=== PATIENT | male | born 1950 | race Asian ===

== ENCOUNTER → 2023-11-20 08:54 | Outpatient (REF) | payer MEDICARE, OTHER, SELFPAY ==
[2023-11-20 09:51] LABS: ALT (SGPT) 29 U/L (0-50); AST (SGOT) 47 U/L (17-59); Albumin 3.8 g/dl (3.5-5.0); Alkaline Phosphatase 79 U/L (38-126); Direct Bilirubin 0.7 mg/dl (0.0-0.4); HDL Cholesterol 52 mg/dl; LDL Cholesterol, Calculated 62 mg/dl; Total Bilirubin 1.1 mg/dl (0.2-1.3); Total Cholesterol 134 mg/dl (50-199); Total Protein 7.2 g/dl (6.3-8.2); Triglyceride 103 mg/dl (10-149); Very Low Density Lipoprotein 20 mg/dl (0-30)
== END ==
LOC: REG 08:54
PROVIDERS: ATTENDING PHYSICIAN Internal Medicine Cardiovascular Disease; FAMILY PHYSICIAN Student in an Organized Health Care Education/Training Program
DX: E78.00 Pure hypercholesterolemia, unspecified (principal)
CPT/HCPCS: 36415; 80061; 80076

== ENCOUNTER → 2023-11-24 08:06 | Outpatient (REF) | payer MEDICARE, OTHER, SELFPAY ==
[2023-11-24 08:55] LABS: % Basophils 0.7 % (0-2); % Eosinophils 3.5 % (0-6); % Immature Granulocytes 0.3 % (0-0.5); % Lymphocytes 23.4 % (20.5-51.1); % Monocytes 10.6 % (1.7-9.3); % Neutrophils 61.5 % (42.2-75.2); Absolute Basophils 0.1 10^3/uL (0-0.2); Absolute Eosinophils 0.3 10^3/uL (0-0.7); Absolute Lymphocytes 1.8 10^3/uL (1.2-3.4); Absolute Monocytes 0.8 10^3/uL (0.1-0.6); Absolute Neutrophils 4.7 10^3/uL (1.4-6.5); Hematocrit 32.3 % (39.0-52.0); Hemoglobin 10.8 g/dL (13.0-18.0); Mean Corp Hgb Conc. 33.4 g/dL (33.0-37.0); Mean Corpuscular Volume 92.8 fL (80.0-94.0); Mean Platelet Volume 11.5 fL (7.4-10.4); Nucleated Red Blood Cells % 0 % (-); Platelet Count 141 10^3/uL (130-400); Red Blood Cell Count 3.48 10^6/uL (4.70-6.10); Red Cell Dist. Width 15.9 % (11.5-14.5); White Blood Cell Count 7.6 10^3/uL (4.8-10.8)
[2023-11-24 09:48] LABS: Iron 90 ug/dl (49-181)
== END ==
LOC: REG 08:06
PROVIDERS: ATTENDING PHYSICIAN Internal Medicine Hematology & Oncology
DX: D63.1 Anemia in chronic kidney disease (principal); N18.30 Chronic kidney disease, stage 3 unspecified; D50.9 Iron deficiency anemia, unspecified
CPT/HCPCS: 36415; 82728; 83540; 85025

== ENCOUNTER → 2023-12-07 08:49 | Outpatient (REF) | payer MEDICARE, OTHER, SELFPAY ==
[2023-12-07 10:42] LABS: ALT (SGPT) 33 U/L (0-50); AST (SGOT) 41 U/L (17-59); Albumin 3.7 g/dl (3.5-5.0); Alkaline Phosphatase 82 U/L (38-126); Blood Urea Nitrogen 76 mg/dl (9-20); Calcium 8.4 mg/dl (8.4-10.2); Carbon Dioxide 22 mmol/L (22-30); Chloride 104 mmol/L (98-107); Glucose 110 mg/dl (70-99); HDL Cholesterol 45 mg/dl; LDL Cholesterol, Calculated 58 mg/dl; Potassium 4.5 mmol/L (3.5-5.1); Sodium 135 mmol/L (135-145); Total Cholesterol 120 mg/dl (50-199); Triglyceride 86 mg/dl (10-149); Very Low Density Lipoprotein 17 mg/dl (0-30); eGFR 14.87
[2023-12-07 11:20] LABS: Microalbumin, Random Urine > 57.0 mg/dl (0.6-1.7)
[2023-12-07 11:52] LABS: Glycohemoglobin (HgbA1c) 8.4 % (4.0-5.6)
== END ==
LOC: REG 08:49
PROVIDERS: ATTENDING PHYSICIAN Nurse Practitioner Family; FAMILY PHYSICIAN Student in an Organized Health Care Education/Training Program
DX: E11.9 Type 2 diabetes mellitus without complications (principal); E11.29 Type 2 diabetes mellitus with other diabetic kidney complication
CPT/HCPCS: 36415; 80053; 80061; 82043; 82570; 83036

== ENCOUNTER → 2023-12-22 08:28 | Outpatient (REF) | payer MEDICARE, OTHER, SELFPAY ==
[2023-12-22 09:14] LABS: % Basophils 0.8 % (0-2); % Eosinophils 2.5 % (0-6); % Immature Granulocytes 0.3 % (0-0.5); % Neutrophils 58.4 % (42.2-75.2); Absolute Basophils 0.1 10^3/uL (0-0.2); Absolute Eosinophils 0.2 10^3/uL (0-0.7); Absolute Monocytes 0.7 10^3/uL (0.1-0.6); Absolute Neutrophils 4.1 10^3/uL (1.4-6.5); Hematocrit 27.3 % (39.0-52.0); Hemoglobin 9.1 g/dL (13.0-18.0); Mean Corp Hgb Conc. 33.3 g/dL (33.0-37.0); Mean Corpuscular Hgb 31.3 pg (27.0-31.0); Mean Corpuscular Volume 93.8 fL (80.0-94.0); Nucleated Red Blood Cells % 0 % (-); Platelet Count 149 10^3/uL (130-400); Red Blood Cell Count 2.91 10^6/uL (4.70-6.10); White Blood Cell Count 7.1 10^3/uL (4.8-10.8)
[2023-12-22 09:57] LABS: Iron 82 ug/dl (49-181)
== END ==
LOC: REG 08:28
PROVIDERS: ATTENDING PHYSICIAN Internal Medicine Hematology & Oncology; FAMILY PHYSICIAN Student in an Organized Health Care Education/Training Program
DX: D63.1 Anemia in chronic kidney disease (principal); N18.30 Chronic kidney disease, stage 3 unspecified; D50.9 Iron deficiency anemia, unspecified
CPT/HCPCS: 36415; 82728; 83540; 85025

== ENCOUNTER → 2023-12-29 12:35 | Outpatient (REF) | payer MEDICARE, OTHER, SELFPAY | LOC: RAD 12:35 | PROVIDERS: ATTENDING PHYSICIAN Student in an Organized Health Care Education/Training Program | DX: E11.29 Type 2 diabetes mellitus with other diabetic kidney complication (principal); R09.89 Other specified symptoms and signs involving the circulatory and respiratory systems | CPT/HCPCS: 93922; 93925 ==

== ENCOUNTER → 2024-01-08 08:23 | Outpatient (REF) | payer MEDICARE, OTHER, SELFPAY ==
[2024-01-08 09:50] LABS: Albumin 3.7 g/dl (3.5-5.0); Blood Urea Nitrogen 79 mg/dl (9-20); Calcium 8.7 mg/dl (8.4-10.2); Carbon Dioxide 18 mmol/L (22-30); Chloride 107 mmol/L (98-107); Glucose 121 mg/dl (70-99); Phosphorus 5.1 mg/dl (2.5-4.5); Potassium 4.2 mmol/L (3.5-5.1); Sodium 136 mmol/L (135-145); eGFR 15.81
[2024-01-10 10:43] LABS: Intact PTH 213.6 pg/ml (13.6-85.8)
== END ==
LOC: REG 08:23
PROVIDERS: ATTENDING PHYSICIAN Specialist
DX: N18.4 Chronic kidney disease, stage 4 (severe) (principal)
CPT/HCPCS: 36415; 80069; 83970

== ENCOUNTER → 2024-01-18 10:02 | Outpatient (REF) | payer MEDICARE, OTHER, SELFPAY ==
[2024-01-18 10:40] LABS: % Basophils 0.6 % (0-2); % Eosinophils 2.6 % (0-6); % Immature Granulocytes 0.4 % (0-0.5); % Lymphocytes 18.9 % (20.5-51.1); % Neutrophils 68.5 % (42.2-75.2); Absolute Basophils 0.1 10^3/uL (0-0.2); Absolute Eosinophils 0.2 10^3/uL (0-0.7); Absolute Lymphocytes 1.8 10^3/uL (1.2-3.4); Absolute Monocytes 0.8 10^3/uL (0.1-0.6); Absolute Neutrophils 6.4 10^3/uL (1.4-6.5); Hematocrit 24.1 % (39.0-52.0); Hemoglobin 7.9 g/dL (13.0-18.0); Mean Corp Hgb Conc. 32.8 g/dL (33.0-37.0); Mean Corpuscular Hgb 32.2 pg (27.0-31.0); Mean Corpuscular Volume 98.4 fL (80.0-94.0); Nucleated Red Blood Cells % 0 % (-); Platelet Count 180 10^3/uL (130-400); Red Blood Cell Count 2.45 10^6/uL (4.70-6.10); Red Cell Dist. Width 15.2 % (11.5-14.5); White Blood Cell Count 9.3 10^3/uL (4.8-10.8)
[2024-01-18 12:02] LABS: Iron 112 ug/dl (49-181)
== END ==
LOC: REG 10:02
PROVIDERS: ATTENDING PHYSICIAN Internal Medicine Hematology & Oncology; FAMILY PHYSICIAN Student in an Organized Health Care Education/Training Program
DX: D63.1 Anemia in chronic kidney disease (principal); N18.30 Chronic kidney disease, stage 3 unspecified; D50.9 Iron deficiency anemia, unspecified
CPT/HCPCS: 36415; 82728; 83540; 85025

== ENCOUNTER 2024-01-24 09:10 | Outpatient (RCR) | payer MEDICARE, OTHER, SELFPAY ==
[2024-01-24 09:20] VITALS: BP 127/53
[2024-01-24 09:57] VITALS: BP 127/53
[2024-01-24 10:15] VITALS: BP 123/53
[2024-01-24 12:21] VITALS: BP 123/54
== END 2024-01-30 23:59 | disposition home or self-care (01) ==
LOC: OID 09:10
PROVIDERS: ATTENDING PHYSICIAN Internal Medicine Hematology & Oncology
DX: N18.4 Chronic kidney disease, stage 4 (severe) (principal); N18.30 Chronic kidney disease, stage 3 unspecified (principal); D63.1 Anemia in chronic kidney disease; D50.9 Iron deficiency anemia, unspecified
CPT/HCPCS: 36430; 86850; 86900; 86901; 86920; P9016

== ENCOUNTER → 2024-02-19 08:29 | Outpatient (REF) | payer MEDICARE, OTHER, SELFPAY ==
[2024-02-19 09:20] LABS: % Basophils 0.5 % (0-2); % Eosinophils 2.6 % (0-6); % Immature Granulocytes 0.3 % (0-0.5); % Lymphocytes 23.1 % (20.5-51.1); % Monocytes 9.8 % (1.7-9.3); % Neutrophils 63.7 % (42.2-75.2); Absolute Eosinophils 0.2 10^3/uL (0-0.7); Absolute Lymphocytes 1.8 10^3/uL (1.2-3.4); Absolute Monocytes 0.8 10^3/uL (0.1-0.6); Absolute Neutrophils 4.9 10^3/uL (1.4-6.5); Hematocrit 26.4 % (39.0-52.0); Hemoglobin 8.4 g/dL (13.0-18.0); Mean Corp Hgb Conc. 31.8 g/dL (33.0-37.0); Mean Corpuscular Hgb 31.3 pg (27.0-31.0); Mean Corpuscular Volume 98.5 fL (80.0-94.0); Mean Platelet Volume 10.6 fL (7.4-10.4); Nucleated Red Blood Cells % 0 % (-); Platelet Count 163 10^3/uL (130-400); Red Blood Cell Count 2.68 10^6/uL (4.70-6.10); Red Cell Dist. Width 14.6 % (11.5-14.5); White Blood Cell Count 7.7 10^3/uL (4.8-10.8)
[2024-02-19 09:53] LABS: Iron 71 ug/dl (49-181)
[2024-02-19 10:03] LABS: Percent Saturation 22 % (20-50); Total Iron Binding Capacity 322 ug/dl (261-462)
== END ==
LOC: REG 08:29
PROVIDERS: ATTENDING PHYSICIAN Internal Medicine Hematology & Oncology
DX: D63.1 Anemia in chronic kidney disease (principal); N18.30 Chronic kidney disease, stage 3 unspecified; D50.9 Iron deficiency anemia, unspecified
CPT/HCPCS: 36415; 82728; 83540; 83550; 85025

== ENCOUNTER → 2024-03-18 08:29 | Outpatient (REF) | payer MEDICARE, OTHER, SELFPAY ==
[2024-03-18 09:06] LABS: % Basophils 0.4 % (0-2); % Eosinophils 2.8 % (0-6); % Immature Granulocytes 0.4 % (0-0.5); % Monocytes 9.9 % (1.7-9.3); % Neutrophils 66.5 % (42.2-75.2); Absolute Eosinophils 0.2 10^3/uL (0-0.7); Absolute Lymphocytes 1.5 10^3/uL (1.2-3.4); Absolute Monocytes 0.7 10^3/uL (0.1-0.6); Absolute Neutrophils 4.9 10^3/uL (1.4-6.5); Hematocrit 28.5 % (39.0-52.0); Hemoglobin 9.1 g/dL (13.0-18.0); Mean Corp Hgb Conc. 31.9 g/dL (33.0-37.0); Mean Corpuscular Volume 100.4 fL (80.0-94.0); Mean Platelet Volume 10.5 fL (7.4-10.4); Nucleated Red Blood Cells % 0 % (-); Platelet Count 135 10^3/uL (130-400); Red Blood Cell Count 2.84 10^6/uL (4.70-6.10); Red Cell Dist. Width 15.3 % (11.5-14.5); White Blood Cell Count 7.4 10^3/uL (4.8-10.8)
[2024-03-18 09:53] LABS: Iron 62 ug/dl (49-181)
== END ==
LOC: REG 08:29
PROVIDERS: ATTENDING PHYSICIAN Internal Medicine Hematology & Oncology
DX: D63.1 Anemia in chronic kidney disease (principal); N18.30 Chronic kidney disease, stage 3 unspecified; D50.9 Iron deficiency anemia, unspecified
CPT/HCPCS: 36415; 82728; 83540; 85025

== ENCOUNTER → 2024-04-15 08:58 | Outpatient (REF) | payer MEDICARE, OTHER, SELFPAY ==
[2024-04-15 10:59] LABS: Iron 70 ug/dl (49-181)
[2024-04-15 13:17] LABS: % Basophils 0.6 % (0-2); % Eosinophils 3.4 % (0-6); % Immature Granulocytes 0.3 % (0-0.5); % Lymphocytes 25.5 % (20.5-51.1); % Monocytes 11.1 % (1.7-9.3); % Neutrophils 59.1 % (42.2-75.2); Absolute Basophils 0.1 10^3/uL (0-0.2); Absolute Eosinophils 0.3 10^3/uL (0-0.7); Absolute Monocytes 0.9 10^3/uL (0.1-0.6); Absolute Neutrophils 4.6 10^3/uL (1.4-6.5); Hematocrit 29.5 % (39.0-52.0); Hemoglobin 9.8 g/dL (13.0-18.0); Mean Corp Hgb Conc. 33.2 g/dL (33.0-37.0); Mean Corpuscular Hgb 31.5 pg (27.0-31.0); Mean Corpuscular Volume 94.9 fL (80.0-94.0); Mean Platelet Volume 10.8 fL (7.4-10.4); Nucleated Red Blood Cells % 0 % (-); Platelet Count 152 10^3/uL (130-400); Red Blood Cell Count 3.11 10^6/uL (4.70-6.10); Red Cell Dist. Width 14.6 % (11.5-14.5); White Blood Cell Count 7.9 10^3/uL (4.8-10.8)
== END ==
LOC: REG 08:58
PROVIDERS: ATTENDING PHYSICIAN Internal Medicine Hematology & Oncology; FAMILY PHYSICIAN Student in an Organized Health Care Education/Training Program
DX: D63.1 Anemia in chronic kidney disease (principal); N18.30 Chronic kidney disease, stage 3 unspecified; D50.9 Iron deficiency anemia, unspecified
CPT/HCPCS: 36415; 82728; 83540; 85025

== ENCOUNTER → 2024-05-13 10:31 | Outpatient (REF) | payer MEDICARE, OTHER, SELFPAY ==
[2024-05-13 13:08] LABS: % Basophils 0.4 % (0-2); % Eosinophils 2.3 % (0-6); % Immature Granulocytes 0.5 % (0-0.5); % Lymphocytes 23.3 % (20.5-51.1); % Monocytes 10.8 % (1.7-9.3); % Neutrophils 62.7 % (42.2-75.2); Absolute Eosinophils 0.2 10^3/uL (0-0.7); Absolute Lymphocytes 1.9 10^3/uL (1.2-3.4); Absolute Monocytes 0.9 10^3/uL (0.1-0.6); Hematocrit 25.6 % (39.0-52.0); Hemoglobin 8.6 g/dL (13.0-18.0); Mean Corp Hgb Conc. 33.6 g/dL (33.0-37.0); Mean Corpuscular Volume 92.4 fL (80.0-94.0); Mean Platelet Volume 11.6 fL (7.4-10.4); Nucleated Red Blood Cells % 0 % (-); Platelet Count 161 10^3/uL (130-400); Red Blood Cell Count 2.77 10^6/uL (4.70-6.10); Red Cell Dist. Width 14.4 % (11.5-14.5)
[2024-05-13 13:31] LABS: Iron 60 ug/dl (49-181)
[2024-05-13 13:41] LABS: Percent Saturation 19 % (20-50); Total Iron Binding Capacity 304 ug/dl (261-462)
== END ==
LOC: REG 10:31
PROVIDERS: ATTENDING PHYSICIAN Nurse Practitioner Adult Health; FAMILY PHYSICIAN Family Medicine
DX: D63.1 Anemia in chronic kidney disease (principal); N18.30 Chronic kidney disease, stage 3 unspecified; D50.9 Iron deficiency anemia, unspecified; R53.83 Other fatigue; E11.9 Type 2 diabetes mellitus without complications
CPT/HCPCS: 36415; 82728; 83540; 83550; 85025

== ENCOUNTER → 2024-05-20 15:58 | Outpatient (REF) | payer MEDICARE, OTHER, SELFPAY ==
[2024-05-20 12:02] LABS: % Basophils 0.5 % (0-2); % Eosinophils 2.8 % (0-6); % Immature Granulocytes 0.3 % (0-0.5); % Lymphocytes 22.2 % (20.5-51.1); % Monocytes 11.5 % (1.7-9.3); % Neutrophils 62.7 % (42.2-75.2); Absolute Eosinophils 0.2 10^3/uL (0-0.7); Absolute Lymphocytes 1.7 10^3/uL (1.2-3.4); Absolute Monocytes 0.9 10^3/uL (0.1-0.6); Absolute Neutrophils 4.9 10^3/uL (1.4-6.5); Hemoglobin 8.7 g/dL (13.0-18.0); Mean Corp Hgb Conc. 33.5 g/dL (33.0-37.0); Mean Corpuscular Hgb 31.3 pg (27.0-31.0); Mean Corpuscular Volume 93.5 fL (80.0-94.0); Mean Platelet Volume 10.6 fL (7.4-10.4); Nucleated Red Blood Cells % 0 % (-); Platelet Count 167 10^3/uL (130-400); Red Blood Cell Count 2.78 10^6/uL (4.70-6.10); Red Cell Dist. Width 14.9 % (11.5-14.5); White Blood Cell Count 7.8 10^3/uL (4.8-10.8)
[2024-05-20 12:45] LABS: Vitamin D, 25-OH*** 37.1 ng/mL (30-80)
== END ==
LOC: OIDL 15:58
PROVIDERS: ATTENDING PHYSICIAN Registered Nurse
DX: D63.1 Anemia in chronic kidney disease (principal); N18.30 Chronic kidney disease, stage 3 unspecified
CPT/HCPCS: 82306; 85025

== ENCOUNTER → 2024-05-27 13:18 | Outpatient (REF) | payer MEDICARE, OTHER, SELFPAY ==
[2024-05-27 12:44] LABS: Phosphorus 4.3 mg/dl (2.5-4.5)
[2024-05-27 12:49] LABS: % Basophils 0.5 % (0-2); % Eosinophils 2.5 % (0-6); % Immature Granulocytes 0.4 % (0-0.5); % Lymphocytes 23.7 % (20.5-51.1); % Monocytes 9.9 % (1.7-9.3); Absolute Eosinophils 0.2 10^3/uL (0-0.7); Absolute Monocytes 0.8 10^3/uL (0.1-0.6); Absolute Neutrophils 5.2 10^3/uL (1.4-6.5); Hematocrit 28.5 % (39.0-52.0); Hemoglobin 9.3 g/dL (13.0-18.0); Mean Corp Hgb Conc. 32.6 g/dL (33.0-37.0); Mean Corpuscular Hgb 31.3 pg (27.0-31.0); Mean Platelet Volume 10.7 fL (7.4-10.4); Nucleated Red Blood Cells % 0 % (-); Platelet Count 159 10^3/uL (130-400); Red Blood Cell Count 2.97 10^6/uL (4.70-6.10); Red Cell Dist. Width 15.7 % (11.5-14.5); White Blood Cell Count 8.3 10^3/uL (4.8-10.8)
== END ==
LOC: OIDL 13:18
PROVIDERS: ATTENDING PHYSICIAN Registered Nurse
DX: D63.1 Anemia in chronic kidney disease (principal)
CPT/HCPCS: 84100; 85025

== ENCOUNTER → 2024-06-10 08:58 | Outpatient (REF) | payer MEDICARE, OTHER, SELFPAY ==
[2024-06-10 09:51] LABS: % Basophils 0.7 % (0-2); % Eosinophils 3.1 % (0-6); % Immature Granulocytes 0.3 % (0-0.5); % Lymphocytes 21.6 % (20.5-51.1); % Monocytes 10.5 % (1.7-9.3); % Neutrophils 63.8 % (42.2-75.2); Absolute Basophils 0.1 10^3/uL (0-0.2); Absolute Eosinophils 0.2 10^3/uL (0-0.7); Absolute Lymphocytes 1.5 10^3/uL (1.2-3.4); Absolute Monocytes 0.8 10^3/uL (0.1-0.6); Absolute Neutrophils 4.6 10^3/uL (1.4-6.5); Hematocrit 32.7 % (39.0-52.0); Hemoglobin 10.6 g/dL (13.0-18.0); Mean Corp Hgb Conc. 32.4 g/dL (33.0-37.0); Mean Corpuscular Hgb 31.4 pg (27.0-31.0); Mean Corpuscular Volume 96.7 fL (80.0-94.0); Mean Platelet Volume 10.9 fL (7.4-10.4); Nucleated Red Blood Cells % 0 % (-); Platelet Count 142 10^3/uL (130-400); Red Blood Cell Count 3.38 10^6/uL (4.70-6.10); Red Cell Dist. Width 15.8 % (11.5-14.5); White Blood Cell Count 7.1 10^3/uL (4.8-10.8)
[2024-06-10 10:21] LABS: Iron 97 ug/dl (49-181)
[2024-06-10 10:31] LABS: Percent Saturation 33 % (20-50); Total Iron Binding Capacity 287 ug/dl (261-462)
== END ==
LOC: REG 08:58
PROVIDERS: ATTENDING PHYSICIAN Nurse Practitioner Adult Health
DX: D63.1 Anemia in chronic kidney disease (principal); N18.30 Chronic kidney disease, stage 3 unspecified; D50.9 Iron deficiency anemia, unspecified; R53.83 Other fatigue
CPT/HCPCS: 36415; 82728; 83540; 83550; 85025

== ENCOUNTER → 2024-07-08 09:13 | Outpatient (REF) | payer MEDICARE, OTHER, SELFPAY ==
[2024-07-08 10:06] LABS: % Basophils 0.8 % (0-2); % Eosinophils 3.7 % (0-6); % Immature Granulocytes 0.3 % (0-0.5); % Lymphocytes 27.1 % (20.5-51.1); % Monocytes 11.2 % (1.7-9.3); % Neutrophils 56.9 % (42.2-75.2); Absolute Basophils 0.1 10^3/uL (0-0.2); Absolute Eosinophils 0.3 10^3/uL (0-0.7); Absolute Monocytes 0.8 10^3/uL (0.1-0.6); Absolute Neutrophils 4.3 10^3/uL (1.4-6.5); Hematocrit 36.2 % (39.0-52.0); Hemoglobin 12.2 g/dL (13.0-18.0); Mean Corp Hgb Conc. 33.7 g/dL (33.0-37.0); Mean Corpuscular Hgb 32.7 pg (27.0-31.0); Mean Corpuscular Volume 97.1 fL (80.0-94.0); Mean Platelet Volume 11.4 fL (7.4-10.4); Nucleated Red Blood Cells % 0 % (-); Platelet Count 126 10^3/uL (130-400); Red Blood Cell Count 3.73 10^6/uL (4.70-6.10); Red Cell Dist. Width 14.3 % (11.5-14.5); White Blood Cell Count 7.5 10^3/uL (4.8-10.8)
[2024-07-08 10:53] LABS: Iron 99 ug/dl (49-181)
[2024-07-08 11:02] LABS: Percent Saturation 39 % (20-50); Total Iron Binding Capacity 248 ug/dl (261-462)
== END ==
LOC: REG 09:13
PROVIDERS: ATTENDING PHYSICIAN Nurse Practitioner Adult Health; FAMILY PHYSICIAN Family Medicine
DX: D63.1 Anemia in chronic kidney disease (principal); N18.30 Chronic kidney disease, stage 3 unspecified; D50.9 Iron deficiency anemia, unspecified; R53.83 Other fatigue
CPT/HCPCS: 36415; 82728; 83540; 83550; 85025

== ENCOUNTER → 2024-07-15 07:49 | Outpatient (REF) | payer MEDICARE, OTHER, SELFPAY ==
[2024-07-15 09:48] LABS: ALT (SGPT) 22 U/L (0-50); AST (SGOT) 24 U/L (17-59); Albumin 4.1 g/dl (3.5-5.0); Alkaline Phosphatase 63 U/L (38-126); Blood Urea Nitrogen 65 mg/dl (9-20); Calcium 8.9 mg/dl (8.4-10.2); Carbon Dioxide 21 mmol/L (22-30); Chloride 106 mmol/L (98-107); Glucose 97 mg/dl (70-99); HDL Cholesterol 53 mg/dl; LDL Cholesterol, Calculated 63 mg/dl; Potassium 4.4 mmol/L (3.5-5.1); Sodium 145 mmol/L (135-145); Total Bilirubin 0.5 mg/dl (0.2-1.3); Total Cholesterol 129 mg/dl (50-199); Total Protein 7.3 g/dl (6.3-8.2); Triglyceride 69 mg/dl (10-149); Very Low Density Lipoprotein 13 mg/dl (0-30); eGFR 11.58
[2024-07-15 11:02] LABS: Glycohemoglobin (HgbA1c) 7.1 % (4.0-5.6)
== END ==
LOC: REG 07:49
PROVIDERS: ATTENDING PHYSICIAN Internal Medicine Endocrinology, Diabetes & Metabolism; FAMILY PHYSICIAN Family Medicine
DX: E11.9 Type 2 diabetes mellitus without complications (principal)
CPT/HCPCS: 36415; 80053; 80061; 83036

== ENCOUNTER → 2024-08-05 09:38 | Outpatient (REF) | payer MEDICARE, OTHER, SELFPAY ==
[2024-08-05 10:59] LABS: % Basophils 0.6 % (0-2); % Eosinophils 2.8 % (0-6); % Immature Granulocytes 0.1 % (0-0.5); % Lymphocytes 22.7 % (20.5-51.1); % Monocytes 10.4 % (1.7-9.3); % Neutrophils 63.4 % (42.2-75.2); Absolute Basophils 0.1 10^3/uL (0-0.2); Absolute Eosinophils 0.2 10^3/uL (0-0.7); Absolute Lymphocytes 1.8 10^3/uL (1.2-3.4); Absolute Monocytes 0.8 10^3/uL (0.1-0.6); Absolute Neutrophils 5.1 10^3/uL (1.4-6.5); Hematocrit 34.9 % (39.0-52.0); Hemoglobin 11.8 g/dL (13.0-18.0); Mean Corp Hgb Conc. 33.8 g/dL (33.0-37.0); Mean Corpuscular Hgb 31.3 pg (27.0-31.0); Mean Corpuscular Volume 92.6 fL (80.0-94.0); Mean Platelet Volume 11.1 fL (7.4-10.4); Nucleated Red Blood Cells % 0 % (-); Platelet Count 153 10^3/uL (130-400); Red Blood Cell Count 3.77 10^6/uL (4.70-6.10); Red Cell Dist. Width 13.9 % (11.5-14.5)
[2024-08-05 11:40] LABS: Iron 87 ug/dl (49-181)
[2024-08-05 11:52] LABS: Percent Saturation 34 % (20-50); Total Iron Binding Capacity 255 ug/dl (261-462)
== END ==
LOC: REG 09:38
PROVIDERS: ATTENDING PHYSICIAN Nurse Practitioner Adult Health; FAMILY PHYSICIAN Family Medicine
DX: D63.1 Anemia in chronic kidney disease (principal); N18.30 Chronic kidney disease, stage 3 unspecified; D50.9 Iron deficiency anemia, unspecified; R53.83 Other fatigue
CPT/HCPCS: 36415; 82728; 83540; 83550; 85025

== ENCOUNTER → 2024-08-19 08:27 | Outpatient (REF) | payer MEDICARE, OTHER, SELFPAY ==
[2024-08-19 09:57] LABS: Albumin 3.8 g/dl (3.5-5.0); Blood Urea Nitrogen 72 mg/dl (9-20); Calcium 8.6 mg/dl (8.4-10.2); Carbon Dioxide 22 mmol/L (22-30); Chloride 105 mmol/L (98-107); Glucose 105 mg/dl (70-99); Phosphorus 4.6 mg/dl (2.5-4.5); Potassium 4.4 mmol/L (3.5-5.1); Sodium 140 mmol/L (135-145); eGFR 12.18
[2024-08-20 10:16] LABS: Intact PTH 224.7 pg/ml (13.6-85.8)
== END ==
LOC: REG 08:27
PROVIDERS: ATTENDING PHYSICIAN Specialist; FAMILY PHYSICIAN Family Medicine
DX: N18.4 Chronic kidney disease, stage 4 (severe) (principal)
CPT/HCPCS: 36415; 80069; 83970

== ENCOUNTER → 2024-09-02 08:29 | Outpatient (REF) | payer MEDICARE, OTHER, SELFPAY ==
[2024-09-02 09:42] LABS: % Basophils 0.6 % (0-2); % Eosinophils 2.7 % (0-6); % Immature Granulocytes 0.4 % (0-0.5); % Lymphocytes 22.7 % (20.5-51.1); % Monocytes 13.2 % (1.7-9.3); % Neutrophils 60.4 % (42.2-75.2); Absolute Basophils 0.1 10^3/uL (0-0.2); Absolute Eosinophils 0.2 10^3/uL (0-0.7); Absolute Lymphocytes 1.9 10^3/uL (1.2-3.4); Absolute Monocytes 1.1 10^3/uL (0.1-0.6); Absolute Neutrophils 5.1 10^3/uL (1.4-6.5); Hematocrit 35.8 % (39.0-52.0); Hemoglobin 11.4 g/dL (13.0-18.0); Mean Corp Hgb Conc. 31.8 g/dL (33.0-37.0); Mean Corpuscular Hgb 31.2 pg (27.0-31.0); Mean Corpuscular Volume 98.1 fL (80.0-94.0); Mean Platelet Volume 11.1 fL (7.4-10.4); Nucleated Red Blood Cells % 0 % (-); Platelet Count 148 10^3/uL (130-400); Red Blood Cell Count 3.65 10^6/uL (4.70-6.10); Red Cell Dist. Width 13.7 % (11.5-14.5); White Blood Cell Count 8.4 10^3/uL (4.8-10.8)
== END ==
LOC: REG 08:29
PROVIDERS: ATTENDING PHYSICIAN Internal Medicine Hematology & Oncology
DX: D63.1 Anemia in chronic kidney disease (principal); N18.30 Chronic kidney disease, stage 3 unspecified; D50.9 Iron deficiency anemia, unspecified; R53.83 Other fatigue
CPT/HCPCS: 36415; 85025

== ENCOUNTER → 2024-09-30 08:41 | Outpatient (REF) | payer MEDICARE, OTHER, SELFPAY ==
[2024-09-30 09:18] LABS: % Basophils 0.6 % (0-2); % Eosinophils 3.2 % (0-6); % Immature Granulocytes 0.5 % (0-0.5); % Lymphocytes 20.2 % (20.5-51.1); % Monocytes 10.5 % (1.7-9.3); Absolute Basophils 0.1 10^3/uL (0-0.2); Absolute Eosinophils 0.3 10^3/uL (0-0.7); Absolute Lymphocytes 1.7 10^3/uL (1.2-3.4); Absolute Monocytes 0.9 10^3/uL (0.1-0.6); Absolute Neutrophils 5.5 10^3/uL (1.4-6.5); Hematocrit 30.6 % (39.0-52.0); Hemoglobin 10.1 g/dL (13.0-18.0); Mean Corpuscular Hgb 31.5 pg (27.0-31.0); Mean Corpuscular Volume 95.3 fL (80.0-94.0); Mean Platelet Volume 10.7 fL (7.4-10.4); Nucleated Red Blood Cells % 0 % (-); Platelet Count 165 10^3/uL (130-400); Red Blood Cell Count 3.21 10^6/uL (4.70-6.10); Red Cell Dist. Width 13.7 % (11.5-14.5); White Blood Cell Count 8.4 10^3/uL (4.8-10.8)
== END ==
LOC: REG 08:41
PROVIDERS: ATTENDING PHYSICIAN Internal Medicine Hematology & Oncology
DX: D63.1 Anemia in chronic kidney disease (principal); N18.30 Chronic kidney disease, stage 3 unspecified; D50.9 Iron deficiency anemia, unspecified; R53.83 Other fatigue
CPT/HCPCS: 36415; 85025

== ENCOUNTER 2024-10-04 21:06 | Inpatient (IN) | payer MEDICARE, OTHER, SELFPAY ==
[2024-10-04] VITALS (50 sets, daily range): BP systolic 112–165; BP diastolic 64–92; PULSE 115; BMI 28.7
--- NOTE | 2024-10-04 18:03 | ED.GENMED ---
ED Provider Triage
<Vivek Rosado PA-C - Last Filed: 10/04/24 18:06>
-
Patient seen by provider in Triage?: Seen in Triage
74 yo male presents due to SOB beginning last night. No fever. Reported hx of anemia per spouse. + leg swelling, chronic.
SpO2 75% on RA in triage. Lungs tight with diffuse wheezes/rales. Improved on 6L NC.
Obtain cardiac workup and covid/flu
History of Present Illness
<Vivek Rosado PA-C - Last Filed: 10/04/24 18:06>
General
Chief Complaint: Breathing Problem
Time Seen by Provider: 10/04/24 18:15
<Aditya Thomas MD - Last Filed: 10/05/24 10:32>
General
Source: patient and family
Exam Limitations: none
Nursing documentation reviewed up to this point in time: agreed with
History of Present Illness
History of Present Illness:
Patient with history of paroxysmal atrial fibrillation on Eliquis and congestive heart failure on Lasix 40 mg twice daily, presents to ED secondary to intermittent chest pain along with shortness of breath over the past 2 days. Denies weight gain.
Denies increased leg swelling. Denies recent change in medications or diet. Denies recent travel. Denies recent surgery. Denies back pain. Denies headache. Denies dizziness. Patient does not use oxygen at home.
Past History
<Vivek Rosado PA-C - Last Filed: 10/04/24 18:06>
Past History
ED Past Medical History: Arrthythmia (Atrial fibrillation), CVA, HTN, Hypercholesterolemia, IDDM and Other (diabetes, gout)
ED Past Surgical History: Orthopedic
Patient has exhibited threatening behavior?: No
PSI?: No
Social History
Tobacco: Non-smoker
Alcohol: None
Drug: None
Personal:
Living: with family
Employment: Retired
Family History
Family History: Other (Noncontributory)
Review of Systems
<Aditya Thomas MD - Last Filed: 10/05/24 10:32>
Review of Systems
Allergies reviewed?: Yes
All Other Systems: ROS reviewed and negative except as documented in HPI and ROS
Constitutional: Reports no symptoms
EENT: Reports no symptoms
Respiratory: Reports trouble breathing; Denies cough
Cardiac: Reports chest pain; Denies palpitations
ABD/GI: Reports no symptoms
Musculoskeletal: Reports edema
Skin: Reports no symptoms
Neurological: Reports no symptoms
Phy Exam
<Aditya Thomas MD - Last Filed: 10/05/24 10:32>
Physical Exam
Physical Exam:
Physical Exam
General: moderate respiratory distress, not acutely ill. afebrile
Head: nc/at. eomi
Neck: supple. normal range of motion.
Heart: s1/s2 regular rate and rhythm, no murmur. equal radial pulses.
Lungs: moderate respiratory distress. crackles bilaterally with poor inspiratory effort
Abdomen: normal bowel sounds. not tender.
Neuro: alert and oriented x 3. no focal neurological deficits
Skin: no rash
Psychiatric: well kept. interactive and cooperative
Extremities: b/l LE pitting edema. no calf tenderness.
Scores
<Aditya Thomas MD - Last Filed: 10/05/24 10:32>
Heart Failure Risk
Heart Failure Risk Score: Yes
History of Stroke or TIA: No
History of intubation for respiratory distress: No
Heart rate on ED arrival >/= 110: Yes
SaO2 <90% on arrival on room air: Yes
HR >/=110 during 3min walk test (or too ill to perform test): Yes
ECG has acute ischemic changes: No
Urea >/=12mmol/L (BUN 33.6mg/dL): Yes
Serum CO2>/=35mmol/L: No
Troponin I or T elevated to OR Level (0.4mg/dL): Yes
NT-proBNP >/=5,000ng/L (5,000pg/ml): Yes
HF Risk Score: 7
Admission Status: VERY HIGH RISK 69.8% Consider admission to hospital
Course
<Vivek Rosado PA-C - Last Filed: 10/04/24 18:06>
Orders/Labs/Results
Orders:
Orders
10/04/24 18:05
Electrocardiogram (*1) Urgent
Reason for Study: Shortness of Breath
CR Chest Portable - 1 View Urgent
Comment:
Reason For Exam: hypoxia
Reason Study Needs to be Portable: Other
10/04/24 18:43
COVID-19 Antigen Urgent
Source: Nasal Swab
Complete Blood Count/With Diff Urgent
Comprehensive Metabolic Panel Urgent
Ferritin Urgent
Comment: ADD ON
Folate Urgent
Comment: ADD ON
Iron Urgent
Comment: ADD ON
NT-proBNP Urgent
Total Iron Binding Urgent
Comment: ADD ON
Troponin I Urgent
Vitamin B12 Urgent
Comment: ADD ON
Influenza A+B Rapid Molecular Urgent
GILBERT Source: Nasal Swab
Specimen Description:
10/04/24 18:56
Furosemide [Lasix] 40 mg IV NOW STA
10/04/24 19:00
Nitroglycerin 100 mg/250 ml [Nitroglycerin Premix] 100 mg in 250 ml IV PER PROTOCOL
Initial dose in mcg/min, then titrate:: 25
Titrate to keep:: SBP < 160 mmHg
Titrate by mcg/min:: 5 mcg/min, may increase by 10 mcg/min if dose > 20 mcg/min
Frequency of titrations (minutes):: every 3-5 minutes
Maximum dose in mcg/min:: 200
Begin to taper infusion when:: Remained at goal for 2hrs
Taper by mcg/min:: 5 mcg/min
Frequency of taper (minutes) if patient maintains goal:: 30
Taper to off?: Yes
If infusion off & no longer maintaining goal:: Contact Provider
Additional Taper Instructions:: Taper off if SBP < 140
10/04/24 19:13
Ipratropium/Albuterol Sulfate [Duoneb] 3 ml INH R NOW STA
10/04/24 19:41
Metoprolol [Lopressor] 5 mg IV NOW STA
10/04/24 19:42
Bumetanide [Bumex] 4 mg IV NOW STA
10/04/24 19:54
Admit/Transfer Patient As Directed
Co-Sign Provider:
Level of Care: Inpatient admission
Assign to:: ICU
Physician / Group: Bailee
Diagnosis: Hypoxia, CHF, CKD 5
Reason for Hospitalization: Diuretics, BiPAP
Expected length of stay greater than two midnights?: Yes
ELOS- Estimated Length of Stay in days: 5
I certify the patient meets the requirements for IP care: Yes
10/04/24 19:55
PRN Pain Medication Management As Directed
May give lesser potent ordered pain med per pt: Yes
preference::
Protocol:: Medication orders for pain may be administered in a
manner that supports deferring to patient preference
when the pt is:
- Requesting an ordered lesser potent pain medication.
Least to most potent pain medications are defined
as: acetaminophen < NSAID < tramadol < opioids
(morphine, oxycodone, hydromorphone).
- Requesting a lesser dose of the same medication IF
ORDERED.
- Requesting a less intrusive route of administration
if both routes are prescribed by the provider (PO <
IV).
10/04/24 19:56
Add On- LAB Routine
Tests Added?: iron, ferritin, tibc, folate, vit b12
10/04/24 19:58
Code Status As Directed
Resuscitation Status: Full Code
10/04/24 23:34
Apixaban [Eliquis] 5 mg PO BID
Dextrose 50%-Water [Dextrose 50% Syringe] 12.5 grams IV [id number] PRN
Diltiazem Extended Release [Cardizem Cd] 180 mg PO BID
Glucagon [GlucaGen] 1 mg IM PRN PRN
10/04/24 23:34
Echo 2D MMode Color/Doppler Routine
Reason for Study: heart failure
CARDIOLOGY CONSULT Routine
Consulting Provider: Concetta Barron
Was physician already notified: Yes
HF DIETARY CONSULT Routine
HF EDUCATOR CONSULT Routine
Comment:
[employer] Consult Routine
Consulting Provider: Benji Mendoza
Was physician already notified: Yes
NEPHROLOGY CONSULT Routine
Consulting Provider: Shayla Herrera
Was physician already notified: Yes
Activity As Directed
Activity Level: Out of Bed- Chair
As Tolerated
Bedside Glucose Monitoring As Directed
Frequency: AC&HS
Additional Instructions:: Change to q6h if pt on TPN, tube feeding or not eating
Hemetest Stools As Directed
Intake/ Output As Directed
Frequency: Per unit guidelines
Patient Education As Directed
Type: CHF folder
Comment: give on admission. Document in Interdisciplinary Education record
Sleep Apnea Assessment by RN As Directed
Comment:
Physician Instructions:
Vital Signs As Directed
Frequency: Other
Additional Instructions:: Q12 or per unit guidelines if more frequent.
Weight As Directed
Frequency: Daily
Type of Scale: Standing Scale
Comment: Daily morning weight. If unable to stand, use balanced bed scale.
Weight As Directed
Frequency: Once
Type of Scale: Standing Scale
Comment: Upon Admission. If unable to stand, use balanced bed scale.
Bipap [RESP] Routine
Patient to use own unit?: No
Inspiratory Pressure (cm H2O): 15
Expiratory Pressure (cm H2O): 8
Oxygen Liter Flow: 6
Oxygen Therapy [O2 Therapy] [RESP] Routine
Titrate/Wean O2 to maintain O2 sat greater than (%): 92
Pulse Ox/cont/shift [RESP] Routine
Quantity: 1
Special Instructions: Daily pulse oximetry at rest. If greater than 92% at rest also obtain pulse oximetry
while ambulating as tolerated.
10/04/24 23:41
Troponin I Q6H
10/05/24 03:31
Cardiovascular Evaluation IN AM
Complete Blood Count/No Diff IN AM
Glycohemoglobin (HgbA1c) IN AM
Magnesium IN AM
Phosphorus IN AM
TSH Reflex To Free T4 IN AM
Troponin I Q6H
10/05/24 Breakfast
NPO
Allow oral meds: Yes
Allow clear liquids: Sips of Clears
NPO with Ice Chips: Yes
10/05/24 07:30
Insulin Aspart Corrective Mod [Novolog Flexpen-Moderate Resistance] See Protocol SC AC
10/05/24 08:00
Bumetanide [Bumex] 2 mg IV BID AT 0800,1600
10/06/24 06:00
Basic Metabolic Panel IN AM
10/07/24 06:00
Basic Metabolic Panel IN AM
Abnormal Lab Results
10/04/24
18:43
WBC 12.0 H 10^3/uL
(4.8-10.8)
RBC 2.67 L 10^6/uL
(4.70-6.10)
Hgb 8.4 L g/dL
(13.0-18.0)
Hct 26.1 L %
(39.0-52.0)
MCV 97.8 H fL
(80.0-94.0)
MCH 31.5 H pg
(27.0-31.0)
MCHC 32.2 L g/dL
(33.0-37.0)
MPV 10.7 H fL
(7.4-10.4)
Abs Immat Gran (auto) 0.1 H 10^3/uL
(0-0.05)
Absolute Neuts (auto) 9.5 H 10^3/uL
(1.4-6.5)
Absolute Monos (auto) 0.9 H 10^3/uL
(0.1-0.6)
Neutrophils % 79.4 H %
(42.2-75.2)
Lymphocytes % 11.7 L %
(20.5-51.1)
BUN 71 H mg/dl
(9-20)
Creatinine 5.1 H* mg/dL
(0.7-1.3)
Glucose 193 H mg/dl
(70-99)
TIBC 257 L ug/dl
(261-462)
Ferritin 706.0 H ng/ml
(17.9-464.0)
Total Bilirubin 1.6 H mg/dl
(0.2-1.3)
Troponin I 0.284 H* ng/ml
10/04/24 18:43
10/04/24 18:43
Vital Signs
Initial and Last Documented VS:
Initial Vital Signs
Temp Pulse Resp BP Pulse Ox
97.3 F 114 22 135/67 75
10/04/24 18:03 10/04/24 18:03 10/04/24 18:03 10/04/24 18:03 10/04/24 18:03
Last Documented Vital Signs
Temp Pulse Resp BP Pulse Ox
98.5 F 103 18 128/82 96
10/05/24 08:30 10/05/24 05:00 10/05/24 05:00 10/05/24 05:00 10/05/24 08:02
<Aditya Thomas MD - Last Filed: 10/05/24 10:32>
Orders/Labs/Results
Orders:
Orders
10/04/24 18:05
Electrocardiogram (*1) Urgent
Reason for Study: Shortness of Breath
CR Chest Portable - 1 View Urgent
Comment:
Reason For Exam: hypoxia
Reason Study Needs to be Portable: Other
10/04/24 18:43
COVID-19 Antigen Urgent
Source: Nasal Swab
Complete Blood Count/With Diff Urgent
Comprehensive Metabolic Panel Urgent
Ferritin Urgent
Comment: ADD ON
Folate Urgent
Comment: ADD ON
Iron Urgent
Comment: ADD ON
NT-proBNP Urgent
Total Iron Binding Urgent
Comment: ADD ON
Troponin I Urgent
Vitamin B12 Urgent
Comment: ADD ON
Influenza A+B Rapid Molecular Urgent
GILBERT Source: Nasal Swab
Specimen Description:
10/04/24 18:56
Furosemide [Lasix] 40 mg IV NOW STA
10/04/24 19:00
Nitroglycerin 100 mg/250 ml [Nitroglycerin Premix] 100 mg in 250 ml IV PER PROTOCOL
Initial dose in mcg/min, then titrate:: 25
Titrate to keep:: SBP < 160 mmHg
Titrate by mcg/min:: 5 mcg/min, may increase by 10 mcg/min if dose > 20 mcg/min
Frequency of titrations (minutes):: every 3-5 minutes
Maximum dose in mcg/min:: 200
Begin to taper infusion when:: Remained at goal for 2hrs
Taper by mcg/min:: 5 mcg/min
Frequency of taper (minutes) if patient maintains goal:: 30
Taper to off?: Yes
If infusion off & no longer maintaining goal:: Contact Provider
Additional Taper Instructions:: Taper off if SBP < 140
10/04/24 19:13
Ipratropium/Albuterol Sulfate [Duoneb] 3 ml INH R NOW STA
10/04/24 19:41
Metoprolol [Lopressor] 5 mg IV NOW STA
10/04/24 19:42
Bumetanide [Bumex] 4 mg IV NOW STA
10/04/24 19:54
Admit/Transfer Patient As Directed
Co-Sign Provider:
Level of Care: Inpatient admission
Assign to:: ICU
Physician / Group: Bailee
Diagnosis: Hypoxia, CHF, CKD 5
Reason for Hospitalization: Diuretics, BiPAP
Expected length of stay greater than two midnights?: Yes
ELOS- Estimated Length of Stay in days: 5
I certify the patient meets the requirements for IP care: Yes
10/04/24 19:55
PRN Pain Medication Management As Directed
May give lesser potent ordered pain med per pt: Yes
preference::
Protocol:: Medication orders for pain may be administered in a
manner that supports deferring to patient preference
when the pt is:
- Requesting an ordered lesser potent pain medication.
Least to most potent pain medications are defined
as: acetaminophen < NSAID < tramadol < opioids
(morphine, oxycodone, hydromorphone).
- Requesting a lesser dose of the same medication IF
ORDERED.
- Requesting a less intrusive route of administration
if both routes are prescribed by the provider (PO <
IV).
10/04/24 19:56
Add On- LAB Routine
Tests Added?: iron, ferritin, tibc, folate, vit b12
10/04/24 19:58
Code Status As Directed
Resuscitation Status: Full Code
10/04/24 23:34
Apixaban [Eliquis] 5 mg PO BID
Dextrose 50%-Water [Dextrose 50% Syringe] 12.5 grams IV [id number] PRN
Diltiazem Extended Release [Cardizem Cd] 180 mg PO BID
Glucagon [GlucaGen] 1 mg IM PRN PRN
10/04/24 23:34
Echo 2D MMode Color/Doppler Routine
Reason for Study: heart failure
CARDIOLOGY CONSULT Routine
Consulting Provider: Concetta Barron
Was physician already notified: Yes
HF DIETARY CONSULT Routine
HF EDUCATOR CONSULT Routine
Comment:
[employer] Consult Routine
Consulting Provider: Benji Mendoza
Was physician already notified: Yes
NEPHROLOGY CONSULT Routine
Consulting Provider: Shayla Herrera
Was physician already notified: Yes
Activity As Directed
Activity Level: Out of Bed- Chair
As Tolerated
Bedside Glucose Monitoring As Directed
Frequency: AC&HS
Additional Instructions:: Change to q6h if pt on TPN, tube feeding or not eating
Hemetest Stools As Directed
Intake/ Output As Directed
Frequency: Per unit guidelines
Patient Education As Directed
Type: CHF folder
Comment: give on admission. Document in Interdisciplinary Education record
Sleep Apnea Assessment by RN As Directed
Comment:
Physician Instructions:
Vital Signs As Directed
Frequency: Other
Additional Instructions:: Q12 or per unit guidelines if more frequent.
Weight As Directed
Frequency: Daily
Type of Scale: Standing Scale
Comment: Daily morning weight. If unable to stand, use balanced bed scale.
Weight As Directed
Frequency: Once
Type of Scale: Standing Scale
Comment: Upon Admission. If unable to stand, use balanced bed scale.
Bipap [RESP] Routine
Patient to use own unit?: No
Inspiratory Pressure (cm H2O): 15
Expiratory Pressure (cm H2O): 8
Oxygen Liter Flow: 6
Oxygen Therapy [O2 Therapy] [RESP] Routine
Titrate/Wean O2 to maintain O2 sat greater than (%): 92
Pulse Ox/cont/shift [RESP] Routine
Quantity: 1
Special Instructions: Daily pulse oximetry at rest. If greater than 92% at rest also obtain pulse oximetry
while ambulating as tolerated.
10/04/24 23:41
Troponin I Q6H
10/05/24 03:31
Cardiovascular Evaluation IN AM
Complete Blood Count/No Diff IN AM
Glycohemoglobin (HgbA1c) IN AM
Magnesium IN AM
Phosphorus IN AM
TSH Reflex To Free T4 IN AM
Troponin I Q6H
10/05/24 Breakfast
NPO
Allow oral meds: Yes
Allow clear liquids: Sips of Clears
NPO with Ice Chips: Yes
10/05/24 07:30
Insulin Aspart Corrective Mod [Novolog Flexpen-Moderate Resistance] See Protocol SC AC
10/05/24 08:00
Bumetanide [Bumex] 2 mg IV BID AT 0800,1600
10/06/24 06:00
Basic Metabolic Panel IN AM
10/07/24 06:00
Basic Metabolic Panel IN AM
Abnormal Lab Results
10/04/24
18:43
WBC 12.0 H 10^3/uL
(4.8-10.8)
RBC 2.67 L 10^6/uL
(4.70-6.10)
Hgb 8.4 L g/dL
(13.0-18.0)
Hct 26.1 L %
(39.0-52.0)
MCV 97.8 H fL
(80.0-94.0)
MCH 31.5 H pg
(27.0-31.0)
MCHC 32.2 L g/dL
(33.0-37.0)
MPV 10.7 H fL
(7.4-10.4)
Abs Immat Gran (auto) 0.1 H 10^3/uL
(0-0.05)
Absolute Neuts (auto) 9.5 H 10^3/uL
(1.4-6.5)
Absolute Monos (auto) 0.9 H 10^3/uL
(0.1-0.6)
Neutrophils % 79.4 H %
(42.2-75.2)
Lymphocytes % 11.7 L %
(20.5-51.1)
BUN 71 H mg/dl
(9-20)
Creatinine 5.1 H* mg/dL
(0.7-1.3)
Glucose 193 H mg/dl
(70-99)
TIBC 257 L ug/dl
(261-462)
Ferritin 706.0 H ng/ml
(17.9-464.0)
Total Bilirubin 1.6 H mg/dl
(0.2-1.3)
Troponin I 0.284 H* ng/ml
10/04/24 18:43
10/04/24 18:43
Vital Signs
Initial and Last Documented VS:
Initial Vital Signs
Temp Pulse Resp BP Pulse Ox
97.3 F 114 22 135/67 75
10/04/24 18:03 10/04/24 18:03 10/04/24 18:03 10/04/24 18:03 10/04/24 18:03
Last Documented Vital Signs
Temp Pulse Resp BP Pulse Ox
98.5 F 103 18 128/82 96
10/05/24 08:30 10/05/24 05:00 10/05/24 05:00 10/05/24 05:00 10/05/24 08:02
<Aditya Thomas MD - Last Filed: 10/05/24 10:32>
MDM/Problems Addressed
MDM/Problems Addressed:
Patient evaluated immediately upon arrival in ED, secondary to moderate respiratory distress along with hypoxia. Patient exam, along with portable chest x-ray concerning for pulmonary edema, which may be secondary to recurrent rapid atrial
fibrillation. Patient given Lasix IV, started on nitroglycerin infusion, along with BiPAP, with improvement symptoms.
Critical care statement: A total of 40 minutes of critical care time was provided for this patient. This includes management of unstable vital signs, evaluation of the patient at bedside, reviewing the patient's pertinent medical records, review of
old EKGs and review of pertinent medical records. This time with separate from time utilized to perform the aforementioned documented procedures
<Aditya Thomas MD - Last Filed: 10/05/24 10:32>
*Critical Care Note
Total Time (30-74mins, 75-104mins- exclusive of procedures): 40 min
ED Attending Note
<Vivek Rosado PA-C - Last Filed: 10/04/24 18:06>
-
Portions of this chart may have been created with voice recognition software.� Occasional wrong word or��sound alike� substitutions may have occurred due to the inherent limitations of voice recognition software.
Discharge Plan
Departure
Patient Disposition: Admit
Date of Disposition: 10/04/24
Time of Disposition: 19:16
Admit to: IMU
Presentation/result/management discussed w/ accepting MD/DO: Hospitalist
Discharge Problem:
Hypoxia, CHF exacerbation
Interventions
Interventions:
*Risk Screen - Suicide Last Done: 10/04/24 23:31
*General Assessment Last Done: 10/04/24 23:31
*Neglect/Abuse Screening Last Done: 10/04/24 23:31
ED- Fall Risk Assessment Last Done: 10/04/24 23:31
*ED COVID-19 Vaccine History Last Done: 10/04/24 23:31
*Nursing Disposition Last Done: 10/04/24 23:31
ED- Cardiac Assessment Last Done: 10/04/24 18:48
ED- Pulmonary Assessment Last Done: 10/04/24 18:48
Discharge Date and Time
Discharge Date/Time: 10/04/24 23:31
[2024-10-04 18:54] LABS: % Basophils 0.4 % (0-2); % Eosinophils 0.5 % (0-6); % Immature Granulocytes 0.5 % (0-0.5); % Lymphocytes 11.7 % (20.5-51.1); % Monocytes 7.5 % (1.7-9.3); % Neutrophils 79.4 % (42.2-75.2); Absolute Basophils 0.1 10^3/uL (0-0.2); Absolute Eosinophils 0.1 10^3/uL (0-0.7); Absolute Immature Granulocytes 0.1 10^3/uL (0-0.05); Absolute Lymphocytes 1.4 10^3/uL (1.2-3.4); Absolute Monocytes 0.9 10^3/uL (0.1-0.6); Absolute Neutrophils 9.5 10^3/uL (1.4-6.5); Hematocrit 26.1 % (39.0-52.0); Hemoglobin 8.4 g/dL (13.0-18.0); Mean Corp Hgb Conc. 32.2 g/dL (33.0-37.0); Mean Corpuscular Hgb 31.5 pg (27.0-31.0); Mean Corpuscular Volume 97.8 fL (80.0-94.0); Mean Platelet Volume 10.7 fL (7.4-10.4); Nucleated Red Blood Cells % 0 % (-); Platelet Count 156 10^3/uL (130-400); Red Blood Cell Count 2.67 10^6/uL (4.70-6.10); Red Cell Dist. Width 14.5 % (11.5-14.5)
[2024-10-04 19:10] LABS: COVID-19 Antigen Negative (Negative)
[2024-10-04] MEDS: NITROGLYCERIN PREMIX 250 IV (19:15)
[2024-10-04] MEDS: LASIX 40 MG IV (19:15)
[2024-10-04 19:17] LABS: ALT (SGPT) 18 U/L (0-50); AST (SGOT) 22 U/L (17-59); Albumin 3.8 g/dl (3.5-5.0); Alkaline Phosphatase 70 U/L (38-126); Blood Urea Nitrogen 71 mg/dl (9-20); Calcium 8.6 mg/dl (8.4-10.2); Carbon Dioxide 23 mmol/L (22-30); Chloride 100 mmol/L (98-107); Estimated Creatinine Clearance 10 ml/min; Glucose 193 mg/dl (70-99); Potassium 4.9 mmol/L (3.5-5.1); Sodium 136 mmol/L (135-145); Total Bilirubin 1.6 mg/dl (0.2-1.3); Total Protein 6.7 g/dl (6.3-8.2); eGFR 11.04
[2024-10-04 19:26] LABS: NT-proBNP 6700 pg/ml; Troponin I 0.284 ng/ml
--- NOTE | 2024-10-04 19:58 | CON.CAR ---
Consultation
Consultation Request
Date/Time Consultation Requested: October 04, 2024
Date/Time Consultation Performed: October 04, 2024
Requesting Provider: Hospitalist
Performing Provider: Dr Sheramn Barron
Reason for Consultation: Congestive heart failure
Medical History
-
Chief Complaint: Shortness of breath
History of Present Illness:
He is brought to the emergency department by family ( and daughter )presenting with shortness of breath over the past 2 days. He and his family deny that he has had any chest pain.
In triage he is found to be markedly hypoxic with room air pulse ox of 75%.
He has been compliant with medical therapy.
He has had no fevers chills or night sweats.
He has known medical history which includes permanent atrial fibrillation, CVA in May 2020, hypertension, dyslipidemia, diabetes, gout, advanced kidney disease, now stage V as well as vertigo.
On presentation to the emergency department:
- Chest x-ray shows edema
- proBNP is elevated at 6700
- ECG shows atrial fibrillation with rapid ventricular rate at 111 bpm, poor R wave progression cannot rule out anterior wall OR compared to prior EKG from October 2022 lateral T wave abnormalities have improved
- white blood cell count is elevated at 12 with left shift, 80% neutrophils, he is anemic with hemoglobin of 8.4 and hematocrit of 26, platelet count 156,000
- BUN and creatinine are 71 and 5.1
- Troponin was ordered in the emergency department and is 0.284 (troponin in the area of 20-83 was 0.86)
- COVID-negative
Echocardiogram April 26, 2023:
No regional wall motion abnormalities, LVEF 55 to 60%, mildly enlarged left atrium, mildly enlarged right atrium, mild mitral regurgitation, mild to moderate tricuspid regurgitation with estimated pulmonary artery pressure of 40 mmHg.
Past medical history
- Severe progressive chronic kidney disease
- Permanent atrial fibrillation (he is on Eliquis 5 mg twice daily)
- CVA on 05/15/2020 (hypertensive), while on coumadin-his INR was 3.1; however, he was severely hypertensive. He admits to residual deficits to his left side
- Admitted at from 10/25/2022 to 10/30/2022 due to severe symptomatic anemia. He presented with fall, shortness of breath, and was found to have a hemoglobin of 5.8. He was given 2 units PRBC�
Social History
Tobacco: Non-Smoker
Alcohol: None
Drug: None
Personal:
Living: With Family
Employment: Retired
Family History
Family History: Reviewed & Not Pertinent
Allergies / Home Medications
Allergy/AdvReac Type Severity Reaction Status Date / Time
No Known Allergies Allergy Verified 10/04/24 18:22
�Medication �Instructions �Recorded �Confirmed �Type
diltiazem HCl 180 mg 180 mg PO BID Heart 10/08/20 10/04/24 History
capsule,extended release 24 hr disease/condition
insulin aspart U-100 100 unit/mL 4 - 6 units SC NOON Diabetes 10/09/20 10/04/24 History
(3 mL) subcutaneous pen (Novolog
FlexPen U-100 Insulin aspart)
apixaban 5 mg tablet (Eliquis) 5 mg PO BID Blood clot 02/08/22 10/04/24 History
prevention/tx
ezetimibe 10 mg tablet 10 mg PO DAILY High cholesterol 04/22/22 10/04/24 History
ferrous sulfate 325 mg (65 mg 325 mg PO Q48H #15 tabs 10/30/22 10/04/24 Rx
iron) tablet (FeroSul)
furosemide 40 mg tablet 40 mg PO BID Fluid 01/24/24 10/04/24 History
retention/Swelling
docusate sodium 100 mg capsule 100 mg PO BIDPRN PRN constipation 10/04/24 10/04/24 History
gabapentin 100 mg capsule 100 mg PO HS 10/04/24 10/04/24 History
insulin glargine 100 unit/mL (3 18 unit SC HS 10/04/24 10/04/24 History
mL) subcutaneous pen (Lantus
Solostar U-100 Insulin)
omega-3 fatty acids-fish oil 684 1 cap PO DAILY 10/04/24 10/04/24 History
mg-1,200 mg capsule,delayed release
rosuvastatin 10 mg tablet 10 mg PO HS 10/04/24 10/04/24 History
Physical Exam
Vital Signs
Temp Pulse Resp BP Pulse Ox
97.3 F 113 23 147/83 87
10/04/24 18:03 10/04/24 19:45 10/04/24 19:45 10/04/24 19:40 10/04/24 19:45
Lab Results
10/04/24 18:43
10/04/24 18:43
Troponin I 0.284 ng/ml H* 10/04/24 18:43
Ujo-I-Nkspknrtjzg Pept 6700 pg/ml 10/04/24 18:43
Physical Exam
General: Well Developed, Well Nourished and Comfortable (He is currently on BiPAP mask and appears comfortable)
HEENT: Normocephalic, Anicteric and Moist Mucous Membranes
Respiratory: Other (Diffuse rales bilaterally)
Cardiac: S1/S2, Irregular Rhythm and Murmur (Grade 1/6 apical holosystolic murmur and 1/6 basal systolic murmur. Normal S1 and S2, no S3 no S4, there is no rub.)
Breast: Deferred by me
GI: Soft, Non Tender, Non Distended and Normal Bowel Sounds
Rectal: Deferred by Provider
Musculoskeletal: No Clubbing, No Cyanosis and Other (There is +1 pretibial pitting edema bilaterally)
Skin: Warm and Dry
Neuro: Awake, Alert, Oriented and AO x 3
Psych: Calm
Impression / Plan
-
Assessment:
- He presents with acute heart failure with preserved ejection fraction, symptoms over the past 48 hours have been progressive.
Physical exam consistent with this diagnosis
Chest x-ray and proBNP consistent with this diagnosis
- Severe progressive chronic kidney disease
- Hypertension
- Permanent atrial fibrillation (he is on Eliquis 5 mg twice daily)
- CVA on 05/15/2020 (hypertensive), while on coumadin-his INR was 3.1; however, he was severely hypertensive. He admits to residual deficits to his left side
- Admitted at from 10/25/2022 to 10/30/2022 due to severe symptomatic anemia. He presented with fall, shortness of breath, and was found to have a hemoglobin of 5.8. He was given 2 units PRBC�
Echocardiogram April 26, 2023:
No regional wall motion abnormalities, LVEF 55 to 60%, mildly enlarged left atrium, mildly enlarged right atrium, mild mitral regurgitation, mild to moderate tricuspid regurgitation with estimated pulmonary artery pressure of 40 mmHg.
Recommendations
He is critically ill requiring BiPAP therapy as well as intravenous continuous infusion nitroglycerin.
- IV Lasix diuresis
Keep potassium between 4 and 5 and magnesium between 2 and 3
- He has been started on IV nitroglycerin for additional vasodilatation in the setting of pulmonary edema as well as some background hypertension he is clinically improved, continue
- Currently rates in atrial fibrillation are reasonable.
If heart rates in atrial fibrillation are consistently greater than 130, you can initiate intravenous Cardizem infusion
- Check echocardiogram this hospital stay
- Renal dysfunction has been progressive, there should be consideration once again for initiating hemodialysis (of note, he did have UE fistula placed approximately 2 years ago in preparation for potential hemodialysis needs)
Discussed with patient, his and daughter who are at bedside and also with the emergency room physician.
CCT 55 min
Data Reviewed
-
EKG: Tracing Personally Visualized and interpreted
Radiology: Image Personally Visualized and interpreted
Medical Tests (Nuc Med, Echo etc): Report Reviewed by me
Labs: Labs Reviewed by me
Old Records: Reviewed
Critical Care Time (in minutes): 55
--- NOTE | 2024-10-04 20:03 | HPS.HSE ---
Family Physician
-
Family Physician: Juan Ramon Bashir,
Chief Complaint
-
Shortness of Breath
History of Present Illness
Patient is a 74 y/o male past medical history of CVA with residual left hemiparesis, paroxysmal atrial fibrillation, diabetes mellitus and CKD 5 who presents with increased shortness of breath. Additional history is obtained from patient's at
the bedside. Patient was noted to have increased shortness of breath that began yesterday. Shortness of breath continued to worsen and he was brought to the emergency department for evaluation. Upon arrival he was found to be significantly hypoxic
with pulse ox in the 70s and he was placed on BiPAP. Patient has chronic lower extremity and reports his weight has been stable. Upon arrival patient noted chest pain, but denies during my evaluation. He denies fevers, sweats or chills.
Medical History
Past Medical History
Past Medical History: Reports Other
Additional Past Medical History:
CVA with Residual Left Hemiparesis
Paroxysmal Atrial Fibrillation
Diabetes Mellitus, Type II
Diabetic Neuropathy
CKD Stage V
Secondary Hyperparathyroidism
Chronic Anemia
Essential Hypertension
Hyperlipidemia
Spinal Stenosis
Past Surgical History: Reports Other
Additional Past Surgical History:
L4/L5 Laminectomy
Cataract Surgery
Social History
Tobacco: Non-smoker
Alcohol: None
Drug: None
Personal:
Living: With Family
Family History
Family History: Not pertinent
Allergies / Home Medications
Allergies reflects when Allergies were last updated in [employer]
Home Medications with original date entered in [employer]
Allergy/Medication List:
Allergies
Allergy/AdvReac Type Severity Reaction Status Date / Time
No Known Allergies Allergy Verified 10/04/24 18:22
Home Medications
diltiazem HCl 180 mg capsule,extended release 24 hr 180 mg PO BID Heart disease/condition 10/08/20
insulin aspart U-100 100 unit/mL (3 mL) subcutaneous pen (Novolog FlexPen U-100 Insulin aspart) 4 - 6 units SC NOON Diabetes 10/09/20
apixaban 5 mg tablet (Eliquis) 5 mg PO BID Blood clot prevention/tx 02/08/22
ezetimibe 10 mg tablet 10 mg PO DAILY High cholesterol 04/22/22
ferrous sulfate 325 mg (65 mg iron) tablet (FeroSul) 325 mg PO Q48H #15 tabs 10/30/22
furosemide 40 mg tablet 40 mg PO BID Fluid retention/Swelling 01/24/24
docusate sodium 100 mg capsule 100 mg PO BIDPRN PRN constipation 10/04/24
gabapentin 100 mg capsule 100 mg PO HS 10/04/24
insulin glargine 100 unit/mL (3 mL) subcutaneous pen (Lantus Solostar U-100 Insulin) 18 unit SC HS 10/04/24
omega-3 fatty acids-fish oil 684 mg-1,200 mg capsule,delayed release 1 cap PO DAILY 10/04/24
rosuvastatin 10 mg tablet 10 mg PO HS 10/04/24
Review of Systems
-
A 12 point ROS was completed and negative except as noted: Yes
Constitutional: Denies Fever or Chills
Respiratory: Reports See HPI
Cardiac: Reports See HPI
Physical Exam
Vital Signs
Vital Signs
Temp Pulse Resp BP Pulse Ox
97.3 F 113 23 147/83 87
10/04/24 18:03 10/04/24 19:45 10/04/24 19:45 10/04/24 19:40 10/04/24 19:45
Physical Exam
General: Well Developed and Well Nourished
HEENT: Moist mucous membranes and Oxygen (BiPAP)
Respiratory: Rales (Bilaterally) and Other (Tachypneic)
Cardiac: S1/S2, Irregular Rhythm, Tachycardia and Other (LUE AV Fistula with good thrill)
GI: Soft and Non Tender
Rectal: Deferred by Provider
Genito-urinary: Clear Urine
Musculoskeletal: No Clubbing, No Cyanosis and Other (+2 pitting edema bilateral lower extremities)
Skin: Warm and Dry
Neuro: Awake, Alert and Other (Chronic Left Hemiparesis)
Psych: Calm
Laboratory Results
-
10/04/24 18:43
10/04/24 18:43
Laboratory Results
Total Bilirubin 1.6 mg/dl (0.2-1.3) H 10/04/24 18:43
AST 22 U/L (17-59) 10/04/24 18:43
ALT 18 U/L (0-50) 10/04/24 18:43
Alkaline Phosphatase 70 U/L (38-126) 10/04/24 18:43
Troponin I 0.284 ng/ml H* 10/04/24 18:43
Data Reviewed
-
Diagnostic Radiology: Image Personally Visualized and interpreted (CXR with significant pulmonary edema)
Lab Data: Labs Reviewed by me
Old Records: Reviewed
Impression/Plan
-
Acute Hypoxic Respiratory Failure secondary to Acute Heart Failure
-Admit to ICU
-Continue BiPAP
Acute on Chronic HFpEF
-Consult Cardiology
-Check Echo
-Continue Bumex 2mg IV BID
-Continue Nitro-Drip
Paroxysmal Atrial Fibrillation, rate with fair control
-Continue Diltiazem for rate control - Consider additional medication if rate is not improving
-Continue Eliquis for anticoagulation
CKD Stage 5
-Monitor response to diuretics - If no significant improvement may need to consider starting dialysis
-Patient has mature LUE AV Fistula
-Consult Nephrology
Insulin Dependent Diabetes Mellitus, Type II with Diabetic Neuropathy
-Patient current NPO while on BiPAP
-Half usual dose of Lantus order
-Monitor sugars and continue coverage insulin
Chronic Anemia
-Hgb lower than previous
-Check iron studies, vitamin b12 and folic acid
-Monitor Hgb closely
Hyperlipidemia
-Hold Zetia and Crestor until more stable
Hx CVA with Residual Left Hemiparesis
-Consult PT/OT
DVT proph: Eliquis
Code Status: Full Code
--- NOTE | 2024-10-04 20:08 | W.PN.UPDATE ---
Update Note
Progress Note Update
Patient seen in conjunction with BL[employer] DEALER. I concur with the history and physical. I also agree with the assessment and plan unless stated otherwise.
This is a 74-year-old with CKD stage V, status post left upper extremity AV fistula with apparent good function placed in 2021, CHF with preserved EF, pulmonary atrial fibrillation on anticoagulation, insulin-dependent diabetes who presents to the
emergency department with acute episode of shortness of breath. Per spouse the patient has chronic dyspnea on exertion especially with stairs. This worsened approximately starting 2 days ago. However yesterday started complaining of shortness of
breath and having cough and rhonchorous airway sound. Spouse initially thought that he might have flulike illness but patient had no fever and no known sick contacts. Starting this a.m. he was lethargic and unable to get out of bed due to
worsening shortness of breath. Spouse reported that he did have increasing lower extremity edema. They said that his weight has been stable. He denied having any chest pain or palpitations. He had no nausea vomiting or diaphoresis. He still
apparently responds to 40 mg of Lasix at home and spouse reported that he urinated up to 1 jug overnight yesterday. He has been compliant with diuretic regimen. He also has been compliant with dietary management.
In the ED was severely hypoxic requiring immediate BiPAP. He was tachycardic to 113, blood pressure was 150/80. He was afebrile. Hypoxic to 80 on room air. ECG shows A-fib with a rate of 111. His troponin was 0.28. BNP was 6000. WBC 12,
hemoglobin 8.4, his electrolytes were stable with a potassium of 4.9 and bicarb of 23. His creatinine was 5.1 which has been increasing from a baseline of around 3.5-4.5. Chest x-ray shows bilateral interstitial opacities any opacities consistent
with flash pulmonary edema.
COVID test was negative. Influenza negative.
Assessment and plan
Acute CHF Exacerbation with flash pulm edema. Likely secondary to worsening volume overload despite home diuretics. No evidence of acute ischemia. No acute infection. Exam shows bilateral lower extremity edema and elevated JVD.
- admit to icu
- patient on bipap and nitroglycerin (titrate nitroglycerin to allow for diuresis)
- diuresis with bumex 4mg now then 2mg iv bid
- strict i/o and daily weights
- monitor K, Mag and Cr
- echo in am
- cardiology
Elevated troponin - Suspect non-ischemic myocardial injury. Trop lower than prior
- trend for now, echo in am
- continue eliquis unless troponin rising sharply
AFIB - Permanent AFIB
- continue diltiazem for now, may consider change to bb depending on echo per cardiology
- continue eliquis
Renal Failure - Slowly worsening renal function. Non-oliguric. Electrolytes ok. s/p LUE AVF with good thril
- nephrology consultation
- npo for now while on bipap
DM II
- insulin sliding scale while npo
DVT PPX - on apixaban
Code status - full code
[2024-10-04 20:33] LABS: Iron 60 ug/dl (49-181)
[2024-10-04] MEDS: LOPRESSOR 5 MG IV (20:36)
[2024-10-04] MEDS: DUONEB 3 ML INH (20:36)
[2024-10-04 20:43] LABS: Percent Saturation 23 % (20-50); Total Iron Binding Capacity 257 ug/dl (261-462)
[2024-10-04 21:51] LABS: Vitamin B12 315 pg/ml (239-931)
[2024-10-04] MEDS: BUMEX 4 MG IV (22:09)
[2024-10-04 23:57] LABS: INR 1.64; PT 19.7 Sec (11.4-14.6)
[2024-10-04 23:58] LABS: APTT 44.4 Sec (23.4-35.0)
[2024-10-05] VITALS (70 sets, daily range): BP systolic 111–171; BP diastolic 48–108; PULSE 3–96; BMI 28.7; BMI 27.7
--- NOTE | 2024-10-05 | PTCARENOTE ---
Received pt via transfer from ED. Pt AAOx3, able to GOYAL with generalized weakness, afebrile, deaf in left ear. Sinus tach in Afib with LE edema. Bipap 15/8, crackles at the bases and an expiratory wheeze. Hypoactive bowel sounds in all 4Q. Pt able
to use urinal to void. Urine is clear yellow. Left fistula, 20G right forearm with Nitro gtt running. Pt denies any chest pain. Family and call calix at bedside.
[2024-10-05 00:12] LABS: Troponin I 0.633 ng/ml
[2024-10-05] MEDS: CARDIZEM CD 180 MG PO ×3 (00:46→20:19)
[2024-10-05] MEDS: ELIQUIS 5 MG PO ×3 (00:47→20:19)
[2024-10-05] MEDS: LANTUS 0.08 UNITS SC ×2 (00:47→22:01)
--- NOTE | 2024-10-05 03:43 | PTCARENOTE ---
All systems reassessed. Hygiene performed and labs drawn. Nitro gtt remains on see flowsheet. Call calix and at bedside.
[2024-10-05 04:02] LABS: Hemoglobin 7.7 g/dL (13.0-18.0); Mean Corp Hgb Conc. 33.5 g/dL (33.0-37.0); Mean Corpuscular Hgb 32.4 pg (27.0-31.0); Mean Corpuscular Volume 96.6 fL (80.0-94.0); Mean Platelet Volume 11.7 fL (7.4-10.4); Platelet Count 200 10^3/uL (130-400); Red Blood Cell Count 2.38 10^6/uL (4.70-6.10); Red Cell Dist. Width 14.1 % (11.5-14.5)
[2024-10-05 04:26] LABS: ALT (SGPT) 16 U/L (0-50); AST (SGOT) 36 U/L (17-59); Albumin 3.5 g/dl (3.5-5.0); Alkaline Phosphatase 49 U/L (38-126); Blood Urea Nitrogen 77 mg/dl (9-20); Calcium 8.4 mg/dl (8.4-10.2); Carbon Dioxide 23 mmol/L (22-30); Chloride 102 mmol/L (98-107); Direct Bilirubin 0.5 mg/dl (0.0-0.4); Estimated Creatinine Clearance 11 ml/min; Glucose 115 mg/dl (70-99); HDL Cholesterol 32 mg/dl; LDL Cholesterol, Calculated 51 mg/dl; Magnesium 2.1 mg/dl (1.6-2.3); Sodium 137 mmol/L (135-145); Total Bilirubin 1.9 mg/dl (0.2-1.3); Total Cholesterol 103 mg/dl (50-199); Total Protein 6.5 g/dl (6.3-8.2); Triglyceride 103 mg/dl (10-149); Very Low Density Lipoprotein 20 mg/dl (0-30); eGFR 11.31
[2024-10-05 04:33] LABS: Troponin I 0.847 ng/ml
[2024-10-05 04:51] LABS: TSH Reflex To Free T4 1.53 uIU/ml (0.47-4.68)
[2024-10-05] MEDS: BUMEX 2 MG IV ×2 (08:18→15:06)
--- NOTE | 2024-10-05 09:08 | PTCARENOTE ---
Pt received in bed @ 0700. Hebrew speaking, understands some Syriac and able to follow simple commands. AAOx3. Hard of hearing. Denying pain or discomfort. SaO2 94% on BiPAP 15/8 with 6L O2. Mask removed to take scheduled morning medication,
SaO2 87%. 2L NC applied and SaO2 to 96%. Fine crackles diminished throughout. A Fib on traffic monitor specialist. HR 90s - 100s with occasional spikes to 120s while moving to use urinal that are self terminating. Hypoactive bowel sounds. Pt remains NPO.
Voiding clear yellow urine into urinal with assistance. (L) AV fistula (+) bruit/(+) thrill. Nitro gtt infusing per protocol.
--- NOTE | 2024-10-05 09:47 | W.CON.NEPH ---
Consultation
-
Date/Time Consultation Requested: 10/04/24 2200
Date/Time Consultation Performed: 10/05/24 1015
Requesting Provider: Mena Bullard
Performing Provider: Shayla Hernandez
Reason for Consultation: CKD5
Medical History
-
Chief Complaint: SOB
History of Present Illness:
74 y/o male past medical history of CVA with residual left hemiparesis, paroxysmal atrial fibrillation on Eliquis, cardizem, diabetes mellituson isnulin and CKD 5 on lasix who presents with increased shortness of breath for 2days. Pt Progressive
fatigue, lower extremity edema and subsequently resulted in shortness of breath. Shortness of breath with wheezing for 2 days and on arrival he was hypoxic in 70s. Started on BiPAP. Received IV diuretics with good urine output and off BiPAP this
morning. His creatinine elevated at 5significant change. She has mature AV fistula on his left arm with a future plan of dialysis, follows with Dr. Theodore last saw in August. Reports no chest pain. No coughing or fever. No nausea or vomiting. No
tremors. No dysuria or decrease in urine output. Reports compliance with the medication.
Past Medical History
CVA with Residual Left Hemiparesis
Paroxysmal Atrial Fibrillation
Diabetes Mellitus, Type II
Diabetic Neuropathy
CKD Stage V
Secondary Hyperparathyroidism
Chronic Anemia
Essential Hypertension
Hyperlipidemia
Spinal Stenosis
Past Surgical History: Other (L4/L5 Laminectomy Cataract Surgery, left UE AVF)
Social History
Tobacco: Non-Smoker
Alcohol: None
Personal:
Living: With Family
Family History
Family History: Not Pertinent
Allergies / Home Medications
Allergy/AdvReac Type Severity Reaction Status Date / Time
No Known Allergies Allergy Verified 10/04/24 18:22
�Medication �Instructions �Recorded �Confirmed �Type
diltiazem HCl 180 mg 180 mg PO BID Heart 10/08/20 10/04/24 History
capsule,extended release 24 hr disease/condition
insulin aspart U-100 100 unit/mL 4 - 6 units SC NOON Diabetes 10/09/20 10/04/24 History
(3 mL) subcutaneous pen (Novolog
FlexPen U-100 Insulin aspart)
apixaban 5 mg tablet (Eliquis) 5 mg PO BID Blood clot 02/08/22 10/04/24 History
prevention/tx
ezetimibe 10 mg tablet 10 mg PO DAILY High cholesterol 04/22/22 10/04/24 History
ferrous sulfate 325 mg (65 mg 325 mg PO Q48H #15 tabs 10/30/22 10/04/24 Rx
iron) tablet (FeroSul)
furosemide 40 mg tablet 40 mg PO BID Fluid 01/24/24 10/04/24 History
retention/Swelling
docusate sodium 100 mg capsule 100 mg PO BIDPRN PRN constipation 10/04/24 10/04/24 History
gabapentin 100 mg capsule 100 mg PO HS 10/04/24 10/04/24 History
insulin glargine 100 unit/mL (3 18 unit SC HS 10/04/24 10/04/24 History
mL) subcutaneous pen (Lantus
Solostar U-100 Insulin)
omega-3 fatty acids-fish oil 684 1 cap PO DAILY 10/04/24 10/04/24 History
mg-1,200 mg capsule,delayed release
rosuvastatin 10 mg tablet 10 mg PO HS 10/04/24 10/04/24 History
Review of Systems
-
All complete 12 point review of system have been inquired and found negative other than stated in HPI
Physical Exam
Vital Signs
Vital Signs
Temp Pulse Resp BP Pulse Ox
98.5 F 103 18 128/82 96
10/05/24 08:30 10/05/24 05:00 10/05/24 05:00 10/05/24 05:00 10/05/24 08:02
Lab Results
WBC 11.0 10^3/uL (4.8-10.8) H 10/05/24 03:
RBC 2.38 10^6/uL (4.70-6.10) L 10/05/24 03:
Hgb 7.7 g/dL (13.0-18.0) L 10/05/24 03:
Hct 23.0 % (39.0-52.0) L 10/05/24 03:31
Plt Count 200 10^3/uL (130-400) D 10/05/24 03:
Sodium 137 mmol/L (135-145) 10/05/24 03:
Potassium 5.0 mmol/L (3.5-5.1) 10/05/24 03:
Chloride 102 mmol/L (98-107) 10/05/24 03:
Carbon Dioxide 23 mmol/L (22-30) 10/05/24 03:
BUN 77 mg/dl (9-20) H 10/05/24 03:31
Creatinine 5.0 mg/dL (0.7-1.3) H* 10/05/24 03:
eGFR 11.31 10/05/24 03:31
Glucose 115 mg/dl (70-99) H 10/05/24 03:31
Calcium 8.4 mg/dl (8.4-10.2) 10/05/24 03:
Phosphorus 5.0 mg/dl (2.5-4.5) H 10/05/24 03:31
Tbp-M-Nbgmeuapgjg Pept 6700 pg/ml 10/04/24 18:43
Albumin 3.5 g/dl (3.5-5.0) 10/05/24 03:
CXR:
IMPRESSION:
1. SEVERE ACUTE ALVEOLAR CARDIOGENIC PULMONARY EDEMA.
2. Mild to moderate cardiomegaly.
3. Severe calcific atherosclerotic plaque in the thoracic aorta.
Physical Exam
General: Awake, Alert, Oriented, AOx3, No Distress and Nontoxic
HEENT: EOMI, Anicteric and Other (JVD upto jaw)
Respiratory: Wheezes and Crackels
Cardiac: S1/S2 and Regular Rate/Rhythm
Breast: Deferred by me
Abdomen: Soft, Nontender and Nondistended
Musculoskeletal: No Cyanosis and Edema (2+)
Skin: No Rash
Neuro: Other (no new symp of weakness)
Psych: Mood/afflect pleasant, Insight/judgement good and Appropriate
Vascular Access: AVF
Assessment/Plan
-
IMP:
Acute Hypoxic Respiratory Failure secondary to Acute Heart Failure
Acute on Chronic HFpEF
Paroxysmal Atrial Fibrillation
CKD Stage 5
Insulin Dependent Diabetes Mellitus, Type II with Diabetic Neuropathy
Acute on chr Chronic Anemia
Hyperlipidemia
Hx CVA with Residual Left Hemiparesis
Plan:
A/w acute resp failure from hypervolemia
off BiPAP today, wean O2 s tolerates
cont bumex seem to have good UOP
wean nitro gtt as tolerated
echo pending
cr remains high at 5 with CKD 5 and mature AVF
suspect may need HD this admit -d/w pt and
monitor hb, decreasing , adequate fe stores, prn transfusion, will give dose of GREGORY
renal diet and FR
d/w nursing
[2024-10-05 10:02] LABS: Glycohemoglobin (HgbA1c) 7.5 % (4.0-5.6)
--- NOTE | 2024-10-05 10:53 | CM ---
CM met with pt and spouse bedside
Pt primarily speaks Nepali but understands limited Romansh
Pt and spouse reside in a [address] with 3 [address], full flight to 2nd floor
Pt is independent with use of a SPC, has a WW for use as needed
Pt does not have home O2 or cpap/bipap at home/baseline
Denies financial insecurities
PCP- Juan Ramon Bashir
Rx- Marcelino King
Pt has hx with [facility] and they are preferred provided if VN needed on dc
CM to watch for O2 needs and out of bed activity
Discharge Disposition- home, follow for VN or O2 needs
--- NOTE | 2024-10-05 10:57 | W.PN.CARDCBS ---
Today's Communication / Plan
-
Appears improved from an oxygenation standpoint but remains on oxygen
Continue Lasix based on nephrology input
Will need eventual hemodialysis likely
Check echo
Impression / Plan
-
Assessment:
- He presents with acute heart failure with preserved ejection fraction, symptoms over the past 48 hours have been progressive.
Physical exam consistent with this diagnosis
Chest x-ray and proBNP consistent with this diagnosis
- Severe progressive chronic kidney disease
- Hypertension
- Permanent atrial fibrillation (he is on Eliquis 5 mg twice daily)
- CVA on 05/15/2020 (hypertensive), while on coumadin-his INR was 3.1; however, he was severely hypertensive. He admits to residual deficits to his left side
- Admitted at from 10/25/2022 to 10/30/2022 due to severe symptomatic anemia. He presented with fall, shortness of breath, and was found to have a hemoglobin of 5.8. He was given 2 units PRBC�
Echocardiogram April 26, 2023:
No regional wall motion abnormalities, LVEF 55 to 60%, mildly enlarged left atrium, mildly enlarged right atrium, mild mitral regurgitation, mild to moderate tricuspid regurgitation with estimated pulmonary artery pressure of 40 mmHg.
Recommendations
He appears improved from an oxygenation standpoint
Creatinine has improved slightly from 5.1 on 10/04 to 5.0 on 10/05
Continue Lasix per nephrology input
Likely will need hemodialysis at some point
Will check echocardiogram
Heart rate control reasonable. Continue Eliquis and diltiazem
Discussed with at bedside
Progress Note - Home Stager
Subjective
Date of Service: October 05, 2024
No complaints
Objective
Labs:
10/05/24 03:31
10/05/24 03:31
Labs
Hgb 7.7 g/dL (13.0-18.0) L 10/05/24 03:31
Hct 23.0 % (39.0-52.0) L 10/05/24 03:31
Plt Count 200 10^3/uL (130-400) D 10/05/24 03:31
PT 19.7 Sec (11.4-14.6) H 10/04/24 23:42
INR 1.64 10/04/24 23:42
APTT 44.4 Sec (23.4-35.0) H 10/04/24 23:42
Sodium 137 mmol/L (135-145) 10/05/24 03:31
Potassium 5.0 mmol/L (3.5-5.1) 10/05/24 03:31
BUN 77 mg/dl (9-20) H 10/05/24 03:31
Creatinine 5.0 mg/dL (0.7-1.3) H* 10/05/24 03:31
Glucose 115 mg/dl (70-99) H 10/05/24 03:31
Troponins
10/04/24 10/04/24 10/05/24
18:43 23:41 03:31
Troponin I 0.284 H* 0.633 H* D 0.847 H* D
10/05/24
08:44
Troponin I 0.920 H*
Vital Signs and I&O:
Vital Signs
Temp Pulse Resp BP Pulse Ox
98.5 F 103 18 128/82 96
10/05/24 08:30 10/05/24 05:00 10/05/24 05:00 10/05/24 05:00 10/05/24 08:02
Vital Signs
Temp Pulse Resp BP Pulse Ox
98.5 F 103 18 128/82 96
10/05/24 08:30 10/05/24 05:00 10/05/24 05:00 10/05/24 05:00 10/05/24 08:02
Intake & Output
10/03/24 10/04/24 10/05/24 10/06/24
06:59 06:59 06:59 06:59
Intake Total 15.2 / 19.0 10.6 / 10.6
Output Total 1625 / 1625 675 / 675
Balance -1609.8 / -1606.0 -664.4 / -664.4
Physical Exam
Physical Exam
General: Well developed, well nourished in NAD.
Neck: Supple, no JVD, HJR, carotids +2 B/L, no bruits bilaterally.
Heart: Non displaced PMI, irregular, no murmurs, No S3, S4, no rubs.
Lungs: Scattered rhonchi at the bases
Abdomen: Normal bowel sounds, soft, non-tender, non-distended.
Extremities: No clubbing, cyanosis or edema bilaterally.
Neuro: Grossly nonfocal, awake, alert and oriented x3.
[2024-10-05] MEDS: NOVOLOG FLEXPEN-MODERATE RESISTANCE SC ×2 (12:27→12:40)
--- NOTE | 2024-10-05 12:40 | CON.INTV ---
Consultation
Consultation Request
Date/Time Consultation Requested: 10/05/2024
Date/Time Consultation Performed: 10/05/2024
Requesting Provider: Dr. Morocho
Performing Provider: Dr. Benji Kahn
Reason for Consultation: Acute hypoxemic respiratory failure-acute heart failure
Medical History
-
History of Present Illness:
74-year-old man with past medical history of CVA, residual left hemiparesis, paroxysmal atrial fibrillation, type 2 diabetes, chronic kidney disease stage V who presented with increased shortness of breath. In the emergency room patient was in
respiratory distress unable to provide history.
Patient was found to be hypoxemic down to 70% and he was placed on BiPAP.
There is no reports of fevers, chills or phlegm production.
Per , shortness of breath was significant the patient was not able to get out of bed. He also started developing lower extremity edema.
Patient states that he has been compliant with diuretics and dietary restrictions.
Due to increased work of breathing and necessitating noninvasive mechanical ventilation he was transferred to the critical care unit.
Chest x-ray showed evidence of pulmonary edema
proBNP elevated at 6000
Past Medical History
Past Medical History: Other (See assessment and plan)
Social History
Tobacco: Non-smoker
Alcohol: None
Drug: None
Personal:
Living: With Family
Family History
Family History: Reviewed & Not Pertinent
Allergies / Home Medications
Allergies
Allergy/AdvReac Type Severity Reaction Status Date / Time
No Known Allergies Allergy Verified 10/04/24 18:22
Home Medications
�Medication �Instructions �Recorded �Confirmed �Last Taken �Type
diltiazem HCl 180 mg 180 mg PO BID Heart 10/08/20 10/04/24 01/24/24 History
capsule,extended release 24 hr disease/condition
insulin aspart U-100 100 unit/mL 4 - 6 units SC NOON Diabetes 10/09/20 10/04/24 01/23/24 History
(3 mL) subcutaneous pen (Novolog
FlexPen U-100 Insulin aspart)
apixaban 5 mg tablet (Eliquis) 5 mg PO BID Blood clot 02/08/22 10/04/24 01/24/24 History
prevention/tx
ezetimibe 10 mg tablet 10 mg PO DAILY High cholesterol 04/22/22 10/04/24 01/24/24 History
ferrous sulfate 325 mg (65 mg 325 mg PO Q48H #15 tabs 10/30/22 10/04/24 01/22/24 Rx
iron) tablet (FeroSul)
furosemide 40 mg tablet 40 mg PO BID Fluid 01/24/24 10/04/24 01/23/24 History
retention/Swelling 80 mg
docusate sodium 100 mg capsule 100 mg PO BIDPRN PRN constipation 10/04/24 10/04/24 Unknown History
gabapentin 100 mg capsule 100 mg PO HS 10/04/24 10/04/24 Unknown History
insulin glargine 100 unit/mL (3 18 unit SC HS 10/04/24 10/04/24 Unknown History
mL) subcutaneous pen (Lantus
Solostar U-100 Insulin)
omega-3 fatty acids-fish oil 684 1 cap PO DAILY 10/04/24 10/04/24 Unknown History
mg-1,200 mg capsule,delayed release
rosuvastatin 10 mg tablet 10 mg PO HS 10/04/24 10/04/24 Unknown History
Review of Systems
-
History Source: Patient
All other systems: Negative unless noted
Vitals / Labs / Diagnostic Testing
Vital Signs
Temp Pulse Resp BP Pulse Ox
98.5 F 103 18 128/82 96
10/05/24 08:30 10/05/24 05:00 10/05/24 05:00 10/05/24 05:00 10/05/24 08:02
Lab Data
10/05/24 03:31
10/05/24 03:31
Laboratory Results
10/04/24
23:42
PT 19.7 H
INR 1.64
APTT 44.4 H
Microbiology
10/04/24 18:43 Nasal Swab Influenza Types A & B (CJ) - Final
Negative for Influenza A & B, NAAT
Negative results must be combined with clinical observations
and patient history.
Nucleic Acid Amplification test (NAAT)performed on the
[employer] NOW platform.
Diagnostic Testing:
Physical Exam
-
HEENT: Normocephalic
Cardiovascular: S1/S2
Respiratory: Rales (Bibasilar) and Non-Labored Respirations
GI: Soft and Non Distended
Neurology: Awake, Oriented and No Motor Deficits
Skin: Warm
General: Comfortable and Other ( able to speak in full sentences)
Assessment
-
74-year-old man with past medical history noted. Admitted with progressive shortness of breath, hypoxemia, increased work of breathing necessitating noninvasive mechanical ventilation in the emergency room. Chest x-ray consistent with pulmonary
edema. proBNP elevated. Patient has history of chronic kidney disease stage V. Transferred to the critical care unit for further care
Acute hypoxemic respiratory failure due to acute heart failure/pulmonary edema-preserved ejection fraction.
Requiring noninvasive mechanical ventilation due to increased work of breathing
Chest x-ray: Bilateral pulmonary infiltrate suggestive of pulmonary edema
Elevated proBNP
Chronic kidney disease stage V-progressive
Conditions present prior admission:
Admitted at from 10/25/2022 to 10/30/2022 due to severe symptomatic anemia. He presented with fall, shortness of breath, and was found to have a hemoglobin of 5.8. He was given 2 units PRBC�
Chronic kidney disease stage V
Left upper extremity AV fistula in place-placed in 2021.
Paroxysmal atrial fibrillation-chronic anticoagulation
Insulin-dependent diabetes with neuropathy
Chronic anemia likely due to CKD
Hyperlipidemia
History of CVA with residual left hemiparesis 2019 while on anticoagulation
Echocardiogram April 26, 2023:
No regional wall motion abnormalities, LVEF 55 to 60%, mildly enlarged left atrium, mildly enlarged right atrium, mild mitral regurgitation, mild to moderate tricuspid regurgitation with estimated pulmonary artery pressure of 40 mmHg.
Assessment and plan:
Clinical picture consistent with pulmonary edema-volume overload.
He is clinically improved-comfortable sitting flat in bed.
On 2 L of supplemental oxygen pulse ox 95% with conversation.
Patient reports that he feels better
Continue with IV diuretics
Nephrology correspondence reviewed: Patient may need dialysis
No significant acidosis
Potassium is normal
Follow renal function
Continue cardiac management
-
Chronic anemia due to underlying chronic kidney disease follow-up transfuse as necessary
-
Currently on 2 L nasal cannula. Hopefully can be weaned off after diuresis
Repeat chest x-ray tomorrow
Patient does not have any underlying pulmonary disease
Crackles on exam without bronchospasm
Appears comfortable
No need for further BiPAP unless there is increased work of breathing.
-
Cardiology correspondence reviewed: Heart rate is controlled
Continue anticoagulation
Continue cardiac medications
-
DVT prophylaxis-on chronic anticoagulation
-
At this point we will transfer to telemetry.
Critical care team will sign off.
-
Please call pulmonary if any respiratory issues arise
[2024-10-05 12:45] LABS: Glucose - Point of Care 105 mg/dl (70-99)
[2024-10-05] MEDS: RETACRIT 10000 UNITS SC (14:11)
--- NOTE | 2024-10-05 14:18 | PTCARENOTE ---
Pt reassessed. Remains off BiPAP. SaO2 95% on 2L NC. Voiding clear yellow into urinal. Nitro gtt weaned off. Remains A Fib with HR 90s-100s at rest with self terminating spikes into 120s with activity. +1 pitting LE edema remains. Pt advanced to K+
2 gram, Na+ 2 gram, 1500ml fluid restriction diet. Ate 100% of lunch. Pt downgraded to telemetry.
[2024-10-05 16:50] LABS: Glucose - Point of Care 228 mg/dl (70-99)
[2024-10-05] MEDS: NOVOLOG FLEXPEN-MODERATE RESISTANCE 3 UNITS SC (17:22)
--- NOTE | 2024-10-05 17:55 | W.PN.HOSP.TC ---
Today's Communication/Plan
-
Diuretics
Monitor Labs
okay to transfer to tele
Assessment / Plan
Assessment / Plan
Physical Exam
General: Not in acute distress
HEENT: Moist mucous membranes
Respiratory: Rales (Bilaterally)
Cardiac: S1/S2, Irregular Rhythm
GI: Soft and Non Tender. Positive bowel sounds.
Musculoskeletal: No Cyanosis and Other (+2 pitting edema bilateral lower extremities)
Skin: Warm and Dry
Neuro: Awake, Alert and Other (Chronic Left Hemiparesis)
Psych: Calm
Assessment and plan
74-year-old with CKD stage V, status post left upper extremity AV fistula with apparent good function placed in 2021, CHF with preserved EF, pulmonary atrial fibrillation on anticoagulation, insulin-dependent diabetes who presented to the emergency
department with acute episode of shortness of breath. Per spouse, the patient has chronic dyspnea on exertion especially with stairs. This worsened approximately starting 2 days ago. However on the day before admission, he started complaining of
shortness of breath and having cough and rhonchorous airway sounds. Spouse initially thought that he might have flulike illness but patient had no fever and no known sick contacts. Starting on the morning of admission he was lethargic and unable
to get out of bed due to worsening shortness of breath. Spouse reported that he did have increasing lower extremity edema. They said that his weight has been stable. He denied having any chest pain or palpitations. He had no nausea vomiting or
diaphoresis. He still apparently responds to 40 mg of Lasix at home and spouse reported that he urinated up to 1 jug overnight yesterday. He has been compliant with diuretic regimen. He also has been compliant with dietary management.
In the ED was severely hypoxic requiring immediate BiPAP. He was tachycardic to 113, blood pressure was 150/80. He was afebrile. Hypoxic to 80 on room air. ECG shows A-fib with a rate of 111. His troponin was 0.28. BNP was 6000. WBC 12,
hemoglobin 8.4, his electrolytes were stable with a potassium of 4.9 and bicarb of 23. His creatinine was 5.1 which has been increasing from a baseline of around 3.5-4.5. Chest x-ray shows bilateral interstitial opacities any opacities consistent
with flash pulmonary edema.
COVID test was negative. Influenza negative.
Acute Hypoxic Respiratory Failure secondary to Acute Heart Failure
Acute on Chronic HFpEF
Flash pulm edema. Likely secondary to worsening volume overload despite home diuretics.
Bilateral lower extremity edema and elevated JVD.
- patient on bipap and nitroglycerin (titrate nitroglycerin to allow for diuresis)
- continue Bumex
- strict i/o and daily weights
- monitor K, Mag and Cr
- echo
- cardiology
Elevated troponin - Suspect non-ischemic myocardial injury. Trop lower than prior
- trend for now, echo in am
- continue eliquis unless troponin rising sharply
AFIB - Permanent AFIB
- continue diltiazem for now, may consider change to bb depending on echo per cardiology
- continue eliquis
Renal Failure - Slowly worsening renal function. Non-oliguric. Electrolytes ok. s/p LUE AVF with good thril
- nephrology consulted this admission
- npo for now while on bipap
- May need dialysis this admission
DM II
- insulin sliding scale while npo
DVT PPX - on apixaban
Code status - full code
Anticipated Discharge: > 48 hours
Subjective/Interval History
-
Date of Service: October 05, 2024
Patient was seen and examined. He denied any complaints.
Objective Data
-
Vital Signs:
Vital Signs
Temp Pulse Resp BP Pulse Ox
98.1 F 103 18 128/82 94
10/05/24 16:00 10/05/24 05:00 10/05/24 05:00 10/05/24 05:00 10/05/24 13:52
I&O
10/04/24 10/05/24 10/06/24
06:59 06:59 06:59
Intake Total 15.2 / 19.0 730.6 / 730.6
Output Total 1625 / 1625 1000 / 1000
Balance -1609.8 / -1606.0 -269.4 / -269.4
--- NOTE | 2024-10-05 20:00 | PTCARENOTE ---
Received pt via handoff. Pt AAOx3, able to GOYAL with left sided weakness, afebrile. Afib, with palpable pulses. 96% on 2L NC, lung sounds have fine crackles. Hypoactive bowel sounds in all 4Q. Pt able to void in urinal, clear yellow urine. and
call calix at bedside.
[2024-10-06] VITALS (40 sets, daily range): BP systolic 121–165; BP diastolic 52–147; BMI 27.6
[2024-10-06 03:14] LABS: Hematocrit 23.5 % (39.0-52.0); Hemoglobin 7.9 g/dL (13.0-18.0); Mean Corp Hgb Conc. 33.6 g/dL (33.0-37.0); Mean Corpuscular Hgb 32.2 pg (27.0-31.0); Mean Corpuscular Volume 95.9 fL (80.0-94.0); Mean Platelet Volume 10.7 fL (7.4-10.4); Platelet Count 160 10^3/uL (130-400); Red Blood Cell Count 2.45 10^6/uL (4.70-6.10); Red Cell Dist. Width 13.9 % (11.5-14.5); White Blood Cell Count 12.7 10^3/uL (4.8-10.8)
[2024-10-06 03:42] LABS: Blood Urea Nitrogen 85 mg/dl (9-20); Calcium 8.4 mg/dl (8.4-10.2); Carbon Dioxide 25 mmol/L (22-30); Chloride 98 mmol/L (98-107); Estimated Creatinine Clearance 10 ml/min; Glucose 201 mg/dl (70-99); Potassium 4.2 mmol/L (3.5-5.1); Sodium 134 mmol/L (135-145); eGFR 10.08
[2024-10-06 07:54] LABS: Glucose - Point of Care 177 mg/dl (70-99)
[2024-10-06] MEDS: NOVOLOG FLEXPEN-MODERATE RESISTANCE 1 UNITS SC (08:32)
[2024-10-06] MEDS: BUMEX 2 MG IV ×2 (08:33→17:26)
[2024-10-06] MEDS: CARDIZEM CD 180 MG PO ×2 (08:34→20:27)
[2024-10-06] MEDS: ELIQUIS 5 MG PO ×2 (08:35→20:27)
--- NOTE | 2024-10-06 10:10 | W.PN.CARDCBS ---
Today's Communication / Plan
-
Remains hypoxemic and creatinine has worsened to 5.5
May need hemodialysis
Check echo
Impression / Plan
-
Assessment:
- He presents with acute heart failure with preserved ejection fraction, symptoms over the past 48 hours have been progressive.
Physical exam consistent with this diagnosis
Chest x-ray and proBNP consistent with this diagnosis
- Severe progressive chronic kidney disease
- Hypertension
- Permanent atrial fibrillation (he is on Eliquis 5 mg twice daily)
- CVA on 05/15/2020 (hypertensive), while on coumadin-his INR was 3.1; however, he was severely hypertensive. He admits to residual deficits to his left side
- Admitted at from 10/25/2022 to 10/30/2022 due to severe symptomatic anemia. He presented with fall, shortness of breath, and was found to have a hemoglobin of 5.8. He was given 2 units PRBC�
Echocardiogram April 26, 2023:
No regional wall motion abnormalities, LVEF 55 to 60%, mildly enlarged left atrium, mildly enlarged right atrium, mild mitral regurgitation, mild to moderate tricuspid regurgitation with estimated pulmonary artery pressure of 40 mmHg.
Recommendations
He remains hypoxemic
Creatinine has worsened to 5.5 on 10/06 from 5.0 on 10/05
Continue Lasix per nephrology input
Likely will need hemodialysis at some point
Will check echocardiogram
Heart rate control reasonable. Continue Eliquis and diltiazem
Discussed with at bedside and daughter by phone
Progress Note - Ring Sorter
Subjective
Date of Service: October 06, 2024
No complaints
Objective
Labs:
10/06/24 03:03
10/06/24 03:03
Labs
Hgb 7.9 g/dL (13.0-18.0) L 10/06/24 03:03
Hct 23.5 % (39.0-52.0) L 10/06/24 03:03
Plt Count 160 10^3/uL (130-400) 10/06/24 03:03
PT 19.7 Sec (11.4-14.6) H 10/04/24 23:42
INR 1.64 10/04/24 23:42
APTT 44.4 Sec (23.4-35.0) H 10/04/24 23:42
Sodium 134 mmol/L (135-145) L 10/06/24 03:03
Potassium 4.2 mmol/L (3.5-5.1) 10/06/24 03:03
BUN 85 mg/dl (9-20) H 10/06/24 03:03
Creatinine 5.5 mg/dL (0.7-1.3) H* 10/06/24 03:03
Glucose 201 mg/dl (70-99) H 10/06/24 03:03
Troponins
10/04/24 10/04/24 10/05/24
18:43 23:41 03:31
Troponin I 0.284 H* 0.633 H* D 0.847 H* D
10/05/24
08:44
Troponin I 0.920 H*
Vital Signs and I&O:
Vital Signs
Temp Pulse Resp BP Pulse Ox
98 F 96 22 139/68 97
10/06/24 08:00 10/06/24 09:42 10/06/24 09:42 10/06/24 09:42 10/06/24 09:42
Vital Signs
Temp Pulse Resp BP Pulse Ox
98 F 96 22 139/68 97
10/06/24 08:00 10/06/24 09:42 10/06/24 09:42 10/06/24 09:42 10/06/24 09:42
Intake & Output
10/04/24 10/05/24 10/06/24 10/07/24
06:59 06:59 06:59 06:59
Intake Total 15.2 / 19.0 1210.6 / 1210.6 240 / 240
Output Total 1625 / 1625 1625 / 1625
Balance -1609.8 / -1606.0 -414.4 / -414.4 240 / 240
Physical Exam
Physical Exam
General: Well developed, well nourished in NAD.
Neck: Supple, no JVD, HJR, carotids +2 B/L, no bruits bilaterally.
Heart: Non displaced PMI, irregular, no murmurs, No S3, S4, no rubs.
Lungs: Scattered rhonchi
Extremities: No clubbing, cyanosis or edema bilaterally.
Neuro: Grossly nonfocal, awake, alert and oriented x3.
--- NOTE | 2024-10-06 11:10 | W.PN.NEPH.PH ---
Today's Communication / Plan
-
cont bumex
Assessment/Plan
-
IMP:
Acute Hypoxic Respiratory Failure secondary to Acute Heart Failure
Acute on Chronic HFpEF
Paroxysmal Atrial Fibrillation
CKD Stage 5
Insulin Dependent Diabetes Mellitus, Type II with Diabetic Neuropathy
Acute on chr Chronic Anemia
Hyperlipidemia
Hx CVA with Residual Left Hemiparesis
Plan:
A/w acute resp failure from hypervolemia
wean O2 as tolerates, CXR improving
cont bumex seem to have good UOP, wt decreasing
echo pending
cr remains high at 5.5 with CKD 5 and mature AVF
suspect may need HD this admit -d/w pt and
wants to speak to family
monitor hb, decreasing , adequate fe stores, prn transfusion, s/p GREGORY 10/05
renal diet and FR
d/w nursing
-
-
Date of Service: October 06, 2024
CC / HPI / ROS
-
Chief Complaint:
CKD5
History of Present Illness:
cr increasing to 5.5, hb low 7.9
no fever, wt slow to improve
BP stable off nitro
Review of Systems:
no cp or sob at rest
on 2lit o2
no n/v
edema resolving
Labs
-
Labs:
WBC 12.7 10^3/uL (4.8-10.8) H 10/06/24 03:03
RBC 2.45 10^6/uL (4.70-6.10) L 10/06/24 03:03
Hgb 7.9 g/dL (13.0-18.0) L 10/06/24 03:03
Hct 23.5 % (39.0-52.0) L 10/06/24 03:03
Plt Count 160 10^3/uL (130-400) 10/06/24 03:03
Sodium 134 mmol/L (135-145) L 10/06/24 03:03
Potassium 4.2 mmol/L (3.5-5.1) 10/06/24 03:03
Chloride 98 mmol/L (98-107) 10/06/24 03:03
Carbon Dioxide 25 mmol/L (22-30) 10/06/24 03:03
BUN 85 mg/dl (9-20) H 10/06/24 03:03
Creatinine 5.5 mg/dL (0.7-1.3) H* 10/06/24 03:03
eGFR 10.08 10/06/24 03:03
Glucose 201 mg/dl (70-99) H 10/06/24 03:03
Calcium 8.4 mg/dl (8.4-10.2) 10/06/24 03:03
Phosphorus 5.0 mg/dl (2.5-4.5) H 10/05/24 03:31
Sfz-M-Obxdlmfmecp Pept 6700 pg/ml 10/04/24 18:43
Albumin 3.5 g/dl (3.5-5.0) 10/05/24 03:31
Physical Exam
-
Vital Signs:
Vital Signs
Temp Pulse Resp BP Pulse Ox
98 F 96 22 139/68 97
10/06/24 08:00 10/06/24 09:42 10/06/24 09:42 10/06/24 09:42 10/06/24 09:42
Cardiovascular:: Irregular rate and rhythm (mild tachy)
Respiratory:: Bilateral: Rales (fine at bases)
Lung Excursion:: Normal
Abdomen:: Nontender and Soft
Extremity Edema:: +1: Bilateral:
Sepulveda Catheter: No
[2024-10-06] MEDS: NOVOLOG FLEXPEN-MODERATE RESISTANCE 9 UNITS SC (11:37)
[2024-10-06 11:49] LABS: Glucose - Point of Care 343 mg/dl (70-99)
--- NOTE | 2024-10-06 17:08 | W.PN.HOSP.TC ---
Today's Communication/Plan
-
Continue Bumex, Eliquis, Diltiazem
Assessment / Plan
Assessment / Plan
Physical Exam
General: Not in acute distress
HEENT: Moist mucous membranes
Respiratory: Rales (Bilaterally)
Cardiac: S1/S2, Irregular Rhythm
GI: Soft and Non Tender. Positive bowel sounds.
Musculoskeletal: No Cyanosis and Other (+2 pitting edema bilateral lower extremities)
Skin: Warm and Dry
Neuro: Awake, Alert and Other (Chronic Left Hemiparesis)
Psych: Calm
Assessment and plan
74-year-old with CKD stage V, status post left upper extremity AV fistula with apparent good function placed in 2021, CHF with preserved EF, pulmonary atrial fibrillation on anticoagulation, insulin-dependent diabetes who presented to the emergency
department with acute episode of shortness of breath. Per spouse, the patient has chronic dyspnea on exertion especially with stairs. This worsened approximately starting 2 days ago. However on the day before admission, he started complaining of
shortness of breath and having cough and rhonchorous airway sounds. Spouse initially thought that he might have flulike illness but patient had no fever and no known sick contacts. Starting on the morning of admission he was lethargic and unable
to get out of bed due to worsening shortness of breath. Spouse reported that he did have increasing lower extremity edema. They said that his weight has been stable. He denied having any chest pain or palpitations. He had no nausea vomiting or
diaphoresis. He still apparently responds to 40 mg of Lasix at home and spouse reported that he urinated up to 1 jug overnight yesterday. He has been compliant with diuretic regimen. He also has been compliant with dietary management.
In the ED was severely hypoxic requiring immediate BiPAP. He was tachycardic to 113, blood pressure was 150/80. He was afebrile. Hypoxic to 80 on room air. ECG shows A-fib with a rate of 111. His troponin was 0.28. BNP was 6000. WBC 12,
hemoglobin 8.4, his electrolytes were stable with a potassium of 4.9 and bicarb of 23. His creatinine was 5.1 which has been increasing from a baseline of around 3.5-4.5. Chest x-ray shows bilateral interstitial opacities any opacities consistent
with flash pulmonary edema.
COVID test was negative. Influenza negative.
Acute Hypoxic Respiratory Failure secondary to Acute Heart Failure
Acute on Chronic HFpEF
Flash pulm edema. Likely secondary to worsening volume overload despite home diuretics.
Bilateral lower extremity edema and elevated JVD.
- patient on bipap and nitroglycerin (titrate nitroglycerin to allow for diuresis)
- continue Bumex
- strict i/o and daily weights
- monitor K, Mag and Cr
- echo
- cardiology
Elevated troponin - Suspect non-ischemic myocardial injury. Trop lower than prior
- Echo
- continue eliquis
AFIB - Permanent AFIB
- continue diltiazem
- continue eliquis
MIMI
- Creatinine worsening
- nephrology consulted this admission
- npo for now while on bipap
- May need dialysis this admission
DM II
- insulin sliding scale while npo
DVT Prophylaxis: on Apixaban
Code Status: Full Code
Anticipated Discharge: > 48 hours
Subjective/Interval History
-
Date of Service: October 06, 2024
Patient was seen and examined. He denied any chest pain or shortness of breath.
Objective Data
-
Vital Signs:
Vital Signs
Temp Pulse Resp BP Pulse Ox
98.1 F 96 22 139/68 95
10/06/24 12:25 10/06/24 09:42 10/06/24 09:42 10/06/24 09:42 10/06/24 12:48
I&O
10/05/24 10/06/24 10/07/24
06:59 06:59 06:59
Intake Total 15.2 / 19.0 1210.6 / 1210.6 240 / 240
Output Total 1625 / 1625 1625 / 1625 200 / 200
Balance -1609.8 / -1606.0 -414.4 / -414.4 40 / 40
[2024-10-06 17:42] LABS: Glucose - Point of Care 232 mg/dl (70-99)
[2024-10-06] MEDS: NOVOLOG FLEXPEN-MODERATE RESISTANCE 3 UNITS SC (17:42)
[2024-10-06 21:30] LABS: Glucose - Point of Care 312 mg/dl (70-99)
[2024-10-06] MEDS: NOVOLOG FLEXPEN 5 UNITS SC (22:54)
[2024-10-06] MEDS: LANTUS 0.08 UNITS SC (22:55)
[2024-10-07] MEDS: ROBITUSSIN DM 5 ML PO (00:35)
[2024-10-07 03:37] LABS: Glucose - Point of Care 170 mg/dl (70-99)
[2024-10-07 03:46] VITALS: BP 124/62
[2024-10-07 06:00] VITALS: BMI 26.6
[2024-10-07 07:24] LABS: Hematocrit 24.2 % (39.0-52.0); Mean Corp Hgb Conc. 33.1 g/dL (33.0-37.0); Mean Corpuscular Hgb 31.9 pg (27.0-31.0); Mean Corpuscular Volume 96.4 fL (80.0-94.0); Platelet Count 169 10^3/uL (130-400); Red Blood Cell Count 2.51 10^6/uL (4.70-6.10); White Blood Cell Count 10.3 10^3/uL (4.8-10.8)
[2024-10-07 07:31] LABS: Blood Urea Nitrogen 92 mg/dl (9-20); Calcium 8.1 mg/dl (8.4-10.2); Carbon Dioxide 24 mmol/L (22-30); Chloride 97 mmol/L (98-107); Estimated Creatinine Clearance 10 ml/min; Glucose 158 mg/dl (70-99); Magnesium 1.9 mg/dl (1.6-2.3); Potassium 3.9 mmol/L (3.5-5.1); Sodium 134 mmol/L (135-145); eGFR 10.08
[2024-10-07 07:48] LABS: Glucose - Point of Care 158 mg/dl (70-99)
[2024-10-07 07:51] VITALS: BP 129/71
[2024-10-07] MEDS: NOVOLOG FLEXPEN-MODERATE RESISTANCE 1 UNITS SC (08:32)
[2024-10-07] MEDS: CARDIZEM CD 180 MG PO ×2 (08:32→19:51)
[2024-10-07] MEDS: ELIQUIS 5 MG PO ×2 (08:32→19:51)
[2024-10-07] MEDS: BUMEX 2 MG IV ×2 (08:33→17:15)
--- NOTE | 2024-10-07 09:51 | W.PN.CARDCBS ---
Addendum entered and electronically signed by Morgan Rodriguez MD 10/07/24 16:25:
Echo is similar to prior studies. LV function normal. Will sign off, call with questions
Original Note:
Today's Communication / Plan
-
Nephrology managing diuretics and dialysis being considered
Check echocardiogram and if okay will sign off
Impression / Plan
-
Assessment:
- He presents with acute heart failure with preserved ejection fraction, symptoms over the past 48 hours have been progressive.
Physical exam consistent with this diagnosis
Chest x-ray and proBNP consistent with this diagnosis
- Severe progressive chronic kidney disease
- Hypertension
- Permanent atrial fibrillation (he is on Eliquis 5 mg twice daily)
- CVA on 05/15/2020 (hypertensive), while on coumadin-his INR was 3.1; however, he was severely hypertensive. He admits to residual deficits to his left side
- Admitted at from 10/25/2022 to 10/30/2022 due to severe symptomatic anemia. He presented with fall, shortness of breath, and was found to have a hemoglobin of 5.8. He was given 2 units PRBC�
Echocardiogram April 26, 2023:
No regional wall motion abnormalities, LVEF 55 to 60%, mildly enlarged left atrium, mildly enlarged right atrium, mild mitral regurgitation, mild to moderate tricuspid regurgitation with estimated pulmonary artery pressure of 40 mmHg.
Recommendations
He remains hypoxemic and renal function remains very poor
Dialysis being considered
Heart rate control in A-on license of [facility] is adequate, continue Eliquis and diltiazem
Will check echocardiogram and if echocardiogram okay will sign off
Progress Note - Security Control Assessor
Subjective
Date of Service: October 07, 2024
No complaints
Objective
Labs:
10/07/24 06:44
10/07/24 06:44
Labs
Hgb 8.0 g/dL (13.0-18.0) L 10/07/24 06:44
Hct 24.2 % (39.0-52.0) L 10/07/24 06:44
Plt Count 169 10^3/uL (130-400) 10/07/24 06:44
PT 19.7 Sec (11.4-14.6) H 10/04/24 23:42
INR 1.64 10/04/24 23:42
APTT 44.4 Sec (23.4-35.0) H 10/04/24 23:42
Sodium 134 mmol/L (135-145) L 10/07/24 06:44
Potassium 3.9 mmol/L (3.5-5.1) 10/07/24 06:44
BUN 92 mg/dl (9-20) H 10/07/24 06:44
Creatinine 5.5 mg/dL (0.7-1.3) H* 10/07/24 06:44
Glucose 158 mg/dl (70-99) H 10/07/24 06:44
Troponins
10/04/24 10/04/24 10/05/24
18:43 23:41 03:31
Troponin I 0.284 H* 0.633 H* D 0.847 H* D
10/05/24
08:44
Troponin I 0.920 H*
Vital Signs and I&O:
Vital Signs
Temp Pulse Resp BP Pulse Ox
98.2 F 84 16 129/71 96
10/07/24 07:51 10/07/24 08:33 10/07/24 07:51 10/07/24 08:33 10/07/24 07:51
Vital Signs
Temp Pulse Resp BP Pulse Ox
98.2 F 84 16 129/71 96
10/07/24 07:51 10/07/24 08:33 10/07/24 07:51 10/07/24 08:33 10/07/24 07:51
Intake & Output
10/05/24 10/06/24 10/07/24 10/08/24
06:59 06:59 06:59 06:59
Intake Total 15.2 / 19.0 1210.6 / 1210.6 720 / 720
Output Total 1625 / 1625 1625 / 1625 900 / 900
Balance -1609.8 / -1606.0 -414.4 / -414.4 -180 / -180
Physical Exam
Physical Exam
General: Well developed, well nourished in NAD.
Neck: Supple, no JVD, HJR, carotids +2 B/L, no bruits bilaterally.
Heart: Non displaced PMI, irregular, no murmurs, No S3, S4, no rubs.
Lungs: Scattered rhonchi
Extremities: No clubbing, cyanosis or edema bilaterally.
Neuro: Grossly nonfocal, awake, alert and oriented x3.
[2024-10-07 11:14] VITALS: BP 125/62
--- NOTE | 2024-10-07 11:30 | W.PN.NEPH.PH ---
Today's Communication / Plan
-
Follow BMP
Continue IV diuretics
Dialysis recommended but not accepted yet
Assessment/Plan
-
IMP:
Acute Hypoxic Respiratory Failure secondary to Acute Heart Failure
Acute on Chronic HFpEF
Paroxysmal Atrial Fibrillation
CKD Stage 5
Insulin Dependent Diabetes Mellitus, Type II with Diabetic Neuropathy
Acute on chr Chronic Anemia
Hyperlipidemia
Hx CVA with Residual Left Hemiparesis
Plan:
A/w acute resp failure from hypervolemia
Remains on 2 mg IV twice daily and Bumex urine output recorded is only 700 cc
wean O2 as tolerates, CXR improving but notes bilateral opacities
Blood pressure control
echo pending
cr remains high at 5.5 with CKD 5 , BUN up to 92 and mature AVF
We should initiate dialysis need HD this admit -d/w pt and
monitor hgb, decreasing , adequate fe stores, prn transfusion, s/p GREGORY 10/05
renal diet and FR
d/w patient and , who went to discuss dialysis option with her own family
-
-
Date of Service: October 07, 2024
CC / HPI / ROS
-
Chief Complaint:
CKD5
History of Present Illness:
cr increasing to 5.5, hb low 7.9, BUN up to 92
no fever, wt slow to improve
BP stable off nitro
Review of Systems:
no cp or sob at rest
on 2lit o2
no n/v
edema resolving
Weight is down
Labs
-
Labs:
WBC 10.3 10^3/uL (4.8-10.8) 10/07/24 06:44
RBC 2.51 10^6/uL (4.70-6.10) L 10/07/24 06:44
Hgb 8.0 g/dL (13.0-18.0) L 10/07/24 06:44
Hct 24.2 % (39.0-52.0) L 10/07/24 06:44
Plt Count 169 10^3/uL (130-400) 10/07/24 06:44
Sodium 134 mmol/L (135-145) L 10/07/24 06:44
Potassium 3.9 mmol/L (3.5-5.1) 10/07/24 06:44
Chloride 97 mmol/L (98-107) L 10/07/24 06:44
Carbon Dioxide 24 mmol/L (22-30) 10/07/24 06:44
BUN 92 mg/dl (9-20) H 10/07/24 06:44
Creatinine 5.5 mg/dL (0.7-1.3) H* 10/07/24 06:44
eGFR 10.08 10/07/24 06:44
Glucose 158 mg/dl (70-99) H 10/07/24 06:44
Calcium 8.1 mg/dl (8.4-10.2) L 10/07/24 06:44
Phosphorus 5.0 mg/dl (2.5-4.5) H 10/05/24 03:31
Ewl-G-Ekktujlcsfp Pept 6700 pg/ml 10/04/24 18:43
Albumin 3.5 g/dl (3.5-5.0) 10/05/24 03:31
Physical Exam
-
Vital Signs:
Vital Signs
Temp Pulse Resp BP Pulse Ox
97.6 F 82 16 125/62 97
10/07/24 11:14 10/07/24 11:14 10/07/24 11:14 10/07/24 11:14 10/07/24 11:14
Cardiovascular:: Irregular rate and rhythm (mild tachy)
Respiratory:: Bilateral: Rales (fine at bases)
Lung Excursion:: Normal
Abdomen:: Nontender and Soft
Extremity Edema:: None: Bilateral:
Sepulveda Catheter: No
[2024-10-07 11:42] LABS: Glucose - Point of Care 325 mg/dl (70-99)
[2024-10-07] MEDS: NOVOLOG FLEXPEN-MODERATE RESISTANCE 7 UNITS SC (12:05)
--- NOTE | 2024-10-07 14:28 | CM ---
Reviewed the chart notes. Per notes, patient considering initiation of HD. Patient remains on supplemental O2. CM continues to be available to patient/family and is monitoring medical plan for needs at discharge.
Plan: Discharge plans will depend on patient's progress. Would benefit from PT/OT evaluation.
[2024-10-07 15:40] VITALS: BP 132/64
[2024-10-07 16:54] LABS: Glucose - Point of Care 235 mg/dl (70-99)
[2024-10-07] MEDS: NOVOLOG FLEXPEN-MODERATE RESISTANCE 3 UNITS SC (17:15)
--- NOTE | 2024-10-07 18:34 | W.PN.HOSP.TC ---
Today's Communication/Plan
-
Dialysis likely will be needed this admission
Assessment / Plan
Assessment / Plan
Physical Exam
General: Not in acute distress
HEENT: Moist mucous membranes
Respiratory: Scattered Rhonchi (Bilaterally)
Cardiac: S1/S2, Irregular Rhythm
GI: Soft and Non Tender. Positive bowel sounds.
Musculoskeletal: No Cyanosis and Other (+2 pitting edema bilateral lower extremities)
Skin: Warm and Dry
Neuro: Awake, Alert and Other (Chronic Left Hemiparesis)
Psych: Calm
Assessment and plan
74-year-old with CKD stage V, status post left upper extremity AV fistula with apparent good function placed in 2021, CHF with preserved EF, pulmonary atrial fibrillation on anticoagulation, insulin-dependent diabetes who presented to the emergency
department with acute episode of shortness of breath. Per spouse, the patient has chronic dyspnea on exertion especially with stairs. This worsened approximately starting 2 days ago. However on the day before admission, he started complaining of
shortness of breath and having cough and rhonchorous airway sounds. Spouse initially thought that he might have flulike illness but patient had no fever and no known sick contacts. Starting on the morning of admission he was lethargic and unable
to get out of bed due to worsening shortness of breath. Spouse reported that he did have increasing lower extremity edema. They said that his weight has been stable. He denied having any chest pain or palpitations. He had no nausea vomiting or
diaphoresis. He still apparently responds to 40 mg of Lasix at home and spouse reported that he urinated up to 1 jug overnight yesterday. He has been compliant with diuretic regimen. He also has been compliant with dietary management.
In the ED was severely hypoxic requiring immediate BiPAP. He was tachycardic to 113, blood pressure was 150/80. He was afebrile. Hypoxic to 80 on room air. ECG shows A-fib with a rate of 111. His troponin was 0.28. BNP was 6000. WBC 12,
hemoglobin 8.4, his electrolytes were stable with a potassium of 4.9 and bicarb of 23. His creatinine was 5.1 which has been increasing from a baseline of around 3.5-4.5. Chest x-ray shows bilateral interstitial opacities any opacities consistent
with flash pulmonary edema.
COVID test was negative. Influenza negative.
Acute Hypoxic Respiratory Failure secondary to Acute Heart Failure
Acute on Chronic HFpEF
Flash pulm edema. Likely secondary to worsening volume overload despite home diuretics.
Bilateral lower extremity edema and elevated JVD.
- patient on bipap and nitroglycerin (titrate nitroglycerin to allow for diuresis)
- continue Bumex
- strict i/o and daily weights
- monitor K, Mag and Cr
- echo
- cardiology consult evaluation appreciated
Elevated troponin - Suspect non-ischemic myocardial injury. Trop lower than prior
- Echo
- continue eliquis
AFIB - Permanent AFIB
- continue diltiazem
- continue eliquis
MIMI
- Creatinine worsening
- nephrology consulted this admission
- npo for now while on bipap
- May need dialysis this admission
DM II
- insulin sliding scale
DVT Prophylaxis: on Apixaban
Code Status: Full Code
Anticipated Discharge: > 48 hours
Subjective/Interval History
-
Date of Service: October 07, 2024
Patient was seen and examined. He denied any chest pain or shortness of breath.
Objective Data
-
Labs:
Laboratory Results
10/07/24
06:44
WBC 10.3
Hgb 8.0 L
Hct 24.2 L
Plt Count 169
Sodium 134 L
Potassium 3.9
Chloride 97 L
Carbon Dioxide 24
BUN 92 H
Creatinine 5.5 H*
Glucose 158 H
Calcium 8.1 L
Vital Signs:
Vital Signs
Temp Pulse Resp BP Pulse Ox
97.7 F 98 18 135/61 98
10/07/24 15:40 10/07/24 17:15 10/07/24 15:40 10/07/24 17:15 10/07/24 15:40
I&O
10/06/24 10/07/24 10/08/24
06:59 06:59 06:59
Intake Total 1210.6 / 1210.6 720 / 720 360 / 360
Output Total 1625 / 1625 900 / 900 100 / 100
Balance -414.4 / -414.4 -180 / -180 260 / 260
[2024-10-07 22:16] LABS: Glucose - Point of Care 291 mg/dl (70-99)
[2024-10-07] MEDS: LANTUS 0.08 UNITS SC (22:18)
[2024-10-07 23:21] VITALS: BP 145/74
[2024-10-08] MEDS: ROBITUSSIN DM 5 ML PO ×2 (00:03→21:33)
[2024-10-08 06:00] VITALS: BMI 26.5
[2024-10-08 07:45] VITALS: BP 131/65
[2024-10-08 08:01] LABS: Glucose - Point of Care 187 mg/dl (70-99)
[2024-10-08 08:22] LABS: Hematocrit 23.6 % (39.0-52.0); Hemoglobin 8.1 g/dL (13.0-18.0); Mean Corp Hgb Conc. 34.3 g/dL (33.0-37.0); Mean Corpuscular Hgb 32.4 pg (27.0-31.0); Mean Corpuscular Volume 94.4 fL (80.0-94.0); Mean Platelet Volume 10.8 fL (7.4-10.4); Platelet Count 186 10^3/uL (130-400); Red Cell Dist. Width 14.1 % (11.5-14.5); White Blood Cell Count 8.6 10^3/uL (4.8-10.8)
[2024-10-08 08:40] LABS: Blood Urea Nitrogen 95 mg/dl (9-20); Calcium 8.1 mg/dl (8.4-10.2); Carbon Dioxide 25 mmol/L (22-30); Chloride 97 mmol/L (98-107); Estimated Creatinine Clearance 9 ml/min; Glucose 182 mg/dl (70-99); Potassium 3.8 mmol/L (3.5-5.1); Sodium 135 mmol/L (135-145); eGFR 9.46
[2024-10-08] MEDS: CARDIZEM CD 180 MG PO ×2 (08:53→21:23)
[2024-10-08] MEDS: NOVOLOG FLEXPEN-MODERATE RESISTANCE 1 UNITS SC (08:53)
[2024-10-08] MEDS: ELIQUIS 5 MG PO ×2 (08:53→21:23)
[2024-10-08] MEDS: BUMEX 2 MG IV ×2 (08:54→17:17)
--- NOTE | 2024-10-08 10:49 | PTCARENOTE ---
Patient resting comfortably in chair this AM watching TV, has already eaten breakfast. is at bedside. He is able to make his needs known and has no complaints at this time.
[2024-10-08 12:05] LABS: Glucose - Point of Care 283 mg/dl (70-99)
[2024-10-08] MEDS: NOVOLOG FLEXPEN-MODERATE RESISTANCE 5 UNITS SC ×2 (12:21→17:18)
--- NOTE | 2024-10-08 15:08 | W.PN.NEPH.PH ---
Today's Communication / Plan
-
Family to discuss dialysis
Assessment/Plan
-
IMP:
Acute Hypoxic Respiratory Failure secondary to Acute Heart Failure
Acute on Chronic HFpEF
Paroxysmal Atrial Fibrillation
CKD Stage 5
Insulin Dependent Diabetes Mellitus, Type II with Diabetic Neuropathy
Acute on chr Chronic Anemia
Hyperlipidemia
Hx CVA with Residual Left Hemiparesis
Plan:
A/w acute resp failure from hypervolemia
Remains on 2 mg IV twice daily and Bumex urine output not accurately recorded
BUN up to 95 corresponding creatinine level up to 5.8
wean O2 as tolerates, CXR improving but notes bilateral opacities
Blood pressure controlled
echo pending
Patient has AV fistula that is matured and available
We should initiate dialysis need HD this admit -d/w pt and
monitor hgb, decreasing , adequate fe stores, prn transfusion, s/p GREGORY 10/05
renal diet and FR
d/w patient and , who went to discuss dialysis option with her own family
I did have a discussion with the daughter and expressed the need to initiate dialysis. She understood and I answered all of her questions she is going to speak with her family about initiating dialysis possibly within the next 24 to 48 hours
I explained that the patient would not likely be viable outside of the hospital off of dialysis given his poor GFR and recurrent congestive heart failure
Today's encounter was a higher risk encounter as acute kidney injury continues to worsen. Dialysis discussion was initiated with daughter total time of care today 40 minutes
-
-
Date of Service: October 08, 2024
CC / HPI / ROS
-
Chief Complaint:
CKD5
History of Present Illness:
cr increasing to 5.8, hb low 8.1 BUN up to 95
no fever, wt slow to improve
BP stable off nitro
Review of Systems:
no cp or sob at rest
on 2lit o2
no n/v
edema resolving
Weight is down
Labs
-
Labs:
WBC 8.6 10^3/uL (4.8-10.8) 10/08/24 07:53
RBC 2.50 10^6/uL (4.70-6.10) L 10/08/24 07:53
Hgb 8.1 g/dL (13.0-18.0) L 10/08/24 07:53
Hct 23.6 % (39.0-52.0) L 10/08/24 07:53
Plt Count 186 10^3/uL (130-400) 10/08/24 07:53
Sodium 135 mmol/L (135-145) 10/08/24 07:53
Potassium 3.8 mmol/L (3.5-5.1) 10/08/24 07:53
Chloride 97 mmol/L (98-107) L 10/08/24 07:53
Carbon Dioxide 25 mmol/L (22-30) 10/08/24 07:53
BUN 95 mg/dl (9-20) H 10/08/24 07:53
Creatinine 5.8 mg/dL (0.7-1.3) H* 10/08/24 07:53
eGFR 9.46 10/08/24 07:53
Glucose 182 mg/dl (70-99) H 10/08/24 07:53
Calcium 8.1 mg/dl (8.4-10.2) L 10/08/24 07:53
Phosphorus 5.0 mg/dl (2.5-4.5) H 10/05/24 03:31
Naz-O-Przvcfiyenl Pept 6700 pg/ml 10/04/24 18:43
Albumin 3.5 g/dl (3.5-5.0) 10/05/24 03:31
Physical Exam
-
Vital Signs:
Vital Signs
Temp Pulse Resp BP Pulse Ox
98.1 F 86 16 131/65 100
10/08/24 07:45 10/08/24 08:54 10/08/24 07:45 10/08/24 08:54 10/08/24 07:45
Cardiovascular:: Irregular rate and rhythm (mild tachy)
Respiratory:: Bilateral: Rales (fine at bases)
Lung Excursion:: Normal
Abdomen:: Nontender and Soft
Extremity Edema:: None: Bilateral:
Sepulveda Catheter: No
--- NOTE | 2024-10-08 15:30 | CM ---
Reviewed the chart notes and spoke with the patient at the bedside. Patient still uncertain about starting HD. Patient continues on supplemental O2. CM continues to be available to patient/family and is monitoring medical plan for needs at
discharge.
Plan: Discharge plans will depend on the patient's progress and decision regarding HD or not.
[2024-10-08 15:35] VITALS: BP 128/59
[2024-10-08 16:59] LABS: Glucose - Point of Care 255 mg/dl (70-99)
--- NOTE | 2024-10-08 19:27 | W.PN.HOSP.TC ---
Today's Communication/Plan
-
Family deciding on patient's dialysis initiation
Assessment / Plan
Assessment / Plan
Physical Exam
General: Not in acute distress
HEENT: Moist mucous membranes
Respiratory: Scattered Rhonchi (Bilaterally)
Cardiac: S1/S2, Irregular Rhythm
GI: Soft and Non Tender. Positive bowel sounds.
Musculoskeletal: No Cyanosis and Other (+2 pitting edema bilateral lower extremities)
Skin: Warm and Dry
Neuro: Awake, Alert and Other (Chronic Left Hemiparesis)
Psych: Calm
Assessment and plan
74-year-old with CKD stage V, status post left upper extremity AV fistula with apparent good function placed in 2021, CHF with preserved EF, pulmonary atrial fibrillation on anticoagulation, insulin-dependent diabetes who presented to the emergency
department with acute episode of shortness of breath. Per spouse, the patient has chronic dyspnea on exertion especially with stairs. This worsened approximately starting 2 days ago. However on the day before admission, he started complaining of
shortness of breath and having cough and rhonchorous airway sounds. Spouse initially thought that he might have flulike illness but patient had no fever and no known sick contacts. Starting on the morning of admission he was lethargic and unable
to get out of bed due to worsening shortness of breath. Spouse reported that he did have increasing lower extremity edema. They said that his weight has been stable. He denied having any chest pain or palpitations. He had no nausea vomiting or
diaphoresis. He still apparently responds to 40 mg of Lasix at home and spouse reported that he urinated up to 1 jug overnight yesterday. He has been compliant with diuretic regimen. He also has been compliant with dietary management.
In the ED was severely hypoxic requiring immediate BiPAP. He was tachycardic to 113, blood pressure was 150/80. He was afebrile. Hypoxic to 80 on room air. ECG shows A-fib with a rate of 111. His troponin was 0.28. BNP was 6000. WBC 12,
hemoglobin 8.4, his electrolytes were stable with a potassium of 4.9 and bicarb of 23. His creatinine was 5.1 which has been increasing from a baseline of around 3.5-4.5. Chest x-ray shows bilateral interstitial opacities any opacities consistent
with flash pulmonary edema.
COVID test was negative. Influenza negative.
Acute Hypoxic Respiratory Failure secondary to Acute Heart Failure
Acute on Chronic HFpEF
Flash pulm edema. Likely secondary to worsening volume overload despite home diuretics.
Bilateral lower extremity edema and elevated JVD.
- patient on bipap and nitroglycerin (titrate nitroglycerin to allow for diuresis)
- continue Bumex
- strict i/o and daily weights
- monitor K, Mag and Cr
- echo
- cardiology consult evaluation appreciated
Elevated troponin - Suspect non-ischemic myocardial injury. Trop lower than prior
- Echo
- continue eliquis
AFIB - Permanent AFIB
- continue diltiazem
- continue eliquis
Anemia of Chronic Kidney Disease
-s/p GREGORY 10/05
MIMI/CKD 5
- Patient has AV fistula that is matured and available
- Creatinine worsening
- nephrology consulted this admission
- npo for now while on bipap
- Should get dialysis this admission -- nephrology and I discussed with patient's family this admission
DM II
- insulin sliding scale
DVT Prophylaxis: on Apixaban
Code Status: Full Code
On 10/08/24, I called and spoke to patient's daughter Kayla at [phone] (daughter Candice was also on the group call). All questions and concerns were answered.
Anticipated Discharge: > 48 hours
Subjective/Interval History
-
Date of Service: October 08, 2024
Patient was seen and examined. He denied any chest pain or shortness of breath.
Objective Data
-
Labs:
Laboratory Results
10/08/24
07:53
WBC 8.6
Hgb 8.1 L
Hct 23.6 L
Plt Count 186
Sodium 135
Potassium 3.8
Chloride 97 L
Carbon Dioxide 25
BUN 95 H
Creatinine 5.8 H*
Glucose 182 H
Calcium 8.1 L
Vital Signs:
Vital Signs
Temp Pulse Resp BP Pulse Ox
98.1 F 78 18 128/59 95
10/08/24 15:35 10/08/24 17:17 10/08/24 15:35 10/08/24 17:17 10/08/24 18:21
I&O
10/07/24 10/08/24 10/09/24
06:59 06:59 06:59
Intake Total 720 / 720 840 / 840 600 / 600
Output Total 900 / 900 100 / 100 455 / 455
Balance -180 / -180 740 / 740 145 / 145
[2024-10-08 21:28] LABS: Glucose - Point of Care 221 mg/dl (70-99)
[2024-10-08] MEDS: LANTUS 0.08 UNITS SC (21:30)
[2024-10-08 23:43] VITALS: BP 136/60
[2024-10-09 06:00] VITALS: BMI 26.4
[2024-10-09 07:21] LABS: Glucose - Point of Care 150 mg/dl (70-99)
[2024-10-09 08:22] LABS: Hemoglobin 8.2 g/dL (13.0-18.0); Mean Corp Hgb Conc. 34.2 g/dL (33.0-37.0); Mean Corpuscular Hgb 32.2 pg (27.0-31.0); Mean Corpuscular Volume 94.1 fL (80.0-94.0); Mean Platelet Volume 10.7 fL (7.4-10.4); Platelet Count 200 10^3/uL (130-400); Red Blood Cell Count 2.55 10^6/uL (4.70-6.10); Red Cell Dist. Width 14.5 % (11.5-14.5)
[2024-10-09] MEDS: ELIQUIS 5 MG PO ×2 (08:36→21:12)
[2024-10-09] MEDS: NOVOLOG FLEXPEN-MODERATE RESISTANCE 1 UNITS SC (08:36)
[2024-10-09] MEDS: CARDIZEM CD 180 MG PO ×2 (08:37→21:24)
[2024-10-09] MEDS: BUMEX 2 MG IV ×2 (08:40→16:58)
[2024-10-09 08:46] VITALS: BP 124/63
[2024-10-09 08:48] LABS: Blood Urea Nitrogen 103 mg/dl (9-20); Calcium 8.3 mg/dl (8.4-10.2); Carbon Dioxide 23 mmol/L (22-30); Chloride 97 mmol/L (98-107); Estimated Creatinine Clearance 9 ml/min; Glucose 154 mg/dl (70-99); Magnesium 2.1 mg/dl (1.6-2.3); Potassium 3.7 mmol/L (3.5-5.1); Sodium 132 mmol/L (135-145); eGFR 9.87
[2024-10-09 11:36] LABS: Glucose - Point of Care 264 mg/dl (70-99)
[2024-10-09] MEDS: NOVOLOG FLEXPEN-MODERATE RESISTANCE 5 UNITS SC ×2 (11:43→16:58)
--- NOTE | 2024-10-09 13:25 | PN.CDI ---
CDI
- -
CDI:
Physician Documentation Request
Admit Date: 10/04/24 21:06
Dear Doctor Micheal,
Patient admitted with acute on chronic diastolic CHF.
Na levels documented below:
Laboratory Tests
10/06/24 10/07/24 10/09/24
03:03 06:44 07:57
Sodium 134 L 134 L 132 L
Based on the above, please clarify in the progress notes, the appropriate diagnosis, if significant, that supports the above abnormalities and additional evaluation, monitoring and/or treatment rendered:
Hyponatremia
Insignificant abnormal lab findings
Other
Use of terms such as suspected, likely, concern for, or probable (associated with a specific diagnosis that is being evaluated, monitored, or treated as if it exists) are acceptable and can be coded in the inpatient setting, when documented at the
time of discharge.
Thank you,
Ludy ACHARYA,RN,CCDS
CDI Specialist
Available via [place] text
Please use your independent medical judgment in providing your response.
[2024-10-09 14:27] VITALS: BP 123/56
--- NOTE | 2024-10-09 15:39 | CM ---
Reviewed the chart notes and spoke with the patient and his spouse at the bedside. Per spouse, family and patient are in agreement for short HD sessions to see if the patient's body will recover. CM continues to be available to patient/family and
is monitoring medical plan for needs at discharge.
Plan: Discharge plans will depend on the patient's progress. HD outpatient sessions will need to be set-up once HD has been initiated.
[2024-10-09 16:55] LABS: Glucose - Point of Care 263 mg/dl (70-99)
--- NOTE | 2024-10-09 17:19 | W.PN.NEPH.PH ---
Today's Communication / Plan
-
HD tomorrow
Assessment/Plan
-
IMP:
Acute Hypoxic Respiratory Failure secondary to Acute Heart Failure
Acute on Chronic HFpEF
Paroxysmal Atrial Fibrillation
CKD Stage 5
Insulin Dependent Diabetes Mellitus, Type II with Diabetic Neuropathy
Acute on chr Chronic Anemia
Hyperlipidemia
Hx CVA with Residual Left Hemiparesis
Plan:
A/w acute resp failure from hypervolemia
Remains on 2 mg IV twice daily and Bumex, non oliguric
BUN up to 103 , creatinine at 5.6
wean O2 as tolerates
Blood pressure controlled
echo normal EF, TR severe
Patient has AV fistula that is matured and available
Given persistent hypervolemia and worsenign MIMI-likely it is time to start HD , finally pt and family agreeable
arrange HD tomorrow
monitor hgb, decreasing , adequate fe stores, prn transfusion, s/p GREGORY 10/05
renal diet and FR
-
-
Date of Service: October 09, 2024
CC / HPI / ROS
-
Chief Complaint:
CKD5
History of Present Illness:
cr high 5.6, hb low 8.2 BUN up to 103
no fever, wt slow to improve
BP stable
Review of Systems:
no cp or sob at rest
on 2lit o2
no n/v
edema resolving
Labs
-
Labs:
WBC 9.0 10^3/uL (4.8-10.8) 10/09/24 07:57
RBC 2.55 10^6/uL (4.70-6.10) L 10/09/24 07:57
Hgb 8.2 g/dL (13.0-18.0) L 10/09/24 07:57
Hct 24.0 % (39.0-52.0) L 10/09/24 07:57
Plt Count 200 10^3/uL (130-400) 10/09/24 07:57
Sodium 132 mmol/L (135-145) L 10/09/24 07:57
Potassium 3.7 mmol/L (3.5-5.1) 10/09/24 07:57
Chloride 97 mmol/L (98-107) L 10/09/24 07:57
Carbon Dioxide 23 mmol/L (22-30) 10/09/24 07:57
BUN 103 mg/dl (9-20) H* 10/09/24 07:57
Creatinine 5.6 mg/dL (0.7-1.3) H* 10/09/24 07:57
eGFR 9.87 10/09/24 07:57
Glucose 154 mg/dl (70-99) H 10/09/24 07:57
Calcium 8.3 mg/dl (8.4-10.2) L 10/09/24 07:57
Phosphorus 5.0 mg/dl (2.5-4.5) H 10/05/24 03:31
Yct-U-Nlqbvzjkbso Pept 6700 pg/ml 10/04/24 18:43
Albumin 3.5 g/dl (3.5-5.0) 10/05/24 03:31
Physical Exam
-
Vital Signs:
Vital Signs
Temp Pulse Resp BP Pulse Ox
97.0 F 83 18 123/56 98
10/09/24 14:27 10/09/24 16:58 10/09/24 14:27 10/09/24 16:58 10/09/24 14:27
Cardiovascular:: Irregular rate and rhythm (mild tachy)
Respiratory:: Bilateral: Rales (fine at bases)
Lung Excursion:: Normal
Abdomen:: Nontender and Soft
Extremity Edema:: None: Bilateral: (trace)
Sepulveda Catheter: No
--- NOTE | 2024-10-09 18:40 | W.PN.HOSP.TC ---
Today's Communication/Plan
-
Dialysis tomorrow
Assessment / Plan
Assessment / Plan
Physical Exam
General: Not in acute distress
HEENT: Moist mucous membranes
Respiratory: Scattered Rhonchi (Bilaterally)
Cardiac: S1/S2, Irregular Rhythm
GI: Soft and Non Tender. Positive bowel sounds.
Musculoskeletal: No Cyanosis and Other (+2 pitting edema bilateral lower extremities)
Skin: Warm and Dry
Neuro: Awake, Alert and Other (Chronic Left Hemiparesis)
Psych: Calm
Assessment and plan
74-year-old with CKD stage V, status post left upper extremity AV fistula with apparent good function placed in 2021, CHF with preserved EF, pulmonary atrial fibrillation on anticoagulation, insulin-dependent diabetes who presented to the emergency
department with acute episode of shortness of breath. Per spouse, the patient has chronic dyspnea on exertion especially with stairs. This worsened approximately starting 2 days ago. However on the day before admission, he started complaining of
shortness of breath and having cough and rhonchorous airway sounds. Spouse initially thought that he might have flulike illness but patient had no fever and no known sick contacts. Starting on the morning of admission he was lethargic and unable
to get out of bed due to worsening shortness of breath. Spouse reported that he did have increasing lower extremity edema. They said that his weight has been stable. He denied having any chest pain or palpitations. He had no nausea vomiting or
diaphoresis. He still apparently responds to 40 mg of Lasix at home and spouse reported that he urinated up to 1 jug overnight yesterday. He has been compliant with diuretic regimen. He also has been compliant with dietary management.
In the ED was severely hypoxic requiring immediate BiPAP. He was tachycardic to 113, blood pressure was 150/80. He was afebrile. Hypoxic to 80 on room air. ECG shows A-fib with a rate of 111. His troponin was 0.28. BNP was 6000. WBC 12,
hemoglobin 8.4, his electrolytes were stable with a potassium of 4.9 and bicarb of 23. His creatinine was 5.1 which has been increasing from a baseline of around 3.5-4.5. Chest x-ray shows bilateral interstitial opacities any opacities consistent
with flash pulmonary edema.
COVID test was negative. Influenza negative.
Acute Hypoxic Respiratory Failure secondary to Acute Heart Failure
Acute on Chronic HFpEF
Flash pulm edema. Likely secondary to worsening volume overload despite home diuretics.
Bilateral lower extremity edema and elevated JVD.
- patient on bipap and nitroglycerin (titrate nitroglycerin to allow for diuresis)
- continue Bumex
- strict i/o and daily weights
- monitor K, Mag and Cr
- echo
- cardiology consult evaluation appreciated
Elevated troponin - Suspect non-ischemic myocardial injury. Trop lower than prior
- Echo
- continue eliquis
AFIB - Permanent AFIB
- continue diltiazem
- continue eliquis
Anemia of Chronic Kidney Disease
-s/p GREGORY 10/05
MIMI/CKD 5
Hyponatremia
- Patient has AV fistula that is matured and available
- Creatinine worsening
- nephrology consulted this admission
- npo for now while on bipap
- Patient and his family agreed that he should be started on dialysis this admission
DM II
- insulin sliding scale
DVT Prophylaxis: on Apixaban
Code Status: Full Code
On 10/08/24, I called and spoke to patient's daughter Kayla at [phone] (daughter Candice was also on the group call). All questions and concerns were answered.
Anticipated Discharge: 24 - 48 hours
Subjective/Interval History
-
Date of Service: October 09, 2024
Patient was seen and examined. He denied any symptoms or complaints.
Objective Data
-
Labs:
Laboratory Results
10/09/24
07:57
WBC 9.0
Hgb 8.2 L
Hct 24.0 L
Plt Count 200
Sodium 132 L
Potassium 3.7
Chloride 97 L
Carbon Dioxide 23
BUN 103 H*
Creatinine 5.6 H*
Glucose 154 H
Calcium 8.3 L
Vital Signs:
Vital Signs
Temp Pulse Resp BP Pulse Ox
97.0 F 83 18 123/56 98
10/09/24 14:27 10/09/24 16:58 10/09/24 14:27 10/09/24 16:58 10/09/24 14:27
I&O
10/08/24 10/09/24 10/10/24
06:59 06:59 06:59
Intake Total 840 / 840 1080 / 1080 360 / 360
Output Total 100 / 100 1055 / 1055 200 / 200
Balance 740 / 740 160 / 160
[2024-10-09 20:45] LABS: Glucose - Point of Care 278 mg/dl (70-99)
[2024-10-09] MEDS: LANTUS 0.08 UNITS SC (21:24)
[2024-10-09 23:35] VITALS: BP 136/62
[2024-10-10] MEDS: ROBITUSSIN DM 5 ML PO (02:32)
[2024-10-10 02:50] VITALS: BMI 26.4
[2024-10-10 05:39] VITALS: BMI 26.5
[2024-10-10 07:20] LABS: Hematocrit 24.6 % (39.0-52.0); Hemoglobin 8.2 g/dL (13.0-18.0); Mean Corp Hgb Conc. 33.3 g/dL (33.0-37.0); Mean Corpuscular Hgb 31.9 pg (27.0-31.0); Mean Corpuscular Volume 95.7 fL (80.0-94.0); Mean Platelet Volume 10.2 fL (7.4-10.4); Platelet Count 210 10^3/uL (130-400); Red Blood Cell Count 2.57 10^6/uL (4.70-6.10); Red Cell Dist. Width 15.2 % (11.5-14.5); White Blood Cell Count 8.6 10^3/uL (4.8-10.8)
[2024-10-10 07:55] LABS: Blood Urea Nitrogen 106 mg/dl (9-20); Calcium 8.1 mg/dl (8.4-10.2); Carbon Dioxide 22 mmol/L (22-30); Chloride 97 mmol/L (98-107); Estimated Creatinine Clearance 9 ml/min; Glucose 158 mg/dl (70-99); Magnesium 2.1 mg/dl (1.6-2.3); Sodium 134 mmol/L (135-145); eGFR 9.09
[2024-10-10 07:59] LABS: Glucose - Point of Care 172 mg/dl (70-99)
[2024-10-10 08:00] VITALS: BP 126/60
[2024-10-10] MEDS: NOVOLOG FLEXPEN-MODERATE RESISTANCE 1 UNITS SC ×2 (08:49→12:11)
[2024-10-10] MEDS: MANNITOL 25% 12.5 GRAMS IV ×2 (08:50→09:46)
[2024-10-10] MEDS: FLEXBUMIN 25% FOR HEMODIALYSIS 12.5 GRAMS IV ×2 (08:55→09:44)
[2024-10-10] MEDS: RETACRIT 10000 UNITS IV (09:18)
--- NOTE | 2024-10-10 11:07 | W.PN.HOSP.TC ---
Today's Communication/Plan
-
Starting HD today
Low dose sleep medicine at night
Assessment / Plan
Assessment / Plan
Physical Exam
General: Not in acute distress
HEENT: Moist mucous membranes
Respiratory: Scattered Rhonchi (Bilaterally)
Cardiac: S1/S2, Irregular Rhythm
GI: Soft and Non Tender. Positive bowel sounds.
Musculoskeletal: No Cyanosis and Other (+2 pitting edema bilateral lower extremities)
Skin: Warm and Dry
Neuro: Awake, Alert and Other (Chronic Left Hemiparesis)
Psych: Calm
Assessment and plan
74-year-old with CKD stage V, status post left upper extremity AV fistula with apparent good function placed in 2021, CHF with preserved EF, pulmonary atrial fibrillation on anticoagulation, insulin-dependent diabetes who presented to the emergency
department with acute episode of shortness of breath.
MIMI/CKD 5
Hyponatremia
- Patient has AV fistula that is matured and available
- Creatinine worsening with signs of hypervolemia
- nephrology consulted this admission
- npo for now while on bipap
- Patient and his family agreed that he should be started on dialysis this admission ( 10/10)
#Acute Hypoxic Respiratory Failure secondary to Acute Heart Failure
Acute on Chronic HFpEF
Flash acute non-cardiogenic pulm edema. Likely secondary to worsening volume overload despite home diuretics.
Bilateral lower extremity edema and elevated JVD.
- patient was on bipap and nitroglycerin (titrate nitroglycerin to allow for diuresis)
- continue Bumex
- strict i/o and daily weights
- monitor K, Mag and Cr
- echo : LV function normal
- cardiology and nephrology help appreciated
Elevated troponin - Suspect non-ischemic myocardial injury. Trop lower than prior
- Echo, normal LV. No regional wall motion abnormalities are seen.
- continue Eliquis
#AFIB - Permanent AFIB
- continue diltiazem
- continue Eliquis
#Anemia of Chronic Kidney Disease
-s/p GREGORY 10/05
# Insomnia
d/w pt and , agreed to try low dose sleep medicine,w ill try Klonopin
# DM II
- insulin sliding scale
DVT Prophylaxis: on Apixaban
Code Status: Full Code
patient's daughter Kayla at [phone]
Total time spent to see the patient, examine the patient, review data and lab results, discuss treatment plan with patient, nursing staff around 55 minutes
Anticipated Discharge: > 48 hours
Subjective/Interval History
-
Date of Service: October 10, 2024
No chest pain
no sob
reports insomnia
Objective Data
-
Labs:
Laboratory Results
10/10/24
06:53
WBC 8.6
Hgb 8.2 L
Hct 24.6 L
Plt Count 210
Sodium 134 L
Potassium 4.0
Chloride 97 L
Carbon Dioxide 22
BUN 106 H*
Creatinine 6.0 H*
Glucose 158 H
Calcium 8.1 L
Vital Signs:
Vital Signs
Temp Pulse Resp BP Pulse Ox
98.1 F 87 16 126/60 98
10/10/24 08:00 10/10/24 08:00 10/10/24 08:00 10/10/24 08:00 10/10/24 08:00
I&O
10/09/24 10/10/24 10/11/24
06:59 06:59 06:59
Intake Total 1080 / 1080 600 / 600
Output Total 1055 / 1055 500 / 500
Balance 100 / 100
--- NOTE | 2024-10-10 11:07 | W.PN.NEPH.HD ---
Assessment
-
pt seen during HD
vitals stable
UF as toelrates
AVF functions well, possible infiltration when pt moved-still functioning well
HD again tomorrow
GREGORY for anemia
Progress Note - Hemodialysis
-
Date of Service: October 10, 2024
Duration: 2 hours
Potassium Bath: 3
Calcium Bath: 2.5
Opti-Dialyzer: 160
Ultrafiltration: Other (1kg)
Blood Flow: 250
Dialysate Flow: Other (400)
Heparin: no
EPO: [id number]
[2024-10-10] MEDS: CARDIZEM CD 180 MG PO ×2 (12:08→19:56)
[2024-10-10] MEDS: ELIQUIS 5 MG PO ×2 (12:09→19:55)
[2024-10-10] MEDS: BUMEX 2 MG IV ×2 (12:09→16:42)
[2024-10-10 12:12] LABS: Glucose - Point of Care 176 mg/dl (70-99)
--- NOTE | 2024-10-10 15:19 | CM ---
Reviewed the chart notes. HD initiated today. Patient's spouse interested in afternoon scheduled. BTC information provided to spouse. CM continues to be available to patient/family and is monitoring medical plan for needs at discharge.
Plan: HD initiated today will need to have outpatient HD set-up. Interested in [facility].
[2024-10-10 16:05] VITALS: BP 121/60
[2024-10-10] MEDS: NOVOLOG FLEXPEN-MODERATE RESISTANCE 3 UNITS SC (16:48)
[2024-10-10 16:49] LABS: Glucose - Point of Care 244 mg/dl (70-99)
[2024-10-10 19:43] LABS: Hepatitis B Surface Antigen Negative (Negative)
[2024-10-10 20:00] LABS: Hepatitis B Surface Antibody Negative
[2024-10-10] MEDS: LANTUS 0.08 UNITS SC (21:23)
[2024-10-10] MEDS: KLONOPIN 0.5 MG PO (21:23)
[2024-10-10 21:24] LABS: Glucose - Point of Care 235 mg/dl (70-99)
[2024-10-10 23:19] VITALS: BP 126/62
[2024-10-11 05:24] VITALS: BMI 26.2
[2024-10-11 07:45] VITALS: BP 116/54
[2024-10-11] MEDS: MANNITOL 25% 12.5 GRAMS IV ×2 (08:25→09:23)
[2024-10-11] MEDS: FLEXBUMIN 25% FOR HEMODIALYSIS 12.5 GRAMS IV (08:30)
[2024-10-11] MEDS: RETACRIT 8000 UNITS IV (08:48)
[2024-10-11 09:04] LABS: Blood Urea Nitrogen 82 mg/dl (9-20); Calcium 8.7 mg/dl (8.4-10.2); Carbon Dioxide 24 mmol/L (22-30); Chloride 97 mmol/L (98-107); Estimated Creatinine Clearance 11 ml/min; Glucose 195 mg/dl (70-99); Potassium 3.8 mmol/L (3.5-5.1); Sodium 134 mmol/L (135-145)
[2024-10-11 09:04] LABS: Glucose - Point of Care 180 mg/dl (70-99)
--- NOTE | 2024-10-11 09:15 | W.PN.NEPH.HD ---
Assessment
-
Patient seen on dialysis (2nd treatment)
Systolic blood pressure 109 at current low volume UF
Possible dialysis again tomorrow
Progress Note - Hemodialysis
-
Date of Service: October 11, 2024
Duration: 30 minutes and 2 hours
Potassium Bath: 3
Calcium Bath: 2.5
Opti-Dialyzer: 160
Ultrafiltration: Other (1 Kilogram)
Blood Flow: 250
Dialysate Flow: 600
Heparin: None
EPO: 8000
[2024-10-11] MEDS: NOVOLOG FLEXPEN-MODERATE RESISTANCE SC (09:16)
--- NOTE | 2024-10-11 09:43 | W.PN.HOSP.TC ---
Today's Communication/Plan
-
DC planning
Stop Bumex for now, might take on non dialysis days
ok to c/w Klonopin, change to PRN
Assessment / Plan
Assessment / Plan
Physical Exam
General: Not in acute distress
HEENT: Moist mucous membranes
Respiratory: Scattered Rhonchi (Bilaterally)
Cardiac: S1/S2, Irregular Rhythm
GI: Soft and Non Tender. Positive bowel sounds.
Musculoskeletal: No Cyanosis and Other (+2 pitting edema bilateral lower extremities)
Skin: Warm and Dry
Neuro: Awake, Alert and Other (Chronic Left Hemiparesis)
Psych: Calm
Assessment and plan
74-year-old with CKD stage V, status post left upper extremity AV fistula with apparent good function placed in 2021, CHF with preserved EF, pulmonary atrial fibrillation on anticoagulation, insulin-dependent diabetes who presented to the emergency
department with acute episode of shortness of breath.
MIMI/CKD 5
Hyponatremia
- Patient has AV fistula that is matured and available
- Creatinine worsening with signs of hypervolemia
- nephrology consulted this admission
- npo for now while on bipap
- Patient and his family agreed that he should be started on dialysis this admission ( 10/10)
#Acute Hypoxic Respiratory Failure secondary to Acute Heart Failure
Acute on Chronic HFpEF
Flash acute non-cardiogenic pulm edema. Likely secondary to worsening volume overload despite home diuretics.
Bilateral lower extremity edema and elevated JVD.
- patient was on bipap and nitroglycerin (titrate nitroglycerin to allow for diuresis)
- Stop Bumex
- strict i/o and daily weights
- monitor K, Mag and Cr
- echo : LV function normal
- cardiology and nephrology help appreciated
Elevated troponin - Suspect non-ischemic myocardial injury. Trop lower than prior
- Echo, normal LV. No regional wall motion abnormalities are seen.
- continue Eliquis
#AFIB - Permanent AFIB
- continue diltiazem
- continue Eliquis
#Anemia of Chronic Kidney Disease
-s/p GREGORY 10/05
# Insomnia
d/w pt and , agreed to try low dose sleep medicine, he did well with Klonopin
# DM II
- insulin sliding scale
DVT Prophylaxis: on Apixaban
Code Status: Full Code
patient's daughter Kayla at [phone]
Total time spent to see the patient, examine the patient, review data and lab results, discuss treatment plan with patient, nursing staff around 55 minutes
Anticipated Discharge: > 48 hours
Subjective/Interval History
-
Date of Service: October 11, 2024
Slept well after Klonopin
No pain issues
Objective Data
-
Labs:
Laboratory Results
10/11/24
07:40
Sodium 134 L
Potassium 3.8
Chloride 97 L
Carbon Dioxide 24
BUN 82 H
Creatinine 4.6 H*
Glucose 195 H
Calcium 8.7
Vital Signs:
Vital Signs
Temp Pulse Resp BP Pulse Ox
97.5 F 79 16 116/54 98
10/11/24 07:45 10/11/24 07:45 10/11/24 07:45 10/11/24 07:45 10/11/24 07:45
I&O
10/10/24 10/11/24 10/12/24
06:59 06:59 06:59
Intake Total 600 / 600 600 / 600
Output Total 500 / 500 275 / 275
Balance 100 / 100 325 / 325
[2024-10-11] MEDS: CARDIZEM CD 180 MG PO ×2 (11:20→20:54)
[2024-10-11] MEDS: ELIQUIS 5 MG PO ×2 (11:21→20:54)
[2024-10-11] MEDS: NOVOLOG FLEXPEN-MODERATE RESISTANCE 1 UNITS SC (11:24)
[2024-10-11 11:25] LABS: Glucose - Point of Care 155 mg/dl (70-99)
--- NOTE | 2024-10-11 14:39 | CM ---
Reviewed the chart notes. Faxed clinical packet to [facility] ([phone]). CM continues to be available to patient/family and is monitoring medical plan for needs at discharge.
Plan: Discharge to home when medically stable and outpatient chair time established at [facility] ([facility]).
[2024-10-11] MEDS: FLEXBUMIN 25% FOR HEMODIALYSIS IV (14:45)
[2024-10-11 15:31] VITALS: BP 108/61
[2024-10-11] MEDS: NOVOLOG FLEXPEN-MODERATE RESISTANCE 3 UNITS SC (17:30)
[2024-10-11 17:36] LABS: Glucose - Point of Care 208 mg/dl (70-99)
[2024-10-11] MEDS: ZOFRAN 4 MG IV (19:54)
[2024-10-11 21:18] LABS: Glucose - Point of Care 196 mg/dl (70-99)
[2024-10-11] MEDS: LANTUS 0.08 UNITS SC (22:30)
[2024-10-11 23:45] VITALS: BP 123/56
[2024-10-11] MEDS: KLONOPIN 0.5 MG PO (23:48)
[2024-10-12 06:00] VITALS: BMI 25.7
[2024-10-12 07:00] VITALS: BP 120/57
[2024-10-12] MEDS: NOVOLOG FLEXPEN-MODERATE RESISTANCE SC ×3 (07:33→17:56)
[2024-10-12] MEDS: ELIQUIS 5 MG PO ×2 (07:34→20:05)
[2024-10-12 07:38] LABS: Glucose - Point of Care 123 mg/dl (70-99)
[2024-10-12 08:31] LABS: Hematocrit 25.9 % (39.0-52.0); Hemoglobin 8.4 g/dL (13.0-18.0)
[2024-10-12] MEDS: MANNITOL 25% 12.5 GRAMS IV ×2 (08:32→09:28)
[2024-10-12 08:53] LABS: Glucose - Point of Care 115 mg/dl (70-99)
[2024-10-12 09:05] LABS: Blood Urea Nitrogen 57 mg/dl (9-20); Calcium 8.7 mg/dl (8.4-10.2); Carbon Dioxide 27 mmol/L (22-30); Chloride 96 mmol/L (98-107); Estimated Creatinine Clearance 13 ml/min; Glucose 133 mg/dl (70-99); Magnesium 2.2 mg/dl (1.6-2.3); Sodium 135 mmol/L (135-145); eGFR 14.78
--- NOTE | 2024-10-12 09:45 | W.PN.NEPH.HD ---
Assessment
-
Patient seen on HD
sbp 111 at 1kg u/f
avf access with good function
Progress Note - Hemodialysis
-
Date of Service: October 12, 2024
Duration: 45 minutes and 2 hours
Potassium Bath: 3
Calcium Bath: 2.5
Opti-Dialyzer: 160
Ultrafiltration: Other (1kg)
Blood Flow: 400
Dialysate Flow: 600
Heparin: none
EPO: none
--- NOTE | 2024-10-12 10:24 | W.PN.HOSP.TC ---
Addendum entered and electronically signed by Azul Rodríguez MD 10/12/24 15:52:
Addendum
Patient complains of constipation. wanted enema. Will do tapwater enema and give MiraLAX
End
Original Note:
Today's Communication/Plan
-
DC planning
Assessment / Plan
Assessment / Plan
Physical Exam
General: Not in acute distress
HEENT: Moist mucous membranes
Respiratory: Scattered Rhonchi (Bilaterally)
Cardiac: S1/S2, Irregular Rhythm
GI: Soft and Non Tender. Positive bowel sounds.
Musculoskeletal: No Cyanosis and Other (+2 pitting edema bilateral lower extremities)
Skin: Warm and Dry
Neuro: Awake, Alert and Other (Chronic Left Hemiparesis)
Psych: Calm
Assessment and plan
74-year-old with CKD stage V, status post left upper extremity AV fistula with apparent good function placed in 2021, CHF with preserved EF, pulmonary atrial fibrillation on anticoagulation, insulin-dependent diabetes who presented to the emergency
department with acute episode of shortness of breath.
MIMI/CKD 5
Hyponatremia
- Patient has AV fistula that is matured and available
- Creatinine worsening with signs of hypervolemia
- nephrology consulted this admission
- npo for now while on bipap
- Patient and his family agreed that he should be started on dialysis this admission ( 10/10)
#Acute Hypoxic Respiratory Failure secondary to Acute Heart Failure
Acute on Chronic HFpEF
Flash acute non-cardiogenic pulm edema, now resolved. . Likely secondary to worsening volume overload despite home diuretics.
Bilateral lower extremity edema and elevated JVD.
- patient was on Bipap and nitroglycerin (titrate nitroglycerin to allow for diuresis)
- Stop Bumex
- strict i/o and daily weights
- monitor K, Mag and Cr
- echo : LV function normal
- cardiology and nephrology help appreciated
Elevated troponin - Suspect non-ischemic myocardial injury. Trop lower than prior
- Echo, normal LV. No regional wall motion abnormalities are seen.
- continue Eliquis
#AFIB - Permanent AFIB
- continue diltiazem
- continue Eliquis
#Anemia of Chronic Kidney Disease
-s/p GREGORY 10/05
# Insomnia
d/w pt and , agreed to try low dose sleep medicine, he did well with Klonopin
# DM II
- insulin sliding scale
DVT Prophylaxis: on Apixaban
Code Status: Full Code
patient's daughter Kayla at [phone]
Total time spent to see the patient, examine the patient, review data and lab results, discuss treatment plan with patient, nursing staff around 55 minutes
Anticipated Discharge: Within 24 hours
Subjective/Interval History
-
Date of Service: October 12, 2024
No chest pain
No sob
No fevers
Objective Data
-
Labs:
Laboratory Results
10/12/24
08:01
Hgb 8.4 L
Hct 25.9 L
Sodium 135
Potassium 4.0
Chloride 96 L
Carbon Dioxide 27
BUN 57 H
Creatinine 4.0 H
Glucose 133 H
Calcium 8.7
Vital Signs:
Vital Signs
Temp Pulse Resp BP Pulse Ox
98.2 F 75 16 120/57 100
10/12/24 07:00 10/12/24 07:00 10/12/24 07:00 10/12/24 07:00 10/12/24 07:00
I&O
10/11/24 10/12/24 10/13/24
06:59 06:59 06:59
Intake Total 600 / 600 720 / 720
Output Total 275 / 275 275 / 275
Balance 325 / 325 445 / 445
[2024-10-12 11:29] LABS: Glucose - Point of Care 130 mg/dl (70-99)
[2024-10-12] MEDS: CARDIZEM CD 180 MG PO ×2 (12:49→20:05)
[2024-10-12 15:27] VITALS: BP 110/60
[2024-10-12] MEDS: MIRALAX 17 GRAMS PO (16:02)
[2024-10-12 17:29] LABS: Glucose - Point of Care 187 mg/dl (70-99)
--- NOTE | 2024-10-12 18:14 | PTCARENOTE ---
Patient c/o constipation; Miralax and Tap water enema given; patient had a small liquid brown stool; patient c/o of discomfort and is unable to eat his dinner; Dr. Rodríguez made aware; no new orders at this time
[2024-10-12] MEDS: DULCOLAX 10 MG PO (18:30)
[2024-10-12 22:08] LABS: Glucose - Point of Care 156 mg/dl (70-99)
[2024-10-12] MEDS: LANTUS 0.08 UNITS SC (22:15)
[2024-10-12 23:17] VITALS: BP 98/53
[2024-10-13] MEDS: KLONOPIN 0.5 MG PO (01:39)
[2024-10-13 06:00] VITALS: BMI 25.6
[2024-10-13 07:47] LABS: Glucose - Point of Care 134 mg/dl (70-99)
[2024-10-13 08:00] VITALS: BP 126/63
[2024-10-13] MEDS: NOVOLOG FLEXPEN-MODERATE RESISTANCE SC ×2 (08:06→12:13)
[2024-10-13] MEDS: DULCOLAX 10 MG PO (08:07)
[2024-10-13] MEDS: MIRALAX 17 GRAMS PO (08:07)
[2024-10-13] MEDS: ELIQUIS 5 MG PO ×2 (08:08→20:16)
[2024-10-13] MEDS: CARDIZEM CD 180 MG PO ×2 (08:10→20:16)
--- NOTE | 2024-10-13 09:41 | W.PN.HOSP.TC ---
Today's Communication/Plan
-
discharge planning
Medically stable to discharge
Assessment / Plan
Assessment / Plan
Physical Exam
General: Not in acute distress
HEENT: Moist mucous membranes
Respiratory: Scattered Rhonchi (Bilaterally)
Cardiac: S1/S2, Irregular Rhythm
GI: Soft and Non Tender. Positive bowel sounds.
Musculoskeletal: No Cyanosis and Other (+2 pitting edema bilateral lower extremities)
Skin: Warm and Dry
Neuro: Awake, Alert and Other (Chronic Left Hemiparesis)
Psych: Calm
Assessment and plan
74-year-old with CKD stage V, status post left upper extremity AV fistula with apparent good function placed in 2021, CHF with preserved EF, pulmonary atrial fibrillation on anticoagulation, insulin-dependent diabetes who presented to the emergency
department with acute episode of shortness of breath.
Progressive CKD 5 to ESRD
Hyponatremia
- Patient has AV fistula that is matured and available
- Creatinine worsened with signs of hypervolemia
- nephrology consulted this admission
- Patient and his family agreed that he should be started on dialysis this admission ( 10/10)
#Acute Hypoxic Respiratory Failure secondary to Acute Heart Failure
Acute on Chronic HFpEF
Flash acute non-cardiogenic pulm edema, now resolved. . Likely secondary to worsening volume overload despite home diuretics.
Bilateral lower extremity edema and elevated JVD.
- patient was on Bipap and nitroglycerin (titrate nitroglycerin to allow for diuresis)
- Stop Bumex
- monitor K, Mag and Cr
- echo : LV function normal
- cardiology and nephrology help appreciated
# Constipation
Abdomen is soft, not tender or distended. wantedenema/ laxatives
Elevated troponin - Suspect non-ischemic myocardial injury. Trop lower than prior
No chest pain
- Echo, normal LV. No regional wall motion abnormalities are seen.
- continue Eliquis
#AFIB - Permanent AFIB
- continue diltiazem
- continue Eliquis
#Anemia of Chronic Kidney Disease
-s/p GREGORY 10/05
# Insomnia
d/w pt and , agreed to try low dose sleep medicine, he did well with Klonopin
# DM II
- insulin sliding scale
DVT Prophylaxis: on Apixaban
Code Status: Full Code
patient's daughter Kayla at [phone]
Total time spent to see the patient, examine the patient, review data and lab results, discuss treatment plan with patient, his , nursing staff around 55 minutes
Anticipated Discharge: Within 24 hours
Subjective/Interval History
-
Date of Service: October 13, 2024
No chest pain
No sob
No fevers
Objective Data
-
Vital Signs:
Vital Signs
Temp Pulse Resp BP Pulse Ox
98.0 F 92 18 126/63 100
10/13/24 08:00 10/13/24 08:10 10/13/24 08:00 10/13/24 08:10 10/13/24 08:00
I&O
10/12/24 10/13/24 10/14/24
06:59 06:59 06:59
Intake Total 720 / 720 780 / 780
Output Total 275 / 275 100 / 100
Balance 445 / 445 680 / 680
--- NOTE | 2024-10-13 10:39 | W.PN.NEPH.PH ---
Today's Communication / Plan
-
Next dialysis for Monday
Patient ready for discharge from hospital from renal perspective
Assessment/Plan
-
IMP:
Acute Hypoxic Respiratory Failure secondary to Acute Heart Failure
Acute on Chronic HFpEF
Paroxysmal Atrial Fibrillation
CKD Stage 5
Insulin Dependent Diabetes Mellitus, Type II with Diabetic Neuropathy
Acute on chr Chronic Anemia
Hyperlipidemia
Hx CVA with Residual Left Hemiparesis
Plan:
A/w acute resp failure from hypervolemia on presentation
Bumex converted to p.o.
Hemodynamically stable
wean O2 as tolerates
echo normal EF, TR severe
Patient has AV fistula that is matured and working very well on dialysis
Next dialysis will be planned for Monday as patient will be on Monday schedule
monitor hgb, decreasing , adequate fe stores, prn transfusion, s/p GREGORY 10/05
renal diet and FR
-
-
Date of Service: October 13, 2024
CC / HPI / ROS
-
Chief Complaint:
CKD5
History of Present Illness:
Now on dialysis for Monday
BP stable
Review of Systems:
no cp or sob at rest
on 2lit o2
no n/v
edema resolving
Weights down
Labs
-
Labs:
WBC 8.6 10^3/uL (4.8-10.8) 10/10/24 06:53
RBC 2.57 10^6/uL (4.70-6.10) L 10/10/24 06:53
Hgb 8.4 g/dL (13.0-18.0) L 10/12/24 08:01
Hct 25.9 % (39.0-52.0) L 10/12/24 08:01
Plt Count 210 10^3/uL (130-400) 10/10/24 06:53
Sodium 135 mmol/L (135-145) 10/12/24 08:01
Potassium 4.0 mmol/L (3.5-5.1) 10/12/24 08:01
Chloride 96 mmol/L (98-107) L 10/12/24 08:01
Carbon Dioxide 27 mmol/L (22-30) 10/12/24 08:01
BUN 57 mg/dl (9-20) H 10/12/24 08:01
Creatinine 4.0 mg/dL (0.7-1.3) H 10/12/24 08:01
eGFR 14.78 10/12/24 08:01
Glucose 133 mg/dl (70-99) H 10/12/24 08:01
Calcium 8.7 mg/dl (8.4-10.2) 10/12/24 08:01
Phosphorus 5.0 mg/dl (2.5-4.5) H 10/05/24 03:31
Dtu-A-Wklobqzagoz Pept 6700 pg/ml 10/04/24 18:43
Albumin 3.5 g/dl (3.5-5.0) 10/05/24 03:31
Physical Exam
-
Vital Signs:
Vital Signs
Temp Pulse Resp BP Pulse Ox
98.0 F 92 18 126/63 100
10/13/24 08:00 10/13/24 08:10 10/13/24 08:00 10/13/24 08:10 10/13/24 08:00
Cardiovascular:: Irregular rate and rhythm (mild tachy)
Respiratory:: Bilateral: Rales (fine at bases)
Lung Excursion:: Normal
Abdomen:: Nontender and Soft
Extremity Edema:: None: Bilateral: (trace)
Sepulveda Catheter: No
[2024-10-13 11:59] LABS: Glucose - Point of Care 143 mg/dl (70-99)
[2024-10-13] MEDS: ZOFRAN 4 MG IV (12:20)
--- NOTE | 2024-10-13 12:40 | PTCARENOTE ---
Patient had 1 episode of emesis today after drinking prune juice; Zofran administered at 1220.
[2024-10-13 15:24] VITALS: BP 116/58
[2024-10-13 18:00] LABS: Glucose - Point of Care 220 mg/dl (70-99)
[2024-10-13] MEDS: NOVOLOG FLEXPEN-MODERATE RESISTANCE 3 UNITS SC (18:00)
[2024-10-13 21:19] LABS: Glucose - Point of Care 210 mg/dl (70-99)
[2024-10-13] MEDS: LANTUS 0.08 UNITS SC (22:08)
[2024-10-13 23:16] VITALS: BP 131/57
[2024-10-14 05:14] VITALS: BMI 25.9
[2024-10-14 07:45] VITALS: BP 116/65
[2024-10-14 07:58] LABS: Glucose - Point of Care 161 mg/dl (70-99)
[2024-10-14] MEDS: DULCOLAX 10 MG PO (08:01)
[2024-10-14] MEDS: CARDIZEM CD 180 MG PO (08:02)
[2024-10-14] MEDS: NOVOLOG FLEXPEN-MODERATE RESISTANCE 1 UNITS SC ×2 (08:03→13:09)
[2024-10-14] MEDS: MIRALAX 17 GRAMS PO (08:04)
[2024-10-14] MEDS: ELIQUIS 5 MG PO (08:04)
--- NOTE | 2024-10-14 09:26 | W.PN.HOSP.TC ---
Today's Communication/Plan
-
Discussed with nephrology doctor on weekend, pt is stable to dc
dc planning
Assessment / Plan
Assessment / Plan
Physical Exam
General: Not in acute distress
HEENT: Moist mucous membranes
Respiratory: Scattered Rhonchi (Bilaterally)
Cardiac: S1/S2, Irregular Rhythm
GI: Soft and Non Tender. Positive bowel sounds.
Musculoskeletal: No Cyanosis and Other (+2 pitting edema bilateral lower extremities)
Skin: Warm and Dry
Neuro: Awake, Alert and Other (Chronic Left Hemiparesis)
Psych: Calm
Assessment and plan
74-year-old with CKD stage V, status post left upper extremity AV fistula with apparent good function placed in 2021, CHF with preserved EF, pulmonary atrial fibrillation on anticoagulation, insulin-dependent diabetes who presented to the emergency
department with acute episode of shortness of breath.
Progressive CKD 5 to ESRD
Hyponatremia
- Patient has AV fistula that is matured and available
- Creatinine worsened with signs of hypervolemia
- nephrology consulted this admission
- Patient and his family agreed that he should be started on dialysis this admission ( 10/10)
#Acute Hypoxic Respiratory Failure secondary to Acute Heart Failure
Acute on Chronic HFpEF
Flash acute non-cardiogenic pulm edema, now resolved. . Likely secondary to worsening volume overload despite home diuretics.
Bilateral lower extremity edema and elevated JVD.
- patient was on Bipap and nitroglycerin (titrate nitroglycerin to allow for diuresis)
- Stop Bumex
- monitor K, Mag and Cr
- echo : LV function normal
- cardiology and nephrology help appreciated
# Constipation
Abdomen is soft, not tender or distended. Had BM and felt better.
Elevated troponin - Suspect non-ischemic myocardial injury. Trop lower than prior
No chest pain
- Echo, normal LV. No regional wall motion abnormalities are seen.
- continue Eliquis
#AFIB - Permanent AFIB
- continue diltiazem
- continue Eliquis
#Anemia of Chronic Kidney Disease
-s/p GREGORY 10/05
# Insomnia
d/w pt and , agreed to try low dose sleep medicine, he did well with Klonopin
# DM II
- insulin sliding scale
DVT Prophylaxis: on Apixaban
Code Status: Full Code
patient's daughter Kayla at [phone]
6
Total discharge time spent to see the patient, examine the patient, review data and lab results, discuss discharge plan with patient, his , credit administration specialist, nursing staff around 65 minutes
Anticipated Discharge: Today
Subjective/Interval History
-
Date of Service: October 14, 2024
No complaints
No nausea, had BM, feels better, wants to go home
Objective Data
-
Vital Signs:
Vital Signs
Temp Pulse Resp BP Pulse Ox
98.3 F 82 18 116/65 100
10/14/24 07:45 10/14/24 08:02 10/14/24 07:45 10/14/24 08:02 10/14/24 07:45
I&O
10/13/24 10/14/24 10/15/24
06:59 06:59 06:59
Intake Total 780 / 780 720 / 720
Output Total 100 / 100 175 / 175
Balance 680 / 680 545 / 545
--- NOTE | 2024-10-14 09:50 | CM ---
Reviewed the chart notes. Spoke with Leslie with [facility]. They have received all clinicals and are pending medical review for acceptance and chair time. CM continues to be available to patient/family and is monitoring medical plan for needs at
discharge.
Plan: Discharge to home on HD at [facility]. Medical approval and chair time pending.
--- NOTE | 2024-10-14 10:05 | W.PN.NEPH.PH ---
Today's Communication / Plan
-
No acute need for dialysis today next treatment Monday awaiting official outpatient placement
Assessment/Plan
-
IMP:
Acute Hypoxic Respiratory Failure secondary to Acute Heart Failure
Acute on Chronic HFpEF
Paroxysmal Atrial Fibrillation
CKD Stage 5
Insulin Dependent Diabetes Mellitus, Type II with Diabetic Neuropathy
Acute on chr Chronic Anemia
Hyperlipidemia
Hx CVA with Residual Left Hemiparesis
Plan:
A/w acute resp failure from hypervolemia on presentation
Bumex converted to p.o.
Hemodynamically stable
wean O2 as tolerates
echo normal EF, TR severe
Patient has AV fistula that is matured and working very well on dialysis
Next dialysis will be planned for Monday as patient will be on Monday schedule
monitor hgb, decreasing , adequate fe stores, prn transfusion, s/p GREGORY 10/05
renal diet and FR
-
-
Date of Service: October 14, 2024
CC / HPI / ROS
-
Chief Complaint:
CKD5
History of Present Illness:
Now on dialysis for Monday
BP stable
Review of Systems:
no cp or sob at rest
on 2lit o2
no n/v
edema resolving
Weights down
Labs
-
Labs:
WBC 8.6 10^3/uL (4.8-10.8) 10/10/24 06:53
RBC 2.57 10^6/uL (4.70-6.10) L 10/10/24 06:53
Hgb 8.4 g/dL (13.0-18.0) L 10/12/24 08:01
Hct 25.9 % (39.0-52.0) L 10/12/24 08:01
Plt Count 210 10^3/uL (130-400) 10/10/24 06:53
Sodium 135 mmol/L (135-145) 10/12/24 08:01
Potassium 4.0 mmol/L (3.5-5.1) 10/12/24 08:01
Chloride 96 mmol/L (98-107) L 10/12/24 08:01
Carbon Dioxide 27 mmol/L (22-30) 10/12/24 08:01
BUN 57 mg/dl (9-20) H 10/12/24 08:01
Creatinine 4.0 mg/dL (0.7-1.3) H 10/12/24 08:01
eGFR 14.78 10/12/24 08:01
Glucose 133 mg/dl (70-99) H 10/12/24 08:01
Calcium 8.7 mg/dl (8.4-10.2) 10/12/24 08:01
Phosphorus 5.0 mg/dl (2.5-4.5) H 10/05/24 03:31
Vtt-N-Mfcxmodqovk Pept 6700 pg/ml 10/04/24 18:43
Albumin 3.5 g/dl (3.5-5.0) 10/05/24 03:31
Physical Exam
-
Vital Signs:
Vital Signs
Temp Pulse Resp BP Pulse Ox
98.3 F 82 18 116/65 100
10/14/24 07:45 10/14/24 08:02 10/14/24 07:45 10/14/24 08:02 10/14/24 07:45
Cardiovascular:: Irregular rate and rhythm (mild tachy)
Respiratory:: Bilateral: Rales (fine at bases)
Lung Excursion:: Normal
Abdomen:: Nontender and Soft
Extremity Edema:: None: Bilateral: (trace)
Sepulveda Catheter: No
[2024-10-14 11:43] LABS: Glucose - Point of Care 187 mg/dl (70-99)
--- NOTE | 2024-10-14 12:00 | W.DCSUMMARY ---
Discharge Summary
Discharge Data
Date of Admission: 10/04/24
Date of Discharge: 10/14/24
-
Pending Results: No
Hospital Course
74 years old male with history of progressive chronic renal disease presented with increasing shortness of breath, fatigue, bilateral lower extremity edema and hypoxia. Patient was diagnosed with hypervolemia, acute hypoxic respiratory failure,
acute on chronic heart failure with a preserved ejection fraction. Echocardiogram showed left ventricular ejection fraction of 65 to 70%, mild mitral regurgitation, trace aortic regurgitation, moderate to severe tricuspid regurgitation. Patient
received diuretic therapy. He needed BiPAP therapy with nitroglycerin drip on arrival. He had elevated troponin suspected to nonischemic myocardial injury. Drying Unit Felting Machine Operator recommended to continue with treatment for kidney failure to improve his
volume status and breathing status. Patient was followed by pulmonary doctor. Oxygenation improved. Volume status and kidney function did not improve with diuretic therapy. He was started on hemodialysis on October 10. No complications reported.
He was followed by fire prevention specialist. Patient remained hemodynamically stable. real estate operations manager was involved in discharge planning and outpatient setting for dialysis unit. Patient was discharged home in a stable condition.
Discharge Plan
-
Patient Disposition: Home (Routine Discharge)
Discharge Diagnosis/Procedures: Progressive chronic kidney disease, started on hemodialysis.
insomnia, take Klonopin only as needed. Klonopin is benzodiazepine, controlled substance, can cause drowsiness, dependency.
Diabetes, we reduced Lantus dose to avoid hypoglycemia
Constipation, use over the counter Dulcolax if needed, take two pill once or twice a day of no BM for more than 2 days.
Diet: Diabetic, Carb Controlled and Restrict fluids to 64 oz
Instructions: *PCP/Other Drying Unit Felting Machine Operator Heart Failure Instructions
Referrals:
Jennifer Ca PA-C [Specified Professional Personl] - 10/18/24 9:40 am (You have a follow up visit with Dr. Leonards Jennifer VICTORIA, at the [place] office. Please call with questions. )
Juan Ramon Bashir, [Family Provider] -
Prescriptions:
New
bisacodyl 5 mg Tablet,Delayed Release (Dr/Ec)
10 mg PO DAILYPRN PRN (Reason: Constipation) Qty: 10 0RF
clonazepam 0.5 mg Tablet
0.5 mg PO HSPRN PRN (Reason: insomnia) Qty: 10 0RF
Continued
diltiazem HCl 180 MG capsule,extended release 24hr
180 mg PO BID
insulin aspart U-100 [Novolog FlexPen U-100 Insulin] 300 UNITS/3 ML insulin pen
4 - 6 units SC NOON
Patient Comments:
10/25/22- 121-150; 4 UNITS
151-200; 6 UNITS
201-250; 8 UNITS
251-300; 10 UNITS
301-350; 12 UNITS
351-400;14 UNITS
>400; CALL PROVIDER
Eliquis 5 MG tablet
5 mg PO BID
ezetimibe 10 mg Tablet
10 mg PO DAILY
gabapentin 100 mg Capsule
100 mg PO HS
rosuvastatin 10 mg Tablet
10 mg PO HS
omega-3 fatty acids-fish oil 684-1,200 mg Capsule,Delayed Release(Dr/Ec)
1 cap PO DAILY
ferrous sulfate [FeroSul] 325 mg (65 mg iron) tablet
325 mg PO Q48H
Changed
insulin glargine [Lantus Solostar U-100 Insulin] 100 unit/mL (3 mL) Insulin Pen
10 unit SC HS Qty: 0 0RF
Discontinued
furosemide 40 MG tablet
40 mg PO BID
docusate sodium 100 mg capsule
100 mg PO BIDPRN PRN (Reason: constipation)
Discharge Orders:
Discharge Patient (As Directed); Ordered 10/14/24
Ordered By: Azul Rodríguez
Discharge Date and Time
Print Language: MALAY
--- NOTE | 2024-10-14 12:38 | CM ---
Reviewed the chart notes and spoke with the patient at the beside. IMM reviewed. [facility] Welcome letter provided to the patient. Per Leslie from [facility], patient will have a chair time of 11:00am [facility]. CM
continues to be available to patient/family and is monitoring medical plan for needs at discharge.
Plan: Discharge to home on outpatient HD at [facility] @ 11:00am.
[2024-10-14 15:25] VITALS: BP 118/60
--- NOTE | 2024-10-15 09:30 | W.HF.CON ---
Heart Failure
- LV Function
Left ventricular function study result: LV Ejection fraction >/= 50%
Ejection Fraction Percentage: 65-70
- ARNI
Patient already on ARNI: No
Heart Failure ARNI Not Indicated: LV Ejection Fraction >/= 40%
- ACEI/ARB
Patient already on ACEI/ARB: No
Heart Failure ACEI/ARB Not Indicated: LV Ejection Fraction > 40%
- Beta Bony
Patient already on Evidence Based Beta Bony: No
Heart Failure Evidence Based Beta Bony Not Indicated: LV Ejection Fraction > 40%
- Mineralocorticord Receptor Antagonist
Patient already on MRA: No
Heart Failure MRA Not Indicated: LV Ejection Fraction > 40%
- SGLT-2 Inhibitor
Patient already on SGLT-2 Inhibitor: No
Heart Failure SGLT-2 Inhibitor Contraindication: Patient currently on Dialysis
- Afib Anticoagulation
Patient already on Anticoagulation for Afib: Yes
- NYHA CHF Classification
NYHA CHF Classification Level: Class III - Symptoms w/ min exertion, interferes w/ nml daily activity
- ACC/AHA Stage
ACC/AHA Stage: Stage C: Symptomatic Heart Failure
== END 2024-10-14 18:30 | disposition home or self-care (01) | DRG 291 ==
LOC: 2 NORTH 21:06
PROVIDERS: Hospitalist; Nurse Practitioner Primary Care; Physician Assistant; Physician Assistant Medical; Specialist; ADMITTING PHYSICIAN Internal Medicine; ATTENDING PHYSICIAN Internal Medicine; CONSULT PHYSICIAN Internal Medicine; CONSULT PHYSICIAN Internal Medicine Cardiovascular Disease; CONSULT PHYSICIAN Internal Medicine Critical Care Medicine; EMERGENCY PHYSICIAN Emergency Medicine; FAMILY PHYSICIAN Family Medicine
DX: I13.2 Hypertensive heart and chronic kidney disease with heart failure and with stage 5 chronic kidney disease, or end stage renal disease (principal); I50.33 Acute on chronic diastolic (congestive) heart failure; J96.01 Acute respiratory failure with hypoxia; I48.21 Permanent atrial fibrillation; N18.5 Chronic kidney disease, stage 5; I69.354 Hemiplegia and hemiparesis following cerebral infarction affecting left non-dominant side; E87.1 Hypo-osmolality and hyponatremia; I5A Non-ischemic myocardial injury (non-traumatic); Z79.01 Long term (current) use of anticoagulants; E11.40 Type 2 diabetes mellitus with diabetic neuropathy, unspecified; E11.22 Type 2 diabetes mellitus with diabetic chronic kidney disease; G47.00 Insomnia, unspecified; Z11.52 Encounter for screening for COVID-19
CPT/HCPCS: 71045; 80048; 80053; 80061; 82248; 82607; 82728; 82746; 82962; 83036; 83540; 83550; 83735; 83880; 84100; 84443; 84484; 85014; 85018; 85025; 85027; 85610; 85730; 86706; 87340; 87502; 87811; 93005; 93306; 94640; 94660; 96365; 96366; 96375; 99291; G0257; P9047; Q5106

== ENCOUNTER 2025-03-23 20:30 | Inpatient (IN) | payer MEDICARE, OTHER, SELFPAY ==
[2025-03-23] VITALS (10 sets, daily range): BP systolic 120–174; BP diastolic 63–103; BMI 26.9; BMI 26.1
--- NOTE | 2025-03-23 17:01 | ED.GENMED ---
History of Present Illness
General
Chief Complaint: Chest Pain
Time Seen by Provider: 03/23/25 17:01
History of Present Illness
History of Present Illness:
TIME OF INITIAL EVALUATION
- 5 PM
REVIEW OF OLD RECORDS
- Patient has a history of A-fib, IDDM, CKD on HD, and high blood pressure. The patient was admitted here with a CHF exacerbation in October 2024. Echo from October showed normal EF and indeterminate diastolic function due to A-fib.
Note:
CHIEF COMPLAINT(S)
Nausea, vomiting, abdominal pain, and back pain.
HISTORY OF PRESENT ILLNESS
The patient is a 74-year-old male with a past medical history of congestive heart failure. He presents with symptoms of nausea, vomiting, abdominal pain, and back pain that began on Monday. The vomiting occurred twice, the first episode on Monday
and a second episode on Monday, accompanied by abdominal and back pain. The patient reports a similar episode in the past that resolved spontaneously. He underwent dialysis yesterday.
ADDITIONAL HISTORY OBTAINED FROM SOURCES OTHER THAN THE PATIENT
According to the spouse, the patient has been experiencing vomiting and abdominal pain since Monday, with a second vomiting episode occurring on Monday.
EXTERNAL RECORDS REVIEWED
The patient was admitted in October for congestive heart failure.
PHYSICAL EXAM
- General: Well appearing but appears somewhat uncomfortable at times
- HEENT: Scleral icterus noted, moist oral mucosa
- Cardiovascular: No murmurs, normal heart rate, irregular rhythm, No chest wall tenderness
- Pulmonary: No respiratory distress, breath sounds are clear and equal
- Abdomen: Mild epigastric tenderness
- Neurologic: Good strength all extremities, no coordination deficits
- Psychiatric: Appropriate mental status, normal insight and judgement according to (patient does not speak Georgian)
- Extremities: Nontender, no edema, moves all extremities equally
- Skin: No rash, no lesions
DIFFERENTIAL DIAGNOSIS
The Differential Diagnosis includes, in no particular order and is not limited to:
1. Gastroenteritis
2. Pancreatitis
3. Cholecystitis
4. Biliary colic
5. Peptic ulcer disease
6. Small bowel obstruction
7. Myocardial infarction
8. Congestive heart failure exacerbation
9. Renal colic
10. Gastrointestinal bleeding
RADIOLOGY
- CT imaging obtained, suggestion of mild colitis at the splenic flexure, some intrahepatic and extrahepatic biliary dilatation noted as well as gallbladder distention
EKG
- A-fib 85, normal axis, poor R wave progression, nonspecific ST abnormality
LABS
- White count 15.9, hemoglobin 12.3, creatinine 4.8, transaminases elevated, total bili 4.9 which is worse than prior, troponin 0.019, BNP 7180
UPDATE
- Patient has difficult IV access, IV team currently at bedside for midline placement
SUMMARY OF ENCOUNTER
The patient, a 74-year-old male with a history of congestive heart failure, presented to the emergency department with nausea, vomiting, abdominal pain, and back pain. These symptoms began on Monday. The patient had undergone dialysis prior to his
presentation. Laboratory tests revealed elevated white blood cell count and bilirubin level, with some yellowing of the eyes. Imaging showed dilation of the ducts inside and outside of the liver. There was tenderness in the upper abdominal region
upon examination. His cardiac blood work showed no signs of a heart attack, perforated ulcer, or abdominal aneurysm. Given the findings, the decision was made to admit the patient to the hospital for intravenous antibiotics and further management.
DISPOSITION
The patient will be admitted to the hospital. Will give IV Zosyn given colitis seen on CT imaging along with mild gallbladder distention and biliary ductal dilatation in the setting of a total bili of 4.9.
ASSESSMENT
Differential diagnosis included possible biliary obstruction or liver inflammation given elevated bilirubin, ductal dilation on imaging, and clinical presentation. Other potential conditions such as myocardial infarction and gastrointestinal
perforation were considered but deemed unlikely based on the cardiac workup and clinical assessment.
EMERGENCY TREATMENTS ADMINISTERED
The patient received intravenous fluids and antibiotics. Urine was sent to the lab for further analysis.
MEDICAL DECISION MAKING
1. Number & Complexity of Problems: Chronic conditions affecting care: congestive heart failure. Differential diagnoses considered included pancreatitis, cholecystitis, biliary colic, and liver pathology.
2. Data Reviewed: Labs revealed elevated white blood cell count and bilirubin level, and imaging showed ductal dilation.
3. Risk: Consideration of admission/observation was made due to the complexity and risk of underlying biliary or hepatic pathology. Outpatient management was deemed inappropriate given the elevated bilirubin and potential for complications.
PATHOLOGIES TO CONSIDER
- Cholestasis (jaundice, elevated bilirubin).
- Liver inflammation or infection (upper abdominal tenderness, ductal dilation).
- Acute cholecystitis or cholangitis (abdominal pain, labs).
Discussed case with Dr. Morocho for admission and also sent message to GI and general surgery�spoke with recommend MRCP, Zosyn, NPO.
Past History
Past History
ED Past Medical History: Arrthythmia (Atrial fibrillation), CVA, HTN, Hypercholesterolemia, IDDM and Other (diabetes, gout)
ED Past Surgical History: Orthopedic
Patient has exhibited threatening behavior?: No
PSI?: No
Social History
Tobacco: Non-smoker
Alcohol: None
Drug: None
Personal:
Living: with family
Employment: Retired
Family History
Family History: Other (Noncontributory)
Phy Exam
Physical Exam
Physical Exam:
See HPI
Scores
Heart Score for Chest Pain Patients
STEMI patient?: Not applicable
Course
Orders/Labs/Results
Orders:
Orders
03/23/25 15:27
ECG [Electrocardiogram (*1)] Urgent
Reason for Study: Chest Pain
EKG- Treatment ONCE
03/23/25 17:08
CT Chest/abd/pel Wo Iv Cont Urgent
Comment:
Reason For Exam: CKD, abd pain, CP, back pain, vomiting
03/23/25 17:13
Complete Blood Count/With Diff Urgent
Comprehensive Metabolic Panel Urgent
NT-proBNP Urgent
03/23/25 18:38
Troponin I Urgent
03/23/25 19:27
0.9% Sodium Chloride 250 ml [Nss] 250 ml IV BOLUS
Piperacillin/Tazo 3.375 Gram [Zosyn] 3.375 gram in 50 ml IV NOW
03/23/25 19:28
Urinalysis Reflex To Culture Urgent
Abnormal Lab Results
03/23/25
17:13
WBC 15.9 H 10^3/uL
(4.8-10.8)
RBC 3.78 L 10^6/uL
(4.70-6.10)
Hgb 12.3 L g/dL
(13.0-18.0)
Hct 36.2 L %
(39.0-52.0)
MCV 95.8 H fL
(80.0-94.0)
MCH 32.5 H pg
(27.0-31.0)
MPV 11.1 H fL
(7.4-10.4)
Abs Immat Gran (auto) 0.1 H 10^3/uL
(0-0.05)
Absolute Neuts (auto) 13.8 H 10^3/uL
(1.4-6.5)
Absolute Monos (auto) 0.8 H 10^3/uL
(0.1-0.6)
Neutrophils % 86.6 H %
(42.2-75.2)
Lymphocytes % 7.4 L %
(20.5-51.1)
Chloride 91 L mmol/L
(98-107)
BUN 35 H mg/dl
(9-20)
Creatinine 4.8 H* mg/dL
(0.7-1.3)
Glucose 183 H mg/dl
(70-99)
Total Bilirubin 4.9 H mg/dl
(0.2-1.3)
AST 144 H U/L
(17-59)
ALT 188 H U/L
(0-50)
Alkaline Phosphatase 243 H U/L
(38-126)
03/23/25 17:13
03/23/25 17:13
Vital Signs
Initial and Last Documented VS:
Initial Vital Signs
Temp Pulse Resp BP Pulse Ox
36.7 C 90 16 122/64 98
03/23/25 15:25 03/23/25 15:25 03/23/25 15:25 03/23/25 15:25 03/23/25 15:25
Last Documented Vital Signs
Temp Pulse Resp BP Pulse Ox
36.8 C 104 26 147/67 94
03/23/25 16:35 03/23/25 19:00 03/23/25 19:00 03/23/25 19:00 03/23/25 19:00
*Pulse Oximetry
SaO2: 97
Oxygen Mode of Delivery: Room air
Patient hypoxic: no
*Manager Of Housekeeping Interpretation
Rate: normal
Interpretation: normal
Heart Rate: 92
Rhythm: a-fib
*Critical Care Note
Total Time (30-74mins, 75-104mins- exclusive of procedures): Not Applicable
ED Attending Note
-
Portions of this chart may have been created with voice recognition software.� Occasional wrong word or��sound alike� substitutions may have occurred due to the inherent limitations of voice recognition software.
Discharge Plan
Departure
Patient Disposition: Admit
Date of Disposition: 03/23/25
Time of Disposition: 19:38
Presentation/result/management discussed w/ accepting MD/DO: Hospitalist
Discharge Problem:
Obstructive jaundice
Prescriptions:
No Action
diltiazem HCl 180 MG capsule,extended release 24hr
180 mg PO BID
insulin aspart U-100 [Novolog FlexPen U-100 Insulin] 300 UNITS/3 ML insulin pen
4 - 6 units SC NOON
Patient Comments:
10/25/22- 121-150; 4 UNITS
151-200; 6 UNITS
201-250; 8 UNITS
251-300; 10 UNITS
301-350; 12 UNITS
351-400;14 UNITS
>400; CALL PROVIDER
Eliquis 5 MG tablet
5 mg PO BID
ezetimibe 10 mg Tablet
10 mg PO DAILY
gabapentin 100 mg Capsule
100 mg PO HS
rosuvastatin 10 mg Tablet
10 mg PO HS
omega-3 fatty acids-fish oil 684-1,200 mg Capsule,Delayed Release(Dr/Ec)
1 cap PO DAILY
ferrous sulfate [FeroSul] 325 mg (65 mg iron) tablet
325 mg PO Q48H
bisacodyl 5 mg Tablet,Delayed Release (Dr/Ec)
10 mg PO DAILYPRN PRN (Reason: Constipation) Qty: 10 0RF
clonazepam 0.5 mg Tablet
0.5 mg PO HSPRN PRN (Reason: insomnia) Qty: 10 0RF
furosemide [Lasix] 40 mg Tablet
40 mg PO BID
insulin glargine [Lantus Solostar U-100 Insulin] 100 unit/mL (3 mL) insulin pen
14 unit SC HS
Referrals:
UNKNOWN - PT DOES,NOT KNOW [Unknown Provider]
Interventions
Interventions:
*Risk Screen - Suicide Last Done: 03/23/25 16:34
*General Assessment Last Done: 03/23/25 16:34
*Neglect/Abuse Screening Last Done: 03/23/25 16:34
*ED- Fall Risk Assessment Last Done: 03/23/25 16:34
*ED COVID-19 Vaccine History Last Done: 03/23/25 16:34
Discharge Date and Time
Print Language: CITIZEN [place]
[2025-03-23 17:36] LABS: Hematocrit 36.2 % (39.0-52.0); Hemoglobin 12.3 g/dL (13.0-18.0); Mean Corp Hgb Conc. 34.0 g/dL (33.0-37.0); Mean Corpuscular Volume 95.8 fL (80.0-94.0); Nucleated Red Blood Cells % 0 % (-); Platelet Count 146 10^3/uL (130-400); Red Cell Dist. Width 13.9 % (11.5-14.5)
[2025-03-23 18:13] LABS: ALT (SGPT) 188 U/L (0-50); AST (SGOT) 144 U/L (17-59); Albumin 4.4 g/dl (3.5-5.0); Alkaline Phosphatase 243 U/L (38-126); Blood Urea Nitrogen 35 mg/dl (9-20); Calcium 9.1 mg/dl (8.4-10.2); Carbon Dioxide 30 mmol/L (22-30); Chloride 91 mmol/L (98-107); Estimated Creatinine Clearance 11 ml/min; Glucose 183 mg/dl (70-99); Potassium 4.2 mmol/L (3.5-5.1); Sodium 136 mmol/L (135-145); Total Protein 7.9 g/dl (6.3-8.2); eGFR 11.87
[2025-03-23 19:09] LABS: Troponin I 0.019 ng/ml
--- NOTE | 2025-03-23 19:36 | HPS.HSE ---
Family Physician
-
Family Physician: Juan Ramon Bashir, DO
Chief Complaint
-
abdominal pain, nausea and vomiting
History of Present Illness
Patient is a 74-year-old male with past medical history significant for CVA with residual left hemiparesis, HFpEF, paroxysmal atrial fibrillation, diabetes mellitus, type II, diabetic neuropathy, CKD stage V, secondary hyperparathyroidism, chronic
anemia, essential hypertension, hyperlipidemia and spinal stenosis who presented to [facility] ED for evaluation of abdominal pain, nausea and vomiting. Patient and at bedside assisted in HPI. patient report that on Monday he started not feeling well
with abdominal pain then nausea and vomiting and has been persistent since. He reports not being able to hold anything down since this started. He does mention he was able to complete a full session of dialysis yesterday. He stated following
dialysis he the pain now was irritating his back as well. Patients reports patient with rigors and measured fever of 99 at home yesterday. Denies any cough, shortness of breath, chest pain, constipation, diarrhea or urinary symptoms.
Medical History
Past Medical History
Past Medical History: Reports Other
Additional Past Medical History:
CVA with Residual Left Hemiparesis
HFpEF
Paroxysmal Atrial Fibrillation
Diabetes Mellitus, Type II
Diabetic Neuropathy
CKD Stage V
Secondary Hyperparathyroidism
Chronic Anemia
Essential Hypertension
Hyperlipidemia
Spinal Stenosis
Past Surgical History: Reports Other
Additional Past Surgical History:
L4/L5 Laminectomy
Cataract Surgery
Social History
Tobacco: Non-smoker
Alcohol: None
Drug: None
Personal:
Living: With Family
Employment: Retired
Family History
Family History: Not pertinent
Allergies / Home Medications
Allergies reflects when Allergies were last updated in [employer].
Home Medications with original date entered in [employer]
Allergy/Medication List:
Allergies
Allergy/AdvReac Type Severity Reaction Status Date / Time
No Known Allergies Allergy Verified 03/23/25 16:32
Home Medications
diltiazem HCl 180 mg capsule,extended release 24 hr 180 mg PO BID Heart disease/condition 10/08/20
insulin aspart U-100 100 unit/mL (3 mL) subcutaneous pen (Novolog FlexPen U-100 Insulin aspart) 4 - 6 units SC NOON Diabetes 10/09/20
apixaban 5 mg tablet (Eliquis) 5 mg PO BID Blood clot prevention/tx 02/08/22
ezetimibe 10 mg tablet 10 mg PO DAILY High cholesterol 04/22/22
gabapentin 100 mg capsule 100 mg PO HS neuropathic pain 10/04/24
omega-3 fatty acids-fish oil 684 mg-1,200 mg capsule,delayed release 1 cap PO DAILY Supplement 10/04/24
rosuvastatin 10 mg tablet 10 mg PO HS High Cholesterol 10/04/24
ferrous sulfate 325 mg (65 mg iron) tablet (FeroSul) 325 mg PO Q48H Supplement 10/05/24
bisacodyl 5 mg tablet,delayed release 10 mg (2 x 5 mg) PO DAILYPRN PRN Constipation #10 tabs 10/14/24
clonazepam 0.5 mg tablet 0.5 mg PO HSPRN PRN insomnia #10 tabs 10/14/24
furosemide 40 mg tablet (Lasix) 40 mg PO BID 03/23/25
insulin glargine 100 unit/mL (3 mL) subcutaneous pen (Lantus Solostar U-100 Insulin) 14 unit SC HS Diabetes 03/23/25
Review of Systems
-
History Source: Patient
Constitutional: Reports Fever and Chills
EENT: Reports No Symptoms
Respiratory: Reports No Symptoms
Cardiac: Reports No Symptoms
Abdomen/GI: Reports Abdominal Pain, Nausea, Vomiting and Anorexia
: Reports No Symptoms
Musculoskeletal: Reports No Symptoms
Skin: Reports No Symptoms
Neurological: Reports No Symptoms
Endocrine: Reports No Symptoms
Hematologic/Lymphatic: Reports No Symptoms
Psych: Reports No Symptoms
Physical Exam
Vital Signs
Vital Signs
Temp Pulse Resp BP Pulse Ox
98.3 F 104 26 147/67 94
03/23/25 16:35 03/23/25 19:00 03/23/25 19:00 03/23/25 19:00 03/23/25 19:00
Physical Exam
General: Well Developed, Well Nourished, No Apparent Distress and Obese
HEENT: NormoCephalic, Moist mucous membranes, Atraumatic, Nose Appears Normal and Ears Appear Normal
Respiratory: Clear and Non Labored Respirations
Cardiac: S1/S2, Regular Rhythm and Tachycardia
Breast: Deferred by me
GI: Soft, Non Distended, Normal Bowel Sounds (hyperactive x4 quads ) and Tender; No Organomegaly
Rectal: Deferred by Provider
Genito-urinary: Deferred by me
Musculoskeletal: No Clubbing, No Cyanosis and No Edema
Skin: IV/Catheter Site
Neuro: Awake, Alert, AO x 3 and Nonfocal/grossly intact
Psych: Calm
Laboratory Results
-
03/23/25 17:13
03/23/25 17:13
Laboratory Results
Total Bilirubin 4.9 mg/dl (0.2-1.3) H 03/23/25 17:13
AST 144 U/L (17-59) H 03/23/25 17:13
ALT 188 U/L (0-50) H 03/23/25 17:13
Alkaline Phosphatase 243 U/L (38-126) H 03/23/25 17:13
Troponin I 0.019 ng/ml 03/23/25 18:38
Data Reviewed
-
CT Scan: Report Reviewed by me (Chest/Abd/Pel (see reports))
Medical Tests (Nuc Med, Echo, EKG etc): Report Reviewed by me (EKG; ATRIAL FIBRILLATION LOW VOLTAGE QRS SEPTAL INFARCT (CITED ON OR BEFORE 11-JUL-2020))
Lab Data: Labs Reviewed by me (WBC 15.9, neut 86.6, BUN 35, Creat 4.8, est CrCl 11, eGFR 11.87, tot bili 4.9, AST 144, ALT 188, Alk Phos 243, BNP 7180)
Impression/Plan
-
IMPRESSION/PLAN:
#cholelithiasis
WBC 15.9, neut 86.6, tot bili 4.9, AST 144, ALT 188, Alk Phos [address]: 1. Severe calcific atherosclerotic plaque in the coronary arteries and thoracic aorta.
2. Mild to moderate cardiomegaly.
3. Severe mosaic attenuation pattern in the lower lobes of both lungs which is most likely obstructive small airways disease with multifocal air trapping and subsegmental atelectasis.
Viral pneumonia is considered less likely.
4. Severe discogenic degenerative disease at C5/C6 and C6/C7.
Abd/Pel CT: 1. Mild circumferential wall thickening in the splenic flexure of the colon and proximal descending colon suggesting a mild colitis.
2. Moderate diffuse colonic diverticulosis.
3. Mild intrahepatic and extrahepatic biliary dilatation.
4. Mild gallbladder distention.
5. Severe chronic bilateral renal disease and moderate number of renal cysts.
6. Severe calcific atherosclerotic plaque in the abdominal aorta and iliac arteries.
7. Moderate discogenic degenerative disease and severe facet joint arthrosis in the lower lumbar spine causing multilevel central canal stenosis.
8. 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
EKG: ATRIAL FIBRILLATION
LOW VOLTAGE QRS
SEPTAL INFARCT (CITED ON OR BEFORE 11-JUL-2020)
- Admit to telemetry
- Consult surgery
- Consult GI
- MRCP
- NPO
- IV Zosyn
- Hold Eliquis
- 1/2 NSS 40cc/hr
- pain regimen and antiemetics
#HFpEF
BNP 7180
ECHO (10/07/2024): Normal left ventricular size, wall thickness and systolic function. No regional wall motion abnormalities are seen. LV ejection fraction is 65-70% by visual assessment.
Diastolic function indeterminate due to atrial fibrillation.
Mitral valve opens normally. Thickened mitral valve leaflets. Mitral annular calcification. Mitral sclerosis without stenosis. Mild mitral regurgitation.
Indexed LA volume is mildly abnormal (35-41 mL/m2).
Trileaflet aortic valve. Aortic sclerosis without stenosis. Trace aortic regurgitation is seen.
Tricuspid valve opens normally. Moderate to severe tricuspid regurgitation. Estimated pulmonary artery pressure of 48 mmHg assuming a right atrial pressure of 8 mmHg.
Mildly dilated right atrium.
Normal right ventricular size and function.
Since echocardiogram October 2022, there is little change. TR is worsened from mild-moderate to moderate-severe.
- daily weights
- I & Os
- continue furosemide
#Paroxysmal Atrial Fibrillation
EKG: ATRIAL FIBRILLATION
LOW VOLTAGE QRS
SEPTAL INFARCT (CITED ON OR BEFORE 11-JUL-2020)
- continue diltiazem
- hold Eliquis
#Diabetes Mellitus, Type II
- AccuCheck q6 while NPO
- SSI
- Hold Lantus while NPO
#Diabetic Neuropathy
- continue gabapentin
#CKD Stage V
BUN 35, Creat 4.8, est CrCl 11, eGFR 11.87
HD patient, schedule, last session Monday03/22/2025
- Consult Nephrology for HD
#Essential Hypertension
- continue furosemide
#Hyperlipidemia
- continue ezetimibe and rosuvastatin
#CVA with Residual Left Hemiparesis
#Spinal Stenosis
#Secondary Hyperparathyroidism
#Chronic Anemia
Code status: full code
DVT prophylaxis: SCDs
--- NOTE | 2025-03-23 19:55 | W.PN.UPDATE ---
Update Note
Progress Note Update
Patient seen in conjunction with [facility]. I agree with the findings on history and physical. I concur with assessment and plan unless stated otherwise.
Briefly, this is a 74-year-old with history of end-stage renal disease on hemodialysis Saturdays, insulin-dependent diabetes, CHF, atrial fibrillation on anticoagulation presenting to the emergency department with 2 days of
abdominal pain and nausea and vomiting. They vomited twice that was nonbloody and nonbilious. He also reports back pain. As well as reports intermittent chills. The measured a Tmax of 99 at home. No measured fever while in dialysis yesterday.
There has been no diarrhea. No prior such episodes. Patient denies shortness of breath or new dyspnea on exertion. On examination the abdomen is tender to palpation in the right upper quadrant and epigastric region.
Here in the emergency department was afebrile, blood pressure was 140/60 with a pulse of 104, ECG shows atrial fibrillation at a rate of 85 without any acute ischemic changes. His BNP is elevated at 7000 similar to prior.
He has a white count of 16,000, hemoglobin and platelets were stable. His electrolytes were within the normal range. BUN/creatinine consistent with ESRD.
LFT shows marked elevation in total bilirubin to 4.9, slight increases in AST ALT and alk phos
CT a/p: The gallbladder is mildly distended. There is no gallbladder wall thickening or pericholecystic inflammation. There is mild intrahepatic biliary dilatation. There is mild extrahepatic biliary dilatation. The common bile duct measures 9.8 mm
diameter. There is mild diffuse pancreatic parenchymal atrophy. The spleen is normal in size.
Assessment and plan
76-year-old with ESRD on hemodialysis, congestive heart failure, gout, insulin-dependent diabetes, atrial fibrillation on anticoagulation who presents with abdominal pain, he is tender to palpation and appears to have voluntary guarding, with a
leukocytosis, low-grade temps and chills there is concern for acute intra-abdominal process. There is elevated bilirubin but no radiopaque stone/sludge noted on CT. CT scan with gallbladder distention, but no further evidence of cholecystitis.
There is mild intrahepatic biliary ductal dilation with common bile duct measuring 9.[address] also shows some evidence of colitis in the splenic flexure. At this point suspect acute cholecystitis versus
choledocholithiasis/cholangitis.
- Admit to MedSurg
- Blood cultures if spike fever
- N.p.o.
- IV Zosyn, renal dosed
- Trend LFTs
- Change to maintenance fluids with half-normal saline at 40 cc an hour, pain control and antiemetics
-Hold anticoagulation
- MRCP
- GI consulted
- Surgery consulted
End-stage renal disease
- Nephrology consult for routine dialysis, no indication for acute hemodialysis at this time
Insulin-dependent diabetes
- N.p.o., sliding scale insulin every 6
Atrial fibrillation
- Continue diltiazem
- Hold anticoagulation
CHF -
- Hold Lasix for now
DVT prophylaxis -heparin subcu while off anticoagulation
CODE STATUS�full code
[2025-03-23 19:56] LABS: Urine Character Clear (Clear)
[2025-03-23 20:05] LABS: Urine White Cell 0-2 /HPF (0-5)
[2025-03-23] MEDS: NSS 250 IV (20:24)
[2025-03-23] MEDS: DILAUDID 0.5 MG IV (20:25)
[2025-03-23] MEDS: ZOSYN 50 IV (20:30)
[2025-03-23 21:21] LABS: Lipase 128 U/L (23-300)
[2025-03-23] MEDS: 0.45%NACL 1000 IV (22:55)
[2025-03-23] MEDS: CARDIZEM CD 180 MG PO (23:04)
[2025-03-24] VITALS (7 sets, daily range): BP systolic 107–156; BP diastolic 37–66; BMI 26.1
[2025-03-24 00:19] LABS: Glucose - Point of Care 127 mg/dl (70-99)
[2025-03-24] MEDS: DILAUDID 0.5 MG IV ×2 (00:56→09:30)
[2025-03-24] MEDS: ZOSYN 50 IV ×3 (04:20→20:51)
[2025-03-24 05:29] LABS: Hematocrit 33.8 % (39.0-52.0); Hemoglobin 11.4 g/dL (13.0-18.0); Mean Corp Hgb Conc. 33.7 g/dL (33.0-37.0); Mean Corpuscular Volume 96.8 fL (80.0-94.0); Platelet Count 122 10^3/uL (130-400); Red Cell Dist. Width 14.0 % (11.5-14.5)
[2025-03-24 06:08] LABS: ALT (SGPT) 136 U/L (0-50); AST (SGOT) 89 U/L (17-59); Albumin 4.0 g/dl (3.5-5.0); Alkaline Phosphatase 239 U/L (38-126); Blood Urea Nitrogen 39 mg/dl (9-20); Calcium 8.3 mg/dl (8.4-10.2); Carbon Dioxide 28 mmol/L (22-30); Chloride 95 mmol/L (98-107); Estimated Creatinine Clearance 10 ml/min; Glucose 126 mg/dl (70-99); Potassium 4.0 mmol/L (3.5-5.1); Sodium 137 mmol/L (135-145); Total Protein 7.3 g/dl (6.3-8.2); eGFR 10.08
[2025-03-24 06:16] LABS: Glucose - Point of Care 117 mg/dl (70-99)
--- NOTE | 2025-03-24 07:31 | CON.GS ---
Addendum entered and electronically signed by Danny Andrews MD 03/24/25 11:27:
I saw and examined the patient independently.
The resident's documentation was reviewed and I agree with the note, assessment and plan except where noted below.
Comment: This is a 74-year-old Italian speaking male (history taken with the help of his who helped translate) with a history of diabetes, CKD on dialysis Monday, atrial fibrillation on anticoagulation, CHF who presents
with abdominal pain in the epigastric region radiating to his back, low-grade temperatures at home to 99 as well as jaundice. On arrival he had a mild leukocytosis as well as elevated LFTs including a bilirubin up to 4.5. They deny any prior
similar symptoms previously though states that this began soon after eating a meal though it does not sound as if it was a particularly fatty one. A CT scan was obtained which demonstrated dilation of the CBD as well as the gallbladder but no overt
stone pathology was identified. No ultrasound was performed. Today his abdominal exam is benign, he has no tenderness anywhere. He continues to have a leukocytosis and his liver function tests remain elevated.
The differential remains fairly broad including choledocholithiasis, pancreatitis (lipase normal), CBD stricture/malignancy, cholecystitis.
Will obtain an MRCP which should help better delineate his underlying etiology.
GI following, appreciate their recommendations.
N.p.o., IV fluids, continue IV antibiotics for now.
I spent 75 minutes in total for the care of this patient today including direct patient care and counseling, reviewing labs, imaging, coordination of care, as well as documentation.
Original Note:
Consultation
-
Date/Time Consultation Requested: 03/23/2025
Date/Time Consultation Performed: 03/24/2025
Requesting Provider: Genesis Avelar
Performing Provider: Danny Andrews
Medical History
-
Chief Complaint: Abdominal pain associated with nausea and vomiting
History of Present Illness:
Patient is a 74-year-old male with past medical history of insulin-dependent diabetes mellitus, chronic kidney disease on dialysis every Monday and Monday, atrial fibrillation on anticoagulation, congestive heart failure who presented to
the emergency department with complaint of abdominal pain in epigastric region. Patient is primarily tajik speaking, so history was obtained from the . As per the patient's , he had lunch on Monday afternoon where he ate some noodles
with vegetables. After lunch, he felt very tired and then gradually he developed vomiting, he had multiple episodes of vomiting, copious in amount, containing food and water with no blood or bile and was not projectile. He also developed abdominal
pain around that time which was like a dull ache in the epigastric region, patient rates the pain as ranging from 10/10 to 2-3/10. Comes and goes in waves. After that he developed back pain and a low-grade fever with a Tmax of 99. He denied being
told in the past of any gallstones.
He does have chronic constipation and usually moves his bowels once in a couple of days. Last bowel movement was on Monday.
He denied any fever, chills, shortness of breath, body aches, diarrhea.
Patient has a scar darvin in the right lower quadrant which she believes is from an appendicectomy done 50 years ago. He denies any other abdominal surgeries or any issues with pain like that before
Past Medical History
Past Medical History: Arrhythmias (Paroxysmal atrial fibrillation on chronic anticoagulation), CHF (HFpEF), HTN, Hypercholesterolemia, IDDM, Renal Failure (CKD stage V, on hemodialysis every Monday, and Monday) and Other (CVA with
residual left-sided hemiparesis, spinal stenosis, secondary hyperparathyroidism, chronic anemia)
Past Surgical History: Appendectomy, Orthopedic (L4/L5 laminectomy) and Other (Cataract surgery)
Social History
Tobacco: Non-Smoker
Alcohol: None
Drug: None
Personal:
Living: With Family
Employment: Retired
Family History
Family History: Reviewed & Not Pertinent
Allergies / Home Medications
Allergy/AdvReac Type Severity Reaction Status Date / Time
No Known Allergies Allergy Verified 03/23/25 16:32
�Medication �Instructions �Recorded �Confirmed �Type
diltiazem HCl 180 mg 180 mg PO BID Heart 10/08/20 03/23/25 History
capsule,extended release 24 hr disease/condition
insulin aspart U-100 100 unit/mL 4 - 6 units SC NOON Diabetes 10/09/20 03/23/25 History
(3 mL) subcutaneous pen (Novolog
FlexPen U-100 Insulin aspart)
apixaban 5 mg tablet (Eliquis) 5 mg PO BID Blood clot 02/08/22 03/23/25 History
prevention/tx
ezetimibe 10 mg tablet 10 mg PO DAILY High cholesterol 04/22/22 03/23/25 History
gabapentin 100 mg capsule 100 mg PO HS neuropathic pain 10/04/24 03/23/25 History
omega-3 fatty acids-fish oil 684 1 cap PO DAILY Supplement 10/04/24 03/23/25 History
mg-1,200 mg capsule,delayed release
rosuvastatin 10 mg tablet 10 mg PO HS High Cholesterol 10/04/24 03/23/25 History
ferrous sulfate 325 mg (65 mg 325 mg PO Q48H Supplement 10/05/24 03/23/25 History
iron) tablet (FeroSul)
bisacodyl 5 mg tablet,delayed 10 mg (2 x 5 mg) PO DAILYPRN PRN 10/14/24 03/23/25 Rx
release Constipation #10 tabs
clonazepam 0.5 mg tablet 0.5 mg PO HSPRN PRN insomnia #10 10/14/24 03/23/25 Rx
tabs
furosemide 40 mg tablet (Lasix) 40 mg PO BID 03/23/25 03/23/25 History
insulin glargine 100 unit/mL (3 14 unit SC HS Diabetes 03/23/25 03/23/25 History
mL) subcutaneous pen (Lantus
Solostar U-100 Insulin)
Review of Systems
-
All other systems: Negative unless noted
A 10 point review of systems was completed, and was negative except as per HPI.
Physical Exam
Vital Signs
Temp Pulse Resp BP Pulse Ox
99.1 F 95 18 133/66 99
03/24/25 03:00 03/24/25 03:00 03/24/25 03:00 03/24/25 03:00 03/24/25 03:00
03/23/25 03/24/25 03/25/25
06:59 06:59 06:59
Actual Weight 69.031 kg
Body Mass Index (BMI) 26.1
Lab Results
03/24/25 04:42
03/24/25 04:42
WBC 14.7 10^3/uL (4.8-10.8) H 03/24/25 04:42
Hgb 11.4 g/dL (13.0-18.0) L 03/24/25 04:42
Hct 33.8 % (39.0-52.0) L 03/24/25 04:42
Plt Count 122 10^3/uL (130-400) L 03/24/25 04:42
Abs Immat Gran (auto) 0.1 10^3/uL (0-0.05) H 03/23/25 17:13
Neutrophils % 86.6 % (42.2-75.2) H 03/23/25 17:13
Physical Exam
General: No Apparent Distress and Other (Appearing pale and jaundiced)
HEENT: Scleral Icterus
Respiratory: Clear; Negative Wheezes, Rales or Rhonchi
Cardiac: S1/S2 and Regular Rhythm
GI: Soft, Non Tender, Normal Bowel Sounds and Incisions (Old scar marker in right lower quadrant)
Musculoskeletal: No Clubbing, No Cyanosis and No Edema
Skin: Warm and Dry
Neuro: Awake and AO x 3
Psych: Calm
Assessment / Plan
-
Impression
Patient is a 74-year-old male, presented with acute onset epigastric pain associated with vomiting. Based on history, examination, lab findings of leukocytosis,Elevated liver enzymes, with bilirubin of 4.5, ALT 136, ALP 239, normal lipase
differentials include choledocholithiasis, cholangitis, pancreatitis, and acute cholecystitis.
Assessment/plan
Patient currently asymptomatic
On examination patient is jaundiced, abdomen is soft, bowel sounds are normal
Lipase levels normal
Patient does not fit in the [place] [facility]
On CT abdomen, no evidence of mass
Common bile duct is [id number], biliary stricture, much lower on the list primary sclerosing cholangitis, iatrogenic injury
Trend LFTs
MRCP-if MRCP is positive for choledocholithiasis plan ERCP
GI consult
Abdominal ultrasound to confirm gallstones
Surgery will continue to follow
[2025-03-24 08:49] LABS: Glycohemoglobin (HgbA1c) 7.8 % (4.0-5.6)
--- NOTE | 2025-03-24 09:09 | CON.CAR ---
Addendum entered and electronically signed by Gold Payne MD 03/24/25 16:36:
74-year-old man admitted March 23 with chest and back pain, nausea and vomiting related to cholelithiasis/cholangitis, currently undergoing surgical evaluation. Troponin 0.019 at the time of admission, EKG without acute changes
PMH/PSH: Permanent atrial fibrillation, CVA 2019, hypertension, coronary artery disease by CT imaging with severe calcification of the coronaries, HFpEF, DM with neuropathy, hypercholesterolemia, L4/L5 laminectomy, secondary hyperparathyroidism,
end-stage renal disease, hemodialysis initiation October 2024
Medications: Diltiazem ER 120 mg twice daily, Zosyn, IV heparin
107/48, pulse 84, respirations 16, chronically ill but pleasant and easy to communicate with, left hemiparesis, lungs are relatively clear, irregular rate and rhythm, soft systolic murmur left sternal border, abdomen benign, mild edema
CT of chest abdomen and pelvis with atherosclerosis and gallbladder distention, dense coronary artery calcification
Echo: Pending, in October EF was 65-70% mild MR, moderate to severe TR, pulmonary artery pressure 48 mmHg systolic
White count 14.7, hemoglobin 11.4, creatinine 5.5, BUN 39, ALT is 136, alk phos is 239, proBNP is 7180, troponin is 0.019 and 0.062, in October had been 0.92
ECG: Atrial fibrillation, low voltage, possible prior inferior MO
Impression:
Admitted with cholelithiasis 03/24/25
Possible acute cholecystitis vs choledocholithiasis/cholangitis
Severe calcific atherosclerotic plaque in the coronary arteries and thoracic aorta by CT chest 03/23/2025
Chronic HFpEF
Permanent Afib
Chronic Eliquis OAC
h/o CVA while on warfarin, possibly HTN mediated 05/15/20
HTN
Echo 04/26/23: EF 55-60%, no WMA, mildly enlarged left atrium, mildly enlarged right atrium, mild MR, mild to moderate TR with estimated pulmonary artery pressure of 40 mmHg.
Echo 10/07/2024: EF 65 to 70%, mitral sclerosis without stenosis, mild MR, moderate to severe TR with PAP 48 mmHg, normal RV size and function
Plan:
He appears relatively stable from a cardiac standpoint though his troponin is detectable and he has dense coronary artery calcification on the CT scan of his chest. His troponin levels are considerably lower than had been present in October when he
presented with CKD 5 and transitioned to hemodialysis.
If needed, he could undergo cholecystectomy at elevated but acceptable cardiac risk. Cholecystostomy tube would have a slightly lower cardiac risk and could be preferable if likely to be effective.
Ventricular response in atrial fibrillation is currently acceptable. If NPO, IV Lopressor could be used for heart rate control, or we could consider diltiazem
proBNP is elevated but not much evidence of heart failure on exam at present. We could consider transitioning to beta-kendell from diltiazem.
Agree with heparin while Eliquis is on hold awaiting best management strategy.
Will await echocardiogram and input from surgery.
Based on his clinical course, we could consider an eventual ischemic evaluation, cardiac catheterization versus nuclear perfusion imaging.
Original Note:
Consultation
Consultation Request
Date/Time Consultation Requested: 03/24/25
Date/Time Consultation Performed: 03/24/25
Requesting Provider: Dr. Lau
Performing Provider: Dr. KEATON Payne
Reason for Consultation: Preoperative cardiovascular risk stratification, h/o CVA
Medical History
-
History of Present Illness:
Patient came to [facility] ER yesterday with new symptoms of chest and back pain associated with nausea and vomiting, patient was admitted with cholelithiasis and cardiology has been consulted for preoperative cardiovascular restratification in case
surgery is needed. Patient was seen in the office on 12/06/2024 and at that time was feeling well. Patient with known permanent A-fib and rate control with Cardizem CD 180 mg daily and OAC in the form of Eliquis 5 mg BID. Patient with h/o CVA
05/15/2020 that was attributed to HTN, he was on warfarin at that time and INR was therapeutic at 3.1. [facility] and was transitioned to Eliquis. Patient reports he can move up and down the stairs in his home a couple times a day and
every once in a while he will get a tightness in his chest with this activity, but most of the time he is able to climb the stairs without chest tightness. He had a new sensation of chest pain radiating to his back associated with the nausea and
vomiting at the onset of his cholelithiasis admission symptoms and troponin associated with the symptoms was normal at 0.019 and ECG was without acute ischemic change. Patient denies any recent decrease in exercise tolerance and he denies ever
having chest pain with HD treatments. He has been on HD for a year and says he continues to make urine and so he is also on Lasix 40 mg PO BID.
PMH:
Severe calcific atherosclerotic plaque in the coronary arteries and thoracic aorta by CT chest 03/23/2025
Chronic HFpEF
Permanent Afib
Chronic Eliquis OAC
h/o CVA while on warfarin, possibly HTN mediated 05/15/20
HTN
Past Medical History
Past Medical History: Other (in HPI)
Past Surgical History: Orthopedic (laminectomy)
Social History
Tobacco: Former Smoker
Alcohol: None
Drug: None
Personal:
Living: With Family
Family History
Family History: Other (No known significant PMH)
Allergies / Home Medications
Allergy/AdvReac Type Severity Reaction Status Date / Time
No Known Allergies Allergy Verified 03/23/25 16:32
�Medication �Instructions �Recorded �Confirmed �Type
diltiazem HCl 180 mg 180 mg PO BID Heart 10/08/20 03/23/25 History
capsule,extended release 24 hr disease/condition
insulin aspart U-100 100 unit/mL 4 - 6 units SC NOON Diabetes 10/09/20 03/23/25 History
(3 mL) subcutaneous pen (Novolog
FlexPen U-100 Insulin aspart)
apixaban 5 mg tablet (Eliquis) 5 mg PO BID Blood clot 02/08/22 03/23/25 History
prevention/tx
ezetimibe 10 mg tablet 10 mg PO DAILY High cholesterol 04/22/22 03/23/25 History
gabapentin 100 mg capsule 100 mg PO HS neuropathic pain 10/04/24 03/23/25 History
omega-3 fatty acids-fish oil 684 1 cap PO DAILY Supplement 10/04/24 03/23/25 History
mg-1,200 mg capsule,delayed release
rosuvastatin 10 mg tablet 10 mg PO HS High Cholesterol 10/04/24 03/23/25 History
ferrous sulfate 325 mg (65 mg 325 mg PO Q48H Supplement 10/05/24 03/23/25 History
iron) tablet (FeroSul)
bisacodyl 5 mg tablet,delayed 10 mg (2 x 5 mg) PO DAILYPRN PRN 10/14/24 03/23/25 Rx
release Constipation #10 tabs
clonazepam 0.5 mg tablet 0.5 mg PO HSPRN PRN insomnia #10 10/14/24 03/23/25 Rx
tabs
furosemide 40 mg tablet (Lasix) 40 mg PO BID 03/23/25 03/23/25 History
insulin glargine 100 unit/mL (3 14 unit SC HS Diabetes 03/23/25 03/23/25 History
mL) subcutaneous pen (Lantus
Solostar U-100 Insulin)
Review of Systems
-
History Source: Patient
All other systems: Negative unless noted
Physical Exam
Vital Signs
Temp Pulse Resp BP Pulse Ox
99.1 F 95 16 156/66 96
03/24/25 07:45 03/24/25 07:45 03/24/25 07:45 03/24/25 07:45 03/24/25 07:45
General: NAD. AAO x3 using [employer]
HEENT: EOMI, MMM
Heart: Afib on tele. Irreg irreg, 10/07 [facility]SM
Lungs: RA. Clear anterolaterally without wheeze or rales.
Abd: +BS, ND
Extremities: No lesions or edema B/L. 2+ radial and PT pulses B/L
Neuro: Grossly nonfocal
Lab Results
03/24/25 04:42
03/24/25 04:42
Troponin I 0.019 ng/ml 03/23/25 18:38
Tow-U-Njaythtenlx Pept 7180 pg/ml 03/23/25 17:13
Impression / Plan
-
PCP: Dr. Juan Ramon Bashir
Card: Dr. Rodriguez
Impression:
Admitted with cholelithiasis 03/24/25
Possible acute cholecystitis vs choledocholithiasis/cholangitis
Severe calcific atherosclerotic plaque in the coronary arteries and thoracic aorta by CT chest 03/23/2025
Chronic HFpEF
Permanent Afib
Chronic Eliquis OAC
h/o CVA while on warfarin, possibly HTN mediated 05/15/20
HTN
Echo 04/26/23: EF 55-60%, no WMA, mildly enlarged left atrium, mildly enlarged right atrium, mild MR, mild to moderate TR with estimated pulmonary artery pressure of 40 mmHg.
Echo 10/07/2024: EF 65 to 70%, mitral sclerosis without stenosis, mild MR, moderate to severe TR with PAP 48 mmHg, normal RV size and function
Echo 03/24/25: Study pending
Plan:
-Patient came to [facility] ER yesterday with new symptoms of chest and back pain associated with nausea and vomiting, patient was admitted with cholelithiasis and cardiology has been consulted for preoperative cardiovascular restratification in case
surgery is needed. Patient was seen in the office on 12/06/2024 and at that time was feeling well. Patient with known permanent A-fib and rate control with Cardizem CD 180 mg daily and OAC in the form of Eliquis 5 mg BID. Patient with h/o CVA
05/15/2020 that was attributed to HTN, he was on warfarin at that time and INR was therapeutic at 3.1. He went to [facility] and was transitioned to Eliquis. Patient reports he can move up and down the stairs in his home a couple times a day and
every once in a while he will get a tightness in his chest with this activity, but most of the time he is able to climb the stairs without chest tightness. He had a new sensation of chest pain radiating to his back associated with the nausea and
vomiting at the onset of his cholelithiasis admission symptoms and troponin associated with the symptoms was normal at 0.019 and ECG was without acute ischemic change. Patient denies any recent decrease in exercise tolerance and he denies ever
having chest pain with HD treatments. He has been on HD for a year and says he continues to make urine and so he is also on Lasix 40 mg PO BID.
-ECG reviewed by me is A-fib with controlled ventricular response and no acute ST changes
-Patient reports chest tightness intermittently with climbing stairs, but this is not a consistent symptom. There is evidence of severe calcific atherosclerotic plaque in the coronary arteries in the thoracic aorta by CT chest on admission. Risk
factors for CAD also include DM 2, HTN and ESRD.
-Repeat troponin and ECG, ordered by me. Pending timing of surgery will make additional recommendations.
-Check limited study echo to reassess EF and exclude any new WMA
-Recommend ongoing telemetry monitoring perioperatively
-Patient with known permanent A-fib and h/o CVA, outpatient dose of Eliquis 5 mg BID (age 74, Cre 5.5, wt 69 kg) has been on hold since admission, but no clear plan for surgery. Will start Heparin gtt give h/o CVA.
-Outpatient dose of Cardizem CD 180 mg BID has been ordered, but no doses given, will clarify with nursing. Overall HR 90-120 and previously Cardizem CD provided adequate rate control. Pending the reasoning for Cardizem CD being on hold we could
start Lopressor IV
-Patient with known ESRD on HD and he also makes urine, outpatient dose of Lasix 40 mg PO BID is on hold and IVF's ordered. Patient has received 1.25 L IVF as of 03/24/2025
-Review of vital signs shows BP as high as 159/103, again outpatient dose of Cardizem CD is on hold. Will look to restart and if not IV Lopressor as noted above
[2025-03-24] MEDS: ZOFRAN 4 MG IV (09:30)
[2025-03-24] MEDS: FLUSH (NSS) 2 FLUSH IV (09:31)
--- NOTE | 2025-03-24 09:41 | W.PN.HOSP.TC ---
Today's Communication/Plan
-
consult Cardio and nephro
reviewed with Gen Surg
Assessment / Plan
Assessment / Plan
#cholelithiasis
WBC 15.9, neut 86.6, tot bili 4.9-->4.5, AST 144-->89, ALT 188-->136, Alk Phos 243-->[address]: 1. Severe calcific atherosclerotic plaque in the coronary arteries and thoracic aorta.
2. Mild to moderate cardiomegaly.
3. Severe mosaic attenuation pattern in the lower lobes of both lungs which is most likely obstructive small airways disease with multifocal air trapping and subsegmental atelectasis.
Viral pneumonia is considered less likely.
4. Severe discogenic degenerative disease at C5/C6 and C6/C7.
Abd/Pel CT: 1. Mild circumferential wall thickening in the splenic flexure of the colon and proximal descending colon suggesting a mild colitis.
2. Moderate diffuse colonic diverticulosis.
3. Mild intrahepatic and extrahepatic biliary dilatation.
4. Mild gallbladder distention.
5. Severe chronic bilateral renal disease and moderate number of renal cysts.
6. Severe calcific atherosclerotic plaque in the abdominal aorta and iliac arteries.
7. Moderate discogenic degenerative disease and severe facet joint arthrosis in the lower lumbar spine causing multilevel central canal stenosis.
8. 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
EKG: ATRIAL FIBRILLATION
LOW VOLTAGE QRS
SEPTAL INFARCT (CITED ON OR BEFORE 11-JUL-2020)
- Admit to telemetry
- Consult surgery
- Consult GI
-Consult Nephro
-Consult Cardio, pt sees Dr. Rodriguez
- MRCP ordered
- NPO
- IV Zosyn
- Hold Eliquis
- 1/2 NSS 40cc/hr
- pain regimen and antiemetics
#HFpEF
BNP 7180
ECHO (10/07/2024): Normal left ventricular size, wall thickness and systolic function. No regional wall motion abnormalities are seen. LV ejection fraction is 65-70% by visual assessment.
Diastolic function indeterminate due to atrial fibrillation.
Mitral valve opens normally. Thickened mitral valve leaflets. Mitral annular calcification. Mitral sclerosis without stenosis. Mild mitral regurgitation.
Indexed LA volume is mildly abnormal (35-41 mL/m2).
Trileaflet aortic valve. Aortic sclerosis without stenosis. Trace aortic regurgitation is seen.
Tricuspid valve opens normally. Moderate to severe tricuspid regurgitation. Estimated pulmonary artery pressure of 48 mmHg assuming a right atrial pressure of 8 mmHg.
Mildly dilated right atrium.
Normal right ventricular size and function.
Since echocardiogram October 2022, there is little change. TR is worsened from mild-moderate to moderate-severe.
- daily weights
- I & Os
- continue furosemide
#Paroxysmal Atrial Fibrillation
EKG: ATRIAL FIBRILLATION
LOW VOLTAGE QRS
SEPTAL INFARCT (CITED ON OR BEFORE 11-JUL-2020)
- continue diltiazem
- hold Eliquis
#Diabetes Mellitus, Type II
- AccuCheck q6 while NPO
- SSI
- Hold Lantus while NPO
#Diabetic Neuropathy
- continue gabapentin
#CKD Stage V
BUN 35, Creat 4.8-->5.5, est CrCl 11, eGFR 11.87
HD patient, schedule, last session Monday03/22/2025
- Consult Nephrology for HD
#Essential Hypertension
- continue furosemide
#Hyperlipidemia
- continue ezetimibe and rosuvastatin
#CVA with Residual Left Hemiparesis
#Spinal Stenosis
#Secondary Hyperparathyroidism
#Chronic Anemia
Code status: full code
DVT prophylaxis: SCDs
Anticipated Discharge: > 48 hours
Subjective/Interval History
-
Date of Service: March 24, 2025
Awake, alert
Objective Data
-
Labs:
Laboratory Results
03/24/25
04:42
WBC 14.7 H
Hgb 11.4 L
Hct 33.8 L
Plt Count 122 L
Sodium 137
Potassium 4.0
Chloride 95 L
Carbon Dioxide 28
BUN 39 H
Creatinine 5.5 H*
Glucose 126 H
Calcium 8.3 L
Total Bilirubin 4.5 H
AST 89 H
ALT 136 H
Alkaline Phosphatase 239 H
Vital Signs:
Vital Signs
Temp Pulse Resp BP Pulse Ox
99.1 F 95 16 156/66 96
03/24/25 07:45 03/24/25 07:45 03/24/25 07:45 03/24/25 07:45 03/24/25 07:45
Review of Systems
-
History Source: Patient and Family (dgt, Luis A in room)
Constitutional: Denies Fever (Tmax 100.0)
EENT: Reports No Symptoms Reported
Respiratory: Reports No Symptoms
Cardiac: Reports No Symptoms
Abdomen/GI: Reports Abdominal Pain (RUQ)
Musculoskeletal: Reports No Symptoms
Neuro: Reports No Symptoms
Physical Exam
-
General: Well Developed, Well Nourished and No Apparent Distress
HEENT: Normocephalic, Atraumatic and Moist Mucous Membranes
Respiratory: Clear to Auscultation; Negative Wheezes, Rales or Rhonchi
Cardiac: Regular Rhythm and S1/S2
GI: Soft and Tender (Wheeler's point)
Neuro: Awake, Alert and Oriented
--- NOTE | 2025-03-24 10:06 | PTCARENOTE ---
Pt with c/o pain and nausea, feeling like he may throw AM cardizem up if he takes it. PRN pain medication and zofran administered, holding off on oral med at this time.
--- NOTE | 2025-03-24 10:59 | CM ---
Reviewed the chart notes and spoke with the patient at the bedside. Patient provided with Advanced Directive packet. The patient resides with his spouse in a two story home with three steps to enter. The patient has a cane and rolling walker.
The patient has had [facility] VN in past, but no SNF. The patient receives HD at [facility]. The patient confirmed his pharmacy of choice is [facility]. CM continues to be available to patient/family and is monitoring medical
plan for needs at discharge.
Plan: Discharge to home when medically stable.
[2025-03-24] MEDS: CARDIZEM CD 180 MG PO ×2 (11:00→20:59)
--- NOTE | 2025-03-24 11:05 | CON.GI ---
Addendum entered and electronically signed by Henry Pérez MD 03/24/25 12:59:
I saw and examined the patient.
The GUEST EXPERIENCE SPECIALIST's note was reviewed and I agree with the note.
Impression:
epigastric pain/nausea/ vomiting/elevated LFT/leukocytosis/CT abd -mild intra/extrahepatic dilatation -needs to rule out obstructing CBD stones etc
A-fib on Eliquis (last dose 03/23/2025) currently on hold
CKD on HD (on Monday, Monday, last HD Monday)
History of CVA with left-sided residual hemiparesis
History of HFpEF
Diabetes
plan
N.p.o.
Will get MRI/MRCP
Continue antibiotics for now
trend LFT
eliquis on hold
If MRI suggestive of choledocholithiasis will plan for ERCP after Eliquis washout ( last dose 03/23 )
Original Note:
Consultation
-
Date/Time Consultation Requested: 03/23/252124
Date/Time Consultation Performed: 03/24/25 1000
Requesting Provider: LONDON Reddy
Performing Provider: Dr. Pérez/LONDON Medley
Reason for Consultation: obstructive jaundice
Medical History
Chief Complaint / HPI
Chief Complaint: n/v/abd pain
History of Present Illness:
74-year-old Georgian male with past medical history of CVA with left-sided residual hemiparesis, HFpEF, paroxysmal A-fib on Eliquis (currently on hold last dose 03/23/2025), diabetic neuropathy, diabetes, CKD on hemodialysis Monday
Monday, chronic anemia, hypertension, hyperlipidemia, spinal stenosis, colon polyps who presents to the emergency room after acute onset of nausea and vomiting as well as abdominal pain that started Monday evening. The patient states that on
Monday he started with acute onset of upper abdominal discomfort that he describes as dull, constant, radiates through the back. He still does make small amount of urine he he states that this was darker. He has not had a bowel movement since the
pain started. He states that he felt feverish on Monday into Monday. He still does have the pain however this has improved some. Pain medication takes this away. He did receive dialysis on Monday. He states he has never had pain similar to
this in the past. He presented to the emergency room on 03/23/2025 with white count of 15.9, total bilirubin 4.9, AST 144, ALT 188, alk phos of 243. CT of the chest abdomen and pelvis without IV or oral contrast showed liver normal in size.
Gallbladder mildly distended. No gallbladder wall thickening or pericholecystic inflammation. Mild intrahepatic biliary dilatation. Mild extrahepatic biliary dilatation. CBD 9.8 mm. Mild diffuse pancreatic parenchymal atrophy. Spleen is
normal. We are asked to evaluate for the same. At the present time the patient states that he is feeling improved from arrival. He has had no further nausea or vomiting. He still is receiving pain medication for his upper abdominal discomfort
however this is improved. His Eliquis is on hold. He has been started on Zosyn. He was febrile last evening 100.0 Tmax. This morning he is 99.1. WBC this morning 14.7, hemoglobin 11.4, hematocrit 33.8, platelets 122, sodium 137, potassium 4.0,
BUN 39, creatinine 5.5, glucose 126, hemoglobin A1c 7.8, total bilirubin 4.5 (down from 4.9), AST 89 (down from 144), ALT 136 (down from 188), alk phos 239 (down from 243). Troponin 0.019, proBNP 7180. Lipase 128.
Past Medical History
Past Medical History: Other (CVA with left-sided residual hemiparesis, HFpEF, paroxysmal A-fib on Eliquis, diabetes, diabetic neuropathy, CKD on HD (Monday), chronic anemia, hypertension, hyperlipidemia, spinal stenosis, colon
polyps)
Past Surgical History: Other (L4/L5 laminectomy, cataracts, left upper extremity AV fistula)
Social History
Tobacco: Former Smoker (Quit 50 years ago)
Alcohol: None
Drug: None
Personal:
Living: With Family
Employment: Retired
Family History
Family History: Other (Denies any family history of gastrointestinal malignancy or IBD)
Allergies / Home Medications
Allergy/AdvReac Type Severity Reaction Status Date / Time
No Known Allergies Allergy Verified 03/23/25 16:32
�Medication �Instructions �Recorded
diltiazem HCl 180 mg 180 mg PO BID Heart 10/08/20
capsule,extended release 24 hr disease/condition
insulin aspart U-100 100 unit/mL 4 - 6 units SC NOON Diabetes 10/09/20
(3 mL) subcutaneous pen (Novolog
FlexPen U-100 Insulin aspart)
apixaban 5 mg tablet (Eliquis) 5 mg PO BID Blood clot 02/08/22
prevention/tx
ezetimibe 10 mg tablet 10 mg PO DAILY High cholesterol 04/22/22
gabapentin 100 mg capsule 100 mg PO HS neuropathic pain 10/04/24
omega-3 fatty acids-fish oil 684 1 cap PO DAILY Supplement 10/04/24
mg-1,200 mg capsule,delayed release
rosuvastatin 10 mg tablet 10 mg PO HS High Cholesterol 10/04/24
ferrous sulfate 325 mg (65 mg 325 mg PO Q48H Supplement 10/05/24
iron) tablet (FeroSul)
bisacodyl 5 mg tablet,delayed 10 mg (2 x 5 mg) PO DAILYPRN PRN 10/14/24
release Constipation #10 tabs
clonazepam 0.5 mg tablet 0.5 mg PO HSPRN PRN insomnia #10 10/14/24
tabs
furosemide 40 mg tablet (Lasix) 40 mg PO BID 03/23/25
insulin glargine 100 unit/mL (3 14 unit SC HS Diabetes 03/23/25
mL) subcutaneous pen (Lantus
Solostar U-100 Insulin)
Review of Systems
-
All other systems: A 12 pt ROS was Negative except as stated above in HPI
Vital Signs
Temp Pulse Resp BP Pulse Ox
99.1 F 95 16 156/66 96
03/24/25 07:45 03/24/25 07:45 03/24/25 07:45 03/24/25 07:45 03/24/25 07:45
Physical Exam
Exam
General: No Apparent Distress
HEENT: Anicteric
Respiratory: Wheezes (Few scattered expiratory wheezes)
Cardiac: Irregular Rhythm
GI: Soft, Non Distended, Normal Bowel Sounds and Tender (Mild epigastric tenderness)
Skin: Warm and Dry
Neuro: AO x 3
Psych: Calm
Results
WBC 14.7 10^3/uL (4.8-10.8) H 03/24/25 04:42
Hgb 11.4 g/dL (13.0-18.0) L 03/24/25 04:42
Hct 33.8 % (39.0-52.0) L 03/24/25 04:42
MCV 96.8 fL (80.0-94.0) H 03/24/25 04:42
Plt Count 122 10^3/uL (130-400) L 03/24/25 04:42
Absolute Neuts (auto) 13.8 10^3/uL (1.4-6.5) H 03/23/25 17:13
Sodium 137 mmol/L (135-145) 03/24/25 04:42
Potassium 4.0 mmol/L (3.5-5.1) 03/24/25 04:42
Chloride 95 mmol/L (98-107) L 03/24/25 04:42
Carbon Dioxide 28 mmol/L (22-30) 03/24/25 04:42
BUN 39 mg/dl (9-20) H 03/24/25 04:42
Creatinine 5.5 mg/dL (0.7-1.3) H* 03/24/25 04:42
Calcium 8.3 mg/dl (8.4-10.2) L 03/24/25 04:42
Total Bilirubin 4.5 mg/dl (0.2-1.3) H 03/24/25 04:42
AST 89 U/L (17-59) H 03/24/25 04:42
ALT 136 U/L (0-50) H 03/24/25 04:42
Alkaline Phosphatase 239 U/L (38-126) H 03/24/25 04:42
Lipase 128 U/L (23-300) 03/23/25 17:13
Diagnostic Image Results:
Prior GI Procedures:
01/20/23 EGD- - [place]-colored mucosa suspicious for Naik's
esophagus. Biopsied. (neg [place])
- Erythematous mucosa in the gastric body and antrum.
Biopsied. (neg HP)
- Normal examined duodenum. Biopsied. (neg celiac)
01/20/23 COLO:
- One 5 mm polyp in the descending colon, removed with
a hot snare. Resected and retrieved.
- One 8 mm polyp in the sigmoid colon, removed with a
hot snare. Resected and retrieved.
- One 3 mm polyp in the rectum, removed with a cold
snare. Resected and retrieved.
- Diverticulosis in the sigmoid colon. All polyps Tubular adenomas-> Repeat [place] 12/2025.
10/25/22 ADM TO [facility]- Hgb 5.8. Heme negative. Iron 33 (L), TIBC 487 (H), iron sat 6% (L), ferritin 49. D/C Hgb 8.7 on 10/30/22�������
04/05/22 US DOPPLER- Slight increase in pulsatility of portal vein, main differential considerations: portal HTN, R CHF, and TR.�������
01/11/22 US- Normal liver. Benign renal cysts. Tiny b/l nonobstructing renal calculi�������
07/01/14 COLON- 5mm AC serrated polyp. Tattoo AC. Diverticulosis�������
02/16/10 COLON- 5mm TC adenoma. Diverticulosis. Scar AC�������
07/24/09 COLON- 50mm AC tubulovillous adenoma removed saline lift, piecemeal, tattooed, clipped
Assessment / Plan
-
74-year-old Georgian male with past medical history of CVA with left-sided residual hemiparesis, HFpEF, paroxysmal A-fib on Eliquis (currently on hold last dose 03/23/2025), diabetic neuropathy, diabetes, CKD on hemodialysis Monday
Monday, chronic anemia, hypertension, hyperlipidemia, spinal stenosis, colon polyps who presents to the emergency room after acute onset of nausea and vomiting as well as abdominal pain that started Monday evening. The patient states that on
Monday he started with acute onset of upper abdominal discomfort that he describes as dull, constant, radiates through the back. He still does make small amount of urine he he states that this was darker. He has not had a bowel movement since the
pain started. He states that he felt feverish on Monday into Monday. He still does have the pain however this has improved some. Pain medication takes this away. He did receive dialysis on Monday. He states he has never had pain similar to
this in the past. He presented to the emergency room on 03/23/2025 with white count of 15.9, total bilirubin 4.9, AST 144, ALT 188, alk phos of 243. CT of the chest abdomen and pelvis without IV or oral contrast showed liver normal in size.
Gallbladder mildly distended. No gallbladder wall thickening or pericholecystic inflammation. Mild intrahepatic biliary dilatation. Mild extrahepatic biliary dilatation. CBD 9.8 mm. Mild diffuse pancreatic parenchymal atrophy. Spleen is
normal. We are asked to evaluate for the same.
Impression:
Dilated intra/extrahepatic biliary dilatation
N/V/ epigastric pain
Elevated LFTs (T Bili, AST/ALT, Alk Phos)
A-fib on Eliquis (last dose 03/23/2025) currently on hold
CKD on HD (usually Monday, Monday, last HD Monday)
History of CVA with left-sided residual hemiparesis
History of HFpEF
Diabetes
Plan:
- N.p.o.
-Eliquis on Hold
-Continue Zosyn
-MRCP ordered
-US abdomen ordered
-General Surgery consulted
-Trend labs CBC, BMP, LFTs
-Cardiology consulted
-Further recommendations once US/MRCP resulted.
-
-
Thank you for consultation and allowing me to participate in the patient's care. Please call the rock mason apprentice GI physician during the after hours with any questions or concerns.
--- NOTE | 2025-03-24 12:17 | W.CON.NEPH ---
Consultation
-
Date/Time Consultation Requested: March 23, 2025 10 PM
Date/Time Consultation Performed: March 24, 2025 at 11 AM
Requesting Provider: Dr. Lau
Performing Provider: Dr. Suarez
Reason for Consultation: End-stage renal disease
Medical History
-
Chief Complaint: SOB
History of Present Illness:
74 y/o male past medical history of CVA with residual left hemiparesis, paroxysmal atrial fibrillation on Eliquis, cardizem, diabetes mellituson isnulin and ESRD on dialysis for about 6 months using left AV fistula presents with abdominal pain and
cholecystitis. Renal consultation for ESRD.
Patient's pain controlled. He has no chest pain or shortness of breath. Has been seen by GI pending MRI
Past Medical History
CVA with Residual Left Hemiparesis
Paroxysmal Atrial Fibrillation
Diabetes Mellitus, Type II
Diabetic Neuropathy
CKD Stage V
Secondary Hyperparathyroidism
Chronic Anemia
Essential Hypertension
Hyperlipidemia
Spinal Stenosis
Past Surgical History: Other (L4/L5 Laminectomy Cataract Surgery, left UE AVF)
Social History
Tobacco: Non-Smoker
Alcohol: None
Personal:
Living: With Family
Family History
Family History: Not Pertinent
Allergies / Home Medications
Allergy/AdvReac Type Severity Reaction Status Date / Time
No Known Allergies Allergy Verified 03/23/25 16:32
�Medication �Instructions �Recorded �Confirmed �Type
diltiazem HCl 180 mg 180 mg PO BID Heart 10/08/20 03/23/25 History
capsule,extended release 24 hr disease/condition
insulin aspart U-100 100 unit/mL 4 - 6 units SC NOON Diabetes 10/09/20 03/23/25 History
(3 mL) subcutaneous pen (Novolog
FlexPen U-100 Insulin aspart)
apixaban 5 mg tablet (Eliquis) 5 mg PO BID Blood clot 02/08/22 03/23/25 History
prevention/tx
ezetimibe 10 mg tablet 10 mg PO DAILY High cholesterol 04/22/22 03/23/25 History
gabapentin 100 mg capsule 100 mg PO HS neuropathic pain 10/04/24 03/23/25 History
omega-3 fatty acids-fish oil 684 1 cap PO DAILY Supplement 10/04/24 03/23/25 History
mg-1,200 mg capsule,delayed release
rosuvastatin 10 mg tablet 10 mg PO HS High Cholesterol 10/04/24 03/23/25 History
ferrous sulfate 325 mg (65 mg 325 mg PO Q48H Supplement 10/05/24 03/23/25 History
iron) tablet (FeroSul)
bisacodyl 5 mg tablet,delayed 10 mg (2 x 5 mg) PO DAILYPRN PRN 10/14/24 03/23/25 Rx
release Constipation #10 tabs
clonazepam 0.5 mg tablet 0.5 mg PO HSPRN PRN insomnia #10 10/14/24 03/23/25 Rx
tabs
furosemide 40 mg tablet (Lasix) 40 mg PO BID 03/23/25 03/23/25 History
insulin glargine 100 unit/mL (3 14 unit SC HS Diabetes 03/23/25 03/23/25 History
mL) subcutaneous pen (Lantus
Solostar U-100 Insulin)
Review of Systems
-
Abdominal pain
All other systems: Negative unless noted
Physical Exam
Vital Signs
Vital Signs
Temp Pulse Resp BP Pulse Ox
98.2 F 84 16 107/48 96
03/24/25 11:00 03/24/25 11:00 03/24/25 11:00 03/24/25 11:00 03/24/25 11:00
Lab Results
WBC 14.7 10^3/uL (4.8-10.8) H 03/24/25 04:42
RBC 3.49 10^6/uL (4.70-6.10) L 03/24/25 04:42
Hgb 11.4 g/dL (13.0-18.0) L 03/24/25 04:42
Hct 33.8 % (39.0-52.0) L 03/24/25 04:42
Plt Count 122 10^3/uL (130-400) L 03/24/25 04:42
Sodium 137 mmol/L (135-145) 03/24/25 04:42
Potassium 4.0 mmol/L (3.5-5.1) 03/24/25 04:42
Chloride 95 mmol/L (98-107) L 03/24/25 04:42
Carbon Dioxide 28 mmol/L (22-30) 03/24/25 04:42
BUN 39 mg/dl (9-20) H 03/24/25 04:42
Creatinine 5.5 mg/dL (0.7-1.3) H* 03/24/25 04:42
eGFR 10.08 03/24/25 04:42
Glucose 126 mg/dl (70-99) H 03/24/25 04:42
Calcium 8.3 mg/dl (8.4-10.2) L 03/24/25 04:42
Pyx-A-Pdeetxjijgy Pept 7180 pg/ml 03/23/25 17:13
Albumin 4.0 g/dl (3.5-5.0) 03/24/25 04:42
Physical Exam
General no acute distress
HEENT no cephalic atraumatic extraocular muscle intact no scleral icterus no JVD neck supple
lungs clear to auscultation bilateral
heart regular S1-S2 positive
abdomen soft nontender positive bowel sounds
extremities no edema pulses present bilateral
Neurologically left-sided weakness alert and oriented x 3
Skin no lesions no abrasions no petechiae
Psych normal affect no bizarre behavior
Data Reviewed
-
CT Scan: Image Personally Visualized and interpreted
Assessment/Plan
-
IMP:
ESRD TTS at [facility]
Abdominal pain/cholecystitis
Chronic HFpEF
Paroxysmal Atrial Fibrillation
Insulin Dependent Diabetes Mellitus, Type II with Diabetic Neuropathy
Chronic Anemia
Hyperlipidemia
Hx CVA with Residual Left Hemiparesis
Plan:
Hemodialysis TTS/see orders
GI and surgical consult
Antibiotics
MRCP
Dialysis ordered for tomorrow no acute need for dialysis today from a volume or electrolyte standpoint
[2025-03-24 12:49] LABS: Glucose - Point of Care 99 mg/dl (70-99)
[2025-03-24 15:01] LABS: APTT 46.2 Sec (23.4-35.0)
[2025-03-24] MEDS: HEPARIN 25000 UNITS/250 ML IV (15:33)
[2025-03-24 15:42] LABS: Troponin I 0.062 ng/ml
[2025-03-24 18:24] LABS: Glucose - Point of Care 81 mg/dl (70-99)
--- NOTE | 2025-03-24 18:28 | PTCARENOTE ---
Accucheck at Q6H check was 81, steadily trending down today. IVF NSS ordered, pt otherwise NPO for poss ERCP tomorrow. MD and oncoming RN made aware, no new orders at this time.
[2025-03-24] MEDS: D5/0.45%NACL 1000 IV (21:01)
[2025-03-24 21:42] LABS: APTT 139.8 Sec (23.4-35.0)
[2025-03-25] VITALS (7 sets, daily range): BP systolic 95–166; BP diastolic 43–74; BMI 26.3
[2025-03-25 00:10] LABS: Glucose - Point of Care 98 mg/dl (70-99)
[2025-03-25] MEDS: ZOSYN 50 IV ×3 (04:20→19:53)
[2025-03-25 05:16] LABS: Hematocrit 30.1 % (39.0-52.0); Hemoglobin 10.1 g/dL (13.0-18.0); Mean Corp Hgb Conc. 33.6 g/dL (33.0-37.0); Mean Corpuscular Volume 96.2 fL (80.0-94.0); Nucleated Red Blood Cells % 0 % (-); Platelet Count 112 10^3/uL (130-400); Red Cell Dist. Width 13.4 % (11.5-14.5)
[2025-03-25 05:27] LABS: APTT 80.5 Sec (23.4-35.0)
[2025-03-25 06:10] LABS: Glucose - Point of Care 92 mg/dl (70-99)
[2025-03-25 06:35] LABS: ALT (SGPT) 86 U/L (0-50); AST (SGOT) 43 U/L (17-59); Albumin 3.6 g/dl (3.5-5.0); Alkaline Phosphatase 224 U/L (38-126); Blood Urea Nitrogen 60 mg/dl (9-20); Calcium 8.2 mg/dl (8.4-10.2); Carbon Dioxide 22 mmol/L (22-30); Chloride 95 mmol/L (98-107); Estimated Creatinine Clearance 8 ml/min; Glucose 95 mg/dl (70-99); Potassium 4.3 mmol/L (3.5-5.1); Sodium 136 mmol/L (135-145); Total Protein 6.7 g/dl (6.3-8.2); eGFR 7.68
--- NOTE | 2025-03-25 06:52 | W.PN.GS2 ---
Addendum entered and electronically signed by Master Zhang MD 03/25/25 10:27:
Patient seen and examined.
Reports abdominal pain mildly improved. No nausea or vomiting. Denies any prior attacks of abdominal discomfort.
Gen: NAD
Abd: exam deferred as patient on HD
Patient is a 74 yo M p/w choledocholithiasis
AVSS
Labs notable for normalized WBC, mild drift in Hb and platelets, elevated creatinine, stable bilirubin, downtrending LFTs and ALP, mild elevation in troponin
Briefly reviewed role of cholecystectomy in preventing future episodes of Jennifer cystitis or choledocholithiasis. GI consult noted. Timing of ERCP pending
-- GI consult noted, timing of ERCP pending
-- Continue to hold anticoagulation
-- Timing of cholecystectomy pending the above
Original Note:
Today's Communication / Plan
-
ERCP followed by laparoscopic cholecystectomy
Hemodialysis today
Assessment / Plan
-
Impression
Patient is a 74-year-old, [place] speaking male, admitted with choledocholithiasis and cholelithiasis.
Assessment
Reports pain coming in waves ranging from 8/10 to 2-3/10
No nausea or vomiting since admission
Currently n.p.o.
MRCP confirmed choledocholithiasis
GI on board-awaiting Eliquis washout-plan to do ERCP
On labs review
Leukocytosis improved-now WBC count 7.7
Hemoglobin trending down
Mild decrease in platelet count
Mild hypochloremia
Creatinine 6.9
Mild hypocalcemia
Liver enzymes trending down
Bilirubin trending down
Plan
Continue to trend LFTs
Monitor hemoglobin
After Eliquis washout-ERCP
Laparoscopic cholecystectomy following ERCP
Patient due for hemodialysis today
Continue to monitor serial BMPs
Subjective Data
-
Date of Service: March 25, 2025
Patient seen and examined on bedside
Awake, lying comfortably in bed, reports no nausea or vomiting
Abdominal pain variable
Objective Data
-
Intake and Output
03/23/25 03/24/25 03/25/25
06:59 06:59 06:59
Intake Total 1090 / 1090
Output Total 475 / 475
Balance 615 / 615
Intake:
Oral fluids 0 / 0
IV fluids (Total) 940 / 940
IV piggybacks 150 / 150
Output:
Urine, Voided 475 / 475
Vital Signs
Temp Pulse Resp BP Pulse Ox
97.9 F 82 18 101/55 96
03/25/25 03:21 03/25/25 03:21 03/25/25 03:21 03/25/25 03:21 03/25/25 03:21
Lab Results
03/25/25 05:05
03/25/25 05:05
Calcium 8.2 mg/dl (8.4-10.2) L 03/25/25 05:05
Total Bilirubin 4.2 mg/dl (0.2-1.3) H 03/25/25 05:05
AST 43 U/L (17-59) 03/25/25 05:05
ALT 86 U/L (0-50) H 03/25/25 05:05
Alkaline Phosphatase 224 U/L (38-126) H 03/25/25 05:05
Total Protein 6.7 g/dl (6.3-8.2) 03/25/25 05:05
Albumin 3.6 g/dl (3.5-5.0) 03/25/25 05:05
Physical Exam
-
No apparent distress, pale and jaundiced
Chest bilaterally clear
Abdomen soft, nondistended, mildly tender in epigastric region, normal bowel sounds
Heart rhythm irregular
Patient has a galvez catheter: No
Patient has a central line: No
--- NOTE | 2025-03-25 08:29 | W.PN.HOSP.TC ---
Today's Communication/Plan
-
await input as to timing of ERCP and surgery to follow
dialysis now
check Fe studies - pt had seen Heme in past, dgt believes was Dr. Elam
Assessment / Plan
Assessment / Plan
#cholelithiasis
WBC 15.9-->14.7-->7.7, neut 86.6, tot bili 4.9-->4.5-->4.2, AST 144-->89-->43, ALT 188-->136-->86, Alk Phos 243-->239-->[address]: 1. Severe calcific atherosclerotic plaque in the coronary arteries and thoracic aorta.
2. Mild to moderate cardiomegaly.
3. Severe mosaic attenuation pattern in the lower lobes of both lungs which is most likely obstructive small airways disease with multifocal air trapping and subsegmental atelectasis.
Viral pneumonia is considered less likely.
4. Severe discogenic degenerative disease at C5/C6 and C6/C7.
Abd/Pel CT: 1. Mild circumferential wall thickening in the splenic flexure of the colon and proximal descending colon suggesting a mild colitis.
2. Moderate diffuse colonic diverticulosis.
3. Mild intrahepatic and extrahepatic biliary dilatation.
4. Mild gallbladder distention.
5. Severe chronic bilateral renal disease and moderate number of renal cysts.
6. Severe calcific atherosclerotic plaque in the abdominal aorta and iliac arteries.
7. Moderate discogenic degenerative disease and severe facet joint arthrosis in the lower lumbar spine causing multilevel central canal stenosis.
8. 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
MRCP: 1. CHOLEDOCHOLITHIASIS or sludge in the common bile duct.
2. Mild intrahepatic and extrahepatic biliary dilatation.
3. Cholelithiasis or sludge in the gallbladder lumen.
4. Severe diffuse iron deposition in the liver and spleen consistent with SEVERE SECONDARY HEMACHROMATOSIS (which is likely secondary to chronic renal failure).
5. SEVERE CHRONIC BILATERAL RENAL DISEASE with severe bilateral renal atrophy and a moderate number of renal cysts.
6. Mild to moderate cardiomegaly.
EKG: ATRIAL FIBRILLATION
LOW VOLTAGE QRS
SEPTAL INFARCT (CITED ON OR BEFORE 11-JUL-2020)
- Admit to telemetry
- Consult surgery
- Consult GI
-consulted Cardio, as per request of Gen Surg
input appreciated
trop 0.019-->0.062
-Consulted Nephro
to have dialysis session now
- NPO
- IV Zosyn
- Hold Eliquis-washout
call placed to GI regarding timing of ERCP and then surgery to follow. Left message, await return call
- pain regimen and antiemetics
#HFpEF
BNP 7180
ECHO (10/07/2024): Normal left ventricular size, wall thickness and systolic function. No regional wall motion abnormalities are seen. LV ejection fraction is 65-70% by visual assessment.
Diastolic function indeterminate due to atrial fibrillation.
Mitral valve opens normally. Thickened mitral valve leaflets. Mitral annular calcification. Mitral sclerosis without stenosis. Mild mitral regurgitation.
Indexed LA volume is mildly abnormal (35-41 mL/m2).
Trileaflet aortic valve. Aortic sclerosis without stenosis. Trace aortic regurgitation is seen.
Tricuspid valve opens normally. Moderate to severe tricuspid regurgitation. Estimated pulmonary artery pressure of 48 mmHg assuming a right atrial pressure of 8 mmHg.
Mildly dilated right atrium.
Normal right ventricular size and function.
Since echocardiogram October 2022, there is little change. TR is worsened from mild-moderate to moderate-severe.
- daily weights
- I & Os
- continue furosemide
#Paroxysmal Atrial Fibrillation
EKG: ATRIAL FIBRILLATION
LOW VOLTAGE QRS
SEPTAL INFARCT (CITED ON OR BEFORE 11-JUL-2020)
- continue diltiazem
- hold Eliquis
#Diabetes Mellitus, Type II
- AccuCheck q6 while NPO
glu 81-117
- SSI
- Hold Lantus while NPO
#Diabetic Neuropathy
- continue gabapentin
#CKD Stage V
BUN 35, Creat 4.8-->5.5, est CrCl 11, eGFR 11.87
HD patient, schedule, last session Monday03/22/2025
- Consult Nephrology for HD
#Essential Hypertension
- continue furosemide
#Hyperlipidemia
- continue ezetimibe and rosuvastatin
#CVA with Residual Left Hemiparesis
#Spinal Stenosis
#Secondary Hyperparathyroidism
#Chronic Anemia
discussed with morgan Gunn. Multiple questions and concerns
Fe deposition levels in liver noted on MRCP. Pt had received Fe infusions in the past because of low Fe.
Will check Fe level, ?alternative diagnosis
Complex situation with multiple variables
Code status: full code
DVT prophylaxis: SCDs
Anticipated Discharge: > 48 hours
Subjective/Interval History
-
Date of Service: March 25, 2025
Dialysis about to start
Objective Data
-
Labs:
Laboratory Results
03/24/25 03/25/25 03/25/25
21:19 05:05 11:10
WBC 7.7
Hgb 10.1 L
Hct 30.1 L
Plt Count 112 L
APTT 139.8 H 80.5 H Pending
Sodium 136
Potassium 4.3
Chloride 95 L
Carbon Dioxide 22
BUN 60 H
Creatinine 6.9 H*
Glucose 95
Calcium 8.2 L
Total Bilirubin 4.2 H
AST 43
ALT 86 H
Alkaline Phosphatase 224 H
Vital Signs:
Vital Signs
Temp Pulse Resp BP Pulse Ox
97.8 F 72 16 119/43 97
03/25/25 07:55 03/25/25 07:55 03/25/25 07:55 03/25/25 07:55 03/25/25 07:55
I&O
03/24/25 03/25/25 03/26/25
06:59 06:59 06:59
Intake Total 1090 / 1090
Output Total 475 / 475
Balance 615 / 615
Review of Systems
-
History Source: Patient and Coordinated Provider
Constitutional: Denies Fever (Tmax 100.0)
EENT: Reports No Symptoms Reported
Respiratory: Reports No Symptoms
Cardiac: Reports No Symptoms
Abdomen/GI: Reports Abdominal Pain (RUQ)
Musculoskeletal: Reports No Symptoms
Neuro: Reports No Symptoms
Physical Exam
-
General: Well Developed, Well Nourished and No Apparent Distress
HEENT: Normocephalic, Atraumatic and Moist Mucous Membranes
Respiratory: Clear to Auscultation; Negative Wheezes, Rales or Rhonchi
Cardiac: Regular Rhythm and S1/S2
GI: Soft and Tender ([place]weeler's point)
Neuro: Awake, Alert and Oriented
--- NOTE | 2025-03-25 08:31 | W.PN.UPDATE ---
Update Note
Progress Note Update
74-year-old man admitted March 23 with chest and back pain, nausea and vomiting related to cholelithiasis/cholangitis, currently undergoing surgical evaluation. Troponin 0.019 at the time of admission, EKG without acute changes
PMH/PSH: Permanent atrial fibrillation, CVA 2019, hypertension, coronary artery disease by CT imaging with severe calcification of the coronaries, HFpEF, DM with neuropathy, hypercholesterolemia, L4/L5 laminectomy, secondary hyperparathyroidism,
end-stage renal disease, hemodialysis initiation October 2024
Medications: Diltiazem ER 120 mg twice daily, Zosyn, IV heparin
119/43, pulse 72, respiratory 16, saturation is 97%, on dialysis, no complaints appears comfortable, sleepy, clear lungs, irregular rate and rhythm, soft systolic murmur JVD okay minimal edema,
CT of chest abdomen and pelvis with atherosclerosis and gallbladder distention, dense coronary artery calcification
MRCP: Confirms choledocholithiasis
Echo: Pending, in October EF was 65-70% mild MR, moderate to severe TR, pulmonary artery pressure 48 mmHg systolic
White count 7.7, hemoglobin 10.1, platelets are 112, creatinine is 6.9, BUN 60, proBNP is 7180, troponin is 0.019 and 0.062, in October had been 0.92
ECG: Atrial fibrillation, low voltage, possible prior inferior [place]
Impression:
Admitted with cholelithiasis 03/24/25, has choledocholithiasis by MRCP
Severe calcific atherosclerotic plaque in the coronary arteries and thoracic aorta by CT chest 03/23/2025
Chronic HFpEF
Permanent Afib
Chronic Eliquis OAC
h/o CVA while on warfarin, possibly HTN mediated 05/15/20
HTN
Plan:
Stable from cardiac standpoint. Currently he is on hemodialysis, offering no complaints.
Currently on heparin as Eliquis is washed out.
Tentative plan is ERCP followed by lap cholecystectomy.
Perioperative cardiac risk will be elevated but is not prohibitive, and given risk-benefit of various options it makes sense to proceed. Would treat with aspirin while off heparin and Eliquis, resume Eliquis postoperatively.
[2025-03-25] MEDS: ASPIRIN 325 MG PO (09:06)
--- NOTE | 2025-03-25 10:30 | CM ---
Reviewed chart notes. Per notes, plan for ERCP followed by laparoscopic cholecystectomy after Eliquis washout. CM continues to be available to patient/family and is monitoring medical plan for needs at discharge.
Plan: Discharge plans will now depend on the patient's progress after procedures.
[2025-03-25 11:16] LABS: APTT 87.6 Sec (23.4-35.0)
--- NOTE | 2025-03-25 11:37 | W.PN.GI.CBS2 ---
Addendum entered and electronically signed by Marlen Raymundo Do, MD 03/25/25 12:00:
I saw and examined the patient.
The LOADER MACHINE's note was reviewed and I agree with the note.
Comment: Taj is a 74yo M with h/o CVA afib on eliquis and DM with CKD on HD who was admitted with abd pain found to have choledocholithiasis on imaging. Blood cultures negative and WBC normalized without signs of cholangitis. Exam today NTTP,
NABS, tanned appearence
Recommendations
- Eliquis washout
- Plan for ERCP at 2pm
- Message sent to nephrology to see if HD can be done early in AM on
- C/w abx, blood cultures negative
- Adv to low fat diet
- Will need heparin gtt held at 6pm on
- Appreciate surgical recommendations
Will follow with you. Hospitalist, leveling machine operator and renal updated with above info
Original Note:
Today's Communication / Plan
-
ERCP planned for
Assessment / Plan
-
74-year-old Ethiopian male with past medical history of CVA with left-sided residual hemiparesis, HFpEF, paroxysmal A-fib on Eliquis (currently on hold last dose 03/23/2025), diabetic neuropathy, diabetes, CKD on hemodialysis Monday
Monday, chronic anemia, hypertension, hyperlipidemia, spinal stenosis, colon polyps who presents to the emergency room after acute onset of nausea and vomiting as well as abdominal pain that started Monday evening. The patient states that on
Monday he started with acute onset of upper abdominal discomfort that he describes as dull, constant, radiates through the back. He still does make small amount of urine he he states that this was darker. He has not had a bowel movement since the
pain started. He states that he felt feverish on Monday into Monday. He still does have the pain however this has improved some. Pain medication takes this away. He did receive dialysis on Monday. He states he has never had pain similar to
this in the past. He presented to the emergency room on 03/23/2025 with white count of 15.9, total bilirubin 4.9, AST 144, ALT 188, alk phos of 243. CT of the chest abdomen and pelvis without IV or oral contrast showed liver normal in size.
Gallbladder mildly distended. No gallbladder wall thickening or pericholecystic inflammation. Mild intrahepatic biliary dilatation. Mild extrahepatic biliary dilatation. CBD 9.8 mm. Mild diffuse pancreatic parenchymal atrophy. Spleen is
normal. We are asked to evaluate for the same.
Impression:
Choledocholithiasis
A-fib on Eliquis (last dose 03/23/2025) currently on hold
CKD on HD (usually Monday, Monday, last HD Monday)
History of CVA with left-sided residual hemiparesis
History of HFpEF
Diabetes
Plan:
-Plan for ERCP on after Eliquis washout
- N.p.o.
-Eliquis on Hold, on heparin drip
-Continue Zosyn
-Trend labs CBC, BMP, LFTs
Subjective
Subjective
Date of Service: March 25, 2025
Patient states that he is feeling improved today. Still with very mild epigastric tenderness. Denies any nausea or vomiting. Seen on hemodialysis. Plan is for ERCP on after Eliquis washout. WBC 7.7 down from 14.7, hemoglobin 10.1,
total bilirubin 4.2 (down from 4.5), AST 43 (down from 89), ALT 86 (down from 136), alk phos 224 (down from 239)
Objective
Data Reviewed
Laboratory Data:
Laboratory Results
03/25/25 05:05
03/25/25 05:05
Laboratory Results
APTT 87.6 Sec (23.4-35.0) H 03/25/25 10:52
Total Bilirubin 4.2 mg/dl (0.2-1.3) H 03/25/25 05:05
AST 43 U/L (17-59) 03/25/25 05:05
ALT 86 U/L (0-50) H 03/25/25 05:05
Alkaline Phosphatase 224 U/L (38-126) H 03/25/25 05:05
Lipase 128 U/L (23-300) 03/23/25 17:13
Vital Signs and I&O:
Vital Signs
Temp Pulse Resp BP Pulse Ox
97.8 F 72 16 119/43 97
03/25/25 07:55 03/25/25 07:55 03/25/25 07:55 03/25/25 07:55 03/25/25 07:55
I&O
03/24/25 03/25/25 03/26/25
06:59 06:59 06:59
Intake Total 1090 / 1090
Output Total 475 / 475
Balance 615 / 615
Physical Exam
Physical Exam
Cardiology: Normal Sinus Rhythm
Pulmonary: Clear (Anterior)
GI: Soft, Non Distended, Tender (Very mild epigastric tenderness (improved from yesterday)) and Normal Bowel Sounds
Extremities: No Edema and Other (Left upper extremity AV fistula)
Neuro: Non Focal
--- NOTE | 2025-03-25 12:00 | W.PN.NEPH.HD ---
Assessment
-
ERCP thurs
Progress Note - Hemodialysis
-
Date of Service: March 25, 2025
Duration: 30 minutes and 3 hours
Potassium Bath: 3
Calcium Bath: 2.5
Opti-Dialyzer: 160
Ultrafiltration: Other (EDW 69.3kg)
Blood Flow: 400
Dialysate Flow: 600
Heparin: none
EPO: none
[2025-03-25 12:08] LABS: Glucose - Point of Care 84 mg/dl (70-99)
[2025-03-25] MEDS: CARDIZEM CD 180 MG PO ×2 (12:30→19:55)
--- NOTE | 2025-03-25 12:41 | PN.CDI ---
CDI
- -
CDI:
Physician Documentation Request
Admit Date: 03/23/25 20:30
Dear Doctor,
Please review the following and provide your response in the progress notes.
Clinical Indicators:
03/24 Cardiology: ' Patient with known permanent A-fib and rate control with Cardizem CD 180 mg daily and OAC in the form of Eliquis 5 mg BID.'
03/25 Progress Note: ' Paroxysmal Atrial Fibrillation'
Due to potential conflicting documentation, please provide further specificity regarding atrial fibrillation, such as:
Permanent atrial fibrillation - when a decision has been made to accept the presence of AF and there is no further attempt to restore or maintain sinus rhythm
Paroxysmal atrial fibrillation - terminates spontaneously or with intervention within 7 days of onset
Other - please specify
Use of terms such as suspected, likely, concern for, or probable (associated with a specific diagnosis that is being evaluated, monitored, or treated as if it exists) are acceptable and can be coded in the inpatient setting, when documented at the
time of discharge.
Thank you,
Geovanna Brennan RN, BSN
CDI Specialist
[place] [facility]
Please use your independent medical judgment in providing your response.
--- NOTE | 2025-03-25 12:50 | PN.CDI ---
CDI
- -
CDI:
Physician Documentation Request
Admit Date: 03/23/25 20:30
Dear Doctor,
Please review the following and provide your response in the progress notes.
Clinical Indicators:
Pt admitted for cholelithiasis.
03/24 Nephrology: ' ESRD on dialysis for about 6 months using left AV fistula presents with abdominal pain and cholecystitis. Renal consultation for ESRD...
ESRD TTS at [place].'
03/25 Progress Note: ' CKD Stage V
BUN 35, Creat 4.8-->5.5, est CrCl 11, eGFR 11.87
HD patient, schedule, last session Monday03/22/2025
- Consult Nephrology for HD'
Due to potentially conflicting documentation, could you please clarify which of the following accurately represents the patient's renal status:
CKD V
ESRD - now requiring permanent dialysis
Other
Use of terms such as suspected, likely, concern for, or probable (associated with a specific diagnosis that is being evaluated, monitored, or treated as if it exists) are acceptable and can be coded in the inpatient setting, when documented at the
time of discharge.
Thank you,
Geovanna Brennan RN, BSN
CDI Specialist
[place] [facility]
Please use your independent medical judgment in providing your response.
*Source: Kidney Disease: Improving Global Outcomes (KDIGO) 2012
--- NOTE | 2025-03-25 13:17 | W.PN.CARDCBS ---
Addendum entered and electronically signed by Gold Payne MD 03/25/25 18:31:
74-year-old man admitted March 23 with chest and back pain, nausea and vomiting related to cholelithiasis/cholangitis, currently undergoing surgical evaluation. Troponin 0.019 at the time of admission, EKG without acute changes
PMH/PSH: Permanent atrial fibrillation, CVA 2019, hypertension, coronary artery disease by CT imaging with severe calcification of the coronaries, HFpEF, DM with neuropathy, hypercholesterolemia, L4/L5 laminectomy, secondary hyperparathyroidism,
end-stage renal disease, hemodialysis initiation October 2024
Medications: Diltiazem ER 120 mg twice daily, Zosyn, IV heparin
119/43, pulse 72, respiratory 16, saturation is 97%, on dialysis, no complaints appears comfortable, sleepy, clear lungs, irregular rate and rhythm, soft systolic murmur JVD okay minimal edema,
CT of chest abdomen and pelvis with atherosclerosis and gallbladder distention, dense coronary artery calcification
MRCP: Confirms choledocholithiasis
Echo: Pending, in October EF was 65-70% mild MR, moderate to severe TR, pulmonary artery pressure 48 mmHg systolic
White count 7.7, hemoglobin 10.1, platelets are 112, creatinine is 6.9, BUN 60, proBNP is 7180, troponin is 0.019 and 0.062, in October had been 0.92
ECG: Atrial fibrillation, low voltage, possible prior inferior [place]
Impression:
Admitted with cholelithiasis 03/24/25, has choledocholithiasis by MRCP
Severe calcific atherosclerotic plaque in the coronary arteries and thoracic aorta by CT chest 03/23/2025
Chronic HFpEF
Permanent Afib
Chronic Eliquis OAC
h/o CVA while on warfarin, possibly HTN mediated 05/15/20
HTN
Plan:
Stable from cardiac standpoint. Currently he is on hemodialysis, offering no complaints.
Currently on heparin as Eliquis is washed out.
Tentative plan is ERCP on , possibly followed followed by lap cholecystectomy, timing yet to be determined
Perioperative cardiac risk for ERCP and/or laparoscopic cholecystectomy will be elevated but is not prohibitive, and given risk-benefit of various options it makes sense to proceed. Would treat with aspirin while off heparin and Eliquis, resume
Eliquis postprocedure or postoperatively.
Original Note:
Today's Communication / Plan
-
Cont Heparin gtt while Eliquis on hold
Follow Hgb, down to 10.1 today
ERCP
Impression / Plan
-
PCP: Dr. Juan Ramon Bashir
Card: Dr. Rodriguez
Impression:
Admitted with cholelithiasis 03/24/25
Possible acute cholecystitis vs choledocholithiasis/cholangitis
Severe calcific atherosclerotic plaque in the coronary arteries and thoracic aorta by CT chest 03/23/2025
Chronic HFpEF
Permanent Afib
Chronic Eliquis OAC
h/o CVA while on warfarin, possibly HTN mediated 05/15/20
HTN
Echo 04/26/23: EF 55-60%, no WMA, mildly enlarged left atrium, mildly enlarged right atrium, mild MR, mild to moderate TR with estimated pulmonary artery pressure of 40 mmHg.
Echo 10/07/2024: EF 65 to 70%, mitral sclerosis without stenosis, mild MR, moderate to severe TR with PAP 48 mmHg, normal RV size and function
Echo 03/25/25: Study pending
Plan:
-General Surgery and GI notes reviewed by me, patient is scheduled for ERCP on . There is also discussion of eventual cholecystectomy for prevention of future episodes of cholecystitis or choledocholithiasis, although timing not clear.
-Patient with intermittent chest tightness and severe calcific atherosclerotic plaque in the coronary arteries and thoracic aorta by CT chest 03/23/2025. No resting symptoms. His cardiovascular risk is elevated, but not prohibitive. Recommend
perioperative telemetry monitoring and checking a postoperative ECG.
-Continue heparin gtt while Eliquis is on hold due to history of CVA 05/15/2020. Resume Eliquis when safe.
-Initial troponin 0.019 and then 0.062. No plans to repeat troponin. Await echo. Patient will need an eventual ischemic evaluation with either a stress test or cardiac cath and timing can be based on ERCP results.
-Patient with known permanent A-fib and h/o CVA. Eliquis on hold and heparin gtt as noted above.
-Hgb has trended down to 10.1 on 03/25/2025, Hgb was 12.3 on admission, labs reviewed by me.
-Outpatient dose of Cardizem CD 180 mg BID has been continued
-Patient with known ESRD on HD and he also makes urine, outpatient dose of Lasix 40 mg PO BID is on hold and IVF's ordered. Patient has received 2.25 L IVF as of 03/24/2025
HPI: Patient came to [facility] ER yesterday with new symptoms of chest and back pain associated with nausea and vomiting, patient was admitted with cholelithiasis and cardiology has been consulted for preoperative cardiovascular risk stratification in
case surgery is needed. Patient was seen in the office on 12/06/2024 and at that time was feeling well. Patient with known permanent A-fib and rate control with Cardizem CD 180 mg daily and OAC in the form of Eliquis 5 mg BID. Patient with h/o CVA
05/15/2020 that was attributed to HTN, he was on warfarin at that time and INR was therapeutic at 3.1. He went to [facility] and was transitioned to Eliquis. Patient reports he can move up and down the stairs in his home a couple times a day and
every once in a while he will get a tightness in his chest with this activity, but most of the time he is able to climb the stairs without chest tightness. He had a new sensation of chest pain radiating to his back associated with the nausea and
vomiting at the onset of his cholelithiasis admission symptoms and troponin associated with the symptoms was normal at 0.019 and ECG was without acute ischemic change. Patient denies any recent decrease in exercise tolerance and he denies ever
having chest pain with HD treatments. He has been on HD for a year and says he continues to make urine and so he is also on Lasix 40 mg PO BID.
Progress Note - Healthcare Representative
Subjective
Date of Service: March 25, 2025
No chest pain at rest
Objective
Labs:
03/25/25 05:05
03/25/25 05:05
Labs
Hgb 10.1 g/dL (13.0-18.0) L 03/25/25 05:05
Hct 30.1 % (39.0-52.0) L 03/25/25 05:05
Plt Count 112 10^3/uL (130-400) L 03/25/25 05:05
APTT 87.6 Sec (23.4-35.0) H 03/25/25 10:52
Sodium 136 mmol/L (135-145) 03/25/25 05:05
Potassium 4.3 mmol/L (3.5-5.1) 03/25/25 05:05
BUN 60 mg/dl (9-20) H 03/25/25 05:05
Creatinine 6.9 mg/dL (0.7-1.3) H* 03/25/25 05:05
Glucose 95 mg/dl (70-99) 03/25/25 05:05
Troponins
03/23/25 03/23/25 03/24/25
17:13 18:38 14:41
Troponin I Cancelled 0.019 0.062 H*
Vital Signs and I&O:
Vital Signs
Temp Pulse Resp BP Pulse Ox
97.8 F 75 16 112/73 95
03/25/25 11:39 03/25/25 11:39 03/25/25 11:39 03/25/25 11:39 03/25/25 11:39
Vital Signs
Temp Pulse Resp BP Pulse Ox
97.8 F 75 16 112/73 95
03/25/25 11:39 03/25/25 11:39 03/25/25 11:39 03/25/25 11:39 03/25/25 11:39
Intake & Output
03/23/25 03/24/25 03/25/25 03/26/25
06:59 06:59 06:59 06:59
Intake Total 1090 / 1090
Output Total 475 / 475
Balance 615 / 615
Physical Exam
Physical Exam
General: NAD.
Heart: Afib on tele.
Lungs: RA. No wheeze
[2025-03-25 13:29] LABS: Hepatitis B Surface Antigen Negative (Negative)
[2025-03-25 17:30] LABS: Glucose - Point of Care 170 mg/dl (70-99)
[2025-03-25] MEDS: NOVOLOG FLEXPEN-LOW RESISTANCE 1 UNITS SC (17:31)
[2025-03-25] MEDS: DILAUDID 0.5 MG IV (19:50)
[2025-03-25 22:15] LABS: Glucose - Point of Care 158 mg/dl (70-99)
[2025-03-26] MEDS: ZOSYN 50 IV ×3 (03:27→20:39)
[2025-03-26 03:41] VITALS: BP 116/83
[2025-03-26 04:59] LABS: Hematocrit 27.3 % (39.0-52.0); Hemoglobin 9.4 g/dL (13.0-18.0); Mean Corp Hgb Conc. 34.4 g/dL (33.0-37.0); Mean Corpuscular Volume 96.1 fL (80.0-94.0); Platelet Count 109 10^3/uL (130-400); Red Cell Dist. Width 13.6 % (11.5-14.5)
[2025-03-26 05:22] LABS: Blood Urea Nitrogen 32 mg/dl (9-20); Calcium 7.6 mg/dl (8.4-10.2); Carbon Dioxide 27 mmol/L (22-30); Chloride 99 mmol/L (98-107); Estimated Creatinine Clearance 13 ml/min; Glucose 122 mg/dl (70-99); Iron 121 ug/dl (49-181); Potassium 3.6 mmol/L (3.5-5.1); Sodium 136 mmol/L (135-145); eGFR 14.35
[2025-03-26 05:29] LABS: APTT 44.1 Sec (23.4-35.0)
[2025-03-26 05:32] LABS: Total Iron Binding Capacity 184 ug/dl (261-462)
[2025-03-26 06:00] VITALS: BMI 26.7
[2025-03-26 06:43] LABS: Ferritin 1480.0 ng/ml (17.9-464.0)
[2025-03-26 07:35] LABS: Glucose - Point of Care 105 mg/dl (70-99)
[2025-03-26 07:40] VITALS: BP 178/68
[2025-03-26] MEDS: NOVOLOG FLEXPEN-LOW RESISTANCE SC ×2 (07:57→11:49)
[2025-03-26] MEDS: CARDIZEM CD 180 MG PO ×2 (08:02→20:40)
--- NOTE | 2025-03-26 08:06 | PTCARENOTE ---
Heparin drip was discontinued around 3:25. Dr. Lau made aware this AM and drip to be restarted.
[2025-03-26] MEDS: HEPARIN 25000 UNITS/250 ML IV (08:07)
[2025-03-26 08:09] VITALS: BMI 26.7
--- NOTE | 2025-03-26 08:16 | W.PN.HOSP.TC ---
Today's Communication/Plan
-
check stool for C.Diff (pt on Zosyn)
continue Heparin coverage
reviewed situation with in room
Assessment / Plan
Assessment / Plan
#cholelithiasis
WBC 15.9-->14.7-->7.7-->6.6, neut 86.6, tot bili 4.9-->4.5-->4.2, AST 144-->89-->43, ALT 188-->136-->86, Alk Phos 243-->239-->[address]: 1. Severe calcific atherosclerotic plaque in the coronary arteries and thoracic aorta.
2. Mild to moderate cardiomegaly.
3. Severe mosaic attenuation pattern in the lower lobes of both lungs which is most likely obstructive small airways disease with multifocal air trapping and subsegmental atelectasis.
Viral pneumonia is considered less likely.
4. Severe discogenic degenerative disease at C5/C6 and C6/C7.
Abd/Pel CT: 1. Mild circumferential wall thickening in the splenic flexure of the colon and proximal descending colon suggesting a mild colitis.
2. Moderate diffuse colonic diverticulosis.
3. Mild intrahepatic and extrahepatic biliary dilatation.
4. Mild gallbladder distention.
5. Severe chronic bilateral renal disease and moderate number of renal cysts.
6. Severe calcific atherosclerotic plaque in the abdominal aorta and iliac arteries.
7. Moderate discogenic degenerative disease and severe facet joint arthrosis in the lower lumbar spine causing multilevel central canal stenosis.
8. 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
MRCP: 1. CHOLEDOCHOLITHIASIS or sludge in the common bile duct.
2. Mild intrahepatic and extrahepatic biliary dilatation.
3. Cholelithiasis or sludge in the gallbladder lumen.
4. Severe diffuse iron deposition in the liver and spleen consistent with SEVERE SECONDARY HEMACHROMATOSIS (which is likely secondary to chronic renal failure).
5. SEVERE CHRONIC BILATERAL RENAL DISEASE with severe bilateral renal atrophy and a moderate number of renal cysts.
6. Mild to moderate cardiomegaly.
EKG: ATRIAL FIBRILLATION
LOW VOLTAGE QRS
SEPTAL INFARCT (CITED ON OR BEFORE 11-JUL-2020)
- Admit to telemetry
- Consult surgery
- Consult GI
-consulted Cardio, as per request of Gen Surg
input appreciated
trop 0.019-->0.062
-Consulted Nephro
to have next dialysis session 03/26
- NPO
- IV Zosyn
- Hold Eliquis-washout, on Heparin
plan is for dialysis tomorrow morning (discussed with nursing, to try to get as early as feasible), then followed by ERCP with planned surgical intervention on Monday
Remains on Zosyn
- pain regimen and antiemetics
#HFpEF
BNP 7180
ECHO (10/07/2024): Normal left ventricular size, wall thickness and systolic function. No regional wall motion abnormalities are seen. LV ejection fraction is 65-70% by visual assessment.
Diastolic function indeterminate due to atrial fibrillation.
Mitral valve opens normally. Thickened mitral valve leaflets. Mitral annular calcification. Mitral sclerosis without stenosis. Mild mitral regurgitation.
Indexed LA volume is mildly abnormal (35-41 mL/m2).
Trileaflet aortic valve. Aortic sclerosis without stenosis. Trace aortic regurgitation is seen.
Tricuspid valve opens normally. Moderate to severe tricuspid regurgitation. Estimated pulmonary artery pressure of 48 mmHg assuming a right atrial pressure of 8 mmHg.
Mildly dilated right atrium.
Normal right ventricular size and function.
Since echocardiogram October 2022, there is little change. TR is worsened from mild-moderate to moderate-severe.
- daily weights
- I & Os
- continue furosemide
#Paroxysmal Atrial Fibrillation
EKG: ATRIAL FIBRILLATION
LOW VOLTAGE QRS
SEPTAL INFARCT (CITED ON OR BEFORE 11-JUL-2020)
- continue diltiazem
- hold Eliquis, pt on Heparin
#Diabetes Mellitus, Type II
- AccuCheck q6 while NPO
glu 105-170
- SSI
- Hold Lantus while NPO
#Diabetic Neuropathy
- continue gabapentin
#CKD Stage V
BUN 35, Creat 4.8-->5.5, est CrCl 11, eGFR 11.87
HD patient, schedule, last session Monday03/22/2025
- Consult Nephrology for HD
#Essential Hypertension
- continue furosemide
#diarrhea
will check stool studies
#Hyperlipidemia
- continue ezetimibe and rosuvastatin
#CVA with Residual Left Hemiparesis
#Spinal Stenosis
#Secondary Hyperparathyroidism
#Chronic Anemia
discussed with morgan Gunn. Multiple questions and concerns 03/25, reviewed with today
Fe deposition levels in liver noted on MRCP. Pt had received Fe infusions in the past because of low Fe.
Fe sat 65%, Ferritin 1480. Call placed to discuss with Heme, await call francisco
Complex situation with multiple variables
Code status: full code
DVT prophylaxis: SCDs
Anticipated Discharge: > 48 hours
Subjective/Interval History
-
Date of Service: March 26, 2025
Awake, alert, reports diarrhea
Objective Data
-
Labs:
Laboratory Results
03/26/25
04:36
WBC 6.6
Hgb 9.4 L
Hct 27.3 L
Plt Count 109 L
APTT 44.1 H
Sodium 136
Potassium 3.6
Chloride 99
Carbon Dioxide 27
BUN 32 H
Creatinine 4.1 H*
Glucose 122 H
Calcium 7.6 L
Vital Signs:
Vital Signs
Temp Pulse Resp BP Pulse Ox
98.3 F 80 18 178/68 100
03/26/25 07:40 03/26/25 08:02 03/26/25 07:40 03/26/25 08:02 03/26/25 07:40
I&O
03/25/25 03/26/25 03/27/25
06:59 06:59 06:59
Intake Total 1090 / 1090 600 / 600
Output Total 475 / 475
Balance 615 / 615 600 / 600
Review of Systems
-
History Source: Patient, Family ( in room) and Coordinated Provider
Constitutional: Denies Fever (Tmax 100.0)
EENT: Reports No Symptoms Reported
Respiratory: Reports No Symptoms
Cardiac: Reports No Symptoms
Abdomen/GI: Reports Abdominal Pain (RUQ, mild) and Diarrhea
Musculoskeletal: Reports No Symptoms
Neuro: Reports No Symptoms
Physical Exam
-
General: Well Developed, Well Nourished and No Apparent Distress
HEENT: Normocephalic, Atraumatic and Moist Mucous Membranes
Respiratory: Clear to Auscultation; Negative Wheezes, Rales or Rhonchi
Cardiac: Regular Rhythm and S1/S2
GI: Soft and Tender (Wheeler's point, minimal)
Neuro: Awake, Alert and Oriented
--- NOTE | 2025-03-26 08:26 | W.PN.UPDATE ---
Update Note
Progress Note Update
For ERCP tomorrow with GI. Will follow.
--- NOTE | 2025-03-26 08:42 | W.PN.GI.CBS2 ---
Today's Communication / Plan
-
ERCP 03/27
Heparin gtt to be held at 03/27 6am
NPO at [place]
Assessment / Plan
-
74-year-old Irish male with past medical history of CVA with left-sided residual hemiparesis, HFpEF, paroxysmal A-fib on Eliquis (currently on hold last dose 03/23/2025), diabetic neuropathy, diabetes, CKD on hemodialysis Monday
Monday, chronic anemia, hypertension, hyperlipidemia, spinal stenosis, colon polyps who presents to the emergency room after acute onset of nausea and vomiting as well as abdominal pain that started Monday evening. The patient states that on
Monday he started with acute onset of upper abdominal discomfort that he describes as dull, constant, radiates through the back. He still does make small amount of urine he he states that this was darker. He has not had a bowel movement since the
pain started. He states that he felt feverish on Monday into Monday. He still does have the pain however this has improved some. Pain medication takes this away. He did receive dialysis on Monday. He states he has never had pain similar to
this in the past. He presented to the emergency room on 03/23/2025 with white count of 15.9, total bilirubin 4.9, AST 144, ALT 188, alk phos of 243. CT of the chest abdomen and pelvis without IV or oral contrast showed liver normal in size.
Gallbladder mildly distended. No gallbladder wall thickening or pericholecystic inflammation. Mild intrahepatic biliary dilatation. Mild extrahepatic biliary dilatation. CBD 9.8 mm. Mild diffuse pancreatic parenchymal atrophy. Spleen is
normal. We are asked to evaluate for the same.
Impression:
Choledocholithiasis
A-fib on Eliquis (last dose 03/23/2025) currently on hold
CKD on HD (usually Monday, Monday, last HD Monday)
History of CVA with left-sided residual hemiparesis
History of HFpEF
Diabetes
Plan:
-Plan for ERCP on after Eliquis washout
-Heparin gtt to hold at 6am 03/27 order is in and communicated with RN
- C/w low fat diet, NPO at [place]
- Continue Zosyn
- Blood cultures thus far negative
- Message sent to nephrology to see if his HD can be done early AM
Will follow with you
Subjective
Subjective
Date of Service: March 26, 2025
Denies abd pain, nausea/vomiting. Tolerating low fat diet. Had HD yesterday. bedside today
Objective
Data Reviewed
Laboratory Data:
Laboratory Results
03/26/25 04:36
03/26/25 04:36
Laboratory Results
APTT 44.1 Sec (23.4-35.0) H 03/26/25 04:36
Total Bilirubin 4.2 mg/dl (0.2-1.3) H 03/25/25 05:05
AST 43 U/L (17-59) 03/25/25 05:05
ALT 86 U/L (0-50) H 03/25/25 05:05
Alkaline Phosphatase 224 U/L (38-126) H 03/25/25 05:05
Lipase 128 U/L (23-300) 03/23/25 17:13
Vital Signs and I&O:
Vital Signs
Temp Pulse Resp BP Pulse Ox
98.3 F 80 18 178/68 100
03/26/25 07:40 03/26/25 08:02 03/26/25 07:40 03/26/25 08:02 03/26/25 07:40
I&O
03/25/25 03/26/25 03/27/25
06:59 06:59 06:59
Intake Total 1090 / 1090 600 / 600
Output Total 475 / 475
Balance 615 / 615 600 / 600
Physical Exam
Physical Exam
GEN: No acute distress, conversant, pleasant
HEENT: anicteric, extraocular movements intact, clear oropharynx without exudates
GI: soft, mildly-distended, not tender to palpation, normal active bowel sounds, no hepatosplenomegaly
EXT: warm, well perfused, trace edema bilaterally
NEURO: AAOx3, non-focal
[2025-03-26] MEDS: LOW STRENGTH ASPIRIN 81 MG PO (09:44)
[2025-03-26 11:42] LABS: Glucose - Point of Care 141 mg/dl (70-99)
[2025-03-26 11:52] VITALS: BP 125/61
--- NOTE | 2025-03-26 12:17 | CM ---
Reviewed the chart notes and spoke with the patient at the bedside. Per patient, he is to received HD tomorrow and then have ERCP. CM continues to be available to patient/family and is monitoring medical plan for needs at discharge.
Plan: Discharge plans will depend on the patient's progress.
[2025-03-26 12:50] LABS: APTT 102.1 Sec (23.4-35.0)
--- NOTE | 2025-03-26 14:34 | W.PN.NEPH.PH ---
Today's Communication / Plan
-
HD tomorrow
Assessment/Plan
-
IMP:
ESRD TTS at [facility]
Abdominal pain/cholecystitis
Chronic HFpEF
Paroxysmal Atrial Fibrillation
Insulin Dependent Diabetes Mellitus, Type II with Diabetic Neuropathy
Chronic Anemia
Hyperlipidemia
Hx CVA with Residual Left Hemiparesis
Plan:
Hemodialysis TTS schedule
tomorrow HD first and ERCP after
Antibiotics dose renally
high ferritin noted, no Fe therapy planned
Bp stable
-
-
Date of Service: March 26, 2025
CC / HPI / ROS
-
Chief Complaint:
ESRD
History of Present Illness:
hb 9.4, high ferritin
Bp stable, no fever
Review of Systems:
abd pain resolved
no n/v
no cp or sob
Labs
-
Labs:
WBC 6.6 10^3/uL (4.8-10.8) 03/26/25 04:36
RBC 2.84 10^6/uL (4.70-6.10) L 03/26/25 04:36
Hgb 9.4 g/dL (13.0-18.0) L 03/26/25 04:36
Hct 27.3 % (39.0-52.0) L 03/26/25 04:36
Plt Count 109 10^3/uL (130-400) L 03/26/25 04:36
Sodium 136 mmol/L (135-145) 03/26/25 04:36
Potassium 3.6 mmol/L (3.5-5.1) 03/26/25 04:36
Chloride 99 mmol/L (98-107) 03/26/25 04:36
Carbon Dioxide 27 mmol/L (22-30) 03/26/25 04:36
BUN 32 mg/dl (9-20) H 03/26/25 04:36
Creatinine 4.1 mg/dL (0.7-1.3) H* 03/26/25 04:36
eGFR 14.35 03/26/25 04:36
Glucose 122 mg/dl (70-99) H 03/26/25 04:36
Calcium 7.6 mg/dl (8.4-10.2) L 03/26/25 04:36
Msa-A-Cddfpkzdkcr Pept 7180 pg/ml 03/23/25 17:13
Albumin 3.6 g/dl (3.5-5.0) 03/25/25 05:05
Physical Exam
-
Vital Signs:
Vital Signs
Temp Pulse Resp BP Pulse Ox
97.9 F 75 16 125/61 96
03/26/25 11:52 03/26/25 11:52 03/26/25 11:52 03/26/25 11:52 03/26/25 11:52
Cardiovascular:: Irregular rate and rhythm (mild tachy)
Respiratory:: Bilateral: CTA
Lung Excursion:: Normal
Abdomen:: Nontender and Soft
Extremity Edema:: None: Bilateral: (trace)
Sepulveda Catheter: No
[2025-03-26 15:35] VITALS: BP 112/70
[2025-03-26 16:49] LABS: Glucose - Point of Care 164 mg/dl (70-99)
[2025-03-26] MEDS: NOVOLOG FLEXPEN-LOW RESISTANCE 1 UNITS SC (16:51)
[2025-03-26 18:18] LABS: APTT > 200 Sec (23.4-35.0)
[2025-03-26 20:05] VITALS: BP 158/71
[2025-03-26] MEDS: FLUSH (NSS) 2 FLUSH IV (20:39)
[2025-03-26 23:15] VITALS: BP 159/75
[2025-03-26 23:22] LABS: Glucose - Point of Care 129 mg/dl (70-99)
[2025-03-27] VITALS (7 sets, daily range): BP systolic 119–187; BP diastolic 52–73; BMI 27.0
[2025-03-27] MEDS: MELATONIN 3 MG PO (01:52)
[2025-03-27 02:28] LABS: Hematocrit 27.4 % (39.0-52.0); Hemoglobin 9.5 g/dL (13.0-18.0); Mean Corp Hgb Conc. 34.7 g/dL (33.0-37.0); Mean Corpuscular Volume 92.9 fL (80.0-94.0); Nucleated Red Blood Cells % 0 % (-); Platelet Count 118 10^3/uL (130-400); Red Cell Dist. Width 13.1 % (11.5-14.5)
[2025-03-27 02:47] LABS: APTT 53.8 Sec (23.4-35.0)
[2025-03-27 02:52] LABS: ALT (SGPT) 75 U/L (0-50); AST (SGOT) 66 U/L (17-59); Albumin 3.7 g/dl (3.5-5.0); Alkaline Phosphatase 332 U/L (38-126); Blood Urea Nitrogen 45 mg/dl (9-20); Calcium 8.1 mg/dl (8.4-10.2); Carbon Dioxide 22 mmol/L (22-30); Chloride 97 mmol/L (98-107); Estimated Creatinine Clearance 9 ml/min; Glucose 130 mg/dl (70-99); Potassium 3.9 mmol/L (3.5-5.1); Sodium 134 mmol/L (135-145); Total Protein 6.8 g/dl (6.3-8.2); eGFR 9.27
[2025-03-27 03:01] LABS: Troponin I 0.030 ng/ml
--- NOTE | 2025-03-27 03:10 | PTCARENOTE ---
Repeat PTT after 03:10am adjustment not ordered due to heparin being placed on hold at 6am.
[2025-03-27] MEDS: ZOSYN 50 IV ×3 (04:41→20:24)
[2025-03-27] MEDS: FLUSH (NSS) 2 FLUSH IV (04:43)
[2025-03-27 06:09] LABS: Glucose - Point of Care 123 mg/dl (70-99)
[2025-03-27] MEDS: NOVOLOG FLEXPEN-LOW RESISTANCE SC ×4 (06:11→17:18)
--- NOTE | 2025-03-27 07:37 | W.PN.GS2 ---
Addendum entered and electronically signed by Garrick Charles MD 03/27/25 08:58:
Patient seen and examined. He is currently on hemodialysis and was resting but easily awoke.
States he is tired.
Denies any abdominal pain.
AF VSS
NAD, sleepy, AAO x 3
ABD: Soft, nondistended, nontender
A/P: 74-year-old male with choledocholithiasis and cholelithiasis
Reviewing GI notes he is for ERCP today
If tolerates procedure well patient agreeable to proceed with cholecystectomy tomorrow
He has been tentatively added onto the OR schedule for 03/28/2025. If heparin drip resumed post ERCP then heparin drip should be held for 6 hours preoperatively; hold at 4 AM
Original Note:
Today's Communication / Plan
-
ERCP today
Laparoscopic cholecystectomy tomorrow
Assessment / Plan
-
Impression
Patient is a 74-year-old, Tuvaluan speaking male, admitted with choledocholithiasis and cholelithiasis.
Assessment
Choledocholithiasis-MRCP confirmed
Cholelithiasis
CKD stage V-hemodialysis every Monday, and Monday
Essential hypertension
Diabetes mellitus type 2 with long-term insulin use
Hyperlipidemia
Chronic constipation
Currently n.p.o.
GI on board-plan to do ERCP today
On labs review
No leukocytosis
Hemoglobin stable at 9.5
Mild thrombocytopenia
Mild hyponatremia
Creatinine 5.9
Mild hypocalcemia
Liver enzymes trending down
Bilirubin trending down
Plan
ERCP today
Continue to trend LFTs
Monitor hemoglobin
Plan for laparoscopic cholecystectomy tomorrow
Hemodialysis today
Continue to monitor serial BMPs
Subjective Data
-
Date of Service: March 27, 2025
Patient seen and examined on bedside
On hemodialysis, ongoing session today
Feels fine, denies any abdominal pain, nausea, vomiting or any other issues
N.p.o. for ERCP today
Objective Data
-
Intake and Output
03/26/25 03/27/25 03/28/25
06:59 06:59 06:59
Intake Total 600 / 600 820 / 820
Output Total 275 / 275
Balance 600 / 600 545 / 545
Intake:
Oral fluids 600 / 600 720 / 720
IV piggybacks 100 / 100
Output:
Urine, Voided 275 / 275
Other:
Number of approximated MODERATE 3
amounts of urine
Number of unmeasured liquid
stools
Rectum 1
Vital Signs
Temp Pulse Resp BP Pulse Ox
97.8 F 80 16 187/69 95
03/27/25 07:11 03/27/25 07:11 03/27/25 07:11 03/27/25 07:11 03/27/25 07:11
Lab Results
03/27/25 02:17
03/27/25 02:17
Calcium 8.1 mg/dl (8.4-10.2) L 03/27/25 02:17
Total Bilirubin 3.2 mg/dl (0.2-1.3) H 03/27/25 02:17
AST 66 U/L (17-59) H 03/27/25 02:17
ALT 75 U/L (0-50) H 03/27/25 02:17
Alkaline Phosphatase 332 U/L (38-126) H 03/27/25 02:17
Total Protein 6.8 g/dl (6.3-8.2) 03/27/25 02:17
Albumin 3.7 g/dl (3.5-5.0) 03/27/25 02:17
Physical Exam
-
No apparent distress
Pale and jaundiced
Abdomen soft, nontender with normal bowel sounds
Patient has a galvez catheter: No
Patient has a central line: No
[2025-03-27] MEDS: RETACRIT 3000 UNITS IV (09:01)
--- NOTE | 2025-03-27 09:57 | W.PN.HOSP.TC ---
Today's Communication/Plan
-
dialysis now
ERCP later today
Cholecystectomy most likely tomorrow
Assessment / Plan
Assessment / Plan
#cholelithiasis
WBC 15.9-->14.7-->7.7-->6.6-->6.9, neut 86.6, tot bili 4.9-->4.5-->4.2-->3.2, AST 144-->89-->43-->66, ALT 188-->136-->86-->75, Alk Phos 243-->239-->224-->[address]: 1. Severe calcific atherosclerotic plaque in the coronary arteries and thoracic aorta.
2. Mild to moderate cardiomegaly.
3. Severe mosaic attenuation pattern in the lower lobes of both lungs which is most likely obstructive small airways disease with multifocal air trapping and subsegmental atelectasis.
Viral pneumonia is considered less likely.
4. Severe discogenic degenerative disease at C5/C6 and C6/C7.
Abd/Pel CT: 1. Mild circumferential wall thickening in the splenic flexure of the colon and proximal descending colon suggesting a mild colitis.
2. Moderate diffuse colonic diverticulosis.
3. Mild intrahepatic and extrahepatic biliary dilatation.
4. Mild gallbladder distention.
5. Severe chronic bilateral renal disease and moderate number of renal cysts.
6. Severe calcific atherosclerotic plaque in the abdominal aorta and iliac arteries.
7. Moderate discogenic degenerative disease and severe facet joint arthrosis in the lower lumbar spine causing multilevel central canal stenosis.
8. 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
MRCP: 1. CHOLEDOCHOLITHIASIS or sludge in the common bile duct.
2. Mild intrahepatic and extrahepatic biliary dilatation.
3. Cholelithiasis or sludge in the gallbladder lumen.
4. Severe diffuse iron deposition in the liver and spleen consistent with SEVERE SECONDARY HEMACHROMATOSIS (which is likely secondary to chronic renal failure).
5. SEVERE CHRONIC BILATERAL RENAL DISEASE with severe bilateral renal atrophy and a moderate number of renal cysts.
6. Mild to moderate cardiomegaly.
EKG: ATRIAL FIBRILLATION
LOW VOLTAGE QRS
SEPTAL INFARCT (CITED ON OR BEFORE 11-JUL-2020)
- Admit to telemetry
- Consult surgery
- Consult GI
-consulted Cardio, as per request of Gen Surg
input appreciated
trop 0.019-->0.062-->0.030
-Consulted Nephro
dialysis session 03/27
- pt was given low fat diet, now back to NPO
- IV Zosyn
- Hold Eliquis-washout, then on Heparin, placed on hold for ERCP
plan is for dialysis this morning (discussed with nursing), then followed by ERCP with planned surgical intervention on Monday
Remains on Zosyn
- pain regimen and antiemetics
#HFpEF
BNP 7180
ECHO (10/07/2024): Normal left ventricular size, wall thickness and systolic function. No regional wall motion abnormalities are seen. LV ejection fraction is 65-70% by visual assessment.
Diastolic function indeterminate due to atrial fibrillation.
Mitral valve opens normally. Thickened mitral valve leaflets. Mitral annular calcification. Mitral sclerosis without stenosis. Mild mitral regurgitation.
Indexed LA volume is mildly abnormal (35-41 mL/m2).
Trileaflet aortic valve. Aortic sclerosis without stenosis. Trace aortic regurgitation is seen.
Tricuspid valve opens normally. Moderate to severe tricuspid regurgitation. Estimated pulmonary artery pressure of 48 mmHg assuming a right atrial pressure of 8 mmHg.
Mildly dilated right atrium.
Normal right ventricular size and function.
Since echocardiogram October 2022, there is little change. TR is worsened from mild-moderate to moderate-severe.
- daily weights
- I & Os
- continue furosemide
#Permanent Atrial Fibrillation
(as per cardio)
EKG: ATRIAL FIBRILLATION
LOW VOLTAGE QRS
SEPTAL INFARCT (CITED ON OR BEFORE 11-JUL-2020)
- continue diltiazem
- hold Eliquis, pt on Heparin
#Diabetes Mellitus, Type II
- AccuCheck q6 while NPO
glu 105-170
- SSI
- Hold Lantus until back on usual diet
#Diabetic Neuropathy
- continue gabapentin
#CKD - ESRD
BUN 35, Creat 4.8-->5.5, est CrCl 11, eGFR 11.87
HD patient, schedule, last session Monday03/22/2025
- Consult Nephrology for HD
#Essential Hypertension
- continue furosemide
#diarrhea
will check stool studies
#Hyperlipidemia
- continue ezetimibe and rosuvastatin
#CVA with Residual Left Hemiparesis
#Spinal Stenosis
#Secondary Hyperparathyroidism
#Chronic Anemia
discussed with morgan Gunn. Multiple questions and concerns 03/25, reviewed with 03/26
Fe deposition levels in liver noted on MRCP. Pt had received Fe infusions in the past because of low Fe.
Fe sat 65%, Ferritin 1480. Call placed and discussed with Dr. Flower of Heme, 03/26. Requests I note it in my discharge note and he will relate to Dr. Elam, who sees pt in office
Complex situation with multiple variables
Code status: full code
DVT prophylaxis: SCDs
Anticipated Discharge: > 48 hours
Subjective/Interval History
-
Date of Service: March 27, 2025
Undergoing dialysis currently
Objective Data
-
Labs:
Laboratory Results
03/27/25
02:17
WBC 6.9
Hgb 9.5 L
Hct 27.4 L
Plt Count 118 L
APTT 53.8 H
Sodium 134 L
Potassium 3.9
Chloride 97 L
Carbon Dioxide 22
BUN 45 H
Creatinine 5.9 H*
Glucose 130 H
Calcium 8.1 L
Total Bilirubin 3.2 H
AST 66 H
ALT 75 H
Alkaline Phosphatase 332 H
Vital Signs:
Vital Signs
Temp Pulse Resp BP Pulse Ox
97.8 F 80 16 187/69 95
03/27/25 07:11 03/27/25 07:11 03/27/25 07:11 03/27/25 07:11 03/27/25 07:11
I&O
03/26/25 03/27/25 03/28/25
06:59 06:59 06:59
Intake Total 600 / 600 820 / 820
Output Total 275 / 275
Balance 600 / 600 545 / 545
Review of Systems
-
History Source: Patient, Family ( in room) and Coordinated Provider
Constitutional: Denies Fever (Tmax 100.0)
EENT: Reports No Symptoms Reported
Respiratory: Reports No Symptoms
Cardiac: Reports No Symptoms
Abdomen/GI: Reports Abdominal Pain (RUQ, mild - pt states currently fully resolved) and Diarrhea
Musculoskeletal: Reports No Symptoms
Neuro: Reports No Symptoms
Physical Exam
-
General: Well Developed, Well Nourished and No Apparent Distress
HEENT: Normocephalic, Atraumatic and Moist Mucous Membranes
Respiratory: Clear to Auscultation; Negative Wheezes, Rales or Rhonchi
Cardiac: Regular Rhythm and S1/S2
GI: Soft and Tender (Wheeler's point, resolved)
Neuro: Awake, Alert and Oriented
--- NOTE | 2025-03-27 10:38 | CM ---
Reviewed the chart notes. Per notes, ERCP today then laparoscopic cholecystectomy tomorrow. CM continues to be available to patient/family and is monitoring medical plan for needs at discharge.
Plan: Discharge plans will depend on the patient's progress.
--- NOTE | 2025-03-27 11:12 | W.PN.NEPH.HD ---
Assessment
-
pt seen during HD
vitals stable
UF as tolerates
AVF functions well
for ERCP after HD today
Progress Note - Hemodialysis
-
Date of Service: March 27, 2025
Duration: 30 minutes and 3 hours
Potassium Bath: 2
Calcium Bath: 2.5
Opti-Dialyzer: 160
Ultrafiltration: Other (1-2kg)
Blood Flow: 400
Dialysate Flow: 600
Heparin: no
EPO: 3000
[2025-03-27] MEDS: CARDIZEM CD 180 MG PO ×2 (11:45→20:25)
[2025-03-27] MEDS: LOW STRENGTH ASPIRIN 81 MG PO (11:46)
[2025-03-27 11:53] LABS: Glucose - Point of Care 94 mg/dl (70-99)
[2025-03-27 14:50] LABS: Glucose - Point of Care 95 mg/dl (70-99)
--- NOTE | 2025-03-27 15:47 | W.PN.SURGUPD ---
Surgical Update
Surgical Update
updated patients daughter via phone call
discussed indications for cholecystectomy and timing
she is in agreement and prefers to go ahead during this hospitalization and tomorrow if medically stable
i fully reviewed lap henrry with cholangiogram procedure in detail including operative technique, alternative tx options, benefits and risks such as but not limited to bleeding, infectious/wound related complications, iatrogenic injury to surrounding
structures, bile duct injury, bile leak, post cholecystectomy fatty food intolerances. discussed post op medical risks given her fathers multiple medical co-morbidities that will be monitor for as well post op.
patient on OR schedule as add on for monday03/28/25
check AM labs
if heparin resumed post ERCP it should be held again starting at 4AM
[2025-03-28] VITALS (13 sets, daily range): BP systolic 97–160; BP diastolic 33–89; BMI 26.4
[2025-03-28 00:08] LABS: Glucose - Point of Care 211 mg/dl (70-99)
[2025-03-28] MEDS: NOVOLOG FLEXPEN-LOW RESISTANCE 2 UNITS SC (00:27)
[2025-03-28] MEDS: ZOSYN 50 IV ×3 (04:03→20:42)
[2025-03-28 05:07] LABS: INR 1.08; PT 14.3 Sec (11.4-14.6)
[2025-03-28 05:08] LABS: APTT 80.6 Sec (23.4-35.0)
[2025-03-28 05:15] LABS: Hematocrit 29.0 % (39.0-52.0); Hemoglobin 10.1 g/dL (13.0-18.0); Mean Corp Hgb Conc. 34.8 g/dL (33.0-37.0); Mean Corpuscular Volume 93.5 fL (80.0-94.0); Platelet Count 142 10^3/uL (130-400); Red Cell Dist. Width 13.2 % (11.5-14.5)
[2025-03-28 05:29] LABS: ALT (SGPT) 80 U/L (0-50); AST (SGOT) 67 U/L (17-59); Albumin 3.9 g/dl (3.5-5.0); Alkaline Phosphatase 316 U/L (38-126); Blood Urea Nitrogen 28 mg/dl (9-20); Calcium 8.4 mg/dl (8.4-10.2); Carbon Dioxide 22 mmol/L (22-30); Chloride 99 mmol/L (98-107); Estimated Creatinine Clearance 13 ml/min; Glucose 180 mg/dl (70-99); Potassium 4.7 mmol/L (3.5-5.1); Sodium 136 mmol/L (135-145); Total Protein 7.1 g/dl (6.3-8.2); eGFR 14.78
[2025-03-28 06:04] LABS: Glucose - Point of Care 169 mg/dl (70-99)
[2025-03-28] MEDS: NOVOLOG FLEXPEN-LOW RESISTANCE 1 UNITS SC (06:08)
--- NOTE | 2025-03-28 07:02 | W.PN.GS2 ---
Today's Communication / Plan
-
Laparoscopic cholecystectomy today
Assessment / Plan
-
Impression
Patient is a 74-year-old, Filipino speaking male, admitted with choledocholithiasis and cholelithiasis.
Assessment
Choledocholithiasis-MRCP confirmed
Cholelithiasis
Transaminitis secondary to above
CKD stage V-hemodialysis every Monday, and Monday
Essential hypertension
Diabetes mellitus type 2 with long-term insulin use
Hyperlipidemia
Chronic constipation
Currently n.p.o.
GI on board-plan to do ERCP today
On labs review
No leukocytosis
Hemoglobin stable at 10.1
Platelet count improving
Creatinine 4.0
Liver enzymes trending down
Plan
Laparoscopic cholecystectomy today
Continue to trend LFTs
Continue to monitor serial BMPs
Subjective Data
-
Date of Service: March 28, 2025
Patient seen and examined on bedside
Overall feels well, underwent ERCP yesterday, tolerated the procedure well
N.p.o. since midnight for possible laparoscopic cholecystectomy today
Objective Data
-
Intake and Output
03/27/25 03/28/25 03/29/25
06:59 06:59 06:59
Intake Total 820 / 820 240 / 240
Output Total 275 / 275 300 / 300
Balance 545 / 545 -60 / -60
Intake:
Oral fluids 720 / 720 240 / 240
IV piggybacks 100 / 100
Output:
Urine, Voided 275 / 275 300 / 300
Other:
Number of approximated MODERATE 3
amounts of urine
Number of unmeasured liquid
stools
Rectum 1
Vital Signs
Temp Pulse Resp BP Pulse Ox
97.8 F 79 16 160/81 93
03/28/25 03:08 03/28/25 03:08 03/28/25 03:08 03/28/25 03:08 03/28/25 03:08
Lab Results
03/28/25 04:29
03/28/25 04:29
Calcium 8.4 mg/dl (8.4-10.2) 03/28/25 04:29
Total Bilirubin 2.7 mg/dl (0.2-1.3) H 03/28/25 04:29
AST 67 U/L (17-59) H 03/28/25 04:29
ALT 80 U/L (0-50) H 03/28/25 04:29
Alkaline Phosphatase 316 U/L (38-126) H 03/28/25 04:29
Total Protein 7.1 g/dl (6.3-8.2) 03/28/25 04:29
Albumin 3.9 g/dl (3.5-5.0) 03/28/25 04:29
Physical Exam
-
No apparent distress
Abdomen soft, nontender, nondistended, normal bowel sounds
Patient has a galvez catheter: No
Patient has a central line: No
[2025-03-28] MEDS: LOW STRENGTH ASPIRIN 81 MG PO (07:13)
[2025-03-28] MEDS: CARDIZEM CD 180 MG PO ×2 (07:13→20:42)
--- NOTE | 2025-03-28 07:59 | W.PN.HOSP.TC ---
Today's Communication/Plan
-
cholecystectomy today
planned dialysis tomorrow with potential dc to follow
Assessment / Plan
Assessment / Plan
#cholelithiasis
WBC 15.9-->14.7-->7.7-->6.6-->6.9-->4.3, tot bili 4.9-->4.5-->4.2-->3.2-->2.7, AST 144-->89-->43-->66-->67, ALT 188-->136-->86-->75-->80, Alk Phos 243-->239-->224-->332-->[address]: 1. Severe calcific atherosclerotic plaque in the coronary arteries and thoracic aorta.
2. Mild to moderate cardiomegaly.
3. Severe mosaic attenuation pattern in the lower lobes of both lungs which is most likely obstructive small airways disease with multifocal air trapping and subsegmental atelectasis.
Viral pneumonia is considered less likely.
4. Severe discogenic degenerative disease at C5/C6 and C6/C7.
Abd/Pel CT: 1. Mild circumferential wall thickening in the splenic flexure of the colon and proximal descending colon suggesting a mild colitis.
2. Moderate diffuse colonic diverticulosis.
3. Mild intrahepatic and extrahepatic biliary dilatation.
4. Mild gallbladder distention.
5. Severe chronic bilateral renal disease and moderate number of renal cysts.
6. Severe calcific atherosclerotic plaque in the abdominal aorta and iliac arteries.
7. Moderate discogenic degenerative disease and severe facet joint arthrosis in the lower lumbar spine causing multilevel central canal stenosis.
8. 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
MRCP: 1. CHOLEDOCHOLITHIASIS or sludge in the common bile duct.
2. Mild intrahepatic and extrahepatic biliary dilatation.
3. Cholelithiasis or sludge in the gallbladder lumen.
4. Severe diffuse iron deposition in the liver and spleen consistent with SEVERE SECONDARY HEMACHROMATOSIS (which is likely secondary to chronic renal failure).
5. SEVERE CHRONIC BILATERAL RENAL DISEASE with severe bilateral renal atrophy and a moderate number of renal cysts.
6. Mild to moderate cardiomegaly.
EKG: ATRIAL FIBRILLATION
LOW VOLTAGE QRS
SEPTAL INFARCT (CITED ON OR BEFORE 11-JUL-2020)
- Consulted surgery
- Consulted GI
-consulted Cardio, as per request of Gen Surg
input appreciated, pt cleared for planned surgical intervention
trop 0.019-->0.062-->0.030
-Consulted Nephro
dialysis session 03/27
- pt was given low fat diet, now back to NPO
- IV Zosyn
- Hold Eliquis-washout, then on Heparin, placed on hold for surgical intervention
Plan is for dialysis post op, morning of 03/29 with potential dc to follow
Remains on Zosyn
- pain regimen and antiemetics
#HFpEF
BNP 7180
ECHO (10/07/2024): Normal left ventricular size, wall thickness and systolic function. No regional wall motion abnormalities are seen. LV ejection fraction is 65-70% by visual assessment.
Diastolic function indeterminate due to atrial fibrillation.
Mitral valve opens normally. Thickened mitral valve leaflets. Mitral annular calcification. Mitral sclerosis without stenosis. Mild mitral regurgitation.
Indexed LA volume is mildly abnormal (35-41 mL/m2).
Trileaflet aortic valve. Aortic sclerosis without stenosis. Trace aortic regurgitation is seen.
Tricuspid valve opens normally. Moderate to severe tricuspid regurgitation. Estimated pulmonary artery pressure of 48 mmHg assuming a right atrial pressure of 8 mmHg.
Mildly dilated right atrium.
Normal right ventricular size and function.
Since echocardiogram October 2022, there is little change. TR is worsened from mild-moderate to moderate-severe.
- daily weights
- I & Os
- continue furosemide
#Permanent Atrial Fibrillation
(as per cardio)
EKG: ATRIAL FIBRILLATION
LOW VOLTAGE QRS
SEPTAL INFARCT (CITED ON OR BEFORE 11-JUL-2020)
- continue diltiazem
- hold Eliquis, resume Eliquis when cleared by surgery
#Diabetes Mellitus, Type II
- AccuCheck q6 while NPO
glu 105-170
- SSI
- Hold Lantus until back on usual diet
#Diabetic Neuropathy
- continue gabapentin
#CKD - ESRD
BUN 35, Creat 4.8-->5.5-->4.0, est CrCl 11, eGFR 11.87
HD patient, schedule, last session Monday03/22/2025
- Consult Nephrology for HD
#Essential Hypertension
- continue furosemide
#diarrhea
resolved, neg for C.Diff 03/26
#Hyperlipidemia
- continue ezetimibe and rosuvastatin
#CVA with Residual Left Hemiparesis
#Spinal Stenosis
#Secondary Hyperparathyroidism
#Chronic Anemia
discussed with morgan Gunn. Multiple questions and concerns 03/25, reviewed with 03/26, 03/28
Fe deposition levels in liver noted on MRCP. Pt had received Fe infusions in the past because of low Fe.
Fe sat 65%, Ferritin 1480. Call placed and discussed with Dr. Flower of Heme, 03/26. Requests I note it in my discharge note and he will relate to Dr. Elam, who sees pt in office
Complex situation with multiple variables
Code status: full code
DVT prophylaxis: SCDs
Anticipated Discharge: Within 24 hours
Subjective/Interval History
-
Date of Service: March 28, 2025
Denies pain
Objective Data
-
Labs:
Laboratory Results
03/28/25 03/28/25
04:29 04:30
WBC 4.3 L
Hgb 10.1 L
Hct 29.0 L
Plt Count 142 D
PT 14.3
INR 1.08
APTT 80.6 H
Sodium 136
Potassium 4.7
Chloride 99
Carbon Dioxide 22
BUN 28 H
Creatinine 4.0 H
Glucose 180 H
Calcium 8.4
Total Bilirubin 2.7 H
AST 67 H
ALT 80 H
Alkaline Phosphatase 316 H
Vital Signs:
Vital Signs
Temp Pulse Resp BP Pulse Ox
97.9 F 81 18 107/76 96
03/28/25 07:12 03/28/25 07:13 03/28/25 07:12 03/28/25 07:13 03/28/25 07:12
I&O
03/27/25 03/28/25 03/29/25
06:59 06:59 06:59
Intake Total 820 / 820 240 / 240
Output Total 275 / 275 300 / 300
Balance 545 / 545 -60 / -60
Review of Systems
-
History Source: Patient, Family (reviewed with in the room), Physician (reviewed with surgery) and Coordinated Provider (reviewed with RADHA Blackwell)
Constitutional: Denies Fever
EENT: Reports No Symptoms Reported
Respiratory: Reports No Symptoms; Denies Trouble Breathing
Cardiac: Reports No Symptoms; Denies Chest Pain
Abdomen/GI: Reports No Symptoms; Denies Abdominal Pain (pt denies) or Diarrhea
Musculoskeletal: Reports No Symptoms
Neuro: Reports No Symptoms
Physical Exam
-
General: Well Developed, Well Nourished and No Apparent Distress
HEENT: Normocephalic, Atraumatic and Moist Mucous Membranes
Respiratory: Clear to Auscultation; Negative Wheezes, Rales or Rhonchi
Cardiac: Regular Rhythm and S1/S2
GI: Soft and Tender (Wheeler's point, resolved)
Neuro: Awake, Alert and Oriented
--- NOTE | 2025-03-28 09:58 | W.SUR.PREOP ---
Pre-Operative Surgical Note
-
I have examined this patient prior to the performance of the scheduled procedure.
The patient's condition is unchanged from the time of the current History and
Physical and the patient is able to undergo the scheduled procedure.
--- NOTE | 2025-03-28 10:25 | CM ---
Addendum entered by Jennifer Aguero RN 03/28/25 15:34:
IMM on chart.
Original Note:
Reviewed the chart notes. Patient is scheduled for a laparoscopic cholecystectomy today and HD tomorrow. CM continues to be available to patient/family and is monitoring medical plan for needs at discharge.
Plan: Discharge to home when medically stable with resumption of outpatient HD.
--- NOTE | 2025-03-28 11:53 | W.PN.NEPH.PH ---
Today's Communication / Plan
-
Dialysis tomorrow
Assessment/Plan
-
IMP:
ESRD TTS at [facility]
Abdominal pain/cholecystitis
Chronic HFpEF
Paroxysmal Atrial Fibrillation
Insulin Dependent Diabetes Mellitus, Type II with Diabetic Neuropathy
Chronic Anemia
Hyperlipidemia
Hx CVA with Residual Left Hemiparesis
Plan:
Hemodialysis TTS schedule
Cholecystectomy
Antibiotics dose renally
See dialysis orders
Bp stable
-
-
Date of Service: March 28, 2025
CC / HPI / ROS
-
Chief Complaint:
ESRD
History of Present Illness:
hb 9.4, high ferritin
Bp stable, no fever
Review of Systems:
abd pain resolved
no n/v
no cp or sob
Labs
-
Labs:
WBC 4.3 10^3/uL (4.8-10.8) L 03/28/25 04:29
RBC 3.10 10^6/uL (4.70-6.10) L 03/28/25 04:29
Hgb 10.1 g/dL (13.0-18.0) L 03/28/25 04:29
Hct 29.0 % (39.0-52.0) L 03/28/25 04:29
Plt Count 142 10^3/uL (130-400) D 03/28/25 04:29
Sodium 136 mmol/L (135-145) 03/28/25 04:29
Potassium 4.7 mmol/L (3.5-5.1) 03/28/25 04:29
Chloride 99 mmol/L (98-107) 03/28/25 04:29
Carbon Dioxide 22 mmol/L (22-30) 03/28/25 04:29
BUN 28 mg/dl (9-20) H 03/28/25 04:29
Creatinine 4.0 mg/dL (0.7-1.3) H 03/28/25 04:29
eGFR 14.78 03/28/25 04:29
Glucose 180 mg/dl (70-99) H 03/28/25 04:29
Calcium 8.4 mg/dl (8.4-10.2) 03/28/25 04:29
Aqu-R-Lnnuzjnrhwj Pept 7180 pg/ml 03/23/25 17:13
Albumin 3.9 g/dl (3.5-5.0) 03/28/25 04:29
Physical Exam
-
Vital Signs:
Vital Signs
Temp Pulse Resp BP Pulse Ox
97.9 F 81 18 107/76 96
03/28/25 07:12 03/28/25 07:13 03/28/25 07:12 03/28/25 07:13 03/28/25 07:12
Cardiovascular:: Irregular rate and rhythm (mild tachy)
Respiratory:: Bilateral: CTA
Lung Excursion:: Normal
Abdomen:: Nontender and Soft
Extremity Edema:: None: Bilateral: (trace)
Sepulveda Catheter: No
--- NOTE | 2025-03-28 11:58 | W.PN.UPDATE ---
Update Note
Progress Note Update
Came by to check on patient post ERCP, however patient is currently undergoing cholecystectomy
Will check on him tomorrow
--- NOTE | 2025-03-28 12:39 | W.IMMPOSTOP ---
Surgical Immed Post Op Note
-
Primary Surgeon: Danny Andrews MD
Assisting Surgeon: None
Pre-op Diagnosis: Choledocholithiasis, jaundice
Post-op Diagnosis: Choledocholithiasis, jaundice, chronic cholecystitis
Procedure Performed: Laparoscopic cholecystectomy with cholangiogram
Anesthesia Type: General
Specimen / Cultures: Gallbladder and contents
Estimated Blood Loss: 7 cc
Complications: None
Operative Findings: Distended fatty encased gallbladder. Critical view of safety obtained prior to cholangiogram which demonstrated no filling defects and other than dilated common bile duct, normal biliary anatomy. Some spillage of purulent
appearing bile. Surgiflo applied in the surgical bed given the need for early anticoagulation.
POST OP PLAN:
Imaging: None
Labs: Routine AM
Diet: Advance to Regular as tolerated
Analgesia: Tylenol 650mg q6 Candido, Dilaudid 0.5mg q2h PRN
Neuro/vascular checks: q4h
AC/AP: Can resume heparin drip in the morning, Ok for DVT PPx
Activity: Ad Ema
Wound/Incisions/Drains: Routine
Abx: Would continue antibiotics x 4 days.
Dispo: RNF, anticipate discharge this weekend. Isolate
--- NOTE | 2025-03-28 12:42 | OR.RPT ---
Operative Report
Operative Report
Patient Name: Taj Guidry
: 1950
Date of Operation: 03/28/2025
Preoperative Diagnosis: Choledocholithiasis, jaundice
Postoperative Diagnosis: Choledocholithiasis, jaundice, chronic cholecystitis
Procedure(s):
Laparoscopic Cholecystectomy with Cholangiogram
Surgeon(s):
Dr. Danny Andrews
Pattern Finisher(s):
JULIEN Peguero
SADIA Torres
Anesthesia: General
Estimated Blood Loss: 7 cc
Urine Output: None
Drains/Lines/Implants: None
Specimens:
1. Gallbladder and contents
HPI/Surgical Indications:
This is a 74-year-old male with a history of an open appendectomy via a right paramedian incision who presented to our hospital earlier this week with abdominal pain and jaundice found to have choledocholithiasis on MRCP. He eventually underwent
successful ERCP with clearance of the duct. Risks/Benefits/Alternatives were discussed at length, and the patient agreed to proceed with surgery to remove his gallbladder.
Operative Findings: Distended fatty encased gallbladder. Critical view of safety obtained prior to cholangiogram which demonstrated no filling defects and other than dilated common bile duct, normal biliary anatomy. Some spillage of purulent
appearing bile. Surgiflo applied in the surgical bed given the need for early anticoagulation.
Procedure Description:
The patient was brought to the Operating Room and placed in the supine position with one arm tucked. Following uneventful induction of general endotracheal anesthesia, an orogastric tube was placed. The abdomen was prepped and draped in the usual
sterile fashion. A timeout was performed confirming the procedure, consent, and that IV antibiotics were infused and sequential compression devices were confirmed to be on. The abdomen was entered using a left subcostal Veress technique which
required a single pass followed by a 5 mm right upper quadrant Optiview trocar. Pneumoperitoneum to 15 mmHg pressure was obtained without difficulty and we confirmed that no injury had occurred during our entry. The patient was positioned in
reverse Trendelenberg and rotated with the right side up slightly. Two 5 mm trocars were then placed along the right subcostal margin, followed by a 12 mm port in the epigastrium. Gallbladder was distended and encased in fat. A locking grasping
forceps was placed on the fundus of the gallbladder where it was then retracted cephalad and to the right. Using appropriate grasping instruments, the peritoneum overlying the triangle of Calot was incised and extended superiorly on both the
anterior and posterior gallbladder pina. The infundibulum was dissected off the cystic plate. The cystic triangle was dissected until a critical view of safety was achieved. The cystic artery was medialized, dissected and controlled with 2
proximal clips and 1 distal. The cystic duct/gallbladder junction in turn was identified, dissected circumferentially and a clip was placed. A ductotomy was made and a cholangiocatheter on an Olivo clamp was inserted into the cystic duct. A C-arm
was draped and brought into the field. An intra-operative cholangiogram was performed and was noted to have:
No filling defects in the biliary tree
No significant biliary dilation
Brisk flow of contrast into the duodenum
Normal biliary anatomy
The catheter was then removed and the cystic duct was controlled with two clips. After ensuring both the artery and duct were divided, the gallbladder was freed from the liver using electrocautery. There was some spillage of infected appearing
bile, but no spillage of stones. All of the bile was immediately suctioned up. The gallbladder bed was inspected and excellent hemostasis was obtained. Given the patient's need for early anticoagulation, Surgiflo was applied to the bed liberally.
The gallbladder was extracted through the 12 mm trocar site using an endocatch bag. The abdomen was again irrigated and excellent hemostasis was assured. All remaining trocars were then removed and the pneumoperitoneum was evacuated. The 12 mm
trocar site was closed using 0 PDS suture. All trocar sites were closed at the skin level using 4-0 Monocryl followed by Dermabond. Overall, the patient tolerated the procedure well and was taken to the Recovery Room postoperatively in stable
condition.
I was the attending physician and performed the procedure with assistance of the PA above. The assistance of JULIEN Peguero was required due to the complexity of the procedure. During the procedure Marina assisted with retraction, resection, and
closure of the wound. I was present for all portions of the case, excluding skin closure.
Danny Anrdews MD
[2025-03-28 13:05] LABS: Glucose - Point of Care 157 mg/dl (70-99)
[2025-03-28] MEDS: NOVOLOG FLEXPEN-LOW RESISTANCE SC (13:09)
--- NOTE | 2025-03-28 13:27 | W.PN.CARDCBS ---
Addendum entered and electronically signed by Greg Patino MD 03/28/25 16:57:
I saw and examined the patient.
The Mold Construction Supervisor's note was reviewed and I agree with the note.
Comment: Briefly, 74-year-old man past medical history of heart failure with preserved ejection fraction, permanent atrial fibrillation on Eliquis and prior CVA who presents with acute cholecystitis. He underwent ERCP and lap cholecystectomy which
he tolerated well. Resting comfortably in bed following his procedures.
Recommend resuming Eliquis when safe from a surgical standpoint
Okay to stop aspirin when Eliquis is resumed
We will sign off, please recall as needed
Discussed with family at bedside
Original Note:
Today's Communication / Plan
-
stable in pacu. no CP, SOB
resume eliquis as soon as ok with surgical team. stop asa when eliquis resumed
will arrange OP cardiac follow up
Impression / Plan
-
PCP: Dr. Juan Ramon Bashir
Card: Dr. Rodriguez
Impression:
Admitted with cholelithiasis 03/24/25
Possible acute cholecystitis vs choledocholithiasis/cholangitis
Severe calcific atherosclerotic plaque in the coronary arteries and thoracic aorta by CT chest 03/23/2025
Chronic HFpEF
Permanent Afib
Chronic Eliquis OAC
h/o CVA while on warfarin, possibly HTN mediated 05/15/20
HTN
Echo 04/26/23: EF 55-60%, no WMA, mildly enlarged left atrium, mildly enlarged right atrium, mild MR, mild to moderate TR with estimated pulmonary artery pressure of 40 mmHg.
Echo 10/07/2024: EF 65 to 70%, mitral sclerosis without stenosis, mild MR, moderate to severe TR with PAP 48 mmHg, normal RV size and function
Echo 03/25/25: EF 55 to 60%, no regional wall motion abnormalities noted, mild TR, PAP 30 to 35 mmHg
Plan:
- seen in pacu, s/p lap henrry
- no complaints of CP, SOB
- in rate controlled, permanent afib on review of tele. Continue Cardizem CD 180 mg twice daily
- resume eliquis when ok per surgery. stop aspirin when eliquis resumed. he does have history of CVA. Hemoglobin stable at 10.1
- Echo with results as above
- Troponin peaked at 0.062, suspected nonischemic myocardial injury in setting of end-stage renal disease and acute biliary disease. Could consider for outpatient ischemic evaluation once recovered
- Will arrange outpatient cardiac follow-up
- Continue postoperative care
- Will plan to sign off
HPI: Patient came to [facility] ER yesterday with new symptoms of chest and back pain associated with nausea and vomiting, patient was admitted with cholelithiasis and cardiology has been consulted for preoperative cardiovascular risk stratification in
case surgery is needed. Patient was seen in the office on 12/06/2024 and at that time was feeling well. Patient with known permanent A-fib and rate control with Cardizem CD 180 mg daily and OAC in the form of Eliquis 5 mg BID. Patient with h/o CVA
05/15/2020 that was attributed to HTN, he was on warfarin at that time and INR was therapeutic at 3.1. He went to [facility] and was transitioned to Eliquis. Patient reports he can move up and down the stairs in his home a couple times a day and
every once in a while he will get a tightness in his chest with this activity, but most of the time he is able to climb the stairs without chest tightness. He had a new sensation of chest pain radiating to his back associated with the nausea and
vomiting at the onset of his cholelithiasis admission symptoms and troponin associated with the symptoms was normal at 0.019 and ECG was without acute ischemic change. Patient denies any recent decrease in exercise tolerance and he denies ever
having chest pain with HD treatments. He has been on HD for a year and says he continues to make urine and so he is also on Lasix 40 mg PO BID.
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
Subjective
Date of Service: March 28, 2025
denies CP, SOB.
Objective
Labs:
03/28/25 04:29
03/28/25 04:29
Labs
Hgb 10.1 g/dL (13.0-18.0) L 03/28/25 04:29
Hct 29.0 % (39.0-52.0) L 03/28/25 04:29
Plt Count 142 10^3/uL (130-400) D 03/28/25 04:29
PT 14.3 Sec (11.4-14.6) 03/28/25 04:30
INR 1.08 03/28/25 04:30
APTT 80.6 Sec (23.4-35.0) H 03/28/25 04:30
Sodium 136 mmol/L (135-145) 03/28/25 04:29
Potassium 4.7 mmol/L (3.5-5.1) 03/28/25 04:29
BUN 28 mg/dl (9-20) H 03/28/25 04:29
Creatinine 4.0 mg/dL (0.7-1.3) H 03/28/25 04:29
Glucose 180 mg/dl (70-99) H 03/28/25 04:29
Troponins
03/27/25
02:17
Troponin I 0.030
Vital Signs and I&O:
Vital Signs
Temp Pulse Resp BP Pulse Ox
97.4 F 73 15 105/45 100
03/28/25 12:51 03/28/25 13:15 03/28/25 13:15 03/28/25 13:15 03/28/25 13:01
Vital Signs
Temp Pulse Resp BP Pulse Ox
97.4 F 73 15 105/45 100
03/28/25 12:51 03/28/25 13:15 03/28/25 13:15 03/28/25 13:15 03/28/25 13:01
Intake & Output
03/26/25 03/27/25 03/28/25 03/29/25
07:59 07:59 07:59 07:59
Intake Total 600 / 600 820 / 820 240 / 240
Output Total 275 / 275 300 / 300
Balance 600 / 600 545 / 545 -60 / -60
Physical Exam
Physical Exam
GEN: No distress, awake, alert, oriented x3. on supp O2
HEENT: supple, anicteric, mmm, eomi
LUNGS: CTA B/L, no wheezes/rales
CV: Irreg, S1/S2, no murmur
ABD: soft, BS+, NT/ND
EXT: No cyanosis, clubbing, edema
NEURO: Gross non-focal
SKIN: Warm, pink, dry. No rash
[2025-03-28 17:07] LABS: Glucose - Point of Care 273 mg/dl (70-99)
[2025-03-28] MEDS: NOVOLOG FLEXPEN-LOW RESISTANCE 3 UNITS SC (17:11)
[2025-03-28] MEDS: DILAUDID 0.5 MG IV (17:46)
[2025-03-28] MEDS: ZOFRAN 4 MG IV ×2 (18:13→21:45)
[2025-03-28 21:44] LABS: Glucose - Point of Care 322 mg/dl (70-99)
[2025-03-29] MEDS: NOVOLOG FLEXPEN-LOW RESISTANCE 4 UNITS SC (00:09)
[2025-03-29 03:12] VITALS: BP 128/46
[2025-03-29] MEDS: ZOSYN 50 IV ×3 (04:23→22:50)
[2025-03-29] MEDS: FLUSH (NSS) 3 FLUSH IV (04:24)
[2025-03-29 06:00] VITALS: BMI 26.4
[2025-03-29 06:07] LABS: Glucose - Point of Care 184 mg/dl (70-99)
[2025-03-29] MEDS: NOVOLOG FLEXPEN-LOW RESISTANCE 1 UNITS SC ×2 (06:39→10:26)
[2025-03-29 07:38] VITALS: BP 163/56
[2025-03-29 07:40] LABS: Glucose - Point of Care 194 mg/dl (70-99)
--- NOTE | 2025-03-29 08:33 | W.PN.HOSP.TC ---
Today's Communication/Plan
-
start Heparin
continue Zosyn
for dialysis today
Assessment / Plan
Assessment / Plan
#cholelithiasis
WBC 15.9-->14.7-->7.7-->6.6-->6.9-->4.3, tot bili 4.9-->4.5-->4.2-->3.2-->2.7, AST 144-->89-->43-->66-->67, ALT 188-->136-->86-->75-->80, Alk Phos 243-->239-->224-->332-->[address]: 1. Severe calcific atherosclerotic plaque in the coronary arteries and thoracic aorta.
2. Mild to moderate cardiomegaly.
3. Severe mosaic attenuation pattern in the lower lobes of both lungs which is most likely obstructive small airways disease with multifocal air trapping and subsegmental atelectasis.
Viral pneumonia is considered less likely.
4. Severe discogenic degenerative disease at C5/C6 and C6/C7.
Abd/Pel CT: 1. Mild circumferential wall thickening in the splenic flexure of the colon and proximal descending colon suggesting a mild colitis.
2. Moderate diffuse colonic diverticulosis.
3. Mild intrahepatic and extrahepatic biliary dilatation.
4. Mild gallbladder distention.
5. Severe chronic bilateral renal disease and moderate number of renal cysts.
6. Severe calcific atherosclerotic plaque in the abdominal aorta and iliac arteries.
7. Moderate discogenic degenerative disease and severe facet joint arthrosis in the lower lumbar spine causing multilevel central canal stenosis.
8. 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
MRCP: 1. CHOLEDOCHOLITHIASIS or sludge in the common bile duct.
2. Mild intrahepatic and extrahepatic biliary dilatation.
3. Cholelithiasis or sludge in the gallbladder lumen.
4. Severe diffuse iron deposition in the liver and spleen consistent with SEVERE SECONDARY HEMACHROMATOSIS (which is likely secondary to chronic renal failure).
5. SEVERE CHRONIC BILATERAL RENAL DISEASE with severe bilateral renal atrophy and a moderate number of renal cysts.
6. Mild to moderate cardiomegaly.
EKG: ATRIAL FIBRILLATION
LOW VOLTAGE QRS
SEPTAL INFARCT (CITED ON OR BEFORE 11-JUL-2020)
- Consulted surgery
- Consulted GI
-consulted Cardio, as per request of Gen Surg
input appreciated, pt cleared for planned surgical intervention
trop 0.019-->0.062-->0.030
-Consulted Nephro
dialysis session 03/29
- pt was given low fat diet, diet resumed
- IV Zosyn, will continue while hospitalized, change to Augmentin at time of dc, as per surgery.
- Hold Eliquis-washout, then on Heparin, will resume, for 48 hrs
Plan is for dialysis post op, morning of 03/29. Labs today with dialysis.
Remains on Zosyn
- pain regimen and antiemetics
#HFpEF
BNP 7180
ECHO (10/07/2024): Normal left ventricular size, wall thickness and systolic function. No regional wall motion abnormalities are seen. LV ejection fraction is 65-70% by visual assessment.
Diastolic function indeterminate due to atrial fibrillation.
Mitral valve opens normally. Thickened mitral valve leaflets. Mitral annular calcification. Mitral sclerosis without stenosis. Mild mitral regurgitation.
Indexed LA volume is mildly abnormal (35-41 mL/m2).
Trileaflet aortic valve. Aortic sclerosis without stenosis. Trace aortic regurgitation is seen.
Tricuspid valve opens normally. Moderate to severe tricuspid regurgitation. Estimated pulmonary artery pressure of 48 mmHg assuming a right atrial pressure of 8 mmHg.
Mildly dilated right atrium.
Normal right ventricular size and function.
Since echocardiogram October 2022, there is little change. TR is worsened from mild-moderate to moderate-severe.
- daily weights
- I & Os
- continue furosemide
#Permanent Atrial Fibrillation
(as per cardio)
EKG: ATRIAL FIBRILLATION
LOW VOLTAGE QRS
SEPTAL INFARCT (CITED ON OR BEFORE 11-JUL-2020)
- continue diltiazem
- hold Eliquis, resume Eliquis when cleared by surgery. Discussed with surgery, okay to resume Heparin, no bolus, but should hold off on Eliquis until 48 hrs post op
#Diabetes Mellitus, Type II
- AccuCheck q6 while NPO
glu 105-170
- SSI
- Hold Lantus until back on usual diet
#Diabetic Neuropathy
- continue gabapentin
#CKD - ESRD
BUN 35, Creat 4.8-->5.5-->4.0, est CrCl 11, eGFR 11.87
HD patient, schedule, last session Monday03/22/2025
- Consult Nephrology for HD
#Essential Hypertension
- continue furosemide
#diarrhea
resolved, neg for C.Diff 03/26
#Hyperlipidemia
- continue ezetimibe and rosuvastatin
#CVA with Residual Left Hemiparesis
#Spinal Stenosis
#Secondary Hyperparathyroidism
#Chronic Anemia
discussed with morgan Gunn. Multiple questions and concerns 03/25, reviewed with 03/26, 03/28, 03/29
Fe deposition levels in liver noted on MRCP. Pt had received Fe infusions in the past because of low Fe.
Fe sat 65%, Ferritin 1480. Call placed and discussed with Dr. Flower [facility], 03/26. Requests I note it in my discharge note and he will relate to Dr. Elam, who sees pt in office
Complex situation with multiple variables
Code status: full code
DVT prophylaxis: SCDs
Anticipated Discharge: 24 - 48 hours
Subjective/Interval History
-
Date of Service: March 29, 2025
Sitting up in the chair. Appears comfortable. As per , poor appetite, vomited last evening when attempted to eat
Objective Data
-
Vital Signs:
Vital Signs
Temp Pulse Resp BP Pulse Ox
97.6 F 75 16 163/56 95
03/29/25 07:38 03/29/25 07:38 03/29/25 07:38 03/29/25 07:38 03/29/25 07:38
I&O
03/28/25 03/29/25 03/30/25
06:59 06:59 06:59
Intake Total 240 / 240 660 / 660
Output Total 300 / 300
Balance -60 / -60 660 / 660
Review of Systems
-
History Source: Patient, Family (reviewed with in the room), Physician (reviewed with surgery) and Coordinated Provider (reviewed with RADHA Greene)
Constitutional: Denies Fever
EENT: Reports No Symptoms Reported
Respiratory: Reports No Symptoms; Denies Trouble Breathing
Cardiac: Reports No Symptoms; Denies Chest Pain
Abdomen/GI: Reports No Symptoms, Abdominal Pain (post op) and Vomiting (last evening); Denies Diarrhea
Musculoskeletal: Reports No Symptoms
Neuro: Reports No Symptoms
Physical Exam
-
General: Well Developed, Well Nourished and No Apparent Distress
HEENT: Normocephalic, Atraumatic and Moist Mucous Membranes
Respiratory: Clear to Auscultation; Negative Wheezes, Rales or Rhonchi
Cardiac: Regular Rhythm and S1/S2
GI: Soft, Normal Bowel Sounds and Tender (mild)
Neuro: Awake, Alert and Oriented
[2025-03-29] MEDS: CARDIZEM CD 180 MG PO ×2 (09:56→20:06)
[2025-03-29] MEDS: LOW STRENGTH ASPIRIN PO ×2 (09:56→10:30)
[2025-03-29] MEDS: NSS (PRESERVATIVE FREE) 10 ML IV (09:57)
[2025-03-29] MEDS: PROTONIX IV 40 MG IV (09:57)
[2025-03-29] MEDS: HEPARIN 25000 UNITS/250 ML IV (09:58)
[2025-03-29 10:32] LABS: Hematocrit 28.4 % (39.0-52.0); Hemoglobin 9.9 g/dL (13.0-18.0); Mean Corp Hgb Conc. 34.9 g/dL (33.0-37.0); Mean Corpuscular Volume 94.0 fL (80.0-94.0); Nucleated Red Blood Cells % 0.3 % (-); Platelet Count 165 10^3/uL (130-400); Red Cell Dist. Width 13.7 % (11.5-14.5)
[2025-03-29 10:52] LABS: APTT 35.8 Sec (23.4-35.0)
--- NOTE | 2025-03-29 11:05 | W.PN.GS2 ---
Addendum entered and electronically signed by Irineo Hallman MD 03/29/25 11:17:
I saw and examined the patient.
The COLLEGE COACH's note was reviewed and I agree with the note.
Comment:
No overnight events. Yesterday, did have a couple episodes of vomiting, but today no N/V, tolerated some solid food, passing flatus.
AFVSS, ABD soft, minimally distended, appropriately tender; incisions well-approximated without erythema or drainage, Dermabond intact
WBC 10.6,Hb 9.9 from 10.1, BMP pending�continue
Diabetic diet
� Pain control with Tylenol, Dilaudid as needed
� Start heparin drip as bridge; if no bleeding concerns, okay to start Eliquis tomorrow
� Continue antibiotics for 4 days postop
�Encourage OOB/I-S
� Appreciate hospitalist and cardiology
Original Note:
Today's Communication / Plan
-
Advance diet
Assessment / Plan
-
74 yo male with a h/o DM, AF on Eliquis, ESRD on HD presenting with obstructive jaundice with choledocholithiasis noted on imaging. PPD #2 ERCP for sphincterotomy and stone removal and POD #1 lap henrry
AFVSS
No leukocytosis, h/h stable
Plan:
Advance to ADA diet
HD planned today, nephrology following
Ok for heparin gtt with no bolus, but would hold on Eliquis Po until 48h post op
Analgesics prn
Plan 4 days of ABX post operatively, ok to transition to oral Augmentin upon d/c. Will continue Zosyn while inpatient.
D/W Dr Lau, tentative dc tomorrow if h/h remains stable on heparin gtt and Eliquis can be resumed
Subjective Data
-
Date of Service: March 29, 2025
Pt seen and examined at bedside with Dr. Hallman. present. Reports n/v yesterday after anesthesia but none today. Tolerated breakfast. Passing gas and had a BM. Pain to upper midline incision with cough/movement but otherwise minimal discomfort.
Objective Data
-
Intake and Output
03/28/25 03/29/25 03/30/25
06:59 06:59 06:59
Intake Total 240 / 240 660 / 660
Output Total 300 / 300
Balance -60 / -60 660 / 660
Intake:
Oral fluids 240 / 240 660 / 660
Output:
Urine, Voided 300 / 300
Other:
Number of approximated SMALL 1
amounts of urine
Number of approximated MODERATE 2
amounts of urine
Number of unmeasured liquid
stools
Rectum 1
Vital Signs
Temp Pulse Resp BP Pulse Ox
97.6 F 75 16 163/56 95
03/29/25 07:38 03/29/25 09:56 03/29/25 07:38 03/29/25 09:56 03/29/25 07:38
Lab Results
03/29/25 10:12
Calcium 8.4 mg/dl (8.4-10.2) 03/28/25 04:29
Total Bilirubin 2.7 mg/dl (0.2-1.3) H 03/28/25 04:29
AST 67 U/L (17-59) H 03/28/25 04:29
ALT 80 U/L (0-50) H 03/28/25 04:29
Alkaline Phosphatase 316 U/L (38-126) H 03/28/25 04:29
Total Protein 7.1 g/dl (6.3-8.2) 03/28/25 04:29
Albumin 3.9 g/dl (3.5-5.0) 03/28/25 04:29
Physical Exam
-
No apparent distress
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
Patient has a galvez catheter: No
Patient has a central line: No
[2025-03-29 12:43] LABS: Blood Urea Nitrogen 49 mg/dl (9-20); Calcium 8.4 mg/dl (8.4-10.2); Carbon Dioxide 22 mmol/L (22-30); Chloride 98 mmol/L (98-107); Estimated Creatinine Clearance 9 ml/min; Glucose 188 mg/dl (70-99); Potassium 4.3 mmol/L (3.5-5.1); Sodium 134 mmol/L (135-145); eGFR 9.27
[2025-03-29] MEDS: NOVOLOG FLEXPEN-LOW RESISTANCE SC ×2 (12:55→16:51)
--- NOTE | 2025-03-29 13:30 | W.PN.NEPH.HD ---
Progress Note - Hemodialysis
-
Date of Service: March 29, 2025
Duration: 30 minutes and 3 hours
Potassium Bath: 2
Calcium Bath: 2.5
Opti-Dialyzer: 160
Ultrafiltration: Other (1-2kg)
Blood Flow: 400
Dialysate Flow: 600
Heparin: no
EPO: 3000
[2025-03-29] MEDS: RETACRIT 4000 UNITS IV (13:53)
[2025-03-29] MEDS: ROXICODONE 5 MG PO (14:02)
[2025-03-29 15:00] VITALS: BP 123/65
[2025-03-29] MEDS: DILAUDID 0.5 MG IV ×2 (15:34→20:06)
[2025-03-29 16:11] LABS: APTT 82.7 Sec (23.4-35.0)
[2025-03-29 16:40] LABS: Glucose - Point of Care 103 mg/dl (70-99)
[2025-03-29] MEDS: ZOFRAN 4 MG IV (21:20)
[2025-03-29 21:41] LABS: Glucose - Point of Care 185 mg/dl (70-99)
[2025-03-29 22:36] LABS: APTT 135.4 Sec (23.4-35.0)
[2025-03-29 23:18] VITALS: BP 128/75
[2025-03-30] MEDS: ZOFRAN 4 MG IV ×3 (03:31→20:39)
[2025-03-30] MEDS: ZOSYN 50 IV ×3 (05:55→22:31)
[2025-03-30 06:00] VITALS: BMI 26.6
[2025-03-30 06:14] LABS: Hematocrit 27.3 % (39.0-52.0); Hemoglobin 9.3 g/dL (13.0-18.0); Mean Corp Hgb Conc. 34.1 g/dL (33.0-37.0); Mean Corpuscular Volume 94.8 fL (80.0-94.0); Nucleated Red Blood Cells % 1.1 % (-); Platelet Count 171 10^3/uL (130-400); Red Cell Dist. Width 14.1 % (11.5-14.5)
[2025-03-30 06:40] LABS: APTT 98.7 Sec (23.4-35.0)
[2025-03-30 06:43] LABS: ALT (SGPT) 77 U/L (0-50); AST (SGOT) 50 U/L (17-59); Alkaline Phosphatase 239 U/L (38-126); Blood Urea Nitrogen 24 mg/dl (9-20); Calcium 8.0 mg/dl (8.4-10.2); Carbon Dioxide 27 mmol/L (22-30); Chloride 98 mmol/L (98-107); Estimated Creatinine Clearance 15 ml/min; Glucose 220 mg/dl (70-99); Potassium 4.0 mmol/L (3.5-5.1); Sodium 135 mmol/L (135-145); eGFR 16.77
[2025-03-30 06:53] LABS: Albumin 3.6 g/dl (3.5-5.0); Total Protein 6.5 g/dl (6.3-8.2)
[2025-03-30 07:59] LABS: Glucose - Point of Care 209 mg/dl (70-99)
[2025-03-30 08:00] VITALS: BP 134/30
[2025-03-30] MEDS: NOVOLOG FLEXPEN-LOW RESISTANCE 2 UNITS SC (09:17)
[2025-03-30] MEDS: PROTONIX IV 40 MG IV (09:18)
[2025-03-30] MEDS: CARDIZEM CD 180 MG PO ×2 (09:18→20:42)
[2025-03-30] MEDS: NSS (PRESERVATIVE FREE) 10 ML IV (09:19)
[2025-03-30] MEDS: FLUSH (NSS) 2 FLUSH IV ×3 (09:23→22:31)
--- NOTE | 2025-03-30 09:24 | W.PN.GI.CBS2 ---
Today's Communication / Plan
-
Imaging
Assessment / Plan
-
74-year-old [place] male with past medical history of CVA with left-sided residual hemiparesis, HFpEF, paroxysmal A-fib on Eliquis (currently on hold last dose 03/23/2025), diabetic neuropathy, diabetes, CKD on hemodialysis Monday
Monday, chronic anemia, hypertension, hyperlipidemia, spinal stenosis, colon polyps who presents to the emergency room after acute onset of nausea and vomiting as well as abdominal pain that started Monday evening. The patient states that on
Monday he started with acute onset of upper abdominal discomfort that he describes as dull, constant, radiates through the back. He still does make small amount of urine he he states that this was darker. He has not had a bowel movement since the
pain started. He states that he felt feverish on Monday into Monday. He still does have the pain however this has improved some. Pain medication takes this away. He did receive dialysis on Monday. He states he has never had pain similar to
this in the past. He presented to the emergency room on 03/23/2025 with white count of 15.9, total bilirubin 4.9, AST 144, ALT 188, alk phos of 243. CT of the chest abdomen and pelvis without IV or oral contrast showed liver normal in size.
Gallbladder mildly distended. No gallbladder wall thickening or pericholecystic inflammation. Mild intrahepatic biliary dilatation. Mild extrahepatic biliary dilatation. CBD 9.8 mm. Mild diffuse pancreatic parenchymal atrophy. Spleen is
normal. We are asked to evaluate for the same.
Impression:
Choledocholithiasis
A-fib on Eliquis (last dose 03/23/2025) currently on hold
CKD on HD (usually Monday, Monday, last HD Monday)
History of CVA with left-sided residual hemiparesis
History of HFpEF
Diabetes
ERCP 03/27/2025 choledocholithiasis was removed
03/28/[address] Andrews -distended fatty increased gallbladder, cholangiogram with no filling defects. Did have some spillage of purulent appearing bile.
# Pain somewhat out of proportion to postcholecystectomy
-- Minimal but some improvement in bilirubin
-- Discussed with surgery team and Dr. Lau will proceed with CT scan today with IV contrast. Surgery is checking with renal that he is okay for IV contrast today
-- Sips of clear liquids, pain control, and currently on antibiotics with Zosyn
Subjective
Subjective
Date of Service: March 30, 2025
Patient having significant abdominal pain more in the right side and has had 2 episodes of retching/vomiting
Objective
Data Reviewed
Laboratory Data:
Laboratory Results
03/30/25 05:56
03/30/25 05:56
Laboratory Results
PT 14.3 Sec (11.4-14.6) 03/28/25 04:30
INR 1.08 03/28/25 04:30
APTT 98.7 Sec (23.4-35.0) H 03/30/25 05:56
Total Bilirubin 2.3 mg/dl (0.2-1.3) H 03/30/25 05:56
AST 50 U/L (17-59) 03/30/25 05:56
ALT 77 U/L (0-50) H 03/30/25 05:56
Alkaline Phosphatase 239 U/L (38-126) H 03/30/25 05:56
Lipase 128 U/L (23-300) 03/23/25 17:13
Vital Signs and I&O:
Vital Signs
Temp Pulse Resp BP Pulse Ox
98.0 F 79 16 134/30 94
03/30/25 08:00 03/30/25 08:00 03/30/25 08:00 03/30/25 08:00 03/30/25 08:00
I&O
03/29/25 03/30/25 03/31/25
06:59 06:59 06:59
Intake Total 660 / 660 600 / 600
Output Total 450 / 450
Balance 660 / 660 150 / 150
Physical Exam
Physical Exam
HEENT: Anicteric (Mildly icteric)
GI: Soft, Tender and Normal Bowel Sounds
Neuro: Non Focal
[2025-03-30] MEDS: LOW STRENGTH ASPIRIN PO (09:26)
--- NOTE | 2025-03-30 09:47 | W.PN.GS2 ---
Addendum entered and electronically signed by Irineo Hallman MD 03/30/25 23:40:
I saw and examined the patient.
The SAFETY RELIEF VALVE TECHNICIAN's note was reviewed and I agree with the note.
Comment:
CT scan showing some flecks of air in the gallbladder fossa, but no concern for abscess or biloma
�Continue n.p.o. with IVF
�Continue hep drip and holding Eliquis
Original Note:
Today's Communication / Plan
-
Follow up CT
NPO
Assessment / Plan
-
74 yo male with a h/o DM, AF on Eliquis, ESRD on HD presenting with obstructive jaundice with choledocholithiasis noted on imaging. PPD #3 ERCP for sphincterotomy and stone removal and POD #2 lap henrry
AFVSS
No leukocytosis, h/h stable
N/V overnight
Plan:
NPO with sips
Will plan CT imaging, TT sent to nephrology to clear for IV contrast
HD t-th-s
Ok for heparin gtt with no bolus, but would hold on Eliquis PO given n/v
Analgesics prn
Plan 4 days of ABX post operatively, ok to transition to oral Augmentin upon d/c. Will continue Zosyn while inpatient.
D/W Dr Lau and Meeta
Subjective Data
-
Date of Service: March 30, 2025
Pt seen and examined at bedside with Dr. Hallman. Reports nausea and vomiting throughout the night. Pain not worse but still with tenderness to the RUQ. Passing flatus. Has had some chills but no fevers.
Objective Data
-
Intake and Output
03/29/25 03/30/25 03/31/25
06:59 06:59 06:59
Intake Total 660 / 660 600 / 600
Output Total 450 / 450
Balance 660 / 660 150 / 150
Intake:
Oral fluids 660 / 660 600 / 600
Output:
Urine, Voided 450 / 450
Other:
Number of approximated SMALL 1
amounts of urine
Number of approximated MODERATE 2
amounts of urine
Number of unmeasured liquid
stools
Rectum 1
Vital Signs
Temp Pulse Resp BP Pulse Ox
98.0 F 79 16 134/30 94
03/30/25 08:00 03/30/25 08:00 03/30/25 08:00 03/30/25 08:00 03/30/25 08:00
Lab Results
03/30/25 05:56
03/30/25 05:56
Calcium 8.0 mg/dl (8.4-10.2) L 03/30/25 05:56
Total Bilirubin 2.3 mg/dl (0.2-1.3) H 03/30/25 05:56
AST 50 U/L (17-59) 03/30/25 05:56
ALT 77 U/L (0-50) H 03/30/25 05:56
Alkaline Phosphatase 239 U/L (38-126) H 03/30/25 05:56
Total Protein 6.5 g/dl (6.3-8.2) 03/30/25 05:56
Albumin 3.6 g/dl (3.5-5.0) 03/30/25 05:56
Physical Exam
-
No apparent distress
Abdomen soft, expected incisional tenderness, RUQ mildly tender, crnp, nondistended
--- NOTE | 2025-03-30 09:58 | W.PN.HOSP.TC ---
Today's Communication/Plan
-
CT scan of abd
Assessment / Plan
Assessment / Plan
#cholelithiasis
WBC 15.9-->14.7-->7.7-->6.6-->6.9-->4.3-->10.6-->9.6, tot bili 4.9-->4.5-->4.2-->3.2-->2.7-->2.3, AST 144-->89-->43-->66-->67-->50, ALT 188-->136-->86-->75-->80-->77, Alk Phos 243-->239-->224-->332-->316-->[address]: 1. Severe calcific atherosclerotic plaque in the coronary arteries and thoracic aorta.
2. Mild to moderate cardiomegaly.
3. Severe mosaic attenuation pattern in the lower lobes of both lungs which is most likely obstructive small airways disease with multifocal air trapping and subsegmental atelectasis.
Viral pneumonia is considered less likely.
4. Severe discogenic degenerative disease at C5/C6 and C6/C7.
Abd/Pel CT: 1. Mild circumferential wall thickening in the splenic flexure of the colon and proximal descending colon suggesting a mild colitis.
2. Moderate diffuse colonic diverticulosis.
3. Mild intrahepatic and extrahepatic biliary dilatation.
4. Mild gallbladder distention.
5. Severe chronic bilateral renal disease and moderate number of renal cysts.
6. Severe calcific atherosclerotic plaque in the abdominal aorta and iliac arteries.
7. Moderate discogenic degenerative disease and severe facet joint arthrosis in the lower lumbar spine causing multilevel central canal stenosis.
8. 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
MRCP: 1. CHOLEDOCHOLITHIASIS or sludge in the common bile duct.
2. Mild intrahepatic and extrahepatic biliary dilatation.
3. Cholelithiasis or sludge in the gallbladder lumen.
4. Severe diffuse iron deposition in the liver and spleen consistent with SEVERE SECONDARY HEMACHROMATOSIS (which is likely secondary to chronic renal failure).
5. SEVERE CHRONIC BILATERAL RENAL DISEASE with severe bilateral renal atrophy and a moderate number of renal cysts.
6. Mild to moderate cardiomegaly.
EKG: ATRIAL FIBRILLATION
LOW VOLTAGE QRS
SEPTAL INFARCT (CITED ON OR BEFORE 11-JUL-2020)
- Consulted surgery
- Consulted GI
-consulted Cardio, as per request of Gen Surg
input appreciated, pt cleared for planned surgical intervention
trop 0.019-->0.062-->0.030
-Consulted Nephro
dialysis session 03/29
- pt was given low fat diet, diet resumed
- IV Zosyn, will continue while hospitalized, change to Augmentin at time of dc, as per surgery.
- Hold Eliquis-washout, then on Heparin, will resume, for 48 hrs
Pt underwent surgical intervention on 03/28 Laparoscopic Cholecystectomy with Cholangiogram. On 03/29 marginal oral intake with plan to transition from Heparin to usual dose of Eliquis today, 03/30 with dc to follow. Last evening with increase in abd
pain, required resumption of prn dilaudid. Today with N/V. Discussed with surgery and GI.
CT scan with IV contrast has been ordered by surgery after confirming with nephrology the use of IV dye. Await results of study to determine next step
Remains on Zosyn
- pain regimen and antiemetics
#HFpEF
BNP 7180
ECHO (10/07/2024): Normal left ventricular size, wall thickness and systolic function. No regional wall motion abnormalities are seen. LV ejection fraction is 65-70% by visual assessment.
Diastolic function indeterminate due to atrial fibrillation.
Mitral valve opens normally. Thickened mitral valve leaflets. Mitral annular calcification. Mitral sclerosis without stenosis. Mild mitral regurgitation.
Indexed LA volume is mildly abnormal (35-41 mL/m2).
Trileaflet aortic valve. Aortic sclerosis without stenosis. Trace aortic regurgitation is seen.
Tricuspid valve opens normally. Moderate to severe tricuspid regurgitation. Estimated pulmonary artery pressure of 48 mmHg assuming a right atrial pressure of 8 mmHg.
Mildly dilated right atrium.
Normal right ventricular size and function.
Since echocardiogram October 2022, there is little change. TR is worsened from mild-moderate to moderate-severe.
- daily weights
- I & Os
- continue furosemide
#Permanent Atrial Fibrillation
(as per cardio)
EKG: ATRIAL FIBRILLATION
LOW VOLTAGE QRS
SEPTAL INFARCT (CITED ON OR BEFORE 11-JUL-2020)
- continue diltiazem
- hold Eliquis, resume Eliquis when cleared by surgery. Discussed with surgery, okay to resume Heparin, no bolus, but should hold off on Eliquis for now, pending results of CT scan
#Diabetes Mellitus, Type II
- AccuCheck with coverage
glu [id number]
- SSI
- Hold Lantus until back on usual diet
#Diabetic Neuropathy
- continue gabapentin
#CKD - ESRD
BUN 35, Creat 4.8-->5.5-->4.0-->5.9-->3.6, est CrCl 11, eGFR 11.87
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
- Consult Nephrology for HD
#Essential Hypertension
- continue furosemide
#diarrhea
resolved, neg for C.Diff 03/26
#Hyperlipidemia
- continue ezetimibe and rosuvastatin
#CVA with Residual Left Hemiparesis
#Spinal Stenosis
#Secondary Hyperparathyroidism
#Chronic Anemia
discussed with morgan Gunn. Multiple questions and concerns 03/25, reviewed with 03/26, 03/28, 03/29
Fe deposition levels in liver noted on MRCP. Pt had received Fe infusions in the past because of low Fe.
Fe sat 65%, Ferritin 1480. Call placed and discussed with Dr. Flower of [facility], 03/26. Requests I note it in my discharge note and he will relate to Dr. Elam, who sees pt in office
Complex situation with multiple variables
Code status: full code
DVT prophylaxis: SCDs
Anticipated Discharge: 24 - 48 hours
Subjective/Interval History
-
Date of Service: March 30, 2025
Had a lot of abd pain last evening, today with N/V
Objective Data
-
Labs:
Laboratory Results
03/29/25 03/30/25
22:16 05:56
WBC 9.6
Hgb 9.3 L
Hct 27.3 L
Plt Count 171
APTT 135.4 H 98.7 H
Sodium 135
Potassium 4.0
Chloride 98
Carbon Dioxide 27
BUN 24 H
Creatinine 3.6 H
Glucose 220 H
Calcium 8.0 L
Total Bilirubin 2.3 H
AST 50
ALT 77 H
Alkaline Phosphatase 239 H
Vital Signs:
Vital Signs
Temp Pulse Resp BP Pulse Ox
98.0 F 79 16 134/30 94
03/30/25 08:00 03/30/25 08:00 03/30/25 08:00 03/30/25 08:00 03/30/25 08:00
I&O
03/29/25 03/30/25 03/31/25
06:59 06:59 06:59
Intake Total 660 / 660 600 / 600
Output Total 450 / 450
Balance 660 / 660 150 / 150
Review of Systems
-
History Source: Patient, Family (reviewed with in the room), Physician (reviewed with surgery) and Coordinated Provider (reviewed with RADHA Greene)
Constitutional: Denies Fever
EENT: Reports No Symptoms Reported
Respiratory: Reports No Symptoms; Denies Trouble Breathing
Cardiac: Reports No Symptoms; Denies Chest Pain
Abdomen/GI: Reports No Symptoms, Abdominal Pain (still with significant abd pain) and Vomiting (this morning); Denies Diarrhea
Musculoskeletal: Reports No Symptoms
Neuro: Reports No Symptoms
Physical Exam
-
General: Well Developed, Well Nourished and No Apparent Distress
HEENT: Normocephalic, Atraumatic and Moist Mucous Membranes
Respiratory: Clear to Auscultation; Negative Wheezes, Rales or Rhonchi
Cardiac: Regular Rhythm and S1/S2
GI: Soft, Normal Bowel Sounds and Tender (significantly tender RUQ)
Neuro: Awake, Alert and Oriented
[2025-03-30 12:25] LABS: Glucose - Point of Care 164 mg/dl (70-99)
--- NOTE | 2025-03-30 12:31 | W.PN.NEPH.PH ---
Today's Communication / Plan
-
Dialysis Monday
Assessment/Plan
-
IMP:
ESRD TTS at [facility]
Abdominal pain/cholecystitis
Chronic HFpEF
Paroxysmal Atrial Fibrillation
Insulin Dependent Diabetes Mellitus, Type II with Diabetic Neuropathy
Chronic Anemia
Hyperlipidemia
Hx CVA with Residual Left Hemiparesis
Plan:
Hemodialysis TTS schedule
Cholecystectomy
Antibiotics dose renally
See dialysis orders
Bp stable
No acute need for dialysis today.
He is status post CT scan for abdominal pain no acute pathology no need for dialysis postcontrast
-
-
Date of Service: March 30, 2025
CC / HPI / ROS
-
Chief Complaint:
ESRD
History of Present Illness:
hb 9.4, high ferritin
Bp stable, no fever
Review of Systems:
Mild abdominal pain
no n/v
no cp or sob
Labs
-
Labs:
WBC 9.6 10^3/uL (4.8-10.8) 03/30/25 05:56
RBC 2.88 10^6/uL (4.70-6.10) L 03/30/25 05:56
Hgb 9.3 g/dL (13.0-18.0) L 03/30/25 05:56
Hct 27.3 % (39.0-52.0) L 03/30/25 05:56
Plt Count 171 10^3/uL (130-400) 03/30/25 05:56
Sodium 135 mmol/L (135-145) 03/30/25 05:56
Potassium 4.0 mmol/L (3.5-5.1) 03/30/25 05:56
Chloride 98 mmol/L (98-107) 03/30/25 05:56
Carbon Dioxide 27 mmol/L (22-30) 03/30/25 05:56
BUN 24 mg/dl (9-20) H 03/30/25 05:56
Creatinine 3.6 mg/dL (0.7-1.3) H 03/30/25 05:56
eGFR 16.77 03/30/25 05:56
Glucose 220 mg/dl (70-99) H 03/30/25 05:56
Calcium 8.0 mg/dl (8.4-10.2) L 03/30/25 05:56
Dmk-M-Rrphjclojyv Pept 7180 pg/ml 03/23/25 17:13
Albumin 3.6 g/dl (3.5-5.0) 03/30/25 05:56
Physical Exam
-
Vital Signs:
Vital Signs
Temp Pulse Resp BP Pulse Ox
98.0 F 79 16 134/30 94
03/30/25 08:00 03/30/25 08:00 03/30/25 08:00 03/30/25 08:00 03/30/25 08:00
Cardiovascular:: Irregular rate and rhythm (mild tachy)
Respiratory:: Bilateral: CTA
Lung Excursion:: Normal
Abdomen:: Nontender and Soft
Extremity Edema:: None: Bilateral: (trace)
Sepulveda Catheter: No
[2025-03-30] MEDS: HEPARIN 25000 UNITS/250 ML IV (12:55)
[2025-03-30] MEDS: NOVOLOG FLEXPEN-LOW RESISTANCE 1 UNITS SC ×2 (12:59→17:57)
[2025-03-30 14:03] LABS: APTT 80.1 Sec (23.4-35.0)
[2025-03-30 15:55] VITALS: BP 168/75
[2025-03-30 17:04] LABS: Glucose - Point of Care 151 mg/dl (70-99)
[2025-03-30 22:09] LABS: Glucose - Point of Care 188 mg/dl (70-99)
[2025-03-30 23:56] VITALS: BP 157/69
[2025-03-31] MEDS: MELATONIN 5 MG PO ×2 (00:04→22:43)
[2025-03-31 03:43] LABS: Urine Character Clear (Clear)
[2025-03-31] MEDS: FLUSH (NSS) 2 FLUSH IV (05:44)
[2025-03-31] MEDS: ZOSYN 50 IV ×2 (05:44→17:51)
[2025-03-31 06:00] VITALS: BMI 26.8
[2025-03-31 06:08] LABS: APTT 74.8 Sec (23.4-35.0)
[2025-03-31 06:16] LABS: Hematocrit 28.3 % (39.0-52.0); Hemoglobin 9.5 g/dL (13.0-18.0); Mean Corp Hgb Conc. 33.6 g/dL (33.0-37.0); Mean Corpuscular Volume 97.3 fL (80.0-94.0); Nucleated Red Blood Cells % 2.7 % (-); Platelet Count 192 10^3/uL (130-400); Red Cell Dist. Width 14.4 % (11.5-14.5)
[2025-03-31 06:51] LABS: ALT (SGPT) 58 U/L (0-50); AST (SGOT) 32 U/L (17-59); Albumin 3.5 g/dl (3.5-5.0); Alkaline Phosphatase 219 U/L (38-126); Blood Urea Nitrogen 33 mg/dl (9-20); Calcium 8.3 mg/dl (8.4-10.2); Carbon Dioxide 24 mmol/L (22-30); Chloride 97 mmol/L (98-107); Estimated Creatinine Clearance 11 ml/min; Glucose 155 mg/dl (70-99); Potassium 4.0 mmol/L (3.5-5.1); Sodium 134 mmol/L (135-145); Total Protein 6.4 g/dl (6.3-8.2); eGFR 11.58
[2025-03-31 07:00] VITALS: BP 151/103
[2025-03-31 07:33] LABS: Glucose - Point of Care 151 mg/dl (70-99)
[2025-03-31 08:00] VITALS: BMI 26.8
--- NOTE | 2025-03-31 08:12 | W.PN.HOSP.TC ---
Today's Communication/Plan
-
see bold
Assessment / Plan
Assessment / Plan
# Choledocholithiasis
- MRCP confirms choledocholithiasis or sludge in the common bile duct, cholelithiasis, iron deposition in the liver and spleen consistent with severe secondary hemochromatosis likely from chronic renal failure, cardiomegaly
- Appreciate GI input, s/p ERCP for sphincterotomy and stone removal on 03/27
- Appreciate general surgery input, status post laparoscopic cholecystectomy on 03/28
- Seen by cardiology for perioperative risk assessment
- Patient had worsening pain on 03/30, CT abdomen and pelvis negative for rim-enhancing fluid collection
- Continue IV Zosyn while in the hospital, change to Augmentin at time of dc, as per surgery
- Trial of solids today, continue IV heparin drip, change to Eliquis when okay with general surgery
#Chornic HFpEF
- Nephrology recommends resuming Lasix, will resume today 03/31
#Permanent Atrial Fibrillation
- continue diltiazem
- continue IV heparin drip, change to Eliquis when okay with general surgery
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
Fe deposition levels in liver noted on MRCP. Pt had received Fe infusions in the past because of low Fe.
Fe sat 65%, Ferritin 1480. Call placed and discussed with Dr. Flower of [facility], 03/26.
Requests information be noted on discharge summary and he will relate to Dr. Elam, who sees pt in office
#Diabetes Mellitus, Type II
- AccuCheck with coverage
- SSI
- Hold Lantus until eating improved
#Diabetic Neuropathy
- continue gabapentin
#CKD - ESRD
-Appreciate nephrology input, continue dialysis Monday//Monday
#diarrhea
resolved, neg for C.Diff 03/26
#Hyperlipidemia
- continue ezetimibe and rosuvastatin
#CVA with Residual Left Hemiparesis
#Spinal Stenosis
#Secondary Hyperparathyroidism
#Chronic Anemia
DVT prophylaxis�IV heparin drip, resume eliquis when okay with general surgery
Full code
Updated at bedside 03/31
Total time spent to see the patient on the floor, examine the patient, review data and lab results, discuss treatment plan with patient, nursing staff around 50 minutes.
Physical Exam
General: No acute distress
HEENT: Normocephalic, Atraumatic, EOMI, MMM
Respiratory: Clear to Auscultation bilaterally
Cardiac: Normal S1/S2, Regular Rate and Rhythm
GI: Soft, nondistended, brenda-incisional tenderness noted, incisions clean/dry/intact
Extremities: No Clubbing, Cyanosis, or Edema
Neuro: Nonfocal/Grossly Intact
Anticipated Discharge: Within 24 hours
Subjective/Interval History
-
Date of Service: March 31, 2025
Patient reports improvement in his right upper quadrant abdominal pain, currently 4 out of 10 in intensity. Denies nausea, denies vomiting. No chest pain, no shortness of breath. No fever.
Objective Data
-
Labs:
Laboratory Results
03/31/25
05:44
WBC 9.9
Hgb 9.5 L
Hct 28.3 L
Plt Count 192
APTT 74.8 H
Sodium 134 L
Potassium 4.0
Chloride 97 L
Carbon Dioxide 24
BUN 33 H
Creatinine 4.9 H*
Glucose 155 H
Calcium 8.3 L
Total Bilirubin 2.0 H
AST 32
ALT 58 H
Alkaline Phosphatase 219 H
Vital Signs:
Vital Signs
Temp Pulse Resp BP Pulse Ox
97.7 F 75 16 157/69 96
03/30/25 23:56 03/30/25 23:56 03/30/25 23:56 03/30/25 23:56 03/30/25 23:56
I&O
03/30/25 03/31/25 04/01/25
06:59 06:59 06:59
Intake Total 600 / 600 340 / 340
Output Total 450 / 450 100 / 100
Balance 150 / 150 240 / 240
--- NOTE | 2025-03-31 09:25 | W.PN.NEPH.PH ---
Today's Communication / Plan
-
HD tomorrow
Assessment/Plan
-
IMP:
ESRD TTS at [place]
Abdominal pain/cholecystitis/cholecystectomy
Chronic HFpEF
Paroxysmal Atrial Fibrillation
Insulin Dependent Diabetes Mellitus, Type II with Diabetic Neuropathy
Chronic Anemia
Hyperlipidemia
Hx CVA with Residual Left Hemiparesis
Plan:
Hemodialysis TTS schedule
HD tomorrow
abx continue post cholecystectomy
follow hgb
-
-
Date of Service: March 31, 2025
CC / HPI / ROS
-
Chief Complaint:
ESRD
History of Present Illness:
hgb 9.5, high ferritin
BP stable
tolerated HD monday
Review of Systems:
Mild abdominal pain
no n/v
no cp or sob
no fevers
Labs
-
Labs:
WBC 9.9 10^3/uL (4.8-10.8) 03/31/25 05:44
RBC 2.91 10^6/uL (4.70-6.10) L 03/31/25 05:44
Hgb 9.5 g/dL (13.0-18.0) L 03/31/25 05:44
Hct 28.3 % (39.0-52.0) L 03/31/25 05:44
Plt Count 192 10^3/uL (130-400) 03/31/25 05:44
Sodium 134 mmol/L (135-145) L 03/31/25 05:44
Potassium 4.0 mmol/L (3.5-5.1) 03/31/25 05:44
Chloride 97 mmol/L (98-107) L 03/31/25 05:44
Carbon Dioxide 24 mmol/L (22-30) 03/31/25 05:44
BUN 33 mg/dl (9-20) H 03/31/25 05:44
Creatinine 4.9 mg/dL (0.7-1.3) H* 03/31/25 05:44
eGFR 11.58 03/31/25 05:44
Glucose 155 mg/dl (70-99) H 03/31/25 05:44
Calcium 8.3 mg/dl (8.4-10.2) L 03/31/25 05:44
Lee-T-Jpncsghvhgt Pept 7180 pg/ml 03/23/25 17:13
Albumin 3.5 g/dl (3.5-5.0) 03/31/25 05:44
Physical Exam
-
Vital Signs:
Vital Signs
Temp Pulse Resp BP Pulse Ox
97.5 F 80 16 151/103 97
03/31/25 07:00 03/31/25 07:00 03/31/25 07:00 03/31/25 07:00 03/31/25 07:00
Cardiovascular:: Regular rate and rhythm
Respiratory:: Bilateral: Coarse
Lung Excursion:: Normal
Abdomen:: Nontender and Soft
Bowel Sounds:: Normal
Extremity Edema:: None: Bilateral:
[2025-03-31] MEDS: NOVOLOG FLEXPEN-LOW RESISTANCE 1 UNITS SC ×2 (09:30→13:18)
[2025-03-31] MEDS: CARDIZEM CD 180 MG PO ×2 (09:31→20:16)
[2025-03-31] MEDS: LOW STRENGTH ASPIRIN 81 MG PO (09:31)
[2025-03-31] MEDS: PROTONIX IV 40 MG IV (09:31)
[2025-03-31] MEDS: NSS (PRESERVATIVE FREE) 10 ML IV (09:32)
--- NOTE | 2025-03-31 09:34 | W.PN.GS2 ---
Addendum entered and electronically signed by Danny Andrews MD 03/31/25 15:33:
I saw and examined the patient independently.
The resident's documentation was reviewed and I agree with the note, assessment and plan except where noted below.
Comment: This is a 74-year-old male postoperative day 3 from laparoscopic cholecystectomy for choledocholithiasis status post ERCP. Initially having some abdominal pain and nausea but this is improved. CT scan showed a fluid collection in the
fossa however this is likely secondary to the Surgiflo/hemostatic agent applied during the procedure. Labs and exam reassuring.
Regular diet.
Will continue with the heparin drip today, consider restarting p.o. Eliquis tomorrow if he is able to tolerate solid food for 24 hours.
Continue hemodialysis Monday.
Pain control.
Can stop antibiotics.
Can begin dispo planning
Original Note:
Today's Communication / Plan
-
Plan:
- Restart solid food today
- Continue heparin gtt w/o bolus (continue holding eliquis PO until demonstrates that can tolerate solid food)
- Continue HD -
- Analgesics prn (tylenol 650mg q6h, oxycodone 5mg q4h, dilaudid 0.5mg q4h)
- Day 4/4 of post-op abx (Zosyn); plan to transition to oral Augmentin upon d/c
- Continue OOB
- Dispo: to home, possibly tomorrow, pending tolerating solids PO today
Assessment / Plan
-
74 yo male with a h/o DM, AF on Eliquis, ESRD on HD presenting with obstructive jaundice with choledocholithiasis noted on imaging. PPD #4 ERCP for sphincterotomy and stone removal and POD #3 lap henrry, now improving post-op.
AFVSS
No leukocytosis, h/h stable
Now tolerating clears & with BM/gas
CT imaging returned demonstrating gas in the gallbladder fossa and to a lesser degree in the anterior abdominal wall, likely expected s/p lap henrry. No clear CT evidence for a well-defined rim-enhancing fluid collection, not c/f cholecystitis.
Plan:
- Restart solid food today
- Continue heparin gtt w/o bolus (continue holding eliquis PO until demonstrates that can tolerate solid food)
- Continue HD t-th-s
- Analgesics prn (tylenol 650mg q6h, oxycodone 5mg q4h, dilaudid 0.5mg q4h)
- Day 4/4 of post-op abx (Zosyn); plan to transition to oral Augmentin upon d/c
- Continue OOB
- Dispo: to home, possibly tomorrow, pending tolerating solids PO today
D/W Dr Lau and Meeta
Time Spent
Total Time Spent with Patient (in minutes): 15
Subjective Data
-
Date of Service: March 31, 2025
Patient reports improvement in abdominal pain. Has been tolerating clear diet, denies N/V. He has been urinating & passing gas with small amt of stool. at bedside.
Objective Data
-
Intake and Output
03/30/25 03/31/25 04/01/25
06:59 06:59 06:59
Intake Total 600 / 600 340 / 340
Output Total 450 / 450 100 / 100
Balance 150 / 150 240 / 240
Intake:
Oral fluids 600 / 600 240 / 240
IV fluids (Total) 100 / 100
Output:
Urine, Voided 450 / 450 100 / 100
Vital Signs
Temp Pulse Resp BP Pulse Ox
97.5 F 80 16 151/103 97
03/31/25 07:00 03/31/25 07:00 03/31/25 07:00 03/31/25 07:00 03/31/25 07:00
Lab Results
03/31/25 05:44
03/31/25 05:44
Calcium 8.3 mg/dl (8.4-10.2) L 03/31/25 05:44
Total Bilirubin 2.0 mg/dl (0.2-1.3) H 03/31/25 05:44
AST 32 U/L (17-59) 03/31/25 05:44
ALT 58 U/L (0-50) H 03/31/25 05:44
Alkaline Phosphatase 219 U/L (38-126) H 03/31/25 05:44
Total Protein 6.4 g/dl (6.3-8.2) 03/31/25 05:44
Albumin 3.5 g/dl (3.5-5.0) 03/31/25 05:44
Physical Exam
-
General: well appearing, sitting in chair OOB; alert & oriented
Cardiopulm: no labored/tachypneic breathing
Abdominal: minimal pain on RUQ palpation, expected incisional tenderness, incision site clean w/o drainage or pus, abd non-distended
Patient has a galvez catheter: No
Patient has a central line: No
--- NOTE | 2025-03-31 11:09 | CM ---
Addendum entered by Jennifer Aguero RN 03/31/25 16:39:
IMM on chart.
Original Note:
Reviewed the chart notes. Patient's diet advanced. If able to tolerate diet, possible discharge tomorrow after HD. CM continues to be available to patient/family and is monitoring medical plan for needs at discharge.
Plan: Discharge to home when medically stable with resumption of outpatient HD.
[2025-03-31 11:51] LABS: Glucose - Point of Care 181 mg/dl (70-99)
[2025-03-31 15:00] VITALS: BP 135/50
[2025-03-31] MEDS: LASIX 40 MG PO (16:50)
[2025-03-31 17:20] LABS: Glucose - Point of Care 219 mg/dl (70-99)
[2025-03-31] MEDS: NOVOLOG FLEXPEN-LOW RESISTANCE 2 UNITS SC (17:50)
[2025-03-31] MEDS: HEPARIN 25000 UNITS/250 ML IV (20:23)
[2025-03-31 22:30] LABS: Glucose - Point of Care 250 mg/dl (70-99)
[2025-03-31] MEDS: BENADRYL 25 MG PO (22:43)
[2025-03-31] MEDS: NEURONTIN 100 MG PO (22:43)
[2025-03-31 23:44] VITALS: BP 134/70
[2025-04-01] MEDS: ZOSYN 50 IV (05:33)
[2025-04-01 05:46] VITALS: BMI 27.2
--- NOTE | 2025-04-01 06:49 | W.PN.GS2 ---
Addendum entered and electronically signed by Danny Andrews MD 04/01/25 08:17:
I saw and examined the patient independently.
The resident's documentation was reviewed and I agree with the note, assessment and plan except where noted below.
Comment: 74-year-old Jordanian speaking male with a history of diabetes, A-fib on Eliquis, ESRD who presented with obstructive jaundice and choledocholithiasis status post ERCP and now laparoscopic cholecystectomy. Overall doing well, expected
postoperative course.
Hemoglobin stable, tolerating p.o. diet can transition to Eliquis per primary.
No role for antibiotics.
Dispo per primary, surgery will follow peripherally.
Discharge instructions updated, patient to follow-up with me in 2 weeks.
Original Note:
Today's Communication / Plan
-
Plan:
- Dispo: to home today after HD
- Continue HD t-- (today)
- Change from heparin gtt to eliquis PO
- Stop Zosyn, no abx at discharge
- Analgesics prn (tylenol 650mg q6h, oxycodone 5mg q4h, dilaudid 0.5mg q4h)
- Continue OOB
Assessment / Plan
-
74 yo male with a h/o DM, AF on Eliquis, ESRD on HD (-) who presented with obstructive jaundice and choledocholithiasis noted on imaging, now s/p ERCP for sphincterotomy and stone removal (PPD #4) and POD #3 lap henrry, with improving n/v
post-op & able to tolerate PO solids.
AFVSS
Labs not resulted at time of note
Now tolerating solid foods & with BM/gas
Minimal abdominal pain, incision site pain expected with movement; able to get OOB
Mild bloating and LE edema likely 2/2 ESRD and expected to resolve s/p HD today as fluid dialyzed off
Plan:
- Dispo: to home today after HD
- Continue HD --s (today)
- Change from heparin gtt to eliquis PO
- Stop Zosyn, no abx at discharge
- Analgesics prn (tylenol 650mg q6h, oxycodone 5mg q4h, dilaudid 0.5mg q4h)
- Continue OOB
D/W Dr Lau and Meeta
Time Spent
Total Time Spent with Patient (in minutes): 10
Subjective Data
-
Date of Service: April 01, 2025
Patient has no abdominal pain at rest, just endorses mild incision site pain when moving. Has been able to slowly move OOB to chair. Tolerated PO solid food yesterday without N/V. Feels somewhat bloated in abdomen today and like needs to urinate but
having little urine - states he usually feels this way before HD (due today) but abdomen seems a bit more bloated than usual. Pt has been passing flatus and having BM. Denies CP, SOB. Patient at bedside.
Objective Data
-
Intake and Output
03/30/25 03/31/25 04/01/25
06:59 06:59 06:59
Intake Total 600 / 600 340 / 340 1030 / 1030
Output Total 450 / 450 100 / 100 125 / 125
Balance 150 / 150 240 / 240 905 / 905
Intake:
Oral fluids 600 / 600 240 / 240 980 / 980
IV fluids (Total) 100 / 100
IV piggybacks 50 / 50
Output:
Urine, Voided 450 / 450 100 / 100 125 / 125
Vital Signs
Temp Pulse Resp BP Pulse Ox
97.7 F 75 17 134/70 96
03/31/25 23:44 03/31/25 23:44 03/31/25 23:44 03/31/25 23:44 03/31/25 23:44
Calcium 8.3 mg/dl (8.4-10.2) L 03/31/25 05:44
Total Bilirubin 2.0 mg/dl (0.2-1.3) H 03/31/25 05:44
AST 32 U/L (17-59) 03/31/25 05:44
ALT 58 U/L (0-50) H 03/31/25 05:44
Alkaline Phosphatase 219 U/L (38-126) H 03/31/25 05:44
Total Protein 6.4 g/dl (6.3-8.2) 03/31/25 05:44
Albumin 3.5 g/dl (3.5-5.0) 03/31/25 05:44
Physical Exam
-
General: well-appearing, OOB in chair, no acute distress; somnolent but conversant/oriented
Abdomen: surgical incision sites clean & dry without drainage/purulence/erythema; no pain on palpation, no rebound tenderness; abdomen somewhat distended but no fluid wave or tympany; no suprapubic tenderness
Cardiopulm: no labored breathing
Extremities: mild pitting edema to ankle/lower avila
Patient has a galvez catheter: No
Patient has a central line: No
[2025-04-01 07:05] VITALS: BP 100/54
[2025-04-01 07:25] LABS: Glucose - Point of Care 259 mg/dl (70-99)
[2025-04-01 08:07] LABS: Hematocrit 27.3 % (39.0-52.0); Hemoglobin 9.4 g/dL (13.0-18.0); Mean Corp Hgb Conc. 34.4 g/dL (33.0-37.0); Mean Corpuscular Volume 97.2 fL (80.0-94.0); Platelet Count 203 10^3/uL (130-400); Red Cell Dist. Width 14.7 % (11.5-14.5)
[2025-04-01 08:27] LABS: APTT 79.9 Sec (23.4-35.0)
[2025-04-01 09:02] LABS: Carbon Dioxide 22 mmol/L (22-30); Chloride 98 mmol/L (98-107); Potassium 3.9 mmol/L (3.5-5.1); Sodium 133 mmol/L (135-145)
--- NOTE | 2025-04-01 09:21 | W.PN.HOSP.TC ---
Today's Communication/Plan
-
Cleared by general surgery for discharge today. No need for antibiotics upon discharge.
Assessment / Plan
Assessment / Plan
# Choledocholithiasis
- MRCP confirms choledocholithiasis or sludge in the common bile duct, cholelithiasis, iron deposition in the liver and spleen consistent with severe secondary hemochromatosis likely from chronic renal failure, cardiomegaly
- Appreciate GI input, s/p ERCP for sphincterotomy and stone removal on 03/27
- Appreciate general surgery input, status post laparoscopic cholecystectomy on 03/28
- Seen by cardiology for perioperative risk assessment
- Patient had worsening pain on 03/30, CT abdomen and pelvis negative for rim-enhancing fluid collection
- Tolerating solids today, cleared by general surgery for discharge. Status post IV Zosyn, no need for more antibiotics per general surgery
- Change IV heparin to Eliquis
- Follow-up with PCP in 1 week, general surgery in 2 weeks, and cardiology as directed
#Chornic HFpEF
- Nephrology recommends resuming Lasix, will resume today 03/31
#Permanent Atrial Fibrillation
- continue diltiazem
- Change IV heparin to Eliquis
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
Fe deposition levels in liver noted on MRCP. Pt had received Fe infusions in the past because of low Fe.
Fe sat 65%, Ferritin 1480. Call placed and discussed with Dr. Flower [facility], 03/26.
Requests information be noted on discharge summary and he will relate to Dr. Elam, who sees pt in office
Permanently discontinue ferrous sulfate tablets upon discharge
#Diabetes Mellitus, Type II
- AccuCheck with coverage
- SSI
- Resume Lantus upon discharge
#Diabetic Neuropathy
- continue gabapentin
#CKD - ESRD
-Appreciate nephrology input, continue dialysis Monday//Monday
#diarrhea
resolved, neg for C.Diff 03/26
#Hyperlipidemia
- continue ezetimibe and rosuvastatin
#CVA with Residual Left Hemiparesis
#Spinal Stenosis
#Secondary Hyperparathyroidism
#Chronic Anemia
DVT prophylaxis�change IV heparin to Eliquis
Full code
Updated at bedside 03/31
Physical Exam
General: No acute distress
HEENT: Normocephalic, Atraumatic, EOMI, MMM
Respiratory: Clear to Auscultation bilaterally
Cardiac: Normal S1/S2, Regular Rate and Rhythm
GI: Soft, nondistended, brenda-incisional tenderness noted, incisions clean/dry/intact
Extremities: No Clubbing, Cyanosis, or Edema
Neuro: Nonfocal/Grossly Intact
Anticipated Discharge: Today
Subjective/Interval History
-
Date of Service: April 01, 2025
Patient reports his abdominal pain has resolved. He is tolerating his solids. Denies chest pain, denies shortness of breath. No fever, no vomiting.
Objective Data
-
Labs:
Laboratory Results
04/01/25
07:57
WBC 8.7
Hgb 9.4 L
Hct 27.3 L
Plt Count 203
APTT 79.9 H
Sodium 133 L
Potassium 3.9
Chloride 98
Carbon Dioxide 22
Vital Signs:
Vital Signs
Temp Pulse Resp BP Pulse Ox
97.5 F 75 20 100/54 91
04/01/25 07:05 04/01/25 07:05 04/01/25 07:05 04/01/25 07:05 04/01/25 07:05
I&O
03/31/25 04/01/25 04/02/25
06:59 06:59 06:59
Intake Total 340 / 340 1030 / 1030
Output Total 100 / 100 125 / 125
Balance 240 / 240 905 / 905
[2025-04-01] MEDS: RETACRIT 8000 UNITS IV (09:29)
[2025-04-01] MEDS: NSS (PRESERVATIVE FREE) 10 ML IV (09:53)
[2025-04-01] MEDS: PROTONIX IV 40 MG IV (09:54)
[2025-04-01] MEDS: NOVOLOG FLEXPEN 3 UNITS SC ×3 (09:55→17:19)
[2025-04-01] MEDS: NOVOLOG FLEXPEN-LOW RESISTANCE 3 UNITS SC (09:56)
[2025-04-01] MEDS: CARDIZEM CD PO (10:17)
--- NOTE | 2025-04-01 10:20 | W.PN.NEPH.HD ---
Assessment
-
Seen on HD. no complaints. VSS< access ok.
off abx
Progress Note - Hemodialysis
-
Date of Service: April 01, 2025
Duration: 30 minutes and 3 hours
Potassium Bath: 3
Calcium Bath: 2.5
Opti-Dialyzer: 160
Ultrafiltration: EDW
Blood Flow: 400
Dialysate Flow: 600
Heparin: NO
EPO: 8000 units
--- NOTE | 2025-04-01 11:24 | W.PN.GI.CBS2 ---
Today's Communication / Plan
-
GI signing off
Assessment / Plan
-
74-year-old [place] male with past medical history of CVA with left-sided residual hemiparesis, HFpEF, paroxysmal A-fib on Eliquis (currently on hold last dose 03/23/2025), diabetic neuropathy, diabetes, CKD on hemodialysis Monday
Monday, chronic anemia, hypertension, hyperlipidemia, spinal stenosis, colon polyps who presents to the emergency room after acute onset of nausea and vomiting as well as abdominal pain that started Monday evening. The patient states that on
Monday he started with acute onset of upper abdominal discomfort that he describes as dull, constant, radiates through the back. He still does make small amount of urine he he states that this was darker. He has not had a bowel movement since the
pain started. He states that he felt feverish on Monday into Monday. He still does have the pain however this has improved some. Pain medication takes this away. He did receive dialysis on Monday. He states he has never had pain similar to
this in the past. He presented to the emergency room on 03/23/2025 with white count of 15.9, total bilirubin 4.9, AST 144, ALT 188, alk phos of 243. CT of the chest abdomen and pelvis without IV or oral contrast showed liver normal in size.
Gallbladder mildly distended. No gallbladder wall thickening or pericholecystic inflammation. Mild intrahepatic biliary dilatation. Mild extrahepatic biliary dilatation. CBD 9.8 mm. Mild diffuse pancreatic parenchymal atrophy. Spleen is
normal. We are asked to evaluate for the same.
Impression:
Choledocholithiasis s/p ERCP with removal
A-fib on Eliquis resumed 04/01/25
CKD on HD (usually Monday, Monday, last HD Monday)
History of CVA with left-sided residual hemiparesis
History of HFpEF
Diabetes
ERCP 03/27/2025 choledocholithiasis was removed
03/28/[address] Andrews -distended fatty increased gallbladder, cholangiogram with no filling defects. Did have some spillage of purulent appearing bile.
Plan:
--As per IM/General surgery
-Tolerating solid diet
-Eliquis resumed today.
-GI will sign off. Please call back if we can be of further assistance.
Subjective
Subjective
Date of Service: April 01, 2025
Patient without any abdominal pain. LFTs trending down. Tolerating diet. On HD. complains of 'itchy back'
Objective
Data Reviewed
Laboratory Data:
Laboratory Results
04/01/25 07:57
04/01/25 07:57
Laboratory Results
PT 14.3 Sec (11.4-14.6) 03/28/25 04:30
INR 1.08 03/28/25 04:30
APTT 79.9 Sec (23.4-35.0) H 04/01/25 07:57
Total Bilirubin 2.0 mg/dl (0.2-1.3) H 03/31/25 05:44
AST 32 U/L (17-59) 03/31/25 05:44
ALT 58 U/L (0-50) H 03/31/25 05:44
Alkaline Phosphatase 219 U/L (38-126) H 03/31/25 05:44
Lipase 128 U/L (23-300) 03/23/25 17:13
Vital Signs and I&O:
Vital Signs
Temp Pulse Resp BP Pulse Ox
97.5 F 75 20 100/54 91
04/01/25 07:05 04/01/25 07:05 04/01/25 07:05 04/01/25 07:05 04/01/25 07:05
I&O
03/31/25 04/01/25 04/02/25
06:59 06:59 06:59
Intake Total 340 / 340 1030 / 1030
Output Total 100 / 100 125 / 125
Balance 240 / 240 905 / 905
Physical Exam
Physical Exam
HEENT: Anicteric
Cardiology: Normal Sinus Rhythm
Pulmonary: Clear
GI: Soft, Non Distended, Non Tender and Normal Bowel Sounds
Neuro: Non Focal
--- NOTE | 2025-04-01 11:57 | W.DCSUMMARY ---
Discharge Summary
Discharge Data
Date of Admission: 03/23/25
Date of Discharge: 04/01/25
-
Pending Results: No
Hospital Course
Discharge diagnosis:
Jaundice
Choledocholithiasis
Chronic heart failure with a preserved ejection fraction
Permanent atrial fibrillation
Iron deposition in spleen and liver concerning for severe secondary hemochromatosis
End-stage renal failure on dialysis
Type 2 diabetes
Diabetic neuropathy
Hyperlipidemia
History of stroke with residual left-sided weakness
Spinal stenosis
Secondary hyperparathyroidism
Chronic anemia
MRCP:
1. CHOLEDOCHOLITHIASIS or sludge in the common bile duct.
2. Mild intrahepatic and extrahepatic biliary dilatation.
3. Cholelithiasis or sludge in the gallbladder lumen.
4. Severe diffuse iron deposition in the liver and spleen consistent with SEVERE SECONDARY HEMACHROMATOSIS (which is likely secondary to chronic renal failure).
5. SEVERE CHRONIC BILATERAL RENAL DISEASE with severe bilateral renal atrophy and a moderate number of renal cysts.
6. Mild to moderate cardiomegaly.
Consults: GI, general surgery, nephrology
Procedures:
03/27/2025 ERCP with sphincterotomy and stone removal
03/28/2025 laparoscopic cholecystectomy
Hospital course:
74-year-old male with a past medical history of atrial fibrillation on Eliquis, end-stage renal failure on dialysis, CHF, diabetes, and stroke with residual left-sided weakness who was admitted for jaundice secondary to choledocholithiasis.
Patient's Eliquis was held. He was treated with an IV heparin drip, and IV antibiotics. Patient was seen in conjunction with GI, and underwent ERCP with sphincterotomy and stone removal on 03/27/2025. He was seen in conjunction with general
surgery, and underwent laparoscopic cholecystectomy on 03/28/2025. Postoperatively, he developed severe pain on the evening of 03/30/2025. Repeat CAT scan was negative for an abscess. The following day, patient's pain improved. He tolerated solid
food. His IV heparin drip was discontinued, his Eliquis was resumed.
Patient's MRCP showed diffuse iron deposition in the liver and spleen consistent with severe secondary hemochromatosis. Patient is on oral iron, and receives outpatient IV iron infusions. Recommend he permanently discontinue his oral iron
supplements, and follow-up with his usual game designer Dr. Elam for further management.
Patient was seen in conjunction with nephrology, and received dialysis per his usual Monday//Monday schedule. He was seen in conjunction with PT, who recommended home care.
Patient is medically stable for discharge. He does not need any antibiotics upon discharge. He needs to follow-up with his primary care doctor in 1 week, cardiology as scheduled, general surgery in 2 weeks, and hematology in the office in 2-3
weeks.
Disposition: Home with home care
Discharge planning: Required 41-minute
Discharge Plan
-
Patient Disposition: Home with Home Care
Discharge Diagnosis/Procedures: Choledocholithiasis, obstructive jaundice. ERCP, laparoscopic cholecystectomy
Condition: Good
Diet: Low Cholesterol, Low Sodium and Diabetic, Carb Controlled
Activity: No strenuous activity
Bathing Restrictions: OK to Shower
Activity Restrictions/Additional Instructions:
Your abdominal MRI showed iron deposits in the liver and spleen.
Recommend you permanently stop your iron tablets, and follow-up with your usual game designer in 2-3 weeks.
Please follow-up with your primary care provider in less than 1 week, cardiology as scheduled, and your surgeon in 2 weeks.
Instructions following Laparoscopic Cholecystectomy
Please call [phone] if you have any questions or concerns after your surgery.
Wound Care:
Your incisions are covered with skin glue which will come off on its own in 5-10 days.
Cover the site where your drain was with a clean gauze dressing and change daily until drainage no longer noted
It is ok to shower the day after your surgery. Do not scrub the incisions, let soap and water wash over them and pat dry.
� Bruising around your incisions is normal.
� Using ice packs will help minimize this swelling.
� No swimming or soaking incisions for 1 week.
� Your stitches will dissolve and do not need to be removed.
Urinary retention:
A galvez catheter was placed for urinary retention during your stay and you were started on a new medication for BPH. Please follow up with urology in the coming week to discuss management and make sure you are adequately emptying your bladder.
Activity:
No heavy lifting more than 15 pounds for the next 3 weeks, then you may gradually lift heavier objects as tolerated by discomfort. Otherwise activity as tolerated by your comfort level.
Pain Management:
Use Tylenol, ibuprofen and ice packs to treat your pain.
� You may take 650 milligrams of Tylenol (Max 3 grams per day) every 6 hours, and 600 mg of ibuprofen also every 6 hours. (you can alternate them every 3 hours)
� You may use an ice pack to your incision as needed.
� If you still have pain not controlled by these measures, take your prescription pain medication as prescribed.
Medications:
You may resume your home medications.
Restart Eliquis on 03/30 at the usual dose and time
Bowel Medications:
Prescription pain medication can make you constipated. If you take this medication, also take colace 100 mg twice daily (this is over the counter). If this is not sufficient, you may take Miralax (polyethylene glycol) to help move your bowels.
Diet:
After your procedure, there are no dietary restrictions. However, you may notice some loose stools with fatty meals for up to 4 weeks after surgery. If this is the case, please adjust to a low fat diet as needed.
Things to Look out for:
Worsening Abdominal pain, fever, jaundice, redness or drainage from incision
Call Doctor for:
Please call if you notice worsening redness or drainage from incision(s) lasting longer than 5 days after your surgery, any foul-smelling drainage from the incision, pain not controlled by pain medications, persistent nausea and vomiting, or for any
fevers greater than 101.3 F. The number for questions/concerns is [phone]
Follow-up:
A follow-up appointment will be scheduled with your surgeon in 3-4 weeks. Please call prior to your appointment if you have any questions or concerns.
[phone]
Referrals:
Jessica Walton MD [Active, Hematology / Oncology] - in two to three weeks
Morgan Rodriguez MD [Active, Cardiology] - 05/12/25 8:40 am
Referral Note: Your appointment at the [facility] office has been moved up. Please call with questions
Juan Ramon Bashir DO [Family Provider, Family Practice] - in less than 1 week
Danny Andrews MD [Active, Surgical] - in two to four weeks
Prescriptions:
Continued
diltiazem HCl 180 MG capsule,extended release 24hr
180 mg PO BID
insulin aspart U-100 [Novolog FlexPen U-100 Insulin] 300 UNITS/3 ML insulin pen
4 - 6 units SC NOON
Patient Comments:
10/25/22- 121-150; 4 UNITS
151-200; 6 UNITS
201-250; 8 UNITS
251-300; 10 UNITS
301-350; 12 UNITS
351-400;14 UNITS
>400; CALL PROVIDER
Eliquis 5 MG tablet
5 mg PO BID
ezetimibe 10 mg Tablet
10 mg PO DAILY
gabapentin 100 mg Capsule
100 mg PO HS
rosuvastatin 10 mg Tablet
10 mg PO HS
omega-3 fatty acids-fish oil 684-1,200 mg Capsule,Delayed Release(Dr/Ec)
1 cap PO DAILY
bisacodyl 5 mg Tablet,Delayed Release (Dr/Ec)
10 mg PO DAILYPRN PRN (Reason: Constipation) Qty: 10 0RF
clonazepam 0.5 mg Tablet
0.5 mg PO HSPRN PRN (Reason: insomnia) Qty: 10 0RF
furosemide [Lasix] 40 mg Tablet
40 mg PO BID
insulin glargine [Lantus Solostar U-100 Insulin] 100 unit/mL (3 mL) insulin pen
14 unit SC HS
Discontinued
ferrous sulfate [FeroSul] 325 mg (65 mg iron) tablet
325 mg PO Q48H
Discharge Orders:
Discharge Patient (As Directed); Ordered 04/01/25
Ordered By: Taj Sorto
Discharge Date and Time
Discharge Date/Time: 04/01/25 18:36
Print Language: BULGARIAN
[2025-04-01] MEDS: LASIX PO (12:14)
--- NOTE | 2025-04-01 12:56 | CM ---
Reviewed the chart notes.
--- NOTE | 2025-04-01 12:57 | CM ---
Reviewed the chart notes. Patient has had [facility] in past and is agreeable to services at discharge. CM continues to be available to patient/family and is monitoring medical plan for needs at discharge.
Plan: Discharge to home with [facility] services and outpatient HD.
[2025-04-01 13:02] LABS: Glucose - Point of Care 122 mg/dl (70-99)
[2025-04-01] MEDS: NOVOLOG FLEXPEN-LOW RESISTANCE SC (13:15)
[2025-04-01] MEDS: ELIQUIS 5 MG PO (13:17)
[2025-04-01] MEDS: LOW STRENGTH ASPIRIN 81 MG PO (13:17)
[2025-04-01 14:53] LABS: Glucose - Point of Care 265 mg/dl (70-99)
[2025-04-01 15:00] VITALS: BP 118/43
[2025-04-01 15:57] VITALS: BP 118/43
[2025-04-01 16:41] LABS: Glucose - Point of Care 228 mg/dl (70-99)
[2025-04-01] MEDS: LASIX 40 MG PO (17:14)
[2025-04-01] MEDS: NOVOLOG FLEXPEN-LOW RESISTANCE 2 UNITS SC (17:18)
[2025-04-01] MEDS: ZOSYN IV (18:04)
== END 2025-04-01 18:36 | disposition home health service (06) | DRG 417 ==
LOC: 2 NORTH 20:30
PROVIDERS: Emergency Medicine; Internal Medicine; Nurse Practitioner Family; Physician Assistant Medical; Radiology Diagnostic Radiology; Radiology Vascular & Interventional Radiology; Specialist; Surgery; ADMITTING PHYSICIAN Internal Medicine; ATTENDING PHYSICIAN Family Medicine; CONSULT PHYSICIAN Internal Medicine Cardiovascular Disease; CONSULT PHYSICIAN Internal Medicine Gastroenterology; CONSULT PHYSICIAN Surgery; EMERGENCY PHYSICIAN Emergency Medicine; FAMILY PHYSICIAN Family Medicine; OTHER PHYSICIAN Internal Medicine Nephrology
PROC: 5A1D70Z Performance of Urinary Filtration, Intermittent, Less than 6 Hours Per Day (ICD-10-PCS; 2025-03-25)
PROC: 0FC98ZZ Extirpation of Matter from Common Bile Duct, Via Natural or Artificial Opening Endoscopic (ICD-10-PCS; 2025-03-27)
PROC: BF141ZZ Fluoroscopy of Gallbladder, Bile Ducts and Pancreatic Ducts using Low Osmolar Contrast (ICD-10-PCS; 2025-03-27)
PROC: 0FT44ZZ Resection of Gallbladder, Percutaneous Endoscopic Approach (ICD-10-PCS; 2025-03-28)
PROC: BF532Z0 Other Imaging of Gallbladder and Bile Ducts using Fluorescing Agent, Intraoperative (ICD-10-PCS; 2025-03-28)
DX: K80.65 Calculus of gallbladder and bile duct with chronic cholecystitis with obstruction (principal); N18.6 End stage renal disease; I13.2 Hypertensive heart and chronic kidney disease with heart failure and with stage 5 chronic kidney disease, or end stage renal disease; I48.21 Permanent atrial fibrillation; I50.32 Chronic diastolic (congestive) heart failure; I69.354 Hemiplegia and hemiparesis following cerebral infarction affecting left non-dominant side; N25.81 Secondary hyperparathyroidism of renal origin; J98.11 Atelectasis; M87.9 Osteonecrosis, unspecified; K82.8 Other specified diseases of gallbladder; D64.9 Anemia, unspecified; E78.00 Pure hypercholesterolemia, unspecified; M10.9 Gout, unspecified; K57.30 Diverticulosis of large intestine without perforation or abscess without bleeding; N28.1 Cyst of kidney, acquired; D72.829 Elevated white blood cell count, unspecified; M51.369 Other intervertebral disc degeneration, lumbar region without mention of lumbar back pain or lower extremity pain; M48.061 Spinal stenosis, lumbar region without neurogenic claudication; I34.81 Nonrheumatic mitral (valve) annulus calcification; I70.0 Atherosclerosis of aorta; K59.09 Other constipation; I25.10 Atherosclerotic heart disease of native coronary artery without angina pectoris; E11.22 Type 2 diabetes mellitus with diabetic chronic kidney disease; E11.36 Type 2 diabetes mellitus with diabetic cataract; E11.40 Type 2 diabetes mellitus with diabetic neuropathy, unspecified; Z99.2 Dependence on renal dialysis; Z79.4 Long term (current) use of insulin; Z79.01 Long term (current) use of anticoagulants; Z79.84 Long term (current) use of oral hypoglycemic drugs; Z87.891 Personal history of nicotine dependence; Z86.0100 Personal history of colon polyps, unspecified
CPT/HCPCS: 88304; 71250; 74176; 74177; 74181; 74300; 74330; 76000; 76705; 80048; 80051; 80053; 81003; 81015; 82728; 82962; 83036; 83540; 83550; 83690; 83880; 84484; 85025; 85027; 85610; 85730; 86850; 86900; 86901; 87070; 87324; 87340; 87449; 93005; 93306; 96365; 97116; 97162; 99285; A4300; C1769; G0257; P9047; Q5106; Q9967

== ENCOUNTER → 2025-04-18 07:19 | Outpatient (REF) | payer MEDICARE, OTHER, SELFPAY ==
[2025-04-18 08:34] LABS: ALT (SGPT) 30 U/L (0-50); AST (SGOT) 44 U/L (17-59); Albumin 4.2 g/dl (3.5-5.0); Alkaline Phosphatase 156 U/L (38-126); Blood Urea Nitrogen 30 mg/dl (9-20); Calcium 8.7 mg/dl (8.4-10.2); Carbon Dioxide 27 mmol/L (22-30); Chloride 100 mmol/L (98-107); Glucose 116 mg/dl (70-99); HDL Cholesterol 34 mg/dl; LDL Cholesterol, Calculated 51 mg/dl; Potassium 4.4 mmol/L (3.5-5.1); Sodium 136 mmol/L (135-145); Total Protein 7.5 g/dl (6.3-8.2); Very Low Density Lipoprotein 24 mg/dl (0-30); eGFR 16.23
[2025-04-18 12:10] LABS: Glycohemoglobin (HgbA1c) 5.6 % (4.0-5.6)
== END ==
LOC: REG 07:19
PROVIDERS: ATTENDING PHYSICIAN Surgery; FAMILY PHYSICIAN Family Medicine
DX: Z90.49 Acquired absence of other specified parts of digestive tract (principal); R10.9 Unspecified abdominal pain; E11.29 Type 2 diabetes mellitus with other diabetic kidney complication; E78.00 Pure hypercholesterolemia, unspecified
CPT/HCPCS: 36415; 80053; 80061; 83036

== ENCOUNTER → 2025-04-23 08:02 | Outpatient (REF) | payer MEDICARE, OTHER, SELFPAY | LOC: RAD 08:02 | PROVIDERS: ATTENDING PHYSICIAN Surgery; FAMILY PHYSICIAN Family Medicine | DX: Z90.49 Acquired absence of other specified parts of digestive tract (principal); R10.9 Unspecified abdominal pain | CPT/HCPCS: 74177; Q9967 ==